=== PATIENT | male | born 1970 | race Caucasian/White ===

== ENCOUNTER 2018-03-22 00:43 | Outpatient (CLI) | payer MEDICARE, SELFPAY ==
--- NOTE | 2018-03-22 09:29 | DI.US_ITS ---
SYMPTOMS/DIAGNOSIS: LOCALIZED SWELLING, MASS/LUMP, R22.9 SOFT TISSUE ULTRASOUND LEFT AXILLA: Ultrasound was performed to evaluate questionable palpable abnormality of the left axilla. The palpable abnormality appears to correspond with a poorly defined moderately echogenic proximally 7 mm in diameter homogeneous mass with no increased vascular flow on doppler evaluation. The findings as described may represent a lipoma. The patient reportedly has a history of melanoma and considering this history the possibility of metastatic lesion could not be absolutely excluded, although unlikely. Additional evaluation with CT or MRI of this area recommended to exclude neoplastic disease.
== END 2018-03-22 01:03 ==
PROVIDERS: PCP Emergency Medicine; Visit Provider Emergency Medicine
DX: R22.9 Localized swelling, mass and lump, unspecified (principal); Z85.820 Personal history of malignant melanoma of skin
CPT/HCPCS: 76642

== ENCOUNTER → 2018-03-26 01:38 | Outpatient (CLI) | payer MEDICARE, SELFPAY ==
--- NOTE | 2018-03-26 10:52 | DI.CT_ITS ---
SYMPTOMS/DIAGNOSIS: MASS OF LT AXILLA, R22.32 CT OF THE LEFT UPPER EXTREMITY: CT scan of the left axillary region was performed. A marker was placed on the area palpable concern. Comparison is made with ultrasound from 03/22/18. No solid mass is identified in the area of palpable abnormality. Only fat density soft tissue is present. This appears to correspond to the sonographic findings and suggests that the palpable lesion is a small lipoma. The visualized muscles are unremarkable. They are normal in size. No fatty atrophy is seen. The bones are normally mineralized. No suspicious lytic or sclerotic lesions, fracture or dislocation is seen. There are small benign appearing lymph nodes seen in the axillary region. The visualized lung mesa are clear. IMPRESSION: 1. No evidence of a suspicious soft tissue mass to correspond to the palpable abnormality. 2. In the area of palpable concern normal fat density material is seen. This suggests that the small palpable lesion represents a small lipoma.
== END ==
PROVIDERS: PCP Emergency Medicine; Visit Provider Emergency Medicine
DX: R22.32 Localized swelling, mass and lump, left upper limb (principal); D17.39 Benign lipomatous neoplasm of skin and subcutaneous tissue of other sites
CPT/HCPCS: 73200

== ENCOUNTER 2018-10-27 08:04 | Outpatient (CLI) | payer MEDICARE, SELFPAY ==
[2018-10-27 08:54] LABS: HCT 40.8 % (40.0-50.0); Mean Corp. HGB Concentration 34.3 g/dL (32.0-36.0); Mean Corpuscular Hemoglobin 30.8 pg (27.0-33.0); Mean Corpuscular Volume 89.7 fL (80-95); Mean Platelet Volume 9.7 fL (8.0-11.0); Platelet Count 177 x1000/uL (130-400); RBC 4.55 m/cumm (4.50-6.00); RBC Distribution Width 13.1 % (11.8-14.1); White Blood Cell Count 5.75 k/cumm (4.4-10.8)
[2018-10-27 08:56] LABS: Hemoglobin A1C 5.5 % (4.5-6.2)
[2018-10-27 09:14] LABS: Bilirubin Negative (Negative); Blood Trace-intact (Negative); Clarity Clear; Glucose Negative (Negative); Ketones Negative (Negative); Leukocyte Esterase Negative (Negative); Nitrite Negative (Negative); Specific Gravity 1.015 (1.005-1.025); Urobilinogen 0.2 EU/dL (Up TO 0.2)
[2018-10-27 09:15] LABS: PROTEIN 32.2 mg/dL
[2018-10-27 09:18] LABS: COMMENT (LAB VIEW ONLY) 50.32 mg/dL; Prot/Crea Ur Ratio 0.63
[2018-10-27 09:49] LABS: ALT 51 U/L (12-78); AST 30 U/L (15-37); Albumin 3.5 g/dL (3.4-5.0); Alkaline Phosphatase 60 U/L (46-116); Amylase 64 U/L (25-115); Anion Gap 9.1 mmol/L (3-11); BUN 14 mg/dL (7-18); Bilirubin, Total 0.3 mg/dL (0.2-1.0); CO2 26.9 mmol/L (21.0-32.0); CREATININE 0.91 mg/dL (0.70-1.30); Calcium 8.7 mg/dL (8.5-10.1); Chloride 99 mmol/L (98-107); Glucose 87 mg/dL (70-100); Lipase 158 U/L (73-393); Magnesium 1.6 mg/dL (1.8-2.4); PHOSPHORUS 4.1 mg/dL (2.6-4.7); Potassium 4.3 mmol/L (3.5-5.1); Sodium 135 mmol/L (136-145); Total Protein 6.9 g/dL (6.4-8.2)
[2018-10-27 09:51] LABS: Cholesterol 182 mg/dL (50-200)
[2018-10-27 09:56] LABS: Bacteria Rare HPF (Negative); C & S Indicated? No; Casts Negative LPF (Negative); Crystals Negative HPF (Negative); Epithelial Cells Rare HPF (Negative); Mucus Negative (Negative); RBC 0-2 (0-2); WBC 0-2 HPF (0-5)
[2018-10-28 13:05] LABS: Tacrolimus 8.8 ng/ml
== END 2018-10-27 08:24 ==
PROVIDERS: PCP Emergency Medicine; Visit Provider Internal Medicine Nephrology
DX: Z94.83 Pancreas transplant status (principal); Z79.899 Other long term (current) drug therapy
CPT/HCPCS: 36415; 80053; 80197; 83690; 85027; 81003; 81015; 82150; 82465; 82565; 83036; 83735; 84100; 84156; 84550

== ENCOUNTER 2019-02-17 07:33 | Outpatient (CLI) | payer MEDICARE, SELFPAY ==
[2019-02-17 08:26] LABS: Bilirubin Negative (Negative); Blood Trace-intact (Negative); Clarity Clear (Clear); Glucose Negative (Negative); Ketones Negative (Negative); Leukocyte Esterase Negative (Negative); Nitrite Negative (Negative); Urobilinogen 0.2 EU/dL (Up TO 0.2); pH 5.5 (5-8)
[2019-02-17 08:27] LABS: HGB 13.5 g/dL (13.5-17.5); Mean Corp. HGB Concentration 33.8 g/dL (32.0-36.0); Mean Platelet Volume 9.9 fL (8.0-11.0); Platelet Count 193 x1000/uL (130-400); RBC 4.35 m/cumm (4.50-6.00); RBC Distribution Width 13.2 % (11.8-14.1); White Blood Cell Count 5.07 k/cumm (4.4-10.8)
[2019-02-17 08:45] LABS: Bacteria Negative HPF (Negative); C & S Indicated? No; Casts Negative LPF (Negative); Crystals Negative HPF (Negative); Epithelial Cells Negative HPF (Negative); Mucus Negative (Negative); RBC 0-2 (0-2); WBC 0-2 HPF (0-5)
[2019-02-17 08:46] LABS: Hemoglobin A1C 5.2 % (4.5-6.2)
[2019-02-17 10:18] LABS: ALT 36 U/L (16-63); AST 26 U/L (15-37); Albumin 3.9 g/dL (3.4-5.0); Alkaline Phosphatase 55 U/L (46-116); Amylase 59 U/L (25-115); Anion Gap 13.1 mmol/L (3-11); BUN 17 mg/dL (7-18); Bilirubin, Total 0.4 mg/dL (0.2-1.0); CO2 23.9 mmol/L (21.0-32.0); Calcium 8.6 mg/dL (8.5-10.1); Chloride 101 mmol/L (98-107); Glucose 81 mg/dL (70-100); Lipase 123 U/L (73-393); Magnesium 1.6 mg/dL (1.8-2.4); PHOSPHORUS 3.5 mg/dL (2.6-4.7); Potassium 4.5 mmol/L (3.5-5.1); Sodium 138 mmol/L (136-145); Total Protein 7.1 g/dL (6.4-8.2); Uric Acid 6.3 mg/dL (3.5-7.2)
[2019-02-17 10:32] LABS: COMMENT (LAB VIEW ONLY) 59.83 mg/dL; PROTEIN 15.7 mg/dL; Prot/Crea Ur Ratio 0.26
[2019-02-17 10:36] LABS: Cholesterol 181 mg/dL (50-200)
[2019-02-18 13:58] LABS: Tacrolimus 10.2 ng/ml
== END 2019-02-17 07:53 ==
PROVIDERS: PCP Emergency Medicine; Visit Provider Internal Medicine Nephrology
DX: Z79.899 Other long term (current) drug therapy (principal); Z94.83 Pancreas transplant status
CPT/HCPCS: 36415; 80053; 83690; 85027; 80197; 81003; 81015; 82150; 82465; 82565; 83036; 83735; 84100; 84156; 84550

== ENCOUNTER 2019-06-27 23:03 | Emergency (ER) | payer MEDICARE, SELFPAY ==
[2019-06-27 23:06] VITALS: BP 164/84; PULSE 83; RESP 20; TEMP 36.1; O2SAT 97
--- NOTE | 2019-06-27 23:08 | W.ED.GENAD ---
Discharge Plan Disposition Patient Disposition: HOME Condition: Stable Discharge Details Chief Complaint: RespSymp Clinical Impression: Sinusitis Primary Care Provider: Judson Carr ED Provider: Zachary Marshall [place] Meds and New Rx's Prescriptions: New amoxicillin-pot clavulanate [Augmentin] 875-125 mg tablet 1 tab PO BID Qty: 20 RF: 0 Continued nitroglycerin 0.4 MG tablet, sublingual 0.4 mg Sublingual PRN Qty: 25 RF: 4 atorvastatin 80 MG tablet 80 mg PO DAILY RF: 0 clonazepam [Klonopin] 0.5 MG tablet 0.5 mg PO TID Qty: 120 RF: 3 nicotine (polacrilex) [Nicorette] 2 MG gum 2 mg PO Q2H PRN Qty: 100 RF: 3 escitalopram oxalate 20 mg tablet 10 - 20 mg PO DAILY Qty: 90 RF: 3 fludrocortisone 0.1 MG tablet 0.1 mg PO DAILY Qty: 90 RF: 4 metoprolol tartrate 25 MG tablet 50 mg PO BID RF: 0 aspirin [Aspir-81] 81 MG tablet,delayed release (DR/EC) 81 mg PO DAILY RF: 0 levothyroxine [Synthroid] 50 MCG tablet 50 mcg PO DAILY RF: 0 mycophenolate mofetil [CellCept] 250 MG capsule 750 mg PO BID RF: 0 diltiazem HCl [Cardizem] 120 MG tablet 120 mg PO DAILY RF: 0 docusate sodium [Colace] 100 MG capsule 100 mg PO PRN PRNRF: 0 tacrolimus [Prograf] 1 MG capsule 1 tab PO HS RF: 0 tacrolimus [Prograf] 1 MG capsule 2 mg PO DAILY AM RF: 0 hydrocortisone 20 MG tablet 20 mg PO DIRECTED RF: 0 metoclopramide HCl 10 MG tablet 10 mg PO BID RF: 0 No Action doxycycline hyclate 100 mg tablet 200 mg PO ONCE Qty: 2 RF: 0 Discharge Instructions Instructions: Sinusitis (ED) Additional Instructions: follow up with your primary care provider if not better within 1 week if you feel more ill, have high fevers or difficulty breathing return to the emergency department for evaluation Medical Decision Making 49 yo male with hx of DM s/p pancreas transplant comes in with 2 weeks of sinus pain and pressure, rhinorrhea, sore throat and cough. Denies fevers, chills, chest pain, abd pain, rashes, recent travel. He arrives in no distress speaking in full sentences, has clear rhinorrhea on exam, normal tm's and ext aud canals, normal oropharynx with midline uvula and no pain over hyoid or restricted neck movements. No vision changes. Has eomi withotu pain. Does have pain with percussion over maxillary sinuses. SEems consistent with sinusitis and given over 10 days of symptoms feel abx are indicated. Will start him on these, advised f/u with pcp and return precautions given Differential Diagnosis Differential Diagnosis: sinusitis, pharyngitis, uri HPI General Mode of arrival: ambulatory. Date/Time Provider Initiated Documentation: 06/27/19 23:08. Limitations to Documentation: no limitations. Information obtained by: patient. History of Present Illness 49 year old M presents to the emergency department with the chief complaint of sinus pressure, described as moderate, and is localized to the face. Patient reports no radiation. Patient started experiencing this day(s) (14) and it has been constant. No relieving factors improve symptom(s), No exacerbating factors reported . Patient notes no other symptoms.. Patient did receive the following treatments prior to arrival, none Related Data Home Medications Medication Instructions Recorded Confirmed fludrocortisone 0.1 mg PO DAILY #90 10/13/12 03/16/18 metoprolol tartrate 50 mg PO BID 10/13/12 03/16/18 nitroglycerin 0.4 mg SUBLINGUAL PRN #25 01/24/13 03/16/18 aspirin [Aspir-81] 81 mg PO DAILY 05/12/13 03/16/18 diltiazem HCl [Cardizem] 120 mg PO DAILY 05/12/13 03/16/18 docusate sodium [Colace] 100 mg PO PRN PRN 05/12/13 03/16/18 levothyroxine [Synthroid] 50 mcg PO DAILY 05/12/13 03/16/18 mycophenolate mofetil [CellCept] 750 mg PO BID 05/12/13 03/16/18 tacrolimus [Prograf] 1 tab PO HS 05/12/13 03/16/18 tacrolimus [Prograf] 2 mg PO DAILY AM 05/12/13 03/16/18 hydrocortisone 20 mg PO DIRECTED 07/05/14 03/16/18 atorvastatin 80 mg PO DAILY tab-cap 09/26/14 03/16/18 clonazepam [Klonopin] 0.5 mg PO TID #120 tab-cap 12/13/14 03/16/18 nicotine (polacrilex) [Nicorette] 2 mg PO Q2H PRN #100 piece of gum 07/15/16 03/16/18 metoclopramide HCl 10 mg PO BID 10/28/17 03/16/18 doxycycline hyclate 100 mg tablet 200 mg PO ONCE #2 tab 05/04/18 escitalopram oxalate 20 mg tablet 10 - 20 mg PO DAILY #90 tab-cap 08/03/18 amoxicillin-pot clavulanate 1 tab PO BID #20 tab 06/27/19 [Augmentin] Previous Rx's Medication Instructions Recorded doxycycline hyclate 100 mg tablet 200 mg PO ONCE #2 tab 05/04/18 escitalopram oxalate 20 mg tablet 10 - 20 mg PO DAILY #90 tab-cap 08/03/18 amoxicillin-pot clavulanate 1 tab PO BID #20 tab 06/27/19 [Augmentin] Allergies Allergy/AdvReac Type Severity Reaction Status Date / Time No Known Allergies Allergy Unverified 06/27/19 23:11 Review of Systems All systems reviewed & are unremarkable except as noted in HPI and below Constitutional Constitutional: Denies chills, Denies fever(s) and Denies weakness ENT Ears, Nose, Mouth, and Throat: Denies change in voice Cardiovascular Cardiovascular: Denies chest pain and Denies dyspnea Respiratory Respiratory: Denies dyspnea Gastrointestinal Gastrointestinal: Denies abdominal pain, Denies nausea and Denies vomiting Genitourinary Genitourinary: Denies dysuria Musculoskeletal Musculoskeletal: Denies joint swelling Integumentary/Breasts Skin/Breast: Denies rash Neurologic Neurologic: Denies weakness [facility] Medical History (Updated 04/04/19 @ 10:28 by Fer Long) [place]'s disease (Acute 08/23/13) Pancreatic transplant 2013 Atherosclerosis of [place] coronary artery (Acute) Chest pain (Acute) 12/2010; MPI NEGATIVE Coronary atherosclerosis of [place] coronary vessel (Acute) Depressive disorder (Acute) Derangement of medial meniscus of left knee (Acute 04/10/17) Essential hypertension (Acute 03/22/13) Gastroesophageal reflux disease (Acute) hematemesis History of tobacco use (Acute) Internal derangement of left knee (Acute 03/16/17) Myocardial infarction acute (Acute 05/21/03) RCA stent placed Obstructive sleep apnea on CPAP (Acute 04/12/14) Obstructive sleep apnea syndrome (Acute) CPAP Peripheral neuralgia (Acute) Surgical History (Updated 04/04/19 @ 10:28 by Fer Long) Colonoscopy - MAC 08/2008; NEG 07/07/14; NEG Coronary Stent 2003;RCA SHOULDER SURGERY (~06/2009) LEFT Vasectomy Social History Smoking/Tobacco Use Status: Former Tobacco Use Alcohol Intake: current Alcohol Intake frequency: a few times a week Drug use: Never Substance use type: does not use Do you feel safe at home: Yes Do you feel safe in your relationship?: Yes Exam Const General: no acute distress Orientation: alert HENMT Head: normal to inspection Ears: external ears normal General nose exam: external nose normal Mouth: moist mucous membranes Eyes General: appearance normal, both eyes and all related structures Neck Neck: normal visual inspection Resp Effort & Inspection: normal respiratory effort and able to speak in complete sentences Cardio Rate: regular rate Skin General skin exam: no rashes or lesions noted Neuro General: alert and oriented x3 Extrem General: normal to inspection Psych Mental Status: mental status grossly normal
[2019-06-27] MEDS: Amoxicillin 875/Clav. 125 TAB PO (23:15)
[2019-06-27 23:20] VITALS: BP 164/84; PULSE 83; RESP 20; TEMP 36.1; O2SAT 97
== END 2019-06-27 23:20 | disposition home or self-care (01) ==
PROVIDERS: Emergency Provider Emergency Medicine; PCP Emergency Medicine
DX: J01.00 Acute maxillary sinusitis, unspecified (principal); J02.9 Acute pharyngitis, unspecified; H92.03 Otalgia, bilateral; E11.9 Type 2 diabetes mellitus without complications
CPT/HCPCS: 99283

== ENCOUNTER 2019-07-12 07:00 | Outpatient (CLI) | payer MEDICARE, SELFPAY ==
[2019-07-12 13:34] LABS: Abs Immature Grans 0.02 k/cumm (0.0-0.09); Absolute Basophil Count 0.02 k/cumm (0.0-0.2); Absolute Eosinophil Count 0.32 k/cumm (0.0-0.7); Absolute Lymphocyte Count 1.01 k/cumm (1.2-3.4); Absolute Monocyte Count 0.64 k/cumm (0.11-0.7); Absolute Neutrophil Count 4.37 k/cumm (1.2-6.7); Basophils % 0.3; HGB 12.7 g/dL (13.5-17.5); Immature Grans % 0.3 %; Lymphocytes % 15.8; Mean Corp. HGB Concentration 35.3 g/dL (32.0-36.0); Mean Corpuscular Hemoglobin 31.4 pg (27.0-33.0); Mean Corpuscular Volume 88.9 fL (80-95); Mean Platelet Volume 9.5 fL (8.0-11.0); Neutrophils % 68.6; Platelet Count 253 x1000/uL (130-400); RBC 4.05 m/cumm (4.50-6.00); RBC Distribution Width 11.6 % (11.8-14.1); White Blood Cell Count 6.38 k/cumm (4.4-10.8)
[2019-07-12 14:12] LABS: Hemoglobin A1C 5.8 % (3.8-5.6)
[2019-07-12 14:18] LABS: ESR 17 mm/hr (1-20)
[2019-07-12 14:29] LABS: ALT 27 U/L (16-63); AST 25 U/L (15-37); Albumin 4.5 g/dL (3.4-5.0); Alkaline Phosphatase 59 U/L (46-116); Amylase 78 U/L (25-115); BUN 31 mg/dL (7-18); Bilirubin, Total 0.6 mg/dL (0.2-1.0); CO2 22.9 mmol/L (21.0-32.0); CREATININE 1.12 mg/dL (0.70-1.30); Calcium 9.4 mg/dL (8.5-10.1); Chloride 98 mmol/L (98-107); Glucose 84 mg/dL (74-106); Lipase 210 U/L (73-393); Total Protein 7.9 g/dL (6.4-8.2)
[2019-07-12 14:32] LABS: Anion Gap 7.1 mmol/L (3-11); Potassium 7.3 mmol/L (3.5-5.1); Sodium 128 mmol/L (136-145)
== END 2019-07-12 07:20 ==
PROVIDERS: PCP Emergency Medicine; Visit Provider Emergency Medicine
DX: R53.83 Other fatigue (principal); E11.9 Type 2 diabetes mellitus without complications; R19.7 Diarrhea, unspecified; R10.9 Unspecified abdominal pain
CPT/HCPCS: 36415; 80053; 82533; 83690; 85652; 82150; 83036; 85025; 86140

== ENCOUNTER 2019-07-12 15:52 | Emergency (ER) | payer MEDICARE, SELFPAY ==
[2019-07-12 15:59] VITALS: BP 134/84; PULSE 71; RESP 16; TEMP 36.4; O2SAT 100
[2019-07-12] MEDS: Normal Saline 1,000 ML 1000 ML IV (16:21)
[2019-07-12] MEDS: Normal Saline Flush 10 ML SYR IVP (16:21)
[2019-07-12 16:23] LABS: Lactate 0.6 mmol/L (0.6-1.4)
[2019-07-12 16:28] LABS: Abs Immature Grans 0.02 k/cumm (0.0-0.09); Absolute Basophil Count 0.02 k/cumm (0.0-0.2); Absolute Eosinophil Count 0.37 k/cumm (0.0-0.7); Absolute Lymphocyte Count 1.19 k/cumm (1.2-3.4); Absolute Monocyte Count 0.93 k/cumm (0.11-0.7); Absolute Neutrophil Count 4.04 k/cumm (1.2-6.7); Basophils % 0.3; Eosinophils % 5.6; HCT 34.9 % (40.0-50.0); HGB 12.2 g/dL (13.5-17.5); Immature Grans % 0.3 %; Lymphocytes % 18.1; Mean Corpuscular Hemoglobin 31.1 pg (27.0-33.0); Mean Platelet Volume 9.1 fL (8.0-11.0); Monocytes % 14.2; Neutrophils % 61.5; Platelet Count 233 x1000/uL (130-400); RBC 3.92 m/cumm (4.50-6.00); RBC Distribution Width 11.6 % (11.8-14.1); White Blood Cell Count 6.57 k/cumm (4.4-10.8)
--- NOTE | 2019-07-12 16:31 | W.ED.GENAD ---
Discharge Plan Disposition Patient Disposition: HOME Condition: Improving Discharge Details Chief Complaint: GenMedical Clinical Impression: Hyperkalemia Primary Care Provider: Judson Carr ED Provider: Bety Durant Home Meds and New Rx's Prescriptions: Continued lisinopril 40 mg tablet 40 mg PO DAILY RF: 0 nitroglycerin 0.4 MG tablet, sublingual 0.4 mg Sublingual PRN Qty: 25 RF: 4 atorvastatin 80 MG tablet 80 mg PO DAILY RF: 0 clonazepam [Klonopin] 0.5 MG tablet 0.5 mg PO TID Qty: 120 RF: 3 nicotine (polacrilex) [Nicorette] 2 MG gum 2 mg PO Q2H PRN Qty: 100 RF: 3 escitalopram oxalate 20 mg tablet 10 - 20 mg PO DAILY Qty: 90 RF: 3 fludrocortisone 0.1 MG tablet 0.1 mg PO DAILY Qty: 90 RF: 4 metoprolol tartrate 25 MG tablet 50 mg PO BID RF: 0 aspirin [Aspir-81] 81 MG tablet,delayed release (DR/EC) 81 mg PO DAILY RF: 0 levothyroxine [Synthroid] 50 MCG tablet 50 mcg PO DAILY RF: 0 mycophenolate mofetil [CellCept] 250 MG capsule 750 mg PO BID RF: 0 diltiazem HCl [Cardizem] 120 MG tablet 120 mg PO DAILY RF: 0 docusate sodium [Colace] 100 MG capsule 100 mg PO PRN PRNRF: 0 tacrolimus [Prograf] 1 MG capsule 1 tab PO HS RF: 0 tacrolimus [Prograf] 1 MG capsule 2 mg PO DAILY AM RF: 0 hydrocortisone 20 MG tablet 20 mg PO DIRECTED RF: 0 metoclopramide HCl 10 MG tablet 10 mg PO BID RF: 0 Discharge Instructions Instructions: Hyperkalemia (ED) Additional Instructions: Continue to encourage water intake. Before taking her lisinopril in the morning, please touch base with primary care cardiology to discuss your lisinopril dosing. I am concerned that your elevated potassium may be associated with the increased dosing and lisinopril. If you develop chest pain, shortness of breath, palpitations, increased weakness or other new/worsening symptoms please seek care urgently once again. Otherwise, please follow-up with your primary care this week and keep your upcoming appointment with your transplant surgeon. Referrals: Judson Carr, DO [Primary Care Provider] - Discharge Data Discharge Date/Time-TO BE ENTERED AT DEPARTURE: 07/12/19 18:50 Medical Decision Making Patient is a 49-year-old male with history of [place]'s disease. Patient status post pancreatic transplant, reports transplant date approximate 7 years ago. States he has been doing well since that time. However, he is noticed increased fatigue and muscle degeneration, weakness and achiness x2 to 3 months. States that he is noticed an increase in his appetite. States he has been sleeping well. Was recently on Augmentin for strep throat. Did have lisinopril increased and may from 30-40. Otherwise, no recent medication changes. He is scheduled to see his transplant surgeon on Thursday. States that he has had some nausea over recent weeks and vomited x1. Patient does drink approximately 2 beers per day and continues to smoke cigarettes. Patient was sent here by his primary care after baseline labs were ordered and patient's potassium was noted to be 7.3. On exam, patient is resting comfortably. Vitals are within normal limits. He has no acute abnormality noted on exam. EKG was reviewed by Dr. Davidson. Patient is in a normal sinus rhythm with a rate of 68. No acute ischemic changes are noted. In particular, no evidence to suggest hyperkalemia. Repeat labs which were reassuring. Patient is mildly anemic with a hemoglobin of 12.2. Potassium is 5.4. Unclear if the previous 7.3 was a lab error earlier this is only been a few hours and patient has not had any intervention. I did specifically question of the patient had been taking the insulin as he had previous reports has not been using insulin since his pancreatic transplant 7 years ago. BUN is still elevated at 31. Patient has been receiving fluids since being here. Troponin is within normal limits. TSH is within normal limits. I did add on a Lyme and tick panel. On further questioning, patient's increase in his lisinopril was in April, right around the time patient began having his fatigue and muscle discomfort. I am questioning if this increase in dosing may be driving his hyperkalemia. He typically takes his lisinopril in the morning. Advised that tomorrow morning he contact primary care or cardiology to discuss changing his dose. I did attempt to reach out to his primary care but was unable to contact them secondary to the time of day. Patient was given strict return precautions. Bryce and Lyme panel are pending. We will call with any positive results. Just prior to patient departing the department, his PCP called back and agrees with the patient cutting back on his Lisinopril to what his previous dosing had been. He iwll f/u closely with PCP. All of the patients quesitons and concerns were addressed, they are in agreement with this plan. HPI General Mode of arrival: ambulatory. Date/Time Provider Initiated Documentation: 07/12/19 15:53. Limitations to Documentation: no limitations. Information obtained by: patient, family () and RN notes reviewed. History of Present Illness 49 year old M presents to the emergency department with the chief complaint of hyperkalemia, fatigue, nausea, Patient started experiencing this month(s) (3) and it has been constant. No relieving factors improve symptom(s), No exacerbating factors reported . Patient notes malaise, nausea/vomiting and weakness (generalized fatigue and weakness); denies confusion, chest pain, cough, fever/chills, headaches, loss of appetite (increased appetite), rash and shortness of breath. Patient did receive the following treatments prior to arrival, none Related Data Home Medications Medication Instructions Recorded Confirmed fludrocortisone 0.1 mg PO DAILY #90 10/13/12 07/12/19 metoprolol tartrate 50 mg PO BID 10/13/12 06/27/19 nitroglycerin 0.4 mg SUBLINGUAL PRN #25 01/24/13 07/12/19 aspirin [Aspir-81] 81 mg PO DAILY 05/12/13 07/12/19 diltiazem HCl [Cardizem] 120 mg PO DAILY 05/12/13 07/12/19 docusate sodium [Colace] 100 mg PO PRN PRN 05/12/13 07/12/19 levothyroxine [Synthroid] 50 mcg PO DAILY 05/12/13 07/12/19 mycophenolate mofetil [CellCept] 750 mg PO BID 05/12/13 07/12/19 tacrolimus [Prograf] 1 tab PO HS 05/12/13 07/12/19 tacrolimus [Prograf] 2 mg PO DAILY AM 05/12/13 07/12/19 hydrocortisone 20 mg PO DIRECTED 07/05/14 07/12/19 atorvastatin 80 mg PO DAILY tab-cap 09/26/14 07/12/19 clonazepam [Klonopin] 0.5 mg PO TID #120 tab-cap 12/13/14 07/12/19 nicotine (polacrilex) [Nicorette] 2 mg PO Q2H PRN #100 piece of gum 07/15/16 07/12/19 metoclopramide HCl 10 mg PO BID 10/28/17 07/12/19 escitalopram oxalate 20 mg tablet 10 - 20 mg PO DAILY #90 tab-cap 08/03/18 07/12/19 lisinopril 40 mg tablet 40 mg PO DAILY 07/12/19 07/12/19 Previous Rx's Medication Instructions Recorded escitalopram oxalate 20 mg tablet 10 - 20 mg PO DAILY #90 tab-cap 08/03/18 Allergies Allergy/AdvReac Type Severity Reaction Status Date / Time No Known Allergies Allergy Verified 07/12/19 16:03 General Stated Complaint: GenMedical JIAN: 3 Review of Systems Constitutional Constitutional: Reports as per HPI, Denies chills, Reports fatigue, Denies fever(s), Denies headache(s), Denies lethargy, Reports malaise, Denies poor appetite and Reports weakness (generalized) Eyes Eyes: Denies change in vision ENT Ears, Nose, Mouth, and Throat: Denies dizziness and Denies headache(s) Cardiovascular Cardiovascular: Reports as per HPI, Denies dyspnea and Denies dyspnea on exertion Respiratory Respiratory: Reports as per HPI, Denies chest congestion, Denies cough, Denies pain on inspiration, Denies pain with cough, Denies dyspnea, Denies dyspnea on exertion and Denies wheezing Gastrointestinal Gastrointestinal: Reports as per HPI, Denies abdominal pain, Denies diarrhea, Reports nausea and Denies vomiting Genitourinary Genitourinary: Denies system reviewed and no additional complaints, except as docu (denies change in urinary habits) Musculoskeletal Musculoskeletal: Reports as per HPI and Denies back pain Integumentary/Breasts Skin/Breast: Reports as per HPI and Denies rash Neurologic Neurologic: Reports as per HPI, Denies dizziness, Denies headache(s) and Reports weakness (generalized) Endocrine Endocrine: Reports fatigue Allergic/Immunologic Allergic/Immunologic: Denies wheezing [facility] Medical History Ch[place]'s disease (Acute 08/23/13) Pancreatic transplant 2014 Atherosclerosis of [place] coronary artery (Acute) Chest pain (Acute) 12/2010; MPI NEGATIVE Coronary atherosclerosis of [place] coronary vessel (Acute) Depressive disorder (Acute) Derangement of medial meniscus of left knee (Acute 04/10/17) Essential hypertension (Acute 03/22/13) Gastroesophageal reflux disease (Acute) hematemesis History of tobacco use (Acute) Internal derangement of left knee (Acute 03/16/17) Myocardial infarction acute (Acute 05/21/03) RCA stent placed Obstructive sleep apnea on CPAP (Acute 04/12/14) Obstructive sleep apnea syndrome (Acute) CPAP Peripheral neuralgia (Acute) Social History Smoking/Tobacco Use Status: Current every day Tobacco Type: cigarettes Alcohol Intake: current Alcohol Intake frequency: 3 or more drinks per day Alcohol type: beer Drug use: Never Substance use type: does not use Do you feel safe at home: Yes Do you feel safe in your relationship?: Yes Exam Const General: cooperative, healthy appearing, comfortable, no acute distress and well developed Nutritional Appearance: well nourished and overweight Orientation: alert, awake and oriented x3 HENMT Head: normal to inspection Ears: hearing grossly normal bilaterally Mouth: moist mucous membranes Chest Chest: normal inspection of the chest, normal palpation of entire chest wall and no crepitus Resp Effort & Inspection: normal respiratory effort, able to speak in complete sentences and no respiratory distress Auscultation: clear to auscultation bilaterally, no rales, no rhonchi and no wheezes Cardio Rate: regular rate Rhythm: regular rhythm Heart Sounds: S1 normal and S2 normal GI Inspection: normal to inspection, no edema and non-distended Palpation: soft, no hepatosplenomegaly, not firm, no guarding, not rigid and nontender Auscultation: normal bowel sounds Back/Spine/Pelvis Back: no CVA tenderness Thoracic/Lumbar Spine: thoracic and lumbar spine normal to inspection Skin General skin exam: no rashes or lesions noted Trauma: no lacerations or abrasions Neuro General: alert, awake and oriented x3 Cognition: normal cognition Speech: speech normal Gait: normal gait DTR's: Rt Biceps: 2+, Lt Biceps: 2+, Rt Patellar: 2+ and Lt Patellar: 2+ Extrem General: normal to inspection, normal capillary refill, no pedal edema, no calf tenderness and normal gait Psych Appearance: grossly normal and well kempt Mental Status: mental status grossly normal Speech and Movement: speech and movement normal Course Vital Signs Vital signs: Vital Signs Temperature 36.4 C L 07/12/19 15:59 Pulse 71 07/12/19 15:59 Respiratory Rate 16 07/12/19 15:59 Blood Pressure 134/84 07/12/19 15:59 Pulse Oximetry 100 07/12/19 15:59 Temperature 36.4 C L 07/12/19 15:59 Temperature Source Skin 07/12/19 15:59 Pulse 71 07/12/19 15:59 Respiratory Rate 16 07/12/19 15:59 Blood Pressure 134/84 07/12/19 15:59 Blood Pressure Position Sitting 07/12/19 15:59 Pulse Oximetry 100 07/12/19 15:59 Oxygen Delivery Method Room Air 07/12/19 15:59 Oxygen Flow Rate 0 07/12/19 15:59 Pain Level 1 07/12/19 15:59 Lab/Test Results Lab/Test Results: Laboratory Tests Range/Units 07/12/19 07/12/19 16:15 16:15 WBC (4.4-10.8) k/cumm 6.57 RBC (4.50-6.00) m/cumm 3.92 L Hgb (13.5-17.5) g/dL 12.2 L Hct (40.0-50.0) % 34.9 L MCV (80-95) fL 89.0 MCH (27.0-33.0) pg 31.1 MCHC (32.0-36.0) g/dL 35.0 RDW (11.8-14.1) % 11.6 L Plt Count (130-400) x1000/uL 233 MPV (8.0-11.0) fL 9.1 Immature Gran % % 0.3 Neutrophils % 61.5 Lymphocytes % 18.1 Monocytes % 14.2 Eosinophils % 5.6 Basophils % 0.3 Absolute Neutrophils (1.2-6.7) k/cumm 4.04 Absolute Lymphocytes (1.2-3.4) k/cumm 1.19 L Absolute Monocytes (0.11-0.7) k/cumm 0.93 H Absolute Eosinophils (0.0-0.7) k/cumm 0.37 Absolute Basophils (0.0-0.2) k/cumm 0.02 Lactate (0.6-1.4) mmol/L 0.6
[2019-07-12 16:44] LABS: ALT 26 U/L (16-63); AST 20 U/L (15-37); Alkaline Phosphatase 54 U/L (46-116); Anion Gap 8.6 mmol/L (3-11); BUN 31 mg/dL (7-18); Bilirubin, Total 0.4 mg/dL (0.2-1.0); CO2 24.4 mmol/L (21.0-32.0); CREATININE 1.18 mg/dL (0.70-1.30); Calcium 8.8 mg/dL (8.5-10.1); Chloride 98 mmol/L (98-107); Glucose 97 mg/dL (74-106); Magnesium 1.5 mg/dL (1.8-2.4); Potassium 5.4 mmol/L (3.5-5.1); Sodium 131 mmol/L (136-145); Total Protein 7.5 g/dL (6.4-8.2)
[2019-07-12 16:55] LABS: Troponin I < 0.05 ng/Ml (<0.06)
[2019-07-12 17:30] VITALS: BP 134/62; PULSE 68; RESP 18; O2SAT 98
[2019-07-12 17:37] LABS: TSH (W/Ref FT4) 3.58 uIU/mL (0.36-3.74)
[2019-07-12 18:37] VITALS: BP 129/76; PULSE 64; RESP 16; TEMP 36.4; O2SAT 100
[2019-07-14 13:16] LABS: Lyme Ab w Rflx to Lyme Confirm Negative (Negative)
[2019-07-15 16:13] LABS: Anaplasma phagocytophilum Negative (Negative); B. miyamotoi PCR Negative (Negative); Babesia divergens/MO-1 Negative (Negative); Babesia duncani Negative (Negative); Babesia microti Negative (Negative); Ehrlichia chaffeensis Negative (Negative); Ehrlichia ewingii/canis Negative (Negative); Ehrlichia muris eauclairensis Negative (Negative)
== END 2019-07-12 18:50 | disposition home or self-care (01) ==
PROVIDERS: Emergency Provider Physician Assistant; PCP Emergency Medicine
DX: E87.5 Hyperkalemia (principal); R11.0 Nausea; E27.1 Primary adrenocortical insufficiency; Z94.83 Pancreas transplant status; I10 Essential (primary) hypertension
CPT/HCPCS: 36415; 80053; 82533; 83690; 85652; 87798; 93005; 96360; 99284; 81003; 82150; 83036; 83605; 83735; 84443; 84484; 85025; 86140; 86618; 93010; 99285; J3490

== ENCOUNTER 2019-08-01 08:06 | Outpatient (CLI) | payer MEDICARE, SELFPAY ==
[2019-08-01 08:55] LABS: HCT 34.8 % (40.0-50.0); HGB 11.5 g/dL (13.5-17.5); Mean Corpuscular Hemoglobin 30.8 pg (27.0-33.0); Mean Corpuscular Volume 93.3 fL (80-95); Mean Platelet Volume 9.5 fL (8.0-11.0); Platelet Count 201 x1000/uL (130-400); RBC 3.73 m/cumm (4.50-6.00); RBC Distribution Width 13.2 % (11.8-14.1); White Blood Cell Count 5.04 k/cumm (4.4-10.8)
[2019-08-01 09:11] LABS: Hemoglobin A1C 5.7 % (3.8-5.6)
[2019-08-01 10:13] LABS: Anion Gap 8.3 mmol/L (3-11); CO2 26.7 mmol/L (21.0-32.0); Chloride 102 mmol/L (98-107); FREE T4 0.76 ng/dL (0.76-1.46); Potassium 4.5 mmol/L (3.5-5.1); Sodium 137 mmol/L (136-145); TSH 2.44 uIU/mL (0.36-3.74)
[2019-08-01 10:51] LABS: ALT 33 U/L (16-63); AST 26 U/L (15-37); Albumin 3.6 g/dL (3.4-5.0); Alkaline Phosphatase 52 U/L (46-116); Amylase 56 U/L (25-115); Anion Gap 9.1 mmol/L (3-11); BUN 20 mg/dL (7-18); Bilirubin, Total 0.3 mg/dL (0.2-1.0); CO2 24.9 mmol/L (21.0-32.0); CREATININE 1.11 mg/dL (0.70-1.30); Calcium 8.4 mg/dL (8.5-10.1); Chloride 102 mmol/L (98-107); Glucose 115 mg/dL (74-106); Lipase 136 U/L (73-393); Magnesium 1.4 mg/dL (1.8-2.4); PHOSPHORUS 3.5 mg/dL (2.6-4.7); Potassium 4.5 mmol/L (3.5-5.1); Sodium 136 mmol/L (136-145); Total Protein 6.4 g/dL (6.4-8.2)
[2019-08-01 14:04] LABS: Cholesterol 160 mg/dL (<200)
[2019-08-02 13:17] LABS: Tacrolimus 11.6 ng/mL (See Note)
== END 2019-08-01 08:26 ==
PROVIDERS: Internal Medicine Nephrology; PCP Emergency Medicine; Visit Provider Internal Medicine Endocrinology, Diabetes & Metabolism
DX: R53.1 Weakness (principal); E03.9 Hypothyroidism, unspecified; D64.9 Anemia, unspecified; Z79.899 Other long term (current) drug therapy; Z94.83 Pancreas transplant status; Z29.8 Encounter for other specified prophylactic measures
CPT/HCPCS: 36415; 80051; 80053; 83690; 85027; 80197; 82150; 82465; 83036; 83735; 84100; 84439; 84443; 84550

== ENCOUNTER 2019-11-13 15:45 | Inpatient (IN) | payer MEDICARE, SELFPAY ==
[2019-11-13] VITALS (11 sets, daily range): BP systolic 124–152; BP diastolic 64–78; PULSE 72–84; RESP 16–18; TEMP 35.7–36.7; O2SAT 94–98
--- NOTE | 2019-11-13 16:15 | DI.RAD_ITS ---
EXAM: XR CHEST 2V PA LATERAL CLINICAL HISTORY: hiccups TECHNIQUE: 2D digital imaging was performed. COMPARISON: CR CHEST 2 VIEWS PA,LAT from 03/20/2016 FINDINGS: MEDIASTINUM: Normal. HEART: Normal. PULMONARY VASCULATURE: Normal. LUNGS: Clear. PLEURAL SPACE: No pleural effusion or pneumothorax. BONE:Normal. OTHER FINDINGS:Normal. IMPRESSION: No acute pulmonary findings. DATA REPOSITORY: RADIATION DOSE DELIVERED:
[2019-11-13 16:41] LABS: Lactate 1.4 mmol/L (0.6-1.4)
--- NOTE | 2019-11-13 16:44 | W.ED.GENAD ---
Discharge Plan Disposition Patient Disposition: [facility] INPATIENT Condition: Stable Discharge Details Chief Complaint: GenMedical Clinical Impression: Edema, peripheral, Back pain Primary Care Provider: Judson Carr ED Provider: Shazia Morrow Home Meds and New Rx's Prescriptions: No Action lisinopril 40 mg tablet 40 mg PO DAILY RF: 0 scopolamine base 1 mg over 3 days patch 3 day 1 patch TD Q3D PRN (Reason: motion sickness) Qty: 10 RF: 0 nitroglycerin 0.4 MG tablet, sublingual 0.4 mg Sublingual PRN Qty: 25 RF: 4 atorvastatin 80 MG tablet 80 mg PO DAILY RF: 0 clonazepam [Klonopin] 0.5 MG tablet 0.5 mg PO TID Qty: 120 RF: 3 nicotine (polacrilex) [Nicorette] 2 MG gum 2 mg PO Q2H PRN Qty: 100 RF: 3 escitalopram oxalate 20 mg tablet 10 - 20 mg PO DAILY Qty: 90 RF: 3 sulfamethoxazole-trimethoprim 800-160 mg tablet 1 tab PO BID Qty: 20 RF: 0 fludrocortisone 0.1 MG tablet 0.1 mg PO DAILY Qty: 90 RF: 4 metoprolol tartrate 25 MG tablet 50 mg PO BID RF: 0 aspirin [Aspir-81] 81 MG tablet,delayed release (DR/EC) 81 mg PO DAILY RF: 0 levothyroxine [Synthroid] 50 MCG tablet 50 mcg PO DAILY RF: 0 mycophenolate mofetil [CellCept] 250 MG capsule 750 mg PO BID RF: 0 diltiazem HCl [Cardizem] 120 MG tablet 120 mg PO DAILY RF: 0 docusate sodium [Colace] 100 MG capsule 100 mg PO PRN PRNRF: 0 tacrolimus [Prograf] 1 MG capsule 1 tab PO HS RF: 0 tacrolimus [Prograf] 1 MG capsule 2 mg PO DAILY AM RF: 0 hydrocortisone 20 MG tablet 20 mg PO DIRECTED RF: 0 metoclopramide HCl 10 MG tablet 10 mg PO BID RF: 0 Medical Decision Making <IONA Salvador - Last Filed: 11/13/19 22:19> This is a 49-year-old patient with a history of pancreas transplant 6 years ago for diabetes, patient presents to the emergency room for 2 weeks of fatigue, fluid retention with a weight gain of approximately 25 pounds. Patient reports in the last 2 days he has had onset of hiccups, patient reports decreased appetite in the last 2 days. Patient reports after taking his daily medications today he vomited. Patient reports noting undigested pills in his vomitus. See HPI for the remainder of pertinent details of his visit. Patient has normal vital signs. Patient is in no apparent distress. Patient's breathing is easy and unlabored. Breath sounds are clear. Patient has no notable CVA tenderness however does describe back pain for 2 weeks and indicates the area of bilateral flanks. Patient reports abdominal fullness with mild epigastric discomfort which he attributes to 2 days of hiccups. Patient denies any urinary output changes or bowel changes. Patient has obvious retention of fluid in his lower extremities with notable pitting edema proximal to the knee. Patient has no evidence of secondary cellulitis. Patient did speak with his transplant doctor who was concerned for the possibility of liver infection. Wanted to be involved early in patient's care. After initial evaluation of the patient labs were ordered and page to his transplant doctor Dr. Lane of [facility] Patient's EKG reveals sinus rhythm with a heart rate of 74. No ST elevation [place] present. QTc 428. This was reviewed with Alfie Davidson. Patient's labs reveal no significant leukocytosis. Electrolytes within normal limits with the exception of mild hyponatremia noted of 126, chloride 92. No anion gap present. Renal function preserved, mild elevation of LFTs AST noted to be 61 ALT noted to be 71. No bilirubin abnormalities. Patient's lipase is normal. BNP was ordered due to obvious fluid retention and complaints of back pain to rule out CHF as etiology. Patient has a normal BNP of 34. Patient's transplant doctor called back, we discussed case. He has a strong feeling that the patient was not discharged home. He does feel patient requires admission however he does not feel this is the result of transplant rejection or obvious infection currently. However he feels patient likely requires admission for management of possible fluid management, specifically diuresis and likely will need steroids as patient does have a history of [place]bur[place]'s disease. He did strongly recommend providing Zofran 8 mg IV and providing his daily medications p.o. for rejection which are due for evening dosing. He feels patient does not require acute admission by the transplant team but does fee he requires hospitalist admission for further management of his symptoms. He did discuss additional imaging. He does recommend CT with oral contrast. Recommend holding any IV contrast. Patient's chest x-ray returned revealing no acute findings. CT scan reveals FINDINGS: Liver: Normal. No mass. Gallbladder and bile ducts: Normal. No calcified stones. No ductal dilation. Pancreas: Fatty pancreas. Atrophy of the pancreas. Spleen: Normal. No splenomegaly. Adrenals: Normal. No mass. Kidneys and ureters: Normal. No hydronephrosis. Stomach and bowel: Wall thickening in the sigmoid colon measuring up to 10 mm, possibly related to a contraction or underlying mass. Correlate with colonoscopy if clinically relevant. Appendix: No evidence of appendicitis. Intraperitoneal space: Unremarkable. No free air. No significant fluid collection. Vasculature: Atherosclerosis. Lymph nodes: Unremarkable. No enlarged lymph nodes. Bladder: Wall thickening in the anterior bladder measuring up to 1 cm. Correlate with urinalysis to exclude malignancy or cystitis. Reproductive: Unremarkable as visualized. Bones/joints: Unremarkable. No acute fracture. Soft tissues: Left inguinal hernia containing fat, uncomplicated. IMPRESSION: Wall thickening in the sigmoid colon measuring up to 10 mm, possibly related to a contraction or underlying mass. Correlate with colonoscopy if clinically relevant. Wall thickening in the anterior bladder measuring up to 1 cm. Correlate with urinalysis to exclude malignancy or cystitis. Atrophy of the pancreas. Spoke with the hospitalist regarding admission for continued development of edema, worsening fatigue, vomiting, hiccups x2 days and decreased appetite with unclear etiology of symptoms and a highly complex patient. He feels the patient would be better served at a tertiary care center. [facility]reyra [facility] reports she can place patient on a pending admission list but recommends admission to [facility] evening. She does not feel patient requires tertiary care center at this time as patient is currently stable. Spoke again with [facility] hospitalist, Dr. Doran who will accept patient's admission. <Alfie Davidson MD - Last Filed: 11/13/19 17:36> Patient seen, examined, discussed with Ms. Morrow. I agree with her assessment and plan for laboratories, imaging, consult with patient's transplant surgeon. Please see her note regarding details of the patient's care. HPI <IONA Salvador - Last Filed: 11/13/19 22:19> General Date/Time Provider Initiated Documentation: 11/13/19 15:47. HPI Narrative: This is a 49-year-old patient presented to the emergency room for complaints of weakness for 2 weeks. Patient reports onset of right-sided back pain in the mid back. Patient reports now experiencing bilateral back pain. Patient reports when laying flat back pain is approximately 2 out of 10. Patient reports when standing back pain is approximately 6 out of 10. Patient does report replacing a water pump 5 days ago which did increase the back pain he was experiencing but denies any injury prior to onset of pain. Patient reports weakness for approximately 2 weeks. He reports a weight gain of approximately 25 pounds in the last 2 weeks. Patient reports obvious bilateral lower leg swelling which is more severe than his baseline. He does typically wear compression stockings. Patient reports mild abdominal fullness. patient is complaining of 2 days of hiccups now reporting onset of mild epigastric discomfort which he attributes to frequent hiccups. Some difficulty sleeping the last 2 days due to hiccups. Patient reports vomiting x1 today, decreased appetite x2 days. Patient denies any dysuria, urgency or frequency. Patient denies any bowel changes. Patient is moving bowels normally. Patient denies any fevers, chills or sweats. Denies any chest pain, difficulty breathing or shortness of breath or wheezing. Denies any new cough. Patient is able to lay flat which is his current position of comfort. No orthopnea described. Patient denies any dizziness. No sore throat, nasal congestion. Patient is a pancreatic transplant patient, transplant 6 years ago, followed by [facility]. Spoke with his transplant doctor who recommended he be evaluated in the emergency room for concern of potential liver infection. 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 Patient does report he increased his dose today to 20 mg this morning. Patient does report he subsequently vomited his morning medications seemed undigested. Unsure of how much of his daily medications he received today. Patient has a history of hypertension. Related Data Home Medications Medication Instructions Recorded Confirmed fludrocortisone 0.1 mg PO DAILY #90 10/13/12 11/13/19 metoprolol tartrate 50 mg PO BID 10/13/12 11/13/19 nitroglycerin 0.4 mg SUBLINGUAL PRN #25 01/24/13 11/13/19 aspirin [Aspir-81] 81 mg PO DAILY 05/12/13 11/13/19 diltiazem HCl [Cardizem] 120 mg PO DAILY 05/12/13 11/13/19 docusate sodium [Colace] 100 mg PO PRN PRN 05/12/13 11/13/19 levothyroxine [Synthroid] 50 mcg PO DAILY 05/12/13 11/13/19 mycophenolate mofetil [CellCept] 750 mg PO BID 05/12/13 11/13/19 tacrolimus [Prograf] 1 tab PO HS 05/12/13 11/13/19 tacrolimus [Prograf] 2 mg PO DAILY AM 05/12/13 11/13/19 hydrocortisone 20 mg PO DIRECTED 07/05/14 11/13/19 atorvastatin 80 mg PO DAILY tab-cap 09/26/14 11/13/19 clonazepam [Klonopin] 0.5 mg PO TID #120 tab-cap 12/13/14 11/13/19 nicotine (polacrilex) [Nicorette] 2 mg PO Q2H PRN #100 piece of gum 07/15/16 11/13/19 metoclopramide HCl 10 mg PO BID 10/28/17 11/13/19 lisinopril 40 mg tablet 40 mg PO DAILY 07/12/19 11/13/19 escitalopram oxalate 20 mg tablet 10 - 20 mg PO DAILY #90 tab-cap 07/25/19 11/13/19 scopolamine base 1 mg over 3 days 1 patch TD Q3D PRN #10 each 07/29/19 11/13/19 transdermal patch sulfamethoxazole 800 1 tab PO BID #20 tab 08/16/19 11/13/19 mg-trimethoprim 160 mg tablet Previous Rx's Medication Instructions Recorded escitalopram oxalate 20 mg tablet 10 - 20 mg PO DAILY #90 tab-cap 07/25/19 scopolamine base 1 mg over 3 days 1 patch TD Q3D PRN #10 each 07/29/19 transdermal patch sulfamethoxazole 800 1 tab PO BID #20 tab 08/16/19 mg-trimethoprim 160 mg tablet Allergies Allergy/AdvReac Type Severity Reaction Status Date / Time No Known Allergies Allergy Verified 11/13/19 16:01 General Stated Complaint: GenMedical JIAN: 3 Review of Systems <IONA Salvador - Last Filed: 11/13/19 22:19> All systems reviewed & are unremarkable except as noted in HPI and below PFSH <IONA Salvador - Last Filed: 11/13/19 22:19> Medical History [place]'s disease (Acute 08/23/13) Pancreatic transplant 2013 Atherosclerosis of [place] coronary artery (Acute) Chest pain (Acute) 12/2010; MPI NEGATIVE Coronary atherosclerosis of [place] coronary vessel (Acute) Depressive disorder (Acute) Derangement of medial meniscus of left knee (Acute 04/10/17) Essential hypertension (Acute 03/22/13) Gastroesophageal reflux disease (Acute) hematemesis History of tobacco use (Acute) Internal derangement of left knee (Acute 03/16/17) Myocardial infarction acute (Acute 05/21/03) RCA stent placed Obstructive sleep apnea on CPAP (Acute 04/12/14) Obstructive sleep apnea syndrome (Acute) CPAP Peripheral neuralgia (Acute) Surgical History Colonoscopy - MAC 08/2008; NEG 07/07/14; NEG Coronary Stent 2003;RCA SHOULDER SURGERY (~06/2009) LEFT Vasectomy Social History Smoking/Tobacco Use Status: Current every day Tobacco Type: cigarettes Alcohol Intake: current Alcohol Intake frequency: 3 or more drinks per day Alcohol type: beer Drug use: Never Substance use type: does not use Do you feel safe at home: Yes Do you feel safe in your relationship?: Yes Exam <IONA Salvador - Last Filed: 11/13/19 22:19> Narrative Exam Narrative: CONST: Patient in no acute distress. Well hydrated. Alert and oriented. HENMT: Head nomocephalic, normal to inspection. Atraumatic. Hearing grossly normal. External ear canal no erythema or swelling. TM normal bilaterally. Nose normal to inspection. No rhinnorhea. Normal facial exam. Oral mucosa normal. Tounge normal. Dentition normal. Normal posterior oropharynx. Uvula midline. EYES: General normal appearance. Alignment normal. Eyelids normal. Conjunctiva normal. Sclera normal. PERRL. NECK: Normal visual inspection. FROM. No lymphadenopathy. Trachea midline. No Midline tenderness. CHEST: Normal insepection of the chest. RESP: Normal respiratory effort. Speaking full sentences. No cough. No wheezing. No retractions. Clear to auscaltation. Breath sound equal and present bilaterally. CARDIO: No JVD. Normal PMI. Regular Rate. Regular Rhythm. Normal peripheral pulses. No murmur GI: Normal inspection of abdomen. Mild distension. Soft. Mild epigastric discomfort with palpation. Otherwise benign abdominal exam. Bowel sounds present in all 4 quadrants. No rebound. No gaurding. MUSCULOSKELETAL: Normal Gait. FROM of all extremities. Distal neurovascularly intact. Sensation intact distally. Bilateral distal edema, 2+ pitting edema to the knee, mild edema at the distal thigh. SKIN: Normal. Dry. No rashes. NEURO: Alert and awake. Speech clear. PSYCH: Normal affect. Cooperative. Course <IONA Salvador - Last Filed: 11/13/19 22:19> Vital Signs Vital signs: Vital Signs Temperature 36.7 C 11/13/19 15:57 Pulse 78 11/13/19 15:57 Respiratory Rate 18 11/13/19 15:57 Blood Pressure 139/73 11/13/19 15:57 Pulse Oximetry 97 11/13/19 15:57 Temperature 36.7 C 11/13/19 15:57 Temperature Source Skin 11/13/19 15:57 Pulse 78 11/13/19 15:57 Respiratory Rate 18 11/13/19 15:57 Blood Pressure 139/73 11/13/19 15:57 Blood Pressure Position Sitting 11/13/19 15:57 Pulse Oximetry 97 11/13/19 15:57 Oxygen Delivery Method Room Air 11/13/19 15:57 Oxygen Flow Rate 0 11/13/19 15:57 Pain Level 5 11/13/19 15:57
[2019-11-13 17:02] LABS: Abs Immature Grans 0.01 k/cumm (0.0-0.09); Absolute Basophil Count 0.01 k/cumm (0.0-0.2); Absolute Lymphocyte Count 0.82 k/cumm (1.2-3.4); Absolute Monocyte Count 0.98 k/cumm (0.11-0.7); Absolute Neutrophil Count 2.89 k/cumm (1.2-6.7); Basophils % 0.2; HCT 36.8 % (40.0-50.0); HGB 13.2 g/dL (13.5-17.5); Immature Grans % 0.2 %; Lymphocytes % 16.4; Mean Corp. HGB Concentration 35.9 g/dL (32.0-36.0); Mean Corpuscular Hemoglobin 31.2 pg (27.0-33.0); Mean Platelet Volume 9.7 fL (8.0-11.0); Monocytes % 19.6; Neutrophils % 57.6; Platelet Count 141 x1000/uL (130-400); RBC 4.23 m/cumm (4.50-6.00); RBC Distribution Width 11.2 % (11.8-14.1); White Blood Cell Count 5.01 k/cumm (4.4-10.8)
[2019-11-13 17:05] LABS: ALT 71 U/L (16-63); AST 61 U/L (15-37); Albumin 3.7 g/dL (3.4-5.0); Alkaline Phosphatase 54 U/L (46-116); Anion Gap 8.3 mmol/L (3-11); BUN 18 mg/dL (7-18); Bilirubin, Total 0.7 mg/dL (0.2-1.0); CO2 25.7 mmol/L (21.0-32.0); CREATININE 1.14 mg/dL (0.70-1.30); Calcium 8.4 mg/dL (8.5-10.1); Chloride 92 mmol/L (98-107); Glucose 84 mg/dL (74-106); Lipase 114 U/L (73-393); NT-proBNP 34 pg/mL (<300); Potassium 4.3 mmol/L (3.5-5.1); Sodium 126 mmol/L (136-145); Total Protein 7.4 g/dL (6.4-8.2)
--- NOTE | 2019-11-13 17:15 | DI.CT_ITS ---
EXAM: CT ABDOMEN PELVIS WO CLINICAL HISTORY: back pain bilateral flank, hx pancreatic transplan. TECHNIQUE: Imaging Protocol: Axial computed tomography images with coronal and sagittal reformatted images were created and reviewed. The exam is mildly limited by patient motion. Oral: yes / COMPARISON: CT CHEST FOR PULMONARY EMBOLUS from 03/20/2016 FINDINGS: ABDOMEN: Lung Bases: Normal where visualized. Liver: Mild fatty infiltration. No measurable mass. Gallbladder and biliary tract: No radiodense calculus or dilation. Pancreas: Severe atrophy Spleen: Normal. Kidneys: Normal size, contour and axis. No radiodense stones or obstructive uropathy. No masses seen. Adrenal glands: No masses seen. Lymph nodes: Within normal limits. Abdominal Aorta: Abdominal portion non-dilated. Mild calcification. PELVIS: Bladder: Question of mild wall thickening. Bowel: No obstruction or bowel wall thickening. Peritoneal cavity: No ascites, collection or mesenteric inflammatory response. Reproductive organs: Within normal limits. Bones: Within normal limits. Small fatty containing left inguinal hernia. IMPRESSION: No acute abnormality. Question of mild bladder wall thickening. Clinical correlation is recommended .. RADIATION DOSE DELIVERED: 1,127.13mGy.cm Total DLP DATA REPOSITORY: All CT scans at this facility are submitted to the National Radiology Data Registry (NRDR) Dose Index Registry (DIR) with the [employer] (A[employer]). RADIATION OPTIMIZATION: All CT scans at this facility use at least one of these dose optimization te chniques: automated exposure control; mA and/or kV adjustment per patient size (includes targeted exa ms where dose is matched to clinical indication); or iterative reconstruction.
--- NOTE | 2019-11-13 17:37 | DI.VRAD_ITS ---
PROCEDURE INFORMATION: Exam: XR Chest, 2 Views Exam date and time: 11/13/2019 5:29 PM Age: 49 years old Clinical indication: Other: Hiccups TECHNIQUE: Imaging protocol: XR of the chest Views: 2 views. COMPARISON: CR CHEST 2 VIEWS PA,LAT 03/20/2016 8:16 AM FINDINGS: Lungs: Unremarkable. No consolidation. Pleural space: Unremarkable. No pleural effusion. No pneumothorax. Heart/Mediastinum: Unremarkable. No cardiomegaly. Bones/joints: Unremarkable. IMPRESSION: No acute findings. Dictated and Authenticated by: Luis Eduardo Arenas MD. Ordering:GERALDINE Mccray MD
[2019-11-13 18:49] LABS: Bilirubin Negative (Negative); Blood Trace-lysed (Negative); Clarity Clear (Clear); Glucose Negative (Negative); Ketones 15 mg/dL (Negative); Leukocyte Esterase Negative (Negative); Nitrite Negative (Negative); Specific Gravity 1.025 (1.005-1.025); Urobilinogen 0.2 EU/dL (Up TO 0.2)
[2019-11-13 18:52] LABS: C & S Indicated? C&S Done As Ordered
[2019-11-13 19:04] LABS: Bacteria Negative HPF (Negative); Casts Negative LPF (Negative); Crystals Negative HPF (Negative); Epithelial Cells Negative HPF (Negative); Mucus Negative (Negative); Other Cells Negative (Negative); RBC 0-2 HPF (0-2); WBC 0-2 HPF (0-5)
[2019-11-13] MEDS: Breeza Beverage 473 ML BTL PO ×2 (19:14→19:15)
--- NOTE | 2019-11-13 20:00 | DI.VRAD_ITS ---
PROCEDURE INFORMATION: Exam: CT Abdomen And Pelvis Without Contrast Exam date and time: 11/13/2019 5:25 PM Age: 49 years old Clinical indication: Other: Bilateral flank pain; Prior surgery; Surgery date: 6+ months; Surgery type: Pancreatic transplant in 2013. ; Patient HX: Patient has been having hiccups for 48 hours. ; Additional info: Limited exam due to unavoidable diaphragmatic spasms. TECHNIQUE: Imaging protocol: Computed tomography of the abdomen and pelvis without contrast. Radiation optimization: All CT scans at this facility use at least one of these dose optimization techniques: automated exposure control; mA and/or kV adjustment per patient size (includes targeted exams where dose is matched to clinical indication); or iterative reconstruction. COMPARISON: CR RT HIP COMPLETE AP PELVIS 10/03/2013 8:11 AM FINDINGS: Liver: Normal. No mass. Gallbladder and bile ducts: Normal. No calcified stones. No ductal dilation. Pancreas: Fatty pancreas. Atrophy of the pancreas. Spleen: Normal. No splenomegaly. Adrenals: Normal. No mass. Kidneys and ureters: Normal. No hydronephrosis. Stomach and bowel: Wall thickening in the sigmoid colon measuring up to 10 mm, possibly related to a contraction or underlying mass. Correlate with colonoscopy if clinically relevant. Appendix: No evidence of appendicitis. Intraperitoneal space: Unremarkable. No free air. No significant fluid collection. Vasculature: Atherosclerosis. Lymph nodes: Unremarkable. No enlarged lymph nodes. Bladder: Wall thickening in the anterior bladder measuring up to 1 cm. Correlate with urinalysis to exclude malignancy or cystitis. Reproductive: Unremarkable as visualized. Bones/joints: Unremarkable. No acute fracture. Soft tissues: Left inguinal hernia containing fat, uncomplicated. IMPRESSION: Wall thickening in the sigmoid colon measuring up to 10 mm, possibly related to a contraction or underlying mass. Correlate with colonoscopy if clinically relevant. Wall thickening in the anterior bladder measuring up to 1 cm. Correlate with urinalysis to exclude malignancy or cystitis. Atrophy of the pancreas. Dictated and Authenticated by: Luis Eduardo Arenas MD. Ordering:GERALDINE Mccray MD
[2019-11-13] MEDS: Normal Saline 500 ML 75 ML IV (20:03)
[2019-11-13] MEDS: Acetaminophen 500 MG TAB 1000 MG PO (21:28)
--- NOTE | 2019-11-13 21:42 | HPE_ITS ---
Date of service: 11/13/19 Time of Service: 21:43 Assessment and Plan Assessment and plan (1) Edema, peripheral: Start date: 11/13/19 Status: Acute Assessment and plan: This is a 49-year-old gentleman who presents with greater than 25 pound weight gain and increased abdominal girth with increasing peripheral edema. He had a normal BNP in the ED and CT of the abdomen and pelvis did not reveal any ascites but some abnormalities in the lower colon and bladder parker. He is having diarrhea with some nausea though he chronically has nausea with some concern acute gastrointestinal process. He does appear to have chronic anemia and denies any blood in his urine or stool. He recently was placed on furosemide by his [facility] caregivers. This will be continued with oral therapy in the morning the patient appeared to have something more chronic than acute causing his weight gain and increasing edema. (2) Soquel's disease: Status: Chronic Assessment and plan: Patient does have electrolyte abnormalities which will be corrected and and he will be given stress steroids while in the hospital. Hydrocortisone 100 mg IV every 8 hours was ordered. (3) Intractable hiccups: Status: Acute Assessment and plan: This is a recent problem and intractable keeping him up at night. He may have some vagus nerve irritation from his abdominal process with elevated LFTs and increasing abdominal girth though no evidence of ascites. He is having lower abdominal findings of thickening of the bladder and sigmoid colon and a neoplastic process needs to be considered. We will increase his Reglan to 4 times daily and start him on a PPI with Protonix 40 mg twice a day. If he is not responding to these therapies we could consider Thorazine. He has multiple medications with some conflicts and this needs to be monitored while increasing his Reglan and considering Thorazine. (4) Colitis: Start date: 11/13/19 Status: Acute Assessment and plan: Patient does have some diarrhea and nausea with findings on CT of thickening of the parker of the sigmoid colon and bladder. His last colonoscopy was in 2014 and needs to be updated. He has had no evidence of lower GI bleeding. (5) Alcohol abuse: Status: Chronic Assessment and plan: This is a problem that complicates his medical history and he should be advised to stop drinking alcohol altogether. He would not be placed on CIWA protocol with his low level of alcohol use though this needs to be considered. History of Present Illness History of Present Illness Chief Complaint: Unexpected weight gain with edema and abdominal swelling Narrative: This is a 49-year-old male patient who reported to the ED because of abdominal swelling and peripheral edema with 25 pound weight gain over the last 2 to 3 weeks. Patient told me that he gained 5 more pounds just being at the hospital which may have been from IV fluids. He appears to be an exaggerator in his historical reporting. I reviewed extensive notes from the ED visit with recorded conversations with [facility] transplant team and hospitalist. It appears the patient gives further history that Dr. Davison, his transplant doctor during his last week's told her to take furosemide which she has been taking daily and I did give him something for nausea and vomiting. In the ED notes it appears Dr Lane advised IV Zofran for the pills were given to assure that the patient will get his medications. Patient is status post pancreatic transplant in 2013 for uncontrolled type 1 diabetes with hypoglycemic episodes. He has a further history of emesis the mo rning of admission and loose stools presently but were not mentioned in his ED note. He also has had hiccups which were continuous and pausing for only 20 minutes and have been keeping him awake the last 3 nights. Patient was also complaining of fatigue associated with his above symptoms and abdominal girth increase with his pant size increasing markedly over the last 2 to 3 weeks. He does not complain of bloating but states that his abdominal girth is always enlarged but worse recently. He denies abdominal pain but does have hip and shoulder discomfort along with back pain with increased activity recently helping a friend replace a water pump. We will review the patient's history and attempting to bring the symptoms together as to what his acute process is there appears to be some vagueness and exaggeration in the storytelling. He is a beer drinker of at least 3 beers a day and continues to do this and he also smokes tobacco. He is disabled by his multiple medical problems but appears to be active around his house. He has depression which is being treated though he continues to drink alcohol daily with his multiple medications. He does definitely have worsening abdominal s welling and CT scan of the abdomen does reveal something causing thickening of the wall of the sigmoid and bladder parker. His liver functions are more elevated than they have been in the past despite his chronic alcohol use. His hiccups appear to be what bothers him more than his back pain or joint pain and it is keeping him up at night. He denies any fever or constitutional symptoms other than the generalized weakness and his fear of his Soquel's disease flaring. There appears to be a more chronic process than acute process involving with his presentation. [facility] did not think he needed to be admitted acutely at a tertiary care center but are available if his situation changes. Review of Systems Narrative: 13 point review of systems otherwise unrevealing or stable. The patient has a history of coronary artery disease with RCA stenting in 2003 and no recent symptoms of cardiovascular decompensation other than his peripheral edema. His BNP was normal. He does complain of joint pain and generalized weak ness with a low calcium and low magnesium which may be associated. He is currently on oral hydrocortisone for his Soquel's disease which was diagnosed the same year as his pancreatic transplant. He denies any respiratory symptoms but does have a history of ENRIQUETA on CPAP. [facility] Medical History Soquel's disease (Acute 08/23/13) Pancreatic transplant 2013 Atherosclerosis of [place] coronary artery (Acute) Chest pain (Acute) 12/2010; MPI NEGATIVE Coronary atherosclerosis of [place] coronary vessel (Acute) Depressive disorder (Acute) Derangement of medial meniscus of left knee (Acute 04/10/17) Essential hypertension (Acute 03/22/13) Gastroesophageal reflux disease (Acute) hematemesis History of tobacco use (Acute) Internal derangement of left knee (Acute 03/16/17) Myocardial infarction acute (Acute 05/21/03) RCA stent placed Obstructive sleep apnea on CPAP (Acute 04/12/14) Obstructive sleep apnea syndrome (Acute) CPAP Peripheral neuralgia (Acute) Surgical History Colonoscopy - MAC 08/2008; NEG 07/07/14; NEG Coronary Stent 2003;RCA SHOULDER SURGERY (~06/2009) LEFT Vasectomy Social History Smoking/Tobacco Use Status: Current every day Tobacco Type: cigarettes Alcohol Intake: current Alcohol Intake frequency: 3 or more drinks per day Alcohol type: beer Drug use: Never Substance use type: does not use Do you feel safe at home: Yes Do you feel safe in your relationship?: Yes Meds Home Medications and Allergies Home Medications Medication Instructions Recorded Confirmed Type fludrocortisone 0.1 mg PO DAILY #90 10/13/12 11/13/19 History metoprolol tartrate 50 mg PO BID 10/13/12 11/13/19 History nitroglycerin 0.4 mg SUBLINGUAL PRN #25 01/24/13 11/13/19 History aspirin [Aspir-81] 81 mg PO DAILY 05/12/13 11/13/19 History diltiazem HCl [Cardizem] 120 mg PO DAILY 05/12/13 11/13/19 History docusate sodium [Colace] 100 mg PO PRN PRN 05/12/13 11/13/19 History levothyroxine [Synthroid] 50 mcg PO DAILY 05/12/13 11/13/19 History mycophenolate mofetil [CellCept] 750 mg PO BID 05/12/13 11/13/19 History tacrolimus [Prograf] 1 tab PO HS 05/12/13 11/13/19 History tacrolimus [Prograf] 2 mg PO DAILY AM 05/12/13 11/13/19 History hydrocortisone 20 mg PO DIRECTED 07/05/14 11/13/19 History atorvastatin 80 mg PO DAILY tab-cap 09/26/14 11/13/19 History clonazepam [Klonopin] 0.5 mg PO TID #120 tab-cap 12/13/14 11/13/19 History nicotine (polacrilex) [Nicorette] 2 mg PO Q2H PRN #100 piece of gum 07/15/16 11/13/19 History metoclopramide HCl 10 mg PO BID 10/28/17 11/13/19 History lisinopril 40 mg tablet 40 mg PO DAILY 07/12/19 11/13/19 History escitalopram oxalate 20 mg tablet 10 - 20 mg PO DAILY #90 tab-cap 07/25/19 11/13/19 Rx scopolamine base 1 mg over 3 days 1 patch TD Q3D PRN #10 each 07/29/19 11/13/19 Rx transdermal patch sulfamethoxazole 800 1 tab PO BID #20 tab 08/16/19 11/13/19 Rx mg-trimethoprim 160 mg tablet Allergies Allergy/AdvReac Type Severity Reaction Status Date / Time No Known Allergies Allergy Verified 11/13/19 16:01 Exam Narrative Exam Narrative: General: Patient appears older than stated age, flattened affect with pressured speech and tangential thought processes with increased rumination over somatic complaints and some exaggeration. He is in no acute distress and appears to be alert and oriented x3. Patient is having persistent hiccups throughout the time of my exam. HEENT: Normocephalic with eyes revealing pupils equal and reactive to light symmetrically, extraocular movement intact and sclera anicteric. Oropharynx with moist mucosa and fair dentition. Skin: Pale, warm and dry with chronic skin changes over the lower extremities from chronic edema including loss of hair, hyperpigmentation and shiny, atrophic skin. Neck: Supple without JVD. Back: Nontender to palpation with slightly stooped posture and fair range of motion. Lungs: Bronchovesicular breath sounds diffusely with fair aeration and clear to auscultation without rales, rhonchi or expiratory wheeze. Heart: Regular rate and rhythm with no murmurs gallops appreciated. Abdomen: Protuberant but soft with no palpable hepatosplenomegaly, bowel sounds hypoactive but present in all quadrants, no focalizing tenderness and no guarding. Genitalia: Normal circumcised penis and normal testicles and scrotum. Rectal: Exam deferred. Extremities: 1+ pitting edema both lower extremities with skin changes as described, peripheral pulses difficult to palpate but capillary refill fair. Fair range of motion of all joints with some stiffness. Neuro: Relatively 12 grossly intact, no focalizing motor deficits or sensory deficits. Psych: Flattened affect with pressured speech and rumination over physical complaints and medical concerns. Remote and recent memory appear to be intact. Results Imaging Imaging Studies: Exam: CT Abdomen And Pelvis Without Contrast Exam date and time: 11/13/2019 5:25 PM Age: 49 years old Clinical indication: Other: Bilateral flank pain; Prior surgery; Surgery date: 6+ months; Surgery type: Pancreatic transplant in 2013. ; Patient HX: Patient has been having hiccups for 48 hours. ; Additional info: Limited exam due to unavoidable diaphragmatic spasms. TECHNIQUE: Imaging protocol: Computed tomography of the abdomen and pelvis without contrast. Radiation optimization: All CT scans at this facility use at least one of these dose optimization techniques: automated exposure control; mA and/or kV adjustment per patient size (includes targeted exams where dose is matched to clinical indication); or iterative reconstruction. COMPARISON: CR RT HIP COMPLETE AP PELVIS 10/03/2013 8:11 AM FINDINGS: Liver: Normal. No mass. Gallbladder and bile ducts: Normal. No calcified stones. No ductal dilation. Pancreas: Fatty pancreas. Atrophy of the pancreas. Spleen: Normal. No splenomegaly. Adrenals: Normal. No mass. Kidneys and ureters: Normal. No hydronephrosis. Stomach and bowel: Wall thickening in the sigmoid colon measuring up to 10 mm, possibly related to a contraction or underlying mass. Correlate with colonoscopy if clinically relevant. Appendix: No evidence of appendicitis. Intraperitoneal space: Unremarkable. No free air. No significant fluid collection. Vasculature: Atherosclerosis. Lymph nodes: Unremarkable. No enlarged lymph nodes. Bladder: Wall thickening in the anterior bladder measuring up to 1 cm. Correlate with urinalysis to exclude malignancy or cystitis. Reproductive: Unremarkable as visualized. Bones/joints: Unremarkable. No acute fracture. Soft tissues: Left inguinal hernia containing fat, uncomplicated. IMPRESSION: Wall thickening in the sigmoid colon measuring up to 10 mm, possibly related to a contraction or underlying mass. Correlate with colonoscopy if clinically relevant. Wall thickening in the anterior bladder measuring up to 1 cm. Correlate with urinalysis to exclude malignancy or cystitis. Dictated and Authenticated by: Luis Eduardo Arenas MD. Exam: XR Chest, 2 Views Exam date and time: 11/13/2019 5:29 PM Age: 49 years old Clinical indication: Other: Hiccups TECHNIQUE: Imaging protocol: XR of the chest Views: 2 views. COMPARISON: CR CHEST 2 VIEWS PA,LAT 03/20/2016 8:16 AM FINDINGS: Lungs: Unremarkable. No consolidation. Pleural space: Unremarkable. No pleural effusion. No pneumothorax. Heart/Mediastinum: Unremarkable. No cardiomegaly. Bones/joints: Unremarkable. IMPRESSION: No acute findings. Dictated and Authenticated by: Luis Eduardo Arenas MD. Labs Result diagrams: 11/13/19 16:30 11/13/19 16:30 Labs: Laboratory Results - last 24 hr 11/13/19 11/13/19 11/13/19 16:30 16:30 16:30 WBC 5.01 RBC 4.23 L Hgb 13.2 L Hct 36.8 L MCV 87.0 MCH 31.2 MCHC 35.9 RDW 11.2 L Plt Count 141 MPV 9.7 Immature Gran % 0.2 Neutrophils % 57.6 Lymphocytes % 16.4 Monocytes % 19.6 Eosinophils % 6.0 Basophils % 0.2 Absolute Neutrophils 2.89 Absolute Lymphocytes 0.82 L Absolute Monocytes 0.98 H Absolute Eosinophils 0.30 Absolute Basophils 0.01 Sodium 126 L Potassium 4.3 Chloride 92 L Carbon Dioxide 25.7 Anion Gap 8.3 BUN 18 Creatinine 1.14 Estimated GFR/1.73 m2 >= 60.00 Glucose 84 Lactate 1.4 Calcium 8.4 L Total Bilirubin 0.7 AST 61 H ALT 71 H Alkaline Phosphatase 54 NT-Pro-B Natriuret Pep 34 Total Protein 7.4 Albumin 3.7 Lipase 114 Urine Color Urine Clarity Urine pH Ur Specific [place] Urine Protein Urine Ketones Urine Blood Urine Nitrite Urine Bilirubin Urine Urobilinogen Ur Leukocyte Esterase Urine RBC Urine WBC Ur Epithelial Cells Urine Crystals Urine Bacteria Urine Casts Urine Mucus Urine Other Ur Culture Indicated? Urine Glucose 11/13/19 18:38 WBC RBC Hgb Hct MCV MCH MCHC RDW Plt Count MPV Immature Gran % Neutrophils % Lymphocytes % Monocytes % Eosinophils % Basophils % Absolute Neutrophils Absolute Lymphocytes Absolute Monocytes Absolute Eosinophils Absolute Basophils Sodium Potassium Chloride Carbon Dioxide Anion Gap BUN Creatinine Estimated GFR/1.73 m2 Glucose Lactate Calcium Total Bilirubin AST ALT Alkaline Phosphatase NT-Pro-B Natriuret Pep Total Protein Albumin Lipase Urine Color Yellow Urine Clarity Clear Urine pH 5.0 Ur Specific [place] 1.025 Urine Protein 30 H Urine Ketones 15 H Urine Blood Trace-lysed H Urine Nitrite Negative Urine Bilirubin Negative Urine Urobilinogen 0.2 Ur Leukocyte Esterase Negative Urine RBC 0-2 Urine WBC 0-2 Ur Epithelial Cells Negative Urine Crystals Negative Urine Bacteria Negative Urine Casts Negative Urine Mucus Negative Urine Other Negative Ur Culture Indicated? C&s done as ordered Urine Glucose Negative Last Vital Signs Temp 36.7 C 11/13/19 15:57 Pulse 72 11/13/19 20:34 Resp 16 11/13/19 20:04 BP 140/68 11/13/19 20:34 Pulse Ox 95 11/13/19 20:34 COVID-19 Screening In the past 14 days, have you traveled outside of [place] or [place]?: NO Had IN PERSON contact w/suspected or confirmed C-19 person: No
[2019-11-13 22:50] LABS: Magnesium 1.1 mg/dL (1.8-2.4); TSH (W/Ref FT4) 5.46 uIU/mL (0.36-3.74)
[2019-11-13 22:59] LABS: Prothrombin Time 10.3 sec (9.3-11.0)
[2019-11-13 23:13] LABS: FREE T4 0.81 ng/dL (0.76-1.46)
[2019-11-14] MEDS: Pantoprazole 40 MG TABCR PO ×3 (01:30→19:45)
[2019-11-14] MEDS: clonazePAM 0.5 MG TAB PO ×2 (01:30→21:12)
[2019-11-14] MEDS: Metoclopramide 10 MG TAB PO ×5 (01:31→21:12)
[2019-11-14] MEDS: Atorvastatin 40 MG TAB 80 MG PO ×2 (01:31→19:45)
[2019-11-14] MEDS: Heparin 5,000 UNITS/ML VIAL 5000 UNITS SC ×3 (01:32→17:58)
[2019-11-14] MEDS: Hydrocortisone SOD SUC. 100 MG VIAL IVP ×2 (01:32→09:21)
[2019-11-14] MEDS: MAGNESIUM SULFATE 2 GM/50 ML BAG IVPB (01:33)
[2019-11-14] MEDS: Tacrolimus 0.5 MG CAP 1 MG PO ×2 (01:42→21:12)
[2019-11-14 03:57] VITALS: BP 132/70; PULSE 74; RESP 16; TEMP 36.5; O2SAT 95
[2019-11-14] MEDS: Levothyroxine 50 MCG TAB PO (06:32)
[2019-11-14 07:59] VITALS: PULSE 83; RESP 18; TEMP 35.5; O2SAT 96
[2019-11-14 07:59] LABS: ALT 61 U/L (16-63); AST 45 U/L (15-37); Albumin 3.5 g/dL (3.4-5.0); Alkaline Phosphatase 52 U/L (46-116); Anion Gap 7.5 mmol/L (3-11); BUN 16 mg/dL (7-18); Bilirubin, Total 0.7 mg/dL (0.2-1.0); CO2 25.5 mmol/L (21.0-32.0); CREATININE 1.06 mg/dL (0.70-1.30); Calcium 8.5 mg/dL (8.5-10.1); Chloride 96 mmol/L (98-107); Glucose 134 mg/dL (74-106); Potassium 4.3 mmol/L (3.5-5.1); Sodium 129 mmol/L (136-145); Total Protein 7.3 g/dL (6.4-8.2)
[2019-11-14 08:16] LABS: ESR 32 mm/hr (1-20)
[2019-11-14] MEDS: Tacrolimus 0.5 MG CAP 2 MG PO (09:22)
[2019-11-14] MEDS: dilTIAZem CD 120 MG CAPCR PO (09:23)
[2019-11-14] MEDS: Metoprolol 25 MG TAB 50 MG PO ×2 (09:24→19:45)
[2019-11-14] MEDS: Aspirin E.C. 81 MG TABEC PO (09:24)
[2019-11-14] MEDS: Escitalopram 20 MG TAB PO (09:24)
[2019-11-14] MEDS: Lisinopril 20 MG TAB 40 MG PO (09:24)
[2019-11-14] MEDS: Furosemide 40 MG TAB PO (09:24)
[2019-11-14] MEDS: Fludrocortisone 0.1 MG TAB PO (09:25)
[2019-11-14 10:35] LABS: Magnesium 1.8 mg/dL (1.8-2.4)
[2019-11-14 11:40] VITALS: BP 148/71; PULSE 83; RESP 17; TEMP 37; O2SAT 96
[2019-11-14] MEDS: Thiamine 100 MG TAB PO (11:44)
[2019-11-14 12:41] LABS: Anion Gap 8.2 mmol/L (3-11); BUN 15 mg/dL (7-18); CO2 23.8 mmol/L (21.0-32.0); CREATININE 1.17 mg/dL (0.70-1.30); Calcium 8.8 mg/dL (8.5-10.1); Chloride 95 mmol/L (98-107); Potassium 4.5 mmol/L (3.5-5.1); Sodium 127 mmol/L (136-145)
[2019-11-14 12:49] LABS: Glucose 222 mg/dL (74-106)
--- NOTE | 2019-11-14 13:17 | W.PM.PROGNOT ---
Date of Service Date of service: 11/14/19 Time of Service: 13:17 Assessment and Plan Assessment and plan (1) Chino's disease: Status: Chronic Assessment and plan: Acute on chronic adrenal insufficiency. This appears to be provoked by patient's missing of several doses of hydrocortisone rather than an acute infectious process. Start to taper hydrocortisone. (2) Hyponatremia: Status: Acute Assessment and plan: Multifactorial - likely due to acute on chronic adrenal insufficiency in addition to dilutional component and also possibly being on donna-i. Given this, I think addition of diuretics to stress dose steroids might be of benefit. Will trial one dose of lasix. Repeat sodium at 6 pm. (3) Edema, peripheral: Status: Acute Assessment and plan: Acute on chronic. Will r/o DVT with a venous doppler, obtain an echocardiogram. The patient is also on a calcium channel veronique that could be contributing - and some patients retain fluid from steroids. As above, will trial lasix today. (4) Intractable hiccups: Status: Resolved Assessment and plan: This has now resolved. Etiology not 100% clear. (5) Colitis: Status: Ruled-out Assessment and plan: Final radiology read does not include colitis. Patient does not have abdominal pain or diarrhea to indicate colitis. No further workup. (6) Alcohol abuse: Status: Chronic Assessment and plan: Start CIWA with po vitamins and prn po/sl lorazepam. The patient does not appear to be actively withdrawing. (7) Hyperglycemia: Status: Acute Assessment and plan: H/o DM which has theoretically resolved post pancreatic transplant. Check A1C. For now, given steroid induced hyperglycemia, offer corrective insulin and carb consistent diet. (8) Back pain: Status: Acute Assessment and plan: While it is most likely related to bony pain of adrenal insufficiency, if it persists today, we should obtain an MRI. For now, offer lidocaine patch and r/o urinary retention given thickened bladder parker on CT, which could be connected to lumbar spine pathology. (9) DVT prophylaxis: Status: Acute Assessment and plan: heparin SC + TEDS. (10) Discharge planning issues: Status: Acute Assessment and plan: Full code. [place] [facility] [place], if new sx emerge or condition worsens, we would reattempt to transfer. I offered the patient to give his a call - he stated he will take care of it himself. Subjective Subjective Interval history since last seen: Mr Blank states he is feeling much better today. Specifically, he states he has not had any hiccups since waking up. He has not had any nausea/vomiting today and has been able to tolerate his immunosuppressives. Denies dizziness, chest pain, shortness of breath. He continues to report lower back pain and bone/shoulder pain and weakness in his legs. Back pain is the worst but he seems to think tylenol is enough to control it during the day. Agreeable to trying lidocaine patch tonight. He admits to missing several doses of hydorcortisone - he does not know when he ran out, but he thinks he has. His leg swelling is getting better. He is concerned with the leg swelling because he does not understand why it's been happening and how he has gained 25 lbs in 2 weeks. He was under impression he was getting [place] [facility] [place] - I explained to him that [place] [facility] [place], they did not indicate that they would accept him today and, as his condition is improving, there is no emergent indication for him to go. Exam Narrative Exam Narrative: General: Very pleasant middle-aged obses male, sitting comfortably in a chair, not hiccuping, A&Ox2, facial plethora noted HEENT: EOMI, MMM Heart: RRR, no m/r/g Lungs: CTAB Abdomen: soft, rotund, not tender on mild palpation Extremities: +1 BLE edema, R slightly >L. Objective Objective Clinical Data: Abnormal lab results 11/13/19 11/13/19 11/13/19 Range/Units 16:30 16:30 16:30 RBC 4.23 L (4.50-6.00) m/cumm Hgb 13.2 L (13.5-17.5) g/dL Hct 36.8 L (40.0-50.0) % RDW 11.2 L (11.8-14.1) % Absolute Lymphocytes 0.82 L (1.2-3.4) k/cumm Absolute Monocytes 0.98 H (0.11-0.7) k/cumm ESR (1-20) mm/hr Sodium 126 L (136-145) mmol/L Chloride 92 L (98-107) mmol/L Glucose (74-106) mg/dL Calcium 8.4 L (8.5-10.1) mg/dL Magnesium 1.1 L (1.8-2.4) mg/dL AST 61 H (15-37) U/L ALT 71 H (16-63) U/L TSH 5.46 H (0.36-3.74) uIU/mL Urine Protein (Negative) mg/dL Urine Ketones (Negative) mg/dL Urine Blood (Negative) 11/13/19 11/14/19 11/14/19 Range/Units 18:38 06:00 06:00 RBC (4.50-6.00) m/cumm Hgb (13.5-17.5) g/dL Hct (40.0-50.0) % RDW (11.8-14.1) % Absolute Lymphocytes (1.2-3.4) k/cumm Absolute Monocytes (0.11-0.7) k/cumm ESR 32 H (1-20) mm/hr Sodium 129 L (136-145) mmol/L Chloride 96 L (98-107) mmol/L Glucose 134 H (74-106) mg/dL Calcium (8.5-10.1) mg/dL Magnesium (1.8-2.4) mg/dL AST 45 H (15-37) U/L ALT (16-63) U/L TSH (0.36-3.74) uIU/mL Urine Protein 30 H (Negative) mg/dL Urine Ketones 15 H (Negative) mg/dL Urine Blood Trace-lysed H (Negative) 11/14/19 Range/Units 12:10 RBC (4.50-6.00) m/cumm Hgb (13.5-17.5) g/dL Hct (40.0-50.0) % RDW (11.8-14.1) % Absolute Lymphocytes (1.2-3.4) k/cumm Absolute Monocytes (0.11-0.7) k/cumm ESR (1-20) mm/hr Sodium 127 L (136-145) mmol/L Chloride 95 L (98-107) mmol/L Glucose 222 H D (74-106) mg/dL Calcium (8.5-10.1) mg/dL Magnesium (1.8-2.4) mg/dL AST (15-37) U/L ALT (16-63) U/L TSH (0.36-3.74) uIU/mL Urine Protein (Negative) mg/dL Urine Ketones (Negative) mg/dL Urine Blood (Negative) Vital Signs Temperature 37 C 11/14/19 11:40 Temperature Source Tympanic 11/14/19 11:40 Pulse 83 11/14/19 11:40 Pulse Rhythm Regular 11/13/19 22:49 Respiratory Rate 17 11/14/19 11:40 Respiratory Effort Non-Labored 11/13/19 22:49 Respiratory Depth Normal 11/13/19 22:49 Respiratory Pattern Normal 11/13/19 22:49 Blood Pressure 148/71 H 11/14/19 11:40 Blood Pressure Mean 85 11/13/19 21:01 Blood Pressure Position Sitting 11/13/19 15:57 Pulse Oximetry 96 11/14/19 11:40 Oxygen Delivery Method Cpap 11/14/19 11:40 Oxygen Flow Rate 0 11/14/19 07:59 Pain Level 2 11/14/19 11:40 Intake & Output 11/13/19 11/14/19 11/14/19 23:59 11:59 23:59 Intake Total 1030 / 1030 Balance 1030 / 1030 Weight 117.934 kg 116.8 kg Intake: IV 550 / 550 Oral 480 / 480 Other: Urine Color Yellow Urine Appearance Clear Voiding Methods Toilet Laboratory Results WBC 5.01 k/cumm (4.4-10.8) 11/13/19 16:30 RBC 4.23 m/cumm (4.50-6.00) L 11/13/19 16:30 Hgb 13.2 g/dL (13.5-17.5) L 11/13/19 16:30 Hct 36.8 % (40.0-50.0) L 11/13/19 16:30 MCV 87.0 fL (80-95) 11/13/19 16:30 MCH 31.2 pg (27.0-33.0) 11/13/19 16:30 MCHC 35.9 g/dL (32.0-36.0) 11/13/19 16:30 RDW 11.2 % (11.8-14.1) L 11/13/19 16:30 Plt Count 141 x1000/uL (130-400) 11/13/19 16:30 MPV 9.7 fL (8.0-11.0) 11/13/19 16:30 Immature Gran % 0.2 % 11/13/19 16:30 Neutrophils % 57.6 11/13/19 16:30 Lymphocytes % 16.4 11/13/19 16:30 Monocytes % 19.6 11/13/19 16:30 Eosinophils % 6.0 11/13/19 16:30 Basophils % 0.2 11/13/19 16:30 Absolute Neutrophils 2.89 k/cumm (1.2-6.7) 11/13/19 16:30 Absolute Lymphocytes 0.82 k/cumm (1.2-3.4) L 11/13/19 16:30 Absolute Monocytes 0.98 k/cumm (0.11-0.7) H 11/13/19 16:30 Absolute Eosinophils 0.30 k/cumm (0.0-0.7) 11/13/19 16:30 Absolute Basophils 0.01 k/cumm (0.0-0.2) 11/13/19 16:30 ESR 32 mm/hr (1-20) H 11/14/19 06:00 PT 10.3 sec (9.3-11.0) 11/13/19 16:30 INR 1.0 (0.9-1.1) 11/13/19 16:30 Sodium 127 mmol/L (136-145) L 11/14/19 12:10 Potassium 4.5 mmol/L (3.5-5.1) 11/14/19 12:10 Chloride 95 mmol/L (98-107) L 11/14/19 12:10 Carbon Dioxide 23.8 mmol/L (21.0-32.0) 11/14/19 12:10 Anion Gap 8.2 mmol/L (3-11) 11/14/19 12:10 BUN 15 mg/dL (7-18) 11/14/19 12:10 Creatinine 1.17 mg/dL (0.70-1.30) 11/14/19 12:10 Estimated GFR/1.73 m2 >= 60.00 (mL/min/1.73m2) 11/14/19 12:10 Glucose 222 mg/dL (74-106) H D 11/14/19 12:10 Lactate 1.4 mmol/L (0.6-1.4) 11/13/19 16:30 Calcium 8.8 mg/dL (8.5-10.1) 11/14/19 12:10 Magnesium 1.8 mg/dL (1.8-2.4) 11/14/19 06:00 Total Bilirubin 0.7 mg/dL (0.2-1.0) 11/14/19 06:00 AST 45 U/L (15-37) H 11/14/19 06:00 ALT 61 U/L (16-63) 11/14/19 06:00 Alkaline Phosphatase 52 U/L (46-116) 11/14/19 06:00 NT-Pro-B Natriuret Pep 34 pg/mL (<300) 11/13/19 16:30 Total Protein 7.3 g/dL (6.4-8.2) 11/14/19 06:00 Albumin 3.5 g/dL (3.4-5.0) 11/14/19 06:00 Lipase 114 U/L (73-393) 11/13/19 16:30 TSH 5.46 uIU/mL (0.36-3.74) H 11/13/19 16:30 Free T4 0.81 ng/dL (0.76-1.46) 11/13/19 16:30 Urine Color Yellow (Yellow) 11/13/19 18:38 Urine Clarity Clear (Clear) 11/13/19 18:38 Urine pH 5.0 (5-8) 11/13/19 18:38 Ur Specific [place] 1.025 (1.005-1.025) 11/13/19 18:38 Urine Protein 30 mg/dL (Negative) H 11/13/19 18:38 Urine Ketones 15 mg/dL (Negative) H 11/13/19 18:38 Urine Blood Trace-lysed (Negative) H 11/13/19 18:38 Urine Nitrite Negative (Negative) 11/13/19 18:38 Urine Bilirubin Negative (Negative) 11/13/19 18:38 Urine Urobilinogen 0.2 EU/dL (Up TO 0.2) 11/13/19 18:38 Ur Leukocyte Esterase Negative (Negative) 11/13/19 18:38 Urine RBC 0-2 HPF (0-2) 11/13/19 18:38 Urine WBC 0-2 HPF (0-5) 11/13/19 18:38 Ur Epithelial Cells Negative HPF (Negative) 11/13/19 18:38 Urine Crystals Negative HPF (Negative) 11/13/19 18:38 Urine Bacteria Negative HPF (Negative) 11/13/19 18:38 Urine Casts Negative LPF (Negative) 11/13/19 18:38 Urine Mucus Negative (Negative) 11/13/19 18:38 Urine Other Negative (Negative) 11/13/19 18:38 Ur Culture Indicated? C&s done as ordered 11/13/19 18:38 Urine Glucose Negative mg/dL (Negative) 11/13/19 18:38 COVID-19 PCR Cancelled 11/13/19 22:25 Nasopharyn COVID-19 PCR Cancelled 11/13/19 22:25 Ref Test Perform Site Cancelled 11/13/19 22:25
--- NOTE | 2019-11-14 13:37 | INITIAL_ITS ---
- If Service Date Differs Date of service: 11/14/19 Time of Service: 13:38 Care Management Initial Assess REASON FOR HOSPITALIZATION:: Neosho's disease, Edema PAST MEDICAL HISTORY/PAST SURGICAL HISTORY:: Medical History . 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 Pancreatic transplant 2013. Atherosclerosis of three affiliated coronary artery (Acute). Chest pain (Acute). 12/2010; MPI NEGATIVE. Coronary atherosclerosis of three affiliated coronary vessel (Acute). Depressive disorder (Acute). Derangement of medial meniscus of left knee (Acute 04/10/17). Essential hypertension (Acute 03/22/13). Gastroesophageal reflux disease (Acute). hematemesis. History of tobacco use (Acute). Internal derangement of left knee (Acute 03/16/17). Myocardial infarction acute (Acute 05/21/03). RCA stent placed. Obstructive sleep apnea on CPAP (Acute 04/12/14). Obstructive sleep apnea syndrome (Acute). CPAP. Peripheral neuralgia (Acute). Surgical History . Colonoscopy - MAC. 08/2008; NEG. 07/07/14; NEG. Coronary Stent. 2003;RCA. SHOULDER SURGERY (~06/2009). LEFT. Vasectomy PREVIOUS FUNCTIONAL STATUS/SOCIAL/FAMILY SUPPORTS:: Lars lives in [facility] with his , Juliet, and two children, who are both students at [facility] [employer]. He is disabled, but still works. 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 He stopped working due to Covid 19, as he is high risk. He is very proud of his children. He is independent with his ADL's. CURRENT FUNCTIONAL STATUS:: Lars was sitting up in his bed when CM met with him. He was pleasant and engaged in conversation. He stated that he is feeling better today. CM asked if he had updated his , which he stated that he had, and that she did not require follow up. Lars spoke a lot about his children, who he is very proud of, specifically his daughter who is going to [employer] next year to study to become a Vet. He reported that he is still concerned that he gained so much weight so quickly, as he recently gained 25 lbs. He is comfortable and is happy with his care. CM will continue to follow. ADVANCE DIRECTIVES:: None on file. Has patient been provided with information about the portal?: No Did the patient sign up for the portal?: No CODE STATUS:: Full Code INSURANCE COVERAGE / FINANCIAL ISSUES:: MCR CURRENT HOME/COMMUNITY SERVICES/EQUIPMENT:: Lars is disabled at baseline, but does not have any equipment or services in the community. PRIMARY CARE PHYSICIAN:: Judson Carr POTENTIAL DISCHARGE NEEDS:: Evaluations for further needs, follow up appointments PATIENT/FAMILY EDUCATION NEEDS:: Review discharge instructions regarding activity levels and medications, disucussion of self care such as ask me three. ANTICIPATED BARRIERS TO DISCHARGE:: None identified at this time. TRANSPORTATION:: via private vehicle by his PLAN:: Anticipate Lars will return home when medically cleared. He will follow up with his PCP, as recommended. His will drive him home via private vehicle. CM will continue to follow.
[2019-11-14] MEDS: Furosemide 20 MG/2 ML VIAL IVP (13:41)
[2019-11-14] MEDS: Normal Saline Flush 10 ML SYR IVP ×2 (13:42→21:18)
--- NOTE | 2019-11-14 14:05 | RESPIRATORY ---
Pt uses own [facility] CPAP unit at night. Nasal Mask size Medium. (Pt states he usually uses a face mask but is trying a nasal one right now, also states that he doesn't like the nasal mask so far.) Pt does not use humidification. CPAP Auto-titrate Min 13 / Max 20 cmH2O on RA. DME: [facility].
[2019-11-14 16:15] VITALS: BP 149/80; PULSE 80; RESP 16; TEMP 35.8; O2SAT 92
[2019-11-14] MEDS: Hydrocortisone SOD SUC. 100 MG VIAL 50 MG IVP ×2 (17:58→21:13)
[2019-11-14 18:01] LABS: Anion Gap 6.1 mmol/L (3-11); BUN 18 mg/dL (7-18); CO2 27.9 mmol/L (21.0-32.0); CREATININE 1.24 mg/dL (0.70-1.30); Calcium 8.9 mg/dL (8.5-10.1); Chloride 95 mmol/L (98-107); Glucose 231 mg/dL (74-106); Potassium 4.7 mmol/L (3.5-5.1); Sodium 129 mmol/L (136-145)
[2019-11-14 19:46] VITALS: BP 163/80; PULSE 81; RESP 18; TEMP 35.7; O2SAT 98
[2019-11-14 19:52] LABS: CRP, High Sensitivity 9.27 mg/L (See Note)
[2019-11-14] MEDS: Lidocaine 5% Patch 1 PATCH TP (21:14)
[2019-11-14 23:45] VITALS: BP 128/67; PULSE 77; RESP 20; TEMP 36.6; O2SAT 96
[2019-11-15] MEDS: Heparin 5,000 UNITS/ML VIAL 5000 UNITS SC ×3 (00:30→17:20)
[2019-11-15] MEDS: Hydrocortisone SOD SUC. 100 MG VIAL 50 MG IVP ×2 (03:17→10:14)
[2019-11-15] MEDS: Normal Saline Flush 10 ML SYR IVP ×2 (03:17→10:14)
[2019-11-15 04:53] VITALS: BP 106/50; PULSE 73; RESP 18; TEMP 36.2; O2SAT 95
[2019-11-15] MEDS: Levothyroxine 50 MCG TAB PO (06:12)
[2019-11-15 06:56] LABS: Anion Gap 6.8 mmol/L (3-11); BUN 19 mg/dL (7-18); CO2 28.2 mmol/L (21.0-32.0); CREATININE 1.12 mg/dL (0.70-1.30); Chloride 99 mmol/L (98-107); Glucose 156 mg/dL (74-106); Magnesium 1.8 mg/dL (1.8-2.4); Potassium 3.8 mmol/L (3.5-5.1); Sodium 134 mmol/L (136-145)
[2019-11-15 06:57] LABS: Abs Immature Grans 0.03 k/cumm (0.0-0.09); Absolute Lymphocyte Count 0.58 k/cumm (1.2-3.4); Absolute Monocyte Count 0.87 k/cumm (0.11-0.7); HCT 35.6 % (40.0-50.0); HGB 12.5 g/dL (13.5-17.5); Immature Grans % 0.2 %; Lymphocytes % 4.8; Mean Corp. HGB Concentration 35.1 g/dL (32.0-36.0); Mean Corpuscular Hemoglobin 30.8 pg (27.0-33.0); Mean Corpuscular Volume 87.7 fL (80-95); Mean Platelet Volume 10.2 fL (8.0-11.0); Monocytes % 7.2; Neutrophils % 87.8; Platelet Count 172 x1000/uL (130-400); RBC 4.06 m/cumm (4.50-6.00); RBC Distribution Width 11.3 % (11.8-14.1); White Blood Cell Count 12.04 k/cumm (4.4-10.8)
[2019-11-15 07:03] LABS: Absolute Neutrophil Count 10.57 k/cumm (1.2-6.7)
[2019-11-15 07:17] LABS: Hemoglobin A1C 5.9 % (3.8-5.6)
[2019-11-15 07:52] VITALS: BP 154/82; PULSE 74; RESP 18; TEMP 36.8; O2SAT 96
--- NOTE | 2019-11-15 08:00 | DI.US_ITS ---
EXAM: US EXTREMITY VENOUS BI CLINICAL HISTORY: recurrent edema BLEs. TECHNIQUE: Bilateral lower extremity venous ultrasound performed using grayscale, color-flow, and sp ectral Doppler analysis. COMPARISON: No exams were available for comparison FINDINGS: The bilateral common femoral, femoral and popliteal veins demonstrate normal compressibility, augment ation, and color Doppler. The posterior tibial veins are patent. No superficial venous thrombosis or Barriga's cyst is seen. IMPRESSION: Right: Negative for DVT Left: Negative for DVT DATA REPOSITORY:
[2019-11-15] MEDS: Furosemide 40 MG TAB PO (08:38)
[2019-11-15] MEDS: Escitalopram 20 MG TAB PO (08:38)
[2019-11-15] MEDS: Metoclopramide 10 MG TAB PO ×4 (08:38→20:04)
[2019-11-15] MEDS: dilTIAZem CD 120 MG CAPCR PO (08:39)
[2019-11-15] MEDS: Aspirin E.C. 81 MG TABEC PO (08:39)
[2019-11-15] MEDS: Thiamine 100 MG TAB PO (08:39)
[2019-11-15] MEDS: Multivitamin TAB 1 TAB PO (08:39)
[2019-11-15] MEDS: Folic Acid 1 MG TAB PO (08:39)
[2019-11-15] MEDS: Metoprolol 25 MG TAB 50 MG PO ×2 (08:40→19:59)
[2019-11-15] MEDS: Fludrocortisone 0.1 MG TAB PO (08:40)
[2019-11-15] MEDS: Lisinopril 20 MG TAB 40 MG PO (08:40)
[2019-11-15] MEDS: Pantoprazole 40 MG TABCR PO ×2 (08:40→19:59)
[2019-11-15] MEDS: Tacrolimus 0.5 MG CAP 2 MG PO (08:41)
[2019-11-15] MEDS: Lidocaine Patch Removal 1 EACH TP (09:22)
--- NOTE | 2019-11-15 10:53 | W.PM.PROGNOT ---
Date of Service Date of service: 11/15/19 Time of Service: 10:53 Assessment and Plan Assessment and plan (1) Chino's disease: Status: Chronic Assessment and plan: Acute on chronic adrenal insufficiency, precipitated by several days of missed hydrocortisone at home. Continue to taper IV hydrocortisone with plans to switch to PO hydrocortisone tomorrow. (2) Hyponatremia: Status: Acute Assessment and plan: Multifactorial - likely due to acute on chronic adrenal insufficiency in addition to dilutional component and also possibly being on donna-i. Much better today. Continue stress dose steroid taper. (3) Edema, peripheral: Status: Acute Assessment and plan: Acute on chronic, resolved with diuresis. Await echo and venous doppler results today. Continue salt-restricted diet. (4) Intractable hiccups: Status: Resolved Assessment and plan: This has now resolved. Etiology not 100% clear. (5) Colitis: Status: Ruled-out Assessment and plan: Final radiology read does not include colitis. Patient does not have abdominal pain or diarrhea to indicate colitis. No further workup. (6) Alcohol abuse: Status: Chronic Assessment and plan: Continue monitoring on CIWA with po vitamins and prn po/sl lorazepam. The patient does not appear to be actively withdrawing. (7) Hyperglycemia: Status: Acute Assessment and plan: H/o DM which has theoretically resolved post pancreatic transplant. A1C 5.9, but does have steroid induced hyperglycemia, for which he refused insulin coverage - he states, per his outpatient provider's recommendation. Continue carb consistent diet with accuchecks. (8) Back pain: Status: Resolved Assessment and plan: Was bony pain of adrenal insufficiency. No further workup. Continue steroid taper. (9) DVT prophylaxis: Status: Acute Assessment and plan: heparin SC + TEDS. (10) Discharge planning issues: Status: Acute Assessment and plan: Full code. The patient was rejected for transfer at [facility] [place] and does not appear to be requiring it today. Will plan to discharge patient home tomorrow with PO steroid taper. Subjective Subjective Interval history since last seen: Mr Blank feels 100% better today. He has no pain today, in his back or otherwise. His legs are no longer swollen. He feels like he is ready to go home, but agrees to stay to have his steroids properly tapered. Denies dizziness, chest pain, shortness of breath, nausea. Exam Narrative Exam Narrative: General: Very pleasant middle-aged obese male, sitting at the edge of the bed and ambulating around the room, looks much more energetic, A&Ox3, facial plethora HEENT: EOMI, MMM Heart: RRR, no m/r/g Lungs: CTAB Abdomen: soft, rotund Extremities: no edema BLE's today Objective Objective Clinical Data: Abnormal lab results 11/14/19 11/14/19 11/15/19 Range/Units 12:10 17:50 06:15 WBC (4.4-10.8) k/cumm RBC (4.50-6.00) m/cumm Hgb (13.5-17.5) g/dL Hct (40.0-50.0) % RDW (11.8-14.1) % Absolute Neutrophils (1.2-6.7) k/cumm Absolute Lymphocytes (1.2-3.4) k/cumm Absolute Monocytes (0.11-0.7) k/cumm Sodium 127 L 129 L 134 L (136-145) mmol/L Chloride 95 L 95 L (98-107) mmol/L BUN 19 H (7-18) mg/dL Glucose 222 H D 231 H 156 H D (74-106) mg/dL Hemoglobin A1c (3.8-5.6) % 11/15/19 11/15/19 Range/Units 06:15 06:15 WBC 12.04 H (4.4-10.8) k/cumm RBC 4.06 L (4.50-6.00) m/cumm Hgb 12.5 L (13.5-17.5) g/dL Hct 35.6 L (40.0-50.0) % RDW 11.3 L (11.8-14.1) % Absolute Neutrophils 10.57 H (1.2-6.7) k/cumm Absolute Lymphocytes 0.58 L (1.2-3.4) k/cumm Absolute Monocytes 0.87 H (0.11-0.7) k/cumm Sodium (136-145) mmol/L Chloride (98-107) mmol/L BUN (7-18) mg/dL Glucose (74-106) mg/dL Hemoglobin A1c 5.9 H (3.8-5.6) % Vital Signs Temperature 36.8 C 11/15/19 07:52 Temperature Source Tympanic 11/15/19 07:52 Pulse 74 11/15/19 07:52 Pulse Rhythm Regular 11/15/19 03:27 Respiratory Rate 18 11/15/19 07:52 Respiratory Effort Non-Labored 11/15/19 03:27 Respiratory Depth Normal 11/15/19 03:27 Respiratory Pattern Normal 11/15/19 03:27 Blood Pressure 154/82 H 11/15/19 07:52 Blood Pressure Mean 85 11/13/19 21:01 Blood Pressure Position Sitting 11/13/19 15:57 Pulse Oximetry 96 11/15/19 07:52 Oxygen Delivery Method Room Air 11/15/19 07:52 Oxygen Flow Rate 0 11/15/19 07:52 Fraction of Inspired Oxygen (FIO2) 21 11/15/19 08:16 Pain Level 1 11/15/19 08:38 Intake & Output 11/14/19 11/14/19 11/15/19 11:59 23:59 11:59 Intake Total 1030 / 1510 480 / 1510 380 / 380 Output Total 3850 / 3850 1766 / 1766 Balance 1030 / -2340 -3370 / -2340 -1386 / -1386 Weight 116.8 kg 114.7 kg Intake: IV 550 / 550 Oral 480 / 960 480 / 960 360 / 360 Output: Urine 3850 / 3850 1600 / 1600 Post Void Residual 166 / 166 Other: Urine Color Yellow Yellow Yellow Urine Appearance Clear Clear Clear Urine Odor None None Comment patient voided just prior to being scanned, denies feeling the urge to void or being full pt voids in the urinal in the bathroom Voiding Methods Toilet Urinal Urinal Laboratory Results WBC 12.04 k/cumm (4.4-10.8) H 11/15/19 06:15 RBC 4.06 m/cumm (4.50-6.00) L 11/15/19 06:15 Hgb 12.5 g/dL (13.5-17.5) L 11/15/19 06:15 Hct 35.6 % (40.0-50.0) L 11/15/19 06:15 MCV 87.7 fL (80-95) 11/15/19 06:15 MCH 30.8 pg (27.0-33.0) 11/15/19 06:15 MCHC 35.1 g/dL (32.0-36.0) 11/15/19 06:15 RDW 11.3 % (11.8-14.1) L 11/15/19 06:15 Plt Count 172 x1000/uL (130-400) 11/15/19 06:15 MPV 10.2 fL (8.0-11.0) 11/15/19 06:15 Immature Gran % 0.2 % 11/15/19 06:15 Neutrophils % 87.8 11/15/19 06:15 Lymphocytes % 4.8 11/15/19 06:15 Monocytes % 7.2 11/15/19 06:15 Eosinophils % 0.0 11/15/19 06:15 Basophils % 0.0 11/15/19 06:15 Absolute Neutrophils 10.57 k/cumm (1.2-6.7) H 11/15/19 06:15 Absolute Lymphocytes 0.58 k/cumm (1.2-3.4) L 11/15/19 06:15 Absolute Monocytes 0.87 k/cumm (0.11-0.7) H 11/15/19 06:15 Absolute Eosinophils 0.00 k/cumm (0.0-0.7) 11/15/19 06:15 Absolute Basophils 0.00 k/cumm (0.0-0.2) 11/15/19 06:15 ESR 32 mm/hr (1-20) H 11/14/19 06:00 PT 10.3 sec (9.3-11.0) 11/13/19 16:30 INR 1.0 (0.9-1.1) 11/13/19 16:30 Sodium 134 mmol/L (136-145) L 11/15/19 06:15 Potassium 3.8 mmol/L (3.5-5.1) 11/15/19 06:15 Chloride 99 mmol/L (98-107) 11/15/19 06:15 Carbon Dioxide 28.2 mmol/L (21.0-32.0) 11/15/19 06:15 Anion Gap 6.8 mmol/L (3-11) 11/15/19 06:15 BUN 19 mg/dL (7-18) H 11/15/19 06:15 Creatinine 1.12 mg/dL (0.70-1.30) 11/15/19 06:15 Estimated GFR/1.73 m2 >= 60.00 (mL/min/1.73m2) 11/15/19 06:15 Glucose 156 mg/dL (74-106) H D 11/15/19 06:15 Hemoglobin A1c 5.9 % (3.8-5.6) H 11/15/19 06:15 Lactate 1.4 mmol/L (0.6-1.4) 11/13/19 16:30 Calcium 9.0 mg/dL (8.5-10.1) 11/15/19 06:15 Magnesium 1.8 mg/dL (1.8-2.4) 11/15/19 06:15 Total Bilirubin 0.7 mg/dL (0.2-1.0) 11/14/19 06:00 AST 45 U/L (15-37) H 11/14/19 06:00 ALT 61 U/L (16-63) 11/14/19 06:00 Alkaline Phosphatase 52 U/L (46-116) 11/14/19 06:00 C-React Prot High Sens 9.27 mg/L (See Note) 11/14/19 06:00 NT-Pro-B Natriuret Pep 34 pg/mL (<300) 11/13/19 16:30 Total Protein 7.3 g/dL (6.4-8.2) 11/14/19 06:00 Albumin 3.5 g/dL (3.4-5.0) 11/14/19 06:00 Lipase 114 U/L (73-393) 11/13/19 16:30 TSH 5.46 uIU/mL (0.36-3.74) H 11/13/19 16:30 Free T4 0.81 ng/dL (0.76-1.46) 11/13/19 16:30 Urine Color Yellow (Yellow) 11/13/19 18:38 Urine Clarity Clear (Clear) 11/13/19 18:38 Urine pH 5.0 (5-8) 11/13/19 18:38 Ur Specific [place] 1.025 (1.005-1.025) 11/13/19 18:38 Urine Protein 30 mg/dL (Negative) H 11/13/19 18:38 Urine Ketones 15 mg/dL (Negative) H 11/13/19 18:38 Urine Blood Trace-lysed (Negative) H 11/13/19 18:38 Urine Nitrite Negative (Negative) 11/13/19 18:38 Urine Bilirubin Negative (Negative) 11/13/19 18:38 Urine Urobilinogen 0.2 EU/dL (Up TO 0.2) 11/13/19 18:38 Ur Leukocyte Esterase Negative (Negative) 11/13/19 18:38 Urine RBC 0-2 HPF (0-2) 11/13/19 18:38 Urine WBC 0-2 HPF (0-5) 11/13/19 18:38 Ur Epithelial Cells Negative HPF (Negative) 11/13/19 18:38 Urine Crystals Negative HPF (Negative) 11/13/19 18:38 Urine Bacteria Negative HPF (Negative) 11/13/19 18:38 Urine Casts Negative LPF (Negative) 11/13/19 18:38 Urine Mucus Negative (Negative) 11/13/19 18:38 Urine Other Negative (Negative) 11/13/19 18:38 Ur Culture Indicated? C&s done as ordered 11/13/19 18:38 Urine Glucose Negative mg/dL (Negative) 11/13/19 18:38 COVID-19 PCR Cancelled 11/13/19 22:25 Nasopharyn COVID-19 PCR Cancelled 11/13/19 22:25 Ref Test Perform Site Cancelled 11/13/19 22:25
[2019-11-15 11:23] LABS: Campylobacter PCR Negative (Negative); Salmonella PCR Negative (Negative); Shiga Toxin PCR Negative (Negative); Shigella/Enteroinvasive Ecoli Negative (Negative)
--- NOTE | 2019-11-15 12:29 | DI.US_ITS ---
APPROVED REPORT EXAM: Comprehensive 2D, Doppler, and color-flow Echocardiogram Patient Location: In-Patient Room/Bed: 225 Therapeutic Dietitian: Michela Taveras RDCS (AE) Indications: EDEMA Conclusion Left Ventricle : The left ventricle is normal size. The left ventricular systolic function is normal. The left ventricular ejection fraction is within the normal range. There is normal left ventricular wall thickness. There is normal LV segmental wall motion. The left ventricular diastolic function is normal. LVEF is 50-55%. Right Ventricle : The right ventricle is normal size. The right ventricular systolic function is norm al. The RVSP is 25.5 mmHg. Atria : The left atrium size is normal. The right atrium size is normal. Valves: There are no hemodynamically significant valvular lesions. Great Vessels : IVC is normal in size and collapses >50% with inspiration. Please see remainder of study for further details. There are no prior images available for comparison. Wall motion Left Ventricle The left ventricle is normal size. The left ventricular systolic function is normal. The left ventric ular ejection fraction is within the normal range. There is normal left ventricular wall thickness. T here is normal LV segmental wall motion. The left ventricular diastolic function is normal. There is no ventricular septal defect visualized. LVEF is 50-55%. Right Ventricle The right ventricle is normal size. The right ventricular systolic function is normal. The RVSP is 25 .5 mmHg. Atria The left atrium size is normal. The right atrium size is normal. The interatrial septum is intact wit h no evidence for an atrial septal defect. Aortic Valve Aortic valve is trileaflet. There is no aortic valvular stenosis. No aortic regurgitation is present. Mitral Valve The mitral valve is normal in structure. No evidence of mitral valve stenosis. Mild mitral regurgitat ion. Tricuspid Valve The tricuspid valve is normal in structure. There is no tricuspid valve stenosis. Trace tricuspid reg urgitation. Pulmonic Valve The pulmonary valve is normal in structure. There is no pulmonic valvular stenosis. Trace pulmonic re gurgitation. Great Vessels The aortic root is normal in size. The ascending aorta is mildly dilated. IVC is normal in size and c ollapses >50% with inspiration. Pericardium There is no pericardial effusion. There is no pleural effusion. 2D Dimensions IVSD d PLAX 0.95 cm M: 0.6-1.2 LV Vol A2C d MOD 123.8 mL LVPW d PLAX 0.93 cm M: 0.6 - 1.2 LV Vol A4C d MOD 124.4 mL LVID d PLAX 5.20 cm M: 4.2 - 5.8 LA vol/ BSA A2C s A-L 29.1 mL/m2 LVDs 3.50 cm M: 2.5 - 4.0 LA vol/ BSA A4C s A-L 35.1 mL/m2 Ao Root d 2.72 cm M: 3.1 - 3.7 LA Vol/ BSA Biplane s A-L 32.2 mL/m2 RA Area A4C 13.86 cm2 LA Area A4C s MOD 24.47 cm2 RA Vol/ BSA A4C s A-L 14.5 mL/m2 LA Area A2C s MOD 22.07 cm2 Ao Asc Diam d 3.66 cm M: 2.6 - 3.4 LV EF A4C MOD 51.4 % LV EF Teichholz 59.7 % LV EF A2C MOD 56.9 % LVEF (Peterson's) 53.34 % M: 52 - 72 LV EF Biplane MOD 53.3 % LV Volume 91.09 mL M: 62 - 150 SV 68.13 mL LV Volume Index 38.92 mL/m2 M: 34 - 74 SV Index 29.04 mL/m2 LV Vol Biplane MOD 127.7 mL FS 31.95 % M-Mode TAPSE 3.18 cm (M/F) >1.7 LV Diastology MV E' medial 0.065 (>0.07 m/s) E/A Ratio 1.2 LV E/e MED 16.05 (<14) MV E Vmax 1.04 (0.4-1.3 m/s) MV E' lateral 0.106 (>0.1 m/s) MV A Vmax 0.85 (0.4-1.3 m/s) LV E/e LAT 9.80 (<14) MV E/A Ratio 1.19 MV E/E' medial 16.10 MV E/E' lateral 9.84 Aortic Valve LVOT Area 2.62 cm2 AoV Area Vmax 2.07 cm2 LVOT Vmax 1.25 m/s AoV Area/ BSA (Vmax) 0.88 cm2/m2 LVOT Mean Joni. 0.79 m/s MYRA Mean Joni. 1.81 cm2 LVOT Peak Grad 6.3 mmHg MYRA Mean Joni. Index 0.77 cm2/m2 LVOT Mean Grad 3.0 mmHg LVOT VTI 0.256 m LVOT Diam s 1.80 cm AoV Vmax 1.59 m/s Velocity Ratio 0.78 AoV Mean Joni. 1.13 m/s AoV Peak Grad 10.1 mmHg LVOT SV 67.06 mL AoV Mean Grad 5.8 mmHg AoV VTI 0.320 m AoV Area VTI 2.10 cm2 AoV Area/ BSA (VTI) 0.89 cm/m2 Mitral Valve MV DT 214 (160-240 msec) MV PHT 62 msec MV Area PHT 3.54 cm2 Pulmonary Valve PV Vmax 1.24 (0.5-1.5 m/s) RVOT Peak Gr. 4.29 mmHg PV Peak Grad 6.2 mmHg RVOT Mean Gr. 2.20 mmHg PV Mean Grad 3.5 mmHg RVOT VTI 0.190 m PV VTI 0.271 m RVOT Vmax 1.04 m/s Tricuspid Valve TR Peak Grad 22.4 mmHg TR Vmax 2.37 m/s RA Pressure 3.00 mmHg RVSP (TR) 25.5 mmHg
[2019-11-15 13:32] LABS: COVID-19 RT-PCR UVMMC Result Negative (Negative)
[2019-11-15 14:26] VITALS: BP 146/75; PULSE 79; RESP 18; TEMP 36; O2SAT 97
--- NOTE | 2019-11-15 14:50 | PDOC.CMPRO ---
- If Service Date Differs Date of service: 11/15/19 Time of Service: 14:50 Care Management Progress Note S/O: Lars was lying in bed when CM met with him. He reported that he is feeling much better today, and he was hoping to return home. Per report, he has at least one more day of IV hydrocortisone prior to switching to PO. He is agreeable to the plan. CM will continue to follow. 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 P: Anticipate Lars will return home with no additional services once medically cleared. He will follow up with his PCP, as recommended. His will drive him home via private vehicle. CM will continue to follow.
[2019-11-15] MEDS: Hydrocortisone SOD SUC. 100 MG VIAL 25 MG IVP (17:19)
[2019-11-15 19:10] VITALS: BP 155/75; PULSE 74; RESP 18; TEMP 36.7; O2SAT 94
[2019-11-15] MEDS: Atorvastatin 40 MG TAB 80 MG PO (19:58)
[2019-11-15] MEDS: clonazePAM 0.5 MG TAB PO (20:04)
[2019-11-15] MEDS: Tacrolimus 0.5 MG CAP 1 MG PO (20:05)
[2019-11-15 23:55] VITALS: BP 117/71; PULSE 69; RESP 20; TEMP 36.5; O2SAT 96
[2019-11-16] MEDS: Heparin 5,000 UNITS/ML VIAL 5000 UNITS SC ×2 (00:57→08:30)
[2019-11-16] MEDS: Normal Saline Flush 10 ML SYR IVP ×3 (00:57→11:34)
[2019-11-16] MEDS: Hydrocortisone SOD SUC. 100 MG VIAL 25 MG IVP ×2 (00:58→11:33)
[2019-11-16 04:00] VITALS: BP 142/72; PULSE 70; RESP 20; TEMP 36.5; O2SAT 95
[2019-11-16] MEDS: Levothyroxine 50 MCG TAB PO (05:47)
[2019-11-16 06:57] LABS: Anion Gap 7.4 mmol/L (3-11); BUN 21 mg/dL (7-18); CO2 28.6 mmol/L (21.0-32.0); CREATININE 1.24 mg/dL (0.70-1.30); Calcium 8.5 mg/dL (8.5-10.1); Chloride 103 mmol/L (98-107); Glucose 122 mg/dL (74-106); Magnesium 1.6 mg/dL (1.8-2.4); Potassium 3.8 mmol/L (3.5-5.1); Sodium 139 mmol/L (136-145)
[2019-11-16 07:00] LABS: Abs Immature Grans 0.03 k/cumm (0.0-0.09); Absolute Basophil Count 0.01 k/cumm (0.0-0.2); Absolute Eosinophil Count 0.03 k/cumm (0.0-0.7); Absolute Lymphocyte Count 1.07 k/cumm (1.2-3.4); Absolute Monocyte Count 0.97 k/cumm (0.11-0.7); Absolute Neutrophil Count 7.32 k/cumm (1.2-6.7); Basophils % 0.1; Eosinophils % 0.3; HGB 12.4 g/dL (13.5-17.5); Immature Grans % 0.3 %; Lymphocytes % 11.3; Mean Corp. HGB Concentration 34.4 g/dL (32.0-36.0); Mean Corpuscular Hemoglobin 30.8 pg (27.0-33.0); Mean Corpuscular Volume 89.6 fL (80-95); Mean Platelet Volume 10.2 fL (8.0-11.0); Monocytes % 10.3; Neutrophils % 77.7; Platelet Count 170 x1000/uL (130-400); RBC 4.02 m/cumm (4.50-6.00); RBC Distribution Width 11.7 % (11.8-14.1); White Blood Cell Count 9.43 k/cumm (4.4-10.8)
[2019-11-16 07:51] VITALS: BP 132/69; PULSE 67; RESP 18; TEMP 36.6; O2SAT 96
[2019-11-16] MEDS: Pantoprazole 40 MG TABCR PO (08:26)
[2019-11-16] MEDS: Aspirin E.C. 81 MG TABEC PO (08:26)
[2019-11-16] MEDS: Lisinopril 20 MG TAB 40 MG PO (08:27)
[2019-11-16] MEDS: Escitalopram 20 MG TAB PO (08:27)
[2019-11-16] MEDS: dilTIAZem CD 120 MG CAPCR PO (08:27)
[2019-11-16] MEDS: Fludrocortisone 0.1 MG TAB PO (08:28)
[2019-11-16] MEDS: Metoprolol 25 MG TAB 50 MG PO (08:28)
[2019-11-16] MEDS: Thiamine 100 MG TAB PO (08:28)
[2019-11-16] MEDS: Furosemide 40 MG TAB PO (08:28)
[2019-11-16] MEDS: Multivitamin TAB 1 TAB PO (08:28)
[2019-11-16] MEDS: Folic Acid 1 MG TAB PO (08:28)
[2019-11-16] MEDS: Tacrolimus 0.5 MG CAP 2 MG PO (08:29)
[2019-11-16] MEDS: Metoclopramide 10 MG TAB PO ×2 (08:38→11:33)
[2019-11-16] MEDS: Magnesium Oxide 400 MG TAB PO (10:30)
--- NOTE | 2019-11-16 12:23 | DSE_ITS ---
Date of service: 11/16/19 Time of Service: 12:23 DS: Diagnosis Discharge Diagnosis (1) Acute adrenal crisis: Status: Resolved (2) Rosebud's disease: Status: Chronic (3) Hyponatremia: Status: Resolved Asessment and Plan: multifactorial - due to acute on chronic adrenal insufficiency and dilutional in setting of fluid overload (4) Edema, peripheral: Status: Resolved Asessment and Plan: Negative venous doppler of BLE's, EF 50-55%, no evidence of diastolic dysfunction, very mild pulmonary hypertension (RVSP 25.5 mmHg) (5) Intractable hiccups: Status: Resolved (6) Colitis: Status: Ruled-out (7) Alcohol abuse: Status: Chronic (8) Hyperglycemia: Status: Chronic Asessment and Plan: A1C 5.9 - prediabetes (9) Back pain: Status: Resolved Asessment and Plan: In setting of adrenal insufficiency (10) COVID-19 ruled out: Status: Ruled-out (11) Hypomagnesemia: Status: Acute Discharge Plan Disposition Patient Disposition: HOME Condition: Stable Discharge Details Chief Complaint: GenMedical Clinical Impression: Edema, peripheral, Back pain Reason For Visit: TYLER'S DISEASE WITH WEIGHT GAIN Admit Date/Time: 11/13/19 21:19 Admit Provider: Hudson Garcia Attending Provider: Hudson Garcia Primary Care Provider: Judson Carr ED Provider: Shazia Morrow Hospital Course Hospital Course: Mr Blank is a 49 year old male who is s/p pancreatic transplant, with h/o chronic adrenal insufficiency, hypothyroidism, hypertension, who was admitted to [facility] hospitalist service on 11/13/2019 having presented with hiccups, generalized body aches, and BLE edema. Transfer to [facility] was requested, but not felt to be required and, therefore, refused by [facility] hospitalist service. He was found to have acute hyponatremia (Sodium of 126), which in this case was multifactorial - due to acute adrenal insufficiency and dilutional. This episode of acute adrenal insufficiency was precipitated by the fact that the patient had made an error with his hydrocortisone and did not take it for an unknown number of doses. With stress dose steroids, the patient's hiccups, body aches, and sodium quickly improved, and he responded well to diuresis. His sodium on the day of discharge is 139. He did undergo a venous doppler of BLE's which was negative for DVTs and an echocardiogram revealing EF of 50-55%, normal diastolic LV function, and RVSP of 25.5 mm Hg. The patient was advised to weigh himself daily and inform his MD if his weight went up by >3-4 lbs in 4 days as he might need extra lasix and may have to have bloodwork. He was advised that high sodium loads may also result in fluid retention and edema and that he should limit his sodium intake. Per patient's request, he is being prescribed a new glucometer and strips as his meter. He is medically stable to discharge home today with 20 mg of hydrocortisone this afternoon and resumption of his prior hydrocortisone dose (15 mg in am, 10 mg in pm) starting tomorrow. As part of his admission process, he did rule out for COVID-19 with a negative nasopharyngeal swab. 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 Care for patient as well as completion of his discharge summary took 45 minutes on day of discharge. Home Meds and New Rx's Prescriptions: New multivitamin [Multiple Vitamins] Tablet 1 tab PO DAILY Qty: 30 RF: 0 magnesium oxide 400 mg (241.3 mg magnesium) Tablet 400 mg PO DAILY Qty: 30 RF: 0 thiamine mononitrate (vit B1) [Vitamin B-1 (mononitrate)] 100 mg Tablet 100 mg PO DAILY Qty: 30 RF: 0 Continued nitroglycerin 0.4 MG tablet, sublingual 0.4 mg Sublingual PRN Qty: 25 RF: 4 clonazepam [Klonopin] 0.5 MG tablet 0.5 mg PO HS Qty: 120 RF: 3 nicotine (polacrilex) [Nicorette] 2 MG gum 2 mg PO Q2H PRN Qty: 100 RF: 3 escitalopram oxalate 20 mg tablet 10 - 20 mg PO DAILY Qty: 90 RF: 3 fludrocortisone 0.1 MG tablet 0.1 mg PO DAILY Qty: 90 RF: 4 metoprolol tartrate 25 MG tablet 25 mg PO BID RF: 0 aspirin [Aspir-81] 81 MG tablet,delayed release (DR/EC) 81 mg PO DAILY RF: 0 mycophenolate mofetil [CellCept] 250 MG capsule 750 mg PO BID RF: 0 diltiazem HCl [Cardizem] 120 MG tablet 120 mg PO DAILY RF: 0 docusate sodium [Colace] 100 MG capsule 100 mg PO BID PRN PRN (Reason: Constipation) RF: 0 tacrolimus [Prograf] 1 MG capsule 1 tab PO HS RF: 0 tacrolimus [Prograf] 1 MG capsule 2 mg PO DAILY AM RF: 0 metoclopramide HCl 10 MG tablet 10 mg PO BID RF: 0 atorvastatin 40 mg tablet 40 mg PO DAILY RF: 0 clopidogrel 75 mg tablet 75 mg PO DAILY RF: 0 acetaminophen 650 mg Tablet Extended Release 650 mg PO Q6H PRN PRN (Reason: Pain) RF: 0 levothyroxine 75 mcg Tablet 75 mcg PO DAILY RF: 0 lisinopril 30 mg tablet 30 mg PO DAILY RF: 0 furosemide 20 mg Tablet 20 mg PO DAILY PRNRF: 0 hydrocortisone 5 mg tablet 10 - 15 mg PO DIRECTED Qty: 150 RF: 0 Discharge Instructions Instructions: Rosebud Disease (DC) Additional Instructions: Return to the hospital with any fever, bleeding, chest pain, or shortness of breath. Weigh yourself daily and inform your MD if your weight goes up by 3-4 lbs in 3-4 days - this is extra water weight and you might need extra lasix. Referrals: Judson Carr DO [Primary Care Provider] - Alfie Carreno [ NON-[facility] STAFF PHYSICIAN] - Activity:: Activity as Tolerated Equipment/Supplies:: No Equipment Needed Diet:: Low Sodium Discharge Orders Discharge Orders: Discharge Order (Routine); Ordered 11/16/19 Ordered By: Soni Larios DS: Summary Status at Discharge Functional status at discharge: independent ambulation Overall status at discharge: patient is back to baseline Mental Status: mental status grossly normal Speech and Movement: speech and movement normal Mood: congruent mood Affect: normal affect Exam Narrative Exam Narrative: General: Very pleasant middle-aged obese male, sitting at the edge of the bed and ambulating around the room, looks well, A&Ox3, facial plethora HEENT: EOMI, MMM Heart: RRR, no m/r/g Lungs: CTAB Abdomen: soft, rotund Extremities: no edema BLE's today Psych Mental Status: mental status grossly normal Speech and Movement: speech and movement normal Mood: congruent mood Affect: normal affect DS: Data Vitals/I&O Vitals and I&O: Vital Signs Temperature 36.6 C 11/16/19 07:51 Temperature Source Tympanic 11/16/19 07:51 Pulse 67 11/16/19 07:51 Pulse Rhythm Regular 11/16/19 09:11 Respiratory Rate 18 11/16/19 07:51 Respiratory Effort 11/16/19 09:11 Respiratory Depth Normal 11/16/19 09:11 Respiratory Pattern Normal 11/16/19 09:11 Blood Pressure 132/69 11/16/19 07:51 Blood Pressure Mean 85 11/13/19 21:01 Blood Pressure Position Sitting 11/13/19 15:57 Pulse Oximetry 96 11/16/19 07:51 Oxygen Delivery Method Cpap 11/16/19 07:51 Oxygen Flow Rate 0 11/15/19 23:55 Fraction of Inspired Oxygen (FIO2) 21 11/15/19 14:16 Pain Level 0 11/16/19 07:51 Intake & Output 11/15/19 11/16/19 11/16/19 23:59 11:59 23:59 Intake Total 790 / 790 Output Total 2600 / 4366 500 / 500 Balance -2600 / -3966 290 / 290 Weight 113.9 kg Intake: IV 10 Oral 780 / 780 Output: Urine 2600 / 4200 500 / 500 Other: Urine Color Yellow Urine Appearance Clear Clear Comment patient reported two voids that were 600 cc each. These were not scene by this RN. pt reports, ad gina to BR Voiding Methods Urinal Toilet Data Completed and Pending Completed studies during hospitalization [Text1]: CXR; No acute pulmonary findings. CT abdomen/pelvis: No acute abnormality. Question of mild bladder wall thickening. Clinical correlation is recommended.. US venous BLE's: Right: Negative for DVT Left: Negative for DVT Echo: Left Ventricle : The left ventricle is normal size. The left ventricular systolic function is normal. The left ventricular ejection fraction is within the normal range. There is normal left ventricular wall thickness. There is normal LV segmental wall motion. The left ventricular diastolic function is normal. LVEF is 50-55%. Right Ventricle : The right ventricle is normal size. The right ventricular systolic function is normal. The RVSP is 25.5 mmHg. Atria : The left atrium size is normal. The right atrium size is normal. Valves: There are no hemodynamically significant valvular lesions. Great Vessels : IVC is normal in size and collapses >50% with inspiration. Please see remainder of study for further details. There are no prior images available for comparison. Labs on day of discharge: Labs from last 24 hours 11/16/19 11/16/19 11/14/19 06:40 06:40 02:40 WBC 9.43 RBC 4.02 L Hgb 12.4 L Hct 36.0 L MCV 89.6 MCH 30.8 MCHC 34.4 RDW 11.7 L Plt Count 170 MPV 10.2 Immature Gran % 0.3 Neutrophils % 77.7 Lymphocytes % 11.3 Monocytes % 10.3 Eosinophils % 0.3 Basophils % 0.1 Absolute Neutrophils 7.32 H Absolute Lymphocytes 1.07 L Absolute Monocytes 0.97 H Absolute Eosinophils 0.03 Absolute Basophils 0.01 Sodium 139 Potassium 3.8 Chloride 103 Carbon Dioxide 28.6 Anion Gap 7.4 BUN 21 H Creatinine 1.24 Estimated GFR/1.73 m2 >= 60.00 Glucose 122 H Calcium 8.5 Magnesium 1.6 L Stool Campylobacter PCR Negative Stool Salmonella PCR Negative Stool Shigella PCR Negative COVID-19 PCR Nasopharyn COVID-19 PCR Shiga Toxin (PCR) Negative Ref Test Perform Site 11/13/19 22:25 WBC RBC Hgb Hct MCV MCH MCHC RDW Plt Count MPV Immature Gran % Neutrophils % Lymphocytes % Monocytes % Eosinophils % Basophils % Absolute Neutrophils Absolute Lymphocytes Absolute Monocytes Absolute Eosinophils Absolute Basophils Sodium Potassium Chloride Carbon Dioxide Anion Gap BUN Creatinine Estimated GFR/1.73 m2 Glucose Calcium Magnesium Stool Campylobacter PCR Stool Salmonella PCR Stool Shigella PCR COVID-19 PCR Negative Nasopharyn COVID-19 PCR Not Applicable Shiga Toxin (PCR) Ref Test Perform Site [facility] Medical History Tyler's disease (Acute 08/23/13) Pancreatic transplant 2013 Atherosclerosis of [place] coronary artery (Acute) Chest pain (Acute) 12/2010; MPI NEGATIVE Coronary atherosclerosis of [place] coronary vessel (Acute) Depressive disorder (Acute) Derangement of medial meniscus of left knee (Acute 04/10/17) Essential hypertension (Acute 03/22/13) Gastroesophageal reflux disease (Acute) hematemesis History of tobacco use (Acute) Internal derangement of left knee (Acute 03/16/17) Myocardial infarction acute (Acute 05/21/03) RCA stent placed Obstructive sleep apnea on CPAP (Acute 04/12/14) Obstructive sleep apnea syndrome (Acute) CPAP Peripheral neuralgia (Acute) Surgical History Colonoscopy - MAC 08/2008; NEG 07/07/14; NEG Coronary Stent 2003;RCA SHOULDER SURGERY (~06/2009) LEFT Vasectomy Social History Smoking/Tobacco Use Status: Current every day Tobacco Type: cigarettes Alcohol Intake: current Alcohol Intake frequency: 3 or more drinks per day Alcohol type: beer Drug use: Never Substance use type: does not use Do you feel safe at home: Yes Do you feel safe in your relationship?: Yes
--- NOTE | 2019-11-16 12:35 | DM INPTCON_ITS ---
Date of service: 11/16/19 Time of Service: 12:35 Diabetes Inpatient Consult DESCRIPTION/ASSESSMENT: Received Diabetes Inpatient Consult for 49 year old male admitted with 25 lbs weight gain in last 2 weeks with increase in abdominal girth, peripheral edema. Hx of pancreas transplant 6 years ago, hx of uncontrolled type 1 diabetic, hx of adrenal insuff, Chino's Dx and IDDM. Home meds include novolog, lasix. Recent A1C 5.9% (11/15/19 ) indicating well controlled DM. Following CHO diet with adequate intake. Not at risk for nutritional decline at this time. Diabetes self care well known to patient, recent A1C confirms well controlled DM. INTERVENTION: Lars declines diabetes education at this time PLAN: Lars will reach out to verse writer if needs any additional resources to manage his DM Time Spent in Nutritional Counseling and Treatment: 10 min spent face to face
--- NOTE | 2019-11-16 17:25 | PDOC.CMDIS ---
- If Service Date Differs Date of service: 11/16/19 Time of Service: 17:25 LACE Index Scoring Tool - Questions: Length of Stay (in days): 4 - 6 Acuity (Admit via E.D.?): Yes Comorbidities: Diabetes w/o Complication E.D. Visits: 3 - Answers: Total Score: 11 Risk of Readmission: High Risk Care Management Discharge Reason for Hospitalization: Chino's disease, Edema Discharge Plan: Lars will return home with no additional services at this time. He will transport via private vehicle. He will follow up with his PCP and discharge plan of care. CM contacted the pharmacy to ensure that he was able to receive his new diabetes supplies. He is happy to be going home. Patient/Family Education Needs: Review discharge instructions regarding activity levels and medications, discussion of self care needs including ask me three.
== END 2019-11-16 14:30 | disposition home or self-care (01) | DRG 644 ==
LOC: ER 22:20 → MS 22:41
PROVIDERS: Admitting Provider Family Medicine; Emergency Provider Physician Assistant; PCP Emergency Medicine; Visit Provider Internal Medicine
DX: E27.2 Addisonian crisis (principal); E87.1 Hypo-osmolality and hyponatremia; Z94.83 Pancreas transplant status; R60.0 Localized edema; T38.0X6A Underdosing of glucocorticoids and synthetic analogues, initial encounter; Z91.138 Patient's unintentional underdosing of medication regimen for other reason; E27.1 Primary adrenocortical insufficiency; M54.9 Dorsalgia, unspecified; E87.70 Fluid overload, unspecified; E83.51 Hypocalcemia; E83.42 Hypomagnesemia; R06.6 Hiccough; F10.10 Alcohol abuse, uncomplicated; R73.9 Hyperglycemia, unspecified; Z03.818 Encounter for observation for suspected exposure to other biological agents ruled out; T38.0X5A Adverse effect of glucocorticoids and synthetic analogues, initial encounter; E03.9 Hypothyroidism, unspecified; D64.9 Anemia, unspecified; I34.0 Nonrheumatic mitral (valve) insufficiency; Z71.3 Dietary counseling and surveillance
CPT/HCPCS: 36415; 80048; 80053; 83690; 85652; 86141; 87505; 93005; 93306; 99223; 99232; 99239; 99285; U0003; 71046; 74176; 81003; 81015; 83036; 83605; 83735; 83880; 84439; 84443; 85025; 85610; 87086; 87324; 93010; 93970; J1644; J1720; J1941; J3490; J7517

== ENCOUNTER → 2019-11-18 11:18 | Outpatient (BNVA) | payer MEDICARE, SELFPAY | PROVIDERS: PCP Emergency Medicine; Referring Provider Emergency Medicine; Visit Provider Surgery | DX: E27.2 Addisonian crisis (principal); I21.9 Acute myocardial infarction, unspecified; Z86.010 Personal history of colon polyps; Z87.891 Personal history of nicotine dependence; G47.33 Obstructive sleep apnea (adult) (pediatric); I25.10 Atherosclerotic heart disease of native coronary artery without angina pectoris; Z94.83 Pancreas transplant status; Z79.01 Long term (current) use of anticoagulants; I10 Essential (primary) hypertension; K21.9 Gastro-esophageal reflux disease without esophagitis | CPT/HCPCS: 99203; 99214 ==

== ENCOUNTER 2019-12-08 04:38 | Outpatient (CLI) | payer MEDICARE, SELFPAY ==
[2019-12-08 07:25] LABS: Bilirubin Negative (Negative); Blood Negative (Negative); Clarity Clear (Clear); Glucose Negative (Negative); Ketones Negative (Negative); Leukocyte Esterase Negative (Negative); Nitrite Negative (Negative); Specific Gravity 1.015 (1.005-1.025); Urobilinogen 0.2 EU/dL (Up TO 0.2)
[2019-12-08 07:43] LABS: PROTEIN 14.8 mg/dL
[2019-12-08 07:47] LABS: COMMENT (LAB VIEW ONLY) 76.44 mg/dL; Prot/Crea Ur Ratio 0.19
[2019-12-08 07:57] LABS: HCT 38.5 % (40.0-50.0); Mean Corp. HGB Concentration 33.8 g/dL (32.0-36.0); Mean Corpuscular Volume 91.9 fL (80-95); Mean Platelet Volume 9.7 fL (8.0-11.0); Platelet Count 165 x1000/uL (130-400); RBC 4.19 m/cumm (4.50-6.00); RBC Distribution Width 13.6 % (11.8-14.1); White Blood Cell Count 4.72 k/cumm (4.4-10.8)
[2019-12-08 08:08] LABS: Hemoglobin A1C 5.8 % (3.8-5.6)
[2019-12-08 08:52] LABS: Amylase 66 U/L (25-115); Lipase 141 U/L (73-393); Magnesium 1.7 mg/dL (1.8-2.4); PHOSPHORUS 4.8 mg/dL (2.6-4.7); Uric Acid 7.9 mg/dL (3.5-7.2)
[2019-12-08 09:01] LABS: ALT 51 U/L (16-63); AST 35 U/L (15-37); Alkaline Phosphatase 56 U/L (46-116); Anion Gap 7.4 mmol/L (3-11); BUN 20 mg/dL (7-18); Bilirubin, Total 0.8 mg/dL (0.2-1.0); CO2 31.6 mmol/L (21.0-32.0); CREATININE 1.33 mg/dL (0.70-1.30); Calcium 8.9 mg/dL (8.5-10.1); Chloride 103 mmol/L (98-107); Estimated GFR 56.69 (mL/min/1.73m2); Glucose 100 mg/dL (74-106); Sodium 142 mmol/L (136-145); Total Protein 7.3 g/dL (6.4-8.2)
[2019-12-08 09:02] LABS: FREE T4 0.89 ng/dL (0.76-1.46); TSH 4.79 uIU/mL (0.36-3.74)
[2019-12-08 14:26] LABS: Cholesterol 198 mg/dL (<200)
[2019-12-09 13:50] LABS: Tacrolimus 5.6 ng/mL (See Note)
== END 2019-12-08 04:58 ==
PROVIDERS: Internal Medicine Endocrinology, Diabetes & Metabolism; PCP Emergency Medicine; Visit Provider Internal Medicine Nephrology
DX: E03.9 Hypothyroidism, unspecified (principal); Z94.83 Pancreas transplant status; Z79.899 Other long term (current) drug therapy; Z51.81 Encounter for therapeutic drug level monitoring
CPT/HCPCS: 36415; 80053; 83690; 85027; 80197; 81003; 82150; 82465; 82565; 83036; 83735; 84100; 84144; 84156; 84439; 84443; 84550

== ENCOUNTER 2019-12-29 11:54 | Day surgery (SDC) | payer MEDICARE, SELFPAY ==
[2019-12-29 12:11] VITALS: BP 146/87; PULSE 67; RESP 18; TEMP 36.8; O2SAT 95
[2019-12-29] MEDS: Lactated Ringers 1,000 ML 100 ML IV (12:28)
--- NOTE | 2019-12-29 12:57 | W.PM.HP.N ---
Date of service: 12/29/19 Time of Service: 12:57 Assessment and Plan Assessment and plan (1) Family history of colon cancer in father: Status: Acute Assessment and plan: Patient's father had colorectal cancer in his 60s. Patient has had 9 adenomatous polyps in the past. Patient has a history of colitis as well it is unknown if it is autoimmune or infectious. Patient is currently medical stable stable to undergo colonoscopy. Is at slightly higher risk because of his multiple medical problems and he is a transplant patient. There is also been a radical risk accelerating rejection with this procedure however that risk is mild but is present but acceptable for today's proposed procedure. Informed consent is obtained for the procedural (explained in simple layman's terms that the pt and/or family could understand) explaining risks vs benefits and alternatives to the procedure and consequences if we do not do the procedure and need/rational for the procedure. Risks include but are not limited to: bleeding, infection, perforation of esophagus, stomach, colon, small intestines, bronchus or trachea, or PTX. This would necessitate emergency surgery to repair the damage w/ possible ostomy; and other associated complications w/ the required surgery. Also complications of anesthesia including aspiration, WV/CVA/. History of Present Illness Consults Consult date: 12/29/19 Narrative: today 12/28 Patient seen and examined. Patient is complaining of a sore throat?he notes that he has had it over the last 3 weeks. He notes that it started ever since he got his new CPAP mask. It is only first thing in the morning and dissipate towards the end of the day. He has not traveled outside of the [facility]. He has no other signs and symptoms compatible with [place]. He has not lost his sense of taste or smell. He has no fever or chills. He has no cough. He has no shortness of breath or extreme fatigue. He is not exposed to Cobin that he is aware of. He completed his bowel prep. He has no chest pain or shortness of breath today. He has no abdominal pain. He has been off his Plavix. He has had no bleeding with the prep. What is coming out is clear yellow fluid. 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 They said it was safe, Plavix for 10 to 14 days to have the procedure done and he needs to be off it for post polypectomy procedure. -is not on any meds for DM -Patient did recently see his primary care physician and is stable from a [place]'s standpoint for the proposed procedure. The last hospitalization for [place]'s crisis was actually due to the patient not taking his prescribed medication. . Aisha Carr 12/01 From [place]'s disease: He is a medically very complex patient who was recently hospitalized for an adrenal crisis. He had forgotten to take his hydrocortisone for a number of days. He ended up in adrenal crisis. The ER and hospitalist did an excellent job with him. He is now feeling quite good. We discussed how difficult it is to maintain medication accuracy and compliance and we talked about schemes to do that. We also talked about how or not to overdo it particularly in the warm weather. Additional issues include currently asymptomatic coronary artery disease, pancreatic transplant for diabetes, and COVID protection. Exam. He appears NAD his skin is slightly bronze. Blood pressure is 140/84. Heart rate is 80 and regular without murmurs lungs are clear. There is no peripheral edema. Weight is up to 53. He has begun taking Lasix since his hospitalization. Assessment. [place]'s disease with recent adrenal crisis. Plan we will check his BMP. No change in medications. 2. Hypertension blood pressure well controlled. 3. CAD currently asymptomatic. 4. History of diabetes. This was reversed with a pancreatic transplant which can which continues to work well. 5. COVID protection. We talked at this at great length. Is being very careful. from office note on 11/16: Pt seen at the request of PCP regarding colon cancer screening. Denies problems with constipation, diarrhea. No pain or difficulty with bowel movements. Denies rectal bleeding. There is no family history of any colon cancer. Pt has not had any weight loss. He has had adenomatous polypsin the past. Their appetite is good. No heart, lung, or kidney problems. No heartburn or indigestion. No prior colo-rectal surgery. No problems with anesthesia in the past. Pt was recently in hospital w/ adrenal crisis. D/c'ed home 11/15. pt was in hosp b/c retaining fluid. father dg was dg w/CRC at age 60. Patient has a history of: Beers- 3/day. 16oz. stopped tobacco use. His last CE was in 2014. He had polyps, but they were non-adenomatous. DM: had pancrease transplant 2012. no problems w/ rejection. not on DM. takes cellcept and prograf for rejection. DM is stable. HE has had a CE at [facility] in the past. HE stayed on his rejection meds through the CE and had no problems. CVA/WV: had WV in 2000. has been on every since. pt is unclear why he is still on it. denies any problems w/ blood clots. Stents placed 2 yrs ago. Cardilogy- [facility] at [facility]. sees every 6m. CPAP use: + Blood thinners: Plavix Has been off plaveix to have procedures done. Kidney disease: none Review of Systems All systems reviewed & are unremarkable except as noted in HPI and below PFSH Medical History (Updated 12/29/19 @ 13:16 by Ama Vargas DO) [place]'s disease (Chronic 08/23/13) Pancreatic transplant 2013 Pt. states he had ran out of steroids, and forgot to get it refilled and that is what triggered his adrenal crisis Anticoagulant long-term use (Acute) Atherosclerosis of [place] coronary artery (Acute) Chest pain (Acute) 12/2010; MPI NEGATIVE -Pt. states he has never had chest pain his WV was pressure Colon cancer screening (Acute) Coronary atherosclerosis of [place] coronary vessel (Acute) Depressive disorder (Acute) Derangement of medial meniscus of left knee (Acute 04/10/17) Essential hypertension (Acute 03/22/13) Family history of colon cancer (Acute) Family history of colon cancer in father (Acute) Gastroesophageal reflux disease (Acute) hematemesis History of tobacco use (Acute) Internal derangement of left knee (Acute 03/16/17) Myocardial infarction acute (Acute 05/21/03) RCA stent placed Obstructive sleep apnea on CPAP (Acute 04/12/14) Obstructive sleep apnea syndrome (Acute) CPAP Peripheral neuralgia (Acute) Surgical History Colonoscopy - MAC 08/2008; NEG 07/07/14; NEG Coronary Stent 2018 last stent placed 2003;RCA x3 Pancreas transplant status (Acute) SHOULDER SURGERY (~06/2009) LEFT Vasectomy Social History Smoking/Tobacco Use Status: Former Tobacco Use Quit Date: 12/26/19 Alcohol Intake: current Alcohol Intake frequency: a few times a week Alcohol type: beer Drug use: Never Substance use type: does not use Details: Had quit then smoked a pack of cigarettes this weekend Current gender identity: male Do you feel safe at home: Yes Do you feel safe in your relationship?: Yes Meds Home Medications and Allergies Home Medications Medication Instructions Recorded Confirmed Type fludrocortisone 0.1 mg PO DAILY #90 10/13/12 12/29/19 History metoprolol tartrate 25 mg PO BID 10/13/12 12/29/19 History nitroglycerin 0.4 mg SUBLINGUAL PRN #25 01/24/13 12/29/19 History aspirin [Aspir-81] 81 mg PO DAILY 05/12/13 12/29/19 History diltiazem HCl [Cardizem] 120 mg PO DAILY 05/12/13 12/29/19 History docusate sodium [Colace] 100 mg PO BID PRN PRN 05/12/13 12/29/19 History mycophenolate mofetil [CellCept] 750 mg PO BID 05/12/13 12/29/19 History tacrolimus [Prograf] 1 tab PO HS 05/12/13 12/29/19 History tacrolimus [Prograf] 2 mg PO DAILY AM 05/12/13 12/29/19 History clonazepam [Klonopin] 0.5 mg PO HS #120 tab-cap 12/13/14 12/29/19 History nicotine (polacrilex) [Nicorette] 2 mg PO Q2H PRN #100 piece of gum 07/15/16 12/29/19 History metoclopramide HCl 10 mg PO BID 10/28/17 12/29/19 History escitalopram oxalate 20 mg tablet 10 - 20 mg PO DAILY #90 tab-cap 07/25/19 12/29/19 Rx acetaminophen 650 mg PO Q6H PRN PRN 11/16/19 12/29/19 History atorvastatin 40 mg PO DAILY 11/16/19 12/29/19 History clopidogrel 75 mg PO DAILY 11/16/19 12/29/19 History furosemide 20 mg PO DAILY PRN 11/16/19 12/29/19 History hydrocortisone 10 - 15 mg PO DIRECTED #150 tab 11/16/19 12/29/19 Rx levothyroxine 75 mcg PO DAILY 11/16/19 12/29/19 History lisinopril 30 mg PO DAILY 11/16/19 12/29/19 History magnesium oxide 400 mg PO DAILY #30 tab 11/16/19 12/29/19 Rx multivitamin [Multiple Vitamins] 1 tab PO DAILY #30 tab 11/16/19 12/29/19 Rx thiamine mononitrate (vit B1) 100 mg PO DAILY #30 tab 11/16/19 12/29/19 Rx [Vitamin B-1 (mononitrate)] bisacodyl 5 mg tablet,delayed 5 mg PO ONCE #4 tab 11/18/19 12/29/19 Rx release polyethylene glycol 3350 17 238 g PO ONCE #238 gm 11/18/19 12/29/19 Rx gram/dose oral powder Allergies Allergy/AdvReac Type Severity Reaction Status Date / Time No Known Allergies Allergy Verified 12/26/19 14:36 Exam Const General: cooperative, healthy appearing, comfortable, no acute distress, well developed and well groomed Nutritional Appearance: average body habitus and well nourished Orientation: alert, awake and oriented x3 HENMT Head: normal to inspection, normocephalic and atraumatic Ears: hearing grossly normal bilaterally and external ears normal General nose exam: external nose normal Face and sinus: normal facial exam and sinuses nontender Mouth: oral mucosae normal, lip normal, tongue normal and moist mucous membranes Teeth and gingiva: dentition normal Eyes General: appearance normal, both eyes and all related structures Conjunctivae: conjunctivae normal Sclera: sclerae normal Pupils: PERRL Neck Neck: normal visual inspection and full ROM Chest Chest: normal inspection of the chest Resp Effort & Inspection: normal respiratory effort, able to speak in complete sentences, no cough, no nasal flaring, not tachypneic and no use of accessory muscles Auscultation: clear to auscultation bilaterally, no rales, no rhonchi and no wheezes Cardio Jugular venous pressure: no JVD Rate: regular rate Rhythm: regular rhythm GI Inspection: normal to inspection, no edema and non-distended Palpation: soft, no masses, nontender and No ascites Auscultation: normal bowel sounds Skin General skin exam: no rashes or lesions noted Trauma: no lacerations or abrasions Neuro General: patient alert, patient oriented x3, oriented, gait normal, moves all extremities, no focal motor deficits and CN's II-XI intact bilaterally Cognition: normal cognition Speech: speech normal Gait: normal gait Motor: muscle tone normal throughout Extrem General: normal to inspection, full ROM and no clubbing, cyanosis or edema Psych Appearance: grossly normal and well kempt Mental Status: mental status grossly normal Speech and Movement: speech and movement normal Affect: normal affect Results Last Vital Signs Temp 36.8 C 12/29/19 12:11 Pulse 67 12/29/19 12:11 Resp 18 12/29/19 12:11 BP 146/87 H 12/29/19 12:11 Pulse Ox 95 12/29/19 12:11 COVID-19 Screening Have you,or household,traveled outside [place] in last 14 days?: No Had IN PERSON contact w/suspected or confirmed C-19 person: No
--- NOTE | 2019-12-29 14:10 | W.COLOREPORT ---
Date of service: 12/29/19 Time of Service: 14:10 Colonoscopy Report Date of procedure: 12/29/19 Pre-op diagnosis general: fam hx of CRC in 1st degree family <60/ Polyps Post-op diagnosis procedure note: same Procedure: CE Surgeon: Ama Vargas Anesthesia proc note operative: MAC Estimated blood loss (mL): 0 Pathology: none sent Complications: None Disposition: same day Prep: Miralax/Dulcolax Retraction Time: 12 mins Procedure Description: After informed consent was obtained the patient was taken to the procedure room and placed in a left decubitous position. Monitors were applied and a time out was done. The patients name, date of , procedure, allergies to medications and metal in their body was reviewed. The patient was then sedated. Once sedated and comfortable a rectal exam was done. External exam was normal. Internal exam revealed a normal sphincter tone and no palpable masses. The prostate - is not palpable. The scope was then introduced and retrofelexed. No internal hemorrhoids were identified. The scope was then advanced to the cecum w/out difficulty. The TI and appendiceal orifice were identified. The prep was sub-optimal. Lesions less than 5 cm may have been missed. the scope was then slowly retracted over 12 minutes back into the rectum. The colon was washed. Mucosa appeared pink and healthy. There were no AVMs, diverticula, or polyps. No signs of any infections or autoimmune disorders polyps were removed - none. The scope was removed and the patient was woken up and taken back to Same day surgery in stable condition. The patient tolerated the procedure well and there were no immediate complications. Follow up: The patient should follow up in 5 years-because of his family history of colorectal cancer, unless they develop changes in bowel habits or other new gastrointestinal complaints.
--- NOTE | 2019-12-29 14:17 | W.PM.DSUDISC ---
Discharge Plan Disposition Patient Disposition: HOME Condition: Good Discharge Details Reason For Visit: colon scope Attending Provider: Ama Vargas Primary Care Provider: Judson Carr Home Meds and New Rx's Prescriptions: No Action polyethylene glycol 3350 17 gram/dose powder 238 g PO ONCE Qty: 238 RF: 0 bisacodyl [Dulcolax (bisacodyl)] 5 mg tablet,delayed release (DR/EC) 5 mg PO ONCE Qty: 4 RF: 0 nitroglycerin 0.4 MG tablet, sublingual 0.4 mg Sublingual PRN Qty: 25 RF: 4 clonazepam [Klonopin] 0.5 MG tablet 0.5 mg PO HS Qty: 120 RF: 3 nicotine (polacrilex) [Nicorette] 2 MG gum 2 mg PO Q2H PRN Qty: 100 RF: 3 escitalopram oxalate 20 mg tablet 10 - 20 mg PO DAILY Qty: 90 RF: 3 fludrocortisone 0.1 MG tablet 0.1 mg PO DAILY Qty: 90 RF: 4 metoprolol tartrate 25 MG tablet 25 mg PO BID RF: 0 aspirin [Aspir-81] 81 MG tablet,delayed release (DR/EC) 81 mg PO DAILY RF: 0 mycophenolate mofetil [CellCept] 250 MG capsule 750 mg PO BID RF: 0 diltiazem HCl [Cardizem] 120 MG tablet 120 mg PO DAILY RF: 0 docusate sodium [Colace] 100 MG capsule 100 mg PO BID PRN PRN (Reason: Constipation) RF: 0 tacrolimus [Prograf] 1 MG capsule 1 tab PO HS RF: 0 tacrolimus [Prograf] 1 MG capsule 2 mg PO DAILY AM RF: 0 metoclopramide HCl 10 MG tablet 10 mg PO BID RF: 0 atorvastatin 40 mg tablet 40 mg PO DAILY RF: 0 clopidogrel 75 mg tablet 75 mg PO DAILY RF: 0 acetaminophen 650 mg Tablet Extended Release 650 mg PO Q6H PRN PRN (Reason: Pain) RF: 0 levothyroxine 75 mcg Tablet 75 mcg PO DAILY RF: 0 lisinopril 30 mg tablet 30 mg PO DAILY RF: 0 furosemide 20 mg Tablet 20 mg PO DAILY PRNRF: 0 multivitamin [Multiple Vitamins] Tablet 1 tab PO DAILY Qty: 30 RF: 0 magnesium oxide 400 mg (241.3 mg magnesium) Tablet 400 mg PO DAILY Qty: 30 RF: 0 thiamine mononitrate (vit B1) [Vitamin B-1 (mononitrate)] 100 mg Tablet 100 mg PO DAILY Qty: 30 RF: 0 hydrocortisone 5 mg tablet 10 - 15 mg PO DIRECTED Qty: 150 RF: 0 Discharge Instructions Instructions: High Fiber Diet (GEN) Additional Instructions: Findings:Normal colon follow high fiber diet Follow up:repeat in 5 yrs time Please call if you develop: fevers >101.5 Nausea or Vomiting Abdominal pain that is not transient DAY SURGERY UNIT POST COLONOSCOPY INSTRUCTIONS 1. Because there will be medication in your system for the next 24 hours, you may feel a little sleepy. Your coordination will be affected. Therefore: a. Do not drive or operate dangerous equipment for 24 hours. b. Do not drink alcohol beverages for 24 hours (not even beer). c. Plan to go home and rest for the day. 2. Generally there are no restrictions on your activity after a day or so has gone by, but you may feel a bit fatigued for a few days. 3 After you arrive home you may have a light meal and return to a normal diet as you can tolerate it without feeling sick to your stomach. 4. After surgery, you may feel pain or discomfort. This should be only transient, but if it persists please contact your doctor. 5. If there are any questions regarding the findings of your procedure, please feel free to contact your doctor. 6. If you are unable to contact your doctor with a problem, contact the hospital at [phone]. 7. Continue all your regular medications unless directed otherwise. I understand the above instructions and have no questions. Signature of Patient or Responsible Adult Escort Date/Time Name of Responsible Adult Escort Signature of Nurse Date/Time Activity:: No lifting over 20 pounds or strenuous activity x24 hours Diet:: Small light meals x24 hours Discharge Orders Discharge Orders: Discharge Order (Routine); Ordered 12/29/19 Ordered By: Ama Vargas DS: Diagnosis Discharge Diagnosis (1) Family history of colon cancer in father: Status: Acute
[2019-12-29 14:40] VITALS: BP 146/89; PULSE 60; RESP 18; TEMP 36.4; O2SAT 100
== END 2019-12-29 14:55 | disposition home or self-care (01) ==
PROVIDERS: PCP Emergency Medicine; Visit Provider Surgery
PROC: 0DJD8ZZ Inspection of Lower Intestinal Tract, Via Natural or Artificial Opening Endoscopic (ICD-10-PCS; CPT 45378; 2019-12-29 13:00)
DX: Z12.11 Encounter for screening for malignant neoplasm of colon (principal); Z80.0 Family history of malignant neoplasm of digestive organs; Z86.010 Personal history of colon polyps; Z87.19 Personal history of other diseases of the digestive system; I10 Essential (primary) hypertension; Z94.83 Pancreas transplant status
CPT/HCPCS: G0105; NC; J2001

== ENCOUNTER 2020-03-16 15:06 | Outpatient (CLI) | payer MEDICARE, SELFPAY ==
--- NOTE | 2020-03-16 10:00 | DI.RAD_ITS ---
EXAM: XR LUMBAR SPINE COMPLETE CLINICAL HISTORY: low back pain, M54.5. TECHNIQUE: 2D digital imaging was performed. COMPARISON: No exams were available for comparison FINDINGS: BONES: No fracture or destructive lesion. Vertebral bodies are unremarkable. No facet hypertrophy melvin ntified. DISKS: Intervertebral disc spaces are maintained. Small osteophytes are seen at the superior endplate s of L4 and L5. ALIGNMENT: Lumbar spinal alignment is within normal limits. SOFT TISSUE: Surgical clips in the abdomen. Atherosclerosis. IMPRESSION: Mild degenerative changes in the spine. DATA REPOSITORY: RADIATION DOSE DELIVERED:
== END 2020-03-16 15:26 ==
PROVIDERS: PCP Emergency Medicine; Visit Provider Emergency Medicine
DX: M47.816 Spondylosis without myelopathy or radiculopathy, lumbar region (principal)
CPT/HCPCS: 72110

== ENCOUNTER 2020-03-19 03:07 | Outpatient (CLI) | payer MEDICARE, SELFPAY ==
[2020-03-19 13:04] LABS: Bilirubin Negative (Negative); Blood Negative (Negative); Clarity Clear (Clear); Glucose Negative (Negative); Ketones Negative (Negative); Leukocyte Esterase Negative (Negative); Nitrite Negative (Negative); Urobilinogen 0.2 EU/dL (Up TO 0.2)
[2020-03-19 13:08] LABS: HGB 13.5 g/dL (13.5-17.5); MCH 31.3 pg (27.0-33.0); MCHC 33.8 % (32.0-36.0); MCV 92.8 fL (80-95); MPV 9.9 fL (8.0-11.0); Platelet Count 152 10^3/uL (130-400); RBC 4.31 10^6/uL (4.36-5.78); RDW 11.4 % (11.8-14.1); RDW-SD 38.7 fL; Reticulocyte 1.7 % (0.5-2.4); WBC 6.43 10^3/uL (4.4-10.8)
[2020-03-19 13:11] LABS: Hemoglobin A1C 5.5 % (<5.7)
[2020-03-19 13:29] LABS: Creatinine,Urine 56.23 mg/dL
[2020-03-19 13:30] LABS: PROTEIN 10.9 mg/dL
[2020-03-19 13:31] LABS: COMMENT (LAB VIEW ONLY) 57.09 mg/dL; Prot/Crea Ur Ratio 0.19
[2020-03-19 13:49] LABS: ALT 41 U/L (16-63); AST 35 U/L (15-37); Albumin 3.7 g/dL (3.4-5.0); Alkaline Phosphatase 64 U/L (46-116); Amylase 53 U/L (25-115); Anion Gap 8.8 mmol/L (3-11); BUN 20 mg/dL (7-18); Bilirubin, Total 0.6 mg/dL (0.2-1.0); C-Reactive Protein 0.63 mg/dL (0.0-0.3); CO2 27.2 mmol/L (21.0-32.0); CREATININE 1.12 mg/dL (0.70-1.30); Calcium 8.8 mg/dL (8.5-10.1); Chloride 99 mmol/L (98-107); Glucose 77 mg/dL (74-106); Lipase 104 U/L (73-393); Magnesium 1.8 mg/dL (1.8-2.4); Potassium 4.2 mmol/L (3.5-5.1); Sodium 135 mmol/L (136-145); Total Protein 7.3 g/dL (6.4-8.2); Uric Acid 9.6 mg/dL (3.5-7.2)
[2020-03-19 14:05] LABS: Calculated LDL 123 mg/dL (<100); Cholesterol 202 mg/dL (<200); HDL Cholesterol 59 mg/dL (40-60); Triglyceride 100 mg/dL (<150)
[2020-03-19 14:14] LABS: Vitamin D 25 Total 34.6 ng/ml (30-100)
[2020-03-19 21:39] LABS: Cortisol (Baseline) <1 ug/dL (4-23)
[2020-03-20 08:40] LABS: Calcium (Random Urine) <1.0 mg/dL (See Note)
[2020-03-20 08:44] LABS: Magnesium Random Urine <2.0 mg/dL (See Note)
[2020-03-20 09:40] LABS: Parathyroid Hormone,Intact 63 pg/mL (19-88)
[2020-03-20 10:07] LABS: Cyclic Citrullinated Peptide <2.5 U/mL (<5.0)
[2020-03-20 12:27] LABS: Tacrolimus 7.1 ng/mL (See Note)
[2020-03-22 13:13] LABS: 25-Hydroxy D Total 49 ng/mL; 25-Hydroxy D2 <4.0 ng/mL; 25-Hydroxy D3 49 ng/mL
== END 2020-03-19 03:27 ==
PROVIDERS: Internal Medicine Nephrology; PCP Emergency Medicine; Visit Provider Emergency Medicine
DX: M54.5 Low back pain (principal); E03.9 Hypothyroidism, unspecified; E27.1 Primary adrenocortical insufficiency; E11.9 Type 2 diabetes mellitus without complications; Z79.899 Other long term (current) drug therapy; Z94.83 Pancreas transplant status; Z29.8 Encounter for other specified prophylactic measures; E55.9 Vitamin D deficiency, unspecified; Z51.81 Encounter for therapeutic drug level monitoring
CPT/HCPCS: 36415; 80053; 80061; 80400; 82306; 83690; 83735; 85027; 86200; 80197; 81003; 82150; 82340; 82565; 83036; 83970; 84100; 84105; 84156; 84550; 85045; 86140

== ENCOUNTER 2020-03-20 00:51 | Outpatient (CLI) | payer MEDICARE, SELFPAY ==
--- NOTE | 2020-03-20 07:15 | DI.NM_ITS ---
APPROVED REPORT Exam: Pharmacologic Patient Location: Out-Patient Room/Bed: Stress Nurse: Molly Ohara RN BMI: 34.86 Baseline Rhythm: Sinus Rhythm Indications: Patient reports episodes where ???all of a sudden everything gets black and I fall to th e ground??? over the past year. He states the only warning sign he may get is a shaking of the knees occasionally. He reports these episodes usually happen after activity???mostly after playing a round of golf. These episodes happen approximately two times per month. He also reports ???extreme fatigue? ??. Medical History Medical History: [place]???s Disease, Pancreatic Transplant 2013, [employer] Anticoagulant Use, Athero sclerosis of [place] Coronary Artery, Depression, GERD, ENRIQUETA on [facility], Alcoholism, Myocardial Infarction (05/21/03) (Stents 3X in 2004???RCA and 1X in 2018). Cardiac Medications: Metoprolol Tartrate, Nitroglycerin, Aspirin, Diltiazem, Atorvastatin, Clopidogre l, Furosemide, Lisinopril. Allergies: No known drug allergies Cardiac Risk Factors: HTN, Hyperlipidemia, CVD, Smoking Previous Cardiac Procedures: PCI, 4 stents, Myocardial infarction. Pretest Chest Pain Characteristics: None reported per patient. Exercise History: Physically active Physical Disabilities: None Lung Sounds: Clear to auscultation Heart Sounds: Regular Stress Test Details Test: Pharmacologic stress testing performed using 0.4 mg of regadenoson per 5 mL given IV over 10 s econds. Reason for pharmacologic stress test: Near syncopal episodes with activity.. Nuclear Acquisition: Rest Tc-99m/Stress Tc-99m 1 day Rest Isotope: Tc-99m Sestamibi. Dose: 11.9 Date: 03/20/2020 Injection Time: 0545 Stress Isotope: Tc-99m Sestamibi. Dose: 35.1 Date: 03/20/2020 Injection Time: 1025 HR Resting HR Supine: 61 bpm Max Heart Rate (APMHR): 169 bpm Target HR (85% APMHR): 143 bpm Max HR Achieved: 85 bpm % of APMHR: 50 BP Resting BP Supine: 142/82 mmHg Max BP: 142/82 mmHg ECG Resting ECG: Sinus Rhythm. Stress ECG: Sinus Rhythm ST Change: Normal Arrhythmia: None Recovery ECG: Sinus Rhythm Recovery ST Change: Normal Recovery Arrhythmia: None Clinical Stress Symptoms: No symptoms reported per patient. Stress ECG Conclusion 1. There is a pharmacological stress test. 2. Patient no symptoms suggestive of ischemia. 3. EKG portion of this exam was nondiagnostic. Stress Test Summary STAGE HR BP Symptoms NOTES Supine 61 142/82 1 min post Lexiscan injection 71 128/78 3 min post Lexiscan injection 83 126/84 6 min post Lexiscan injection 80 138/80 MPI Conclusion Ejection fraction was 64% with stress. There were no wall motion abnormalities. There was no evidence of ischemia or infarct on the imaging portion of the exam. This represents a normal SPECT stress test. Radiologist Interpretation Radiologist agrees with Cartoon Animator's Interpretation. Radiologist Interpretation by: Amelia Maloney MD Interpretation Date/Time: 03/22/2020 08:26:13
[2020-03-20] MEDS: Regadenoson 0.4 MG/5 ML SYR IVP (09:56)
== END 2020-03-20 01:11 ==
PROVIDERS: PCP Emergency Medicine; Visit Provider Emergency Medicine
DX: R55 Syncope and collapse (principal); Z95.5 Presence of coronary angioplasty implant and graft; I10 Essential (primary) hypertension; E78.5 Hyperlipidemia, unspecified; F17.210 Nicotine dependence, cigarettes, uncomplicated; I25.10 Atherosclerotic heart disease of native coronary artery without angina pectoris
CPT/HCPCS: 78452; 93016; 93018; 93017; J2785

== ENCOUNTER 2020-08-29 03:21 | Outpatient (CLI) | payer MEDICARE, SELFPAY ==
[2020-08-30 13:18] LABS: COVID-19 RT-PCR UVMMC Result Negative (Negative)
== END 2020-08-29 03:22 | disposition home or self-care (01) ==
LOC: LBO 03:22
PROVIDERS: PCP Emergency Medicine; Visit Provider Emergency Medicine
DX: Z20.822 Contact with and (suspected) exposure to COVID-19 (principal)
CPT/HCPCS: U0003

== ENCOUNTER 2020-09-04 09:15 | Outpatient (CLI) | payer MEDICARE, SELFPAY ==
[2020-09-05 13:30] LABS: COVID-19 RT-PCR UVMMC Result Negative (Negative)
== END 2020-09-04 09:16 | disposition home or self-care (01) ==
PROVIDERS: PCP Emergency Medicine; Visit Provider Emergency Medicine
DX: Z20.822 Contact with and (suspected) exposure to COVID-19 (principal)
CPT/HCPCS: U0003

== ENCOUNTER 2020-11-22 03:17 | Outpatient (CLI) | payer MEDICARE, SELFPAY ==
[2020-11-22 10:07] LABS: HCT 43.9 % (40.0-50.0); HGB 15.2 g/dL (13.5-17.5); MCH 31.5 pg (27.0-33.0); MCHC 34.6 % (32.0-36.0); MCV 91.1 fL (80-95); MPV 9.2 fL (8.0-11.0); Platelet Count 168 10^3/uL (130-400); RBC 4.82 10^6/uL (4.36-5.78); RDW 12.5 % (11.8-14.1); RDW-SD 42.1 fL
[2020-11-22 11:17] LABS: ALT 38 U/L (16-63); AST 26 U/L (15-37); Albumin 3.9 g/dL (3.4-5.0); Alkaline Phosphatase 76 U/L (46-116); Anion Gap 11.4 mmol/L (3-11); BUN 19 mg/dL (7-18); Bilirubin, Total 0.5 mg/dL (0.2-1.0); CO2 26.6 mmol/L (21.0-32.0); CREATININE 1.2 mg/dL (0.70-1.30); Chloride 103 mmol/L (98-107); Glucose 118 mg/dL (74-106); Magnesium 1.5 mg/dL (1.8-2.4); Potassium 4.3 mmol/L (3.5-5.1); Sodium 141 mmol/L (136-145); TSH 1.37 uIU/mL (0.36-3.74); Total Protein 7.7 g/dL (6.4-8.2)
[2020-11-26 10:59] LABS: Misc Referral (MAYO) See Comments
== END 2020-11-22 03:18 | disposition home or self-care (01) ==
LOC: LBO 03:17
PROVIDERS: PCP Emergency Medicine; Visit Provider Internal Medicine Nephrology
DX: D84.9 Immunodeficiency, unspecified (principal); Z94.83 Pancreas transplant status; E03.9 Hypothyroidism, unspecified; E27.1 Primary adrenocortical insufficiency; I10 Essential (primary) hypertension; M79.2 Neuralgia and neuritis, unspecified
CPT/HCPCS: 36415; 80053; 83883; 85027; 83735; 84443

== ENCOUNTER 2021-05-13 03:23 | Outpatient (CLI) | payer MEDICARE, SELFPAY ==
[2021-05-13 10:19] LABS: HCT 44.7 % (40.0-50.0); HGB 14.9 g/dL (13.5-17.5); MCH 31.5 pg (27.0-33.0); MCHC 33.3 % (32.0-36.0); MCV 94.5 fL (80-95); MPV 9.5 fL (8.0-11.0); Platelet Count 171 10^3/uL (130-400); RBC 4.73 10^6/uL (4.36-5.78); RDW 11.9 % (11.8-14.1); RDW-SD 42.1 fL; WBC 7.42 10^3/uL (4.4-10.8)
[2021-05-13 10:25] LABS: Bilirubin Negative (Negative); Blood Negative (Negative); Clarity Clear (Clear); Glucose Negative (Negative); Ketones Negative (Negative); Nitrite Negative (Negative); Urobilinogen 0.2 EU/dL (Up TO 0.2)
[2021-05-13 10:29] LABS: Hemoglobin A1C 5.6 % (<5.7)
[2021-05-13 10:38] LABS: Leukocyte Esterase Negative (Negative)
[2021-05-13 11:10] LABS: PROTEIN 11.9 mg/dL
[2021-05-13 11:11] LABS: Prot/Crea Ur Ratio 0.19
[2021-05-13 11:14] LABS: Cholesterol 191 mg/dL (<200)
[2021-05-13 11:24] LABS: ALT 33 U/L (16-63); AST 24 U/L (15-37); Albumin 3.6 g/dL (3.4-5.0); Alkaline Phosphatase 63 U/L (46-116); Amylase 61 U/L (25-115); Anion Gap 4.8 mmol/L (3-11); BUN 19 mg/dL (7-18); Bilirubin, Total 0.4 mg/dL (0.2-1.0); CO2 32.2 mmol/L (21.0-32.0); CREATININE 1.1 mg/dL (0.70-1.30); Calcium 8.8 mg/dL (8.5-10.1); Chloride 104 mmol/L (98-107); Glucose 100 mg/dL (74-106); Lipase 112 U/L (73-393); Magnesium 1.6 mg/dL (1.8-2.4); PHOSPHORUS 4.3 mg/dL (2.6-4.7); Potassium 4.5 mmol/L (3.5-5.1); Sodium 141 mmol/L (136-145); Total Protein 7.3 g/dL (6.4-8.2); Uric Acid 6.8 mg/dL (3.5-7.2)
[2021-05-14 12:14] LABS: Tacrolimus 11.3 ng/mL (See Note)
== END 2021-05-13 03:24 | disposition home or self-care (01) ==
PROVIDERS: PCP Emergency Medicine; Visit Provider Internal Medicine Nephrology
DX: Z79.899 Other long term (current) drug therapy (principal); Z94.83 Pancreas transplant status
CPT/HCPCS: 36415; 80053; 83690; 85027; 80197; 81003; 81015; 82150; 82465; 82565; 83036; 83735; 84100; 84156; 84550

== ENCOUNTER 2021-09-01 13:23 | Observation (INO) | payer MEDICARE, SELFPAY ==
[2021-09-01] VITALS (21 sets, daily range): BP systolic 127–166; BP diastolic 69–84; PULSE 62–78; RESP 16–29; TEMP 36.2–36.6; O2SAT 91–99
--- NOTE | 2021-09-01 | DI.RAD_ITS ---
Exam(s) XR PORTABLE CHEST AP EXAM: XR PORTABLE CHEST AP CLINICAL HISTORY: chest pressure, lightheaded. TECHNIQUE: 2D digital imaging was performed. COMPARISON: CR,XR XR CHEST 2V PA LATERAL from 11/13/[address] ABDOMEN PELVIS WO from 11/13/2019 FINDINGS: Single AP portable view. Heart size is upper normal. The mediastinum is not widened. No confluent infiltrates. No pulmonary edema. Right lung is clear. On the left side there is pleural thickening laterally again noted, not associa james with obvious rib destruction. No pleural effusions. No pulmonary edema. No pneumothorax. IMPRESSION: Left lateral chest wall pleural thickening is again noted.Appears slightly more prominent than previo us but may be related to the present portable technique (versus prior PA and lateral nonportable view s). No infiltrates. DATA REPOSITORY: RADIATION DOSE DELIVERED: All CT scans at this facility use at least one of these dose optimization techniques: automated exposure control; mA and/or kV adjustment per patient size (includes targeted e xams where dose is matched to clinical indication); or iterative reconstruction.
--- NOTE | 2021-09-01 13:30 | RT.EKG_ITS ---
APPROVED REPORT Exam: Resting ECG Reason for Exam: dizziness Patient Location: E HR:72 bpm ECG Measurements Heart Rate [address] 150 P 46 QRSd 101 QRS 18 QT 404 T 13 QTc 443 Conclusion Sinus rhythm...normal P axis, V-rate 60- [address] elev
--- NOTE | 2021-09-01 13:48 | ED.GENADUL_ITS ---
Discharge Plan Disposition Patient Disposition: [facility] INPATIENT Condition: Stable Discharge Details Clinical Impression: Chest pain Admit Date/Time: 09/01/21 14:40 Admit Provider: Carlos Solomon Attending Provider: Carlos Solomon Primary Care Provider: Nilo Adrian ED Provider: Alfie Davidson Discharge Data Discharge Date/Time-TO BE ENTERED AT DEPARTURE: 09/01/21 15:30 Medical Decision Making 51-year-old male diabetic with a history of pancreatic transplant for which he is immunosuppressed presents with history of 2 weeks of feeling mild shortness of breath with light exertion. This morning after shoveling snow for a few minutes he felt chest pressure and lightheadedness. He went to the store but felt persistent weakness. He did not have any syncope. He states this feels similar to previous MT and reports having stents placed both proximally 15 years ago as well as 3 to 4 years ago. He is followed by the transplant and cardiac teams at [facility]. Patient presents to the ER improved. Pressure 150/73 and he is in no acute distress. Screening EKG is unremarkable. Patient continues to smoke and has a number of cardiac risk factors including known disease. Placed on a groundwater monitoring technician, screening labs, EKG obtained. Patient's laboratory work-up is reassuring. There is slight hypomagnesemia which was supplemented in the emergency department. Case discussed with Dr. Solomon and we will proceed with admission for further risk stratification. HPI General Mode of arrival: ambulatory . Date/Time Provider Initiated Documentation: 09/01/21 13:24 . Limitations to Documentation: no limitations . Information obtained by: patient and family . History of Present Illness 51 year old M presents to the emergency department with the chief complaint of Chest pressure and lightheadedness with weakness, described as moderate and similar to prior episodes, and is localized to the head and chest. Patient reports no radiation. Patient started experiencing this hour(s) and it has been now resolved. improves with No relieving factors improve symptom(s), No exacerbating factors reported . Patient notes weakness; denies syncope. Patient did receive the following treatments prior to arrival, none Related Data Home Medications Medication Instructions Recorded Confirmed fludrocortisone 0.1 mg tablet 0.1 mg PO DAILY #90 10/13/12 09/01/21 nitroglycerin 0.4 mg sublingual 0.4 mg SUBLINGUAL PRN #25 01/24/13 09/01/21 tablet aspirin 81 mg tablet,delayed 81 mg PO DAILY 05/12/13 09/01/21 release (Aspir-) diltiazem HCl 120 mg tablet 120 mg PO DAILY 05/12/13 09/01/21 (Cardizem) docusate sodium 100 mg capsule 100 mg PO BID PRN PRN 05/12/13 09/01/21 (Colace) mycophenolate mofetil 250 mg 750 mg PO BID 05/12/13 09/01/21 capsule (CellCept) tacrolimus 1 mg capsule, 1 tab PO HS 05/12/13 09/01/21 immediate-release (Prograf) tacrolimus 1 mg capsule, 2 mg PO DAILY AM 05/12/13 09/01/21 immediate-release (Prograf) clonazepam 0.5 mg tablet (Klonopin) 0.5 mg PO HS #120 tab-cap 12/13/14 09/01/21 nicotine (polacrilex) 2 mg gum 2 mg PO Q2H PRN #100 piece of gum 07/15/16 09/01/21 (Nicorette) metoclopramide HCl 10 mg tablet 10 mg PO BID 10/28/17 09/01/21 acetaminophen 650 mg 650 mg PO Q6H PRN PRN 11/16/19 09/01/21 tablet,extended release atorvastatin 40 mg tablet 40 mg PO DAILY 11/16/19 09/01/21 clopidogrel 75 mg tablet 75 mg PO DAILY 11/16/19 09/01/21 levothyroxine 75 mcg tablet 75 mcg PO DAILY 11/16/19 09/01/21 lisinopril 30 mg tablet 30 mg PO DAILY 11/16/19 09/01/21 multivitamin (Multiple Vitamins) 1 tab PO DAILY #30 tab 11/16/19 09/01/21 furosemide 20 mg tablet 80 mg PO DAILY PRN tab 03/16/20 09/01/21 hydrocortisone 5 mg tablet 10 - 15 mg PO DIRECTED tab 03/16/20 09/01/21 metoprolol tartrate 25 mg tablet 25 mg PO BID #180 tab 03/18/21 09/01/21 escitalopram oxalate 20 mg tablet 20 mg PO DAILY #90 tab-cap 08/09/21 09/01/21 Previous Rx's Medication Instructions Recorded multivitamin (Multiple Vitamins) 1 tab PO DAILY #30 tab 11/16/19 metoprolol tartrate 25 mg tablet 25 mg PO BID #180 tab 03/18/21 escitalopram oxalate 20 mg tablet 20 mg PO DAILY #90 tab-cap 08/09/21 Allergies Allergy/AdvReac Type Severity Reaction Status Date / Time No Known Allergies Allergy Verified 09/01/21 13:30 General Stated Complaint: Dizzy/Sync JIAN: 2 Review of Systems Narrative: No chest injury, syncope. Has been feeling some shortness of breath with mild exertion for 2 weeks. No weight gain. Taking his medications. Systems reviewed and otherwise negative PFSH All Active Problems Chest pain (Acute) Near syncope (Acute) Onychomycosis (Acute) Low back pain (Acute) Family history of colon cancer in father (Acute) Retinopathy, background, nonproliferative, mild (Acute) 10/05/18 MILD NPDR (R) EYE; [facility]- Status post vasectomy (Acute) Status post coronary artery stent placement (Acute) History of shoulder surgery (Acute) Diabetes mellitus (Acute) Alcohol abuse (Chronic) Back pain (Acute) Hyperglycemia (Chronic) DVT prophylaxis (Acute) Discharge planning issues (Acute) Hypomagnesemia (Acute) Colon cancer screening (Acute) Anticoagulant long-term use (Acute) Pancreas transplant status (Acute) Atherosclerosis of [place] coronary artery (Acute) 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 states he had ran out of steroids, and forgot to get it refilled and that is what triggered his adrenal crisis Coronary atherosclerosis of [place] coronary vessel (Acute) Chest pain (Acute) 12/2010; MPI NEGATIVE -Pt. states he has never had chest pain his MT was pressure Depressive disorder (Acute) Derangement of medial meniscus of left knee (Acute 04/10/17) Essential hypertension (Acute 03/22/13) Gastroesophageal reflux disease (Acute) hematemesis History of tobacco use (Acute) Internal derangement of left knee (Acute 03/16/17) Myocardial infarction acute (Acute 05/21/03) RCA stent placed Obstructive sleep apnea on CPAP (Acute 04/12/14) Obstructive sleep apnea syndrome (Acute) CPAP Peripheral neuralgia (Acute) Medical History Family history of colon cancer Surgical History Colonoscopy - MAC 08/2008; NEG 07/07/14; NEG Coronary Stent 2018 last stent placed 2003;RCA x3 SHOULDER SURGERY (~06/2009) LEFT Vasectomy Social History Smoking/Tobacco Use Status: Current every day Tobacco Type: cigarettes Smoking risk assessment performed?: Yes Alcohol Intake: current Alcohol Intake frequency: a few times a week Alcohol type: beer Drug use: Never Substance use type: does not use Details: Had quit then smoked a pack of cigarettes this weekend Current gender identity: male Do you feel safe at home: Yes Do you feel safe in your relationship?: Yes Exam Narrative Exam Narrative: GEN: awake, alert, oriented 3. Pleasant, well groomed, interactive. HEAD: Normocephalic, atraumatic ENT: Mucous membranes moist, External ear exam unremarkable EYES: PERRL, EOMI NECK: Full ROM, no JOSE, no menigismus CHEST/RESP: Nontender, clear to auscultation bilateral, no wheeze/rhonchi/rales CARDIOVASCULAR: RRR, no murmur, rub jasmina. 2+ Rad pulse bilateral ABDOMEN: Soft, distended but nontender, no mass. +Bowel sounds EXT: Full ROM, no edema, no rash Neuro: Grossly normal neurologic exam, conversant, interactive. Psych: Speech fluent, thoughts congruent, affect normal Course Vital Signs Vital signs: Vital Signs Temperature 36.4 C L 09/01/21 13:27 Pulse 78 09/01/21 13:27 Respiratory Rate 20 09/01/21 13:27 Blood Pressure 150/73 H 09/01/21 13:27 Pulse Oximetry 97 09/01/21 13:27 Temperature 36.4 C L 09/01/21 13:27 Temperature Source Skin 09/01/21 13:27 Pulse 78 09/01/21 13:27 Respiratory Rate 20 09/01/21 13:27 Blood Pressure 150/73 H 09/01/21 13:27 Blood Pressure Position Supine 09/01/21 13:27 Pulse Oximetry 97 09/01/21 13:27 Oxygen Delivery Method Room Air 09/01/21 13:27 Oxygen Flow Rate 0 09/01/21 13:27 Pain Level 0 09/01/21 13:27
[2021-09-01 13:59] LABS: Abs Immature Grans 0.03 10^3/uL (0.0-0.06); Absolute Basophil Count 0.05 10^3/uL (0.0-0.2); Absolute Eosinophil Count 0.15 10^3/uL (0.0-0.7); Absolute Lymphocyte Count 1.07 10^3/uL (1.2-3.4); Absolute Monocyte Count 0.92 10^3/uL (0.1-0.8); Absolute Neutrophil Count 5.77 10^3/uL (1.2-6.7); Basophils % 0.6; Eosinophils % 1.9; HCT 44.4 % (40.0-50.0); HGB 14.6 g/dL (13.5-17.5); Immature Grans % 0.4; Lymphocytes % 13.4; MCH 31.1 pg (27.0-33.0); MCHC 32.9 % (32.0-36.0); MCV 94.5 fL (80-95); MPV 9.3 fL (8.0-11.0); Monocytes % 11.5; Neutrophils % 72.2; Nucleated RBC 0 %; Platelet Count 186 10^3/uL (130-400); RDW 13.1 % (11.8-14.1); WBC 7.99 10^3/uL (4.4-10.8)
[2021-09-01] MEDS: Aspirin 81 MG CHEW (14:03)
--- NOTE | 2021-09-01 14:17 | DI.VRAD_ITS ---
PROCEDURE INFORMATION: Exam: XR Chest Exam date and time: 09/01/2021 1:42 PM Age: 51 years old Clinical indication: Other: Chest pressure, light headed TECHNIQUE: Imaging protocol: XR of the chest. Views: 1 view. Other technique: Portable exam. COMPARISON: CR XR CHEST 2V PA LATERAL 11/13/2019 5:26 PM FINDINGS: Lungs: Unremarkable. No consolidation. Pleural spaces: Left pleural thickening may be slightly increased in conspicuity compared to previous study. Heart/Mediastinum: Cardiomegaly is increased in conspicuity compared to previous exam. Bones/joints: There appears to be some resorption of the distal left clavicle, increased in conspicuity from prior study. IMPRESSION: Mild left pleural thickening. This may be slightly increased since prior exam. Dictated and Authenticated by: Blossom Cartwright MD. Ordering:BOOKER Judge MD
[2021-09-01 14:18] LABS: ALT 31 U/L (16-63); AST 23 U/L (15-37); Albumin 3.7 g/dL (3.4-5.0); Alkaline Phosphatase 80 U/L (46-116); Anion Gap 9.3 mmol/L (3-11); BUN 16 mg/dL (7-18); Bilirubin, Total 0.5 mg/dL (0.2-1.0); CO2 28.7 mmol/L (21.0-32.0); CREATININE 1.1 mg/dL (0.70-1.30); Calcium 8.9 mg/dL (8.5-10.1); Chloride 104 mmol/L (98-107); Glucose 94 mg/dL (74-106); Magnesium 1.5 mg/dL (1.8-2.4); Potassium 4.1 mmol/L (3.5-5.1); Sodium 142 mmol/L (136-145); Total Protein 8.2 g/dL (6.4-8.2); Troponin I < 50 ng/L (<or=60)
[2021-09-01] MEDS: Normal Saline 1,000 ML 150 ML IV (14:19)
--- NOTE | 2021-09-01 14:52 | W.PM.HP.N ---
Date of service: 09/01/21 Time of Service: 14:52 Assessment and Plan Assessment and plan (1) Pancreas transplant status: Status: Acute Assessment and plan: Cont Cellcept and Tacrolimus; patients own meds (brand names). (2) Atherosclerosis of [place] coronary artery: Status: Acute Assessment and plan: Presented with symptoms similar to previous AR. No specific CP but did have a period of chest heaviness. + shortness of breath, lightheadedness, weakness. Trend troponin levels. Telemetry. Cardiology consult. (3) Garrett's disease: Status: Chronic Assessment and plan: Cont immunosuppresants. Does c/o generalized weakness/malaise. No evidence of any infectious process that might result in an adrenal crisis. (4) Hypomagnesemia: Status: Acute Assessment and plan: IV replacement. Monitor. (5) Alcohol abuse: Status: Chronic Assessment and plan: states he drinks 8 tall boys of beer daily. No CIWA necessary overnight unless starts to show early signs/sxs of withdrawal. MVI and thiamine supplementation. Will give Ativan prn. (6) History of tobacco use: Status: Acute Assessment and plan: Off nicorette gum prn. History of Present Illness History of Present Illness Chief Complaint: Chest pressure, shortness of air Narrative: This is a 51 yo male with a PMH of CAD/AR/stents, pancreas transplant, Chino's disease, depression, Previous alcohol abuse, tobacco use, ENRIQUETA. He endorsed appx 1 month h/o mild shortness of breath with light activity that has been progressively worsening. On day of this admission he shoveled snow for only several minutes and developed shortness of breath and lightheadedness. H felt better and went to the store but had to leave because he was feeling generalized malaise/weakness. He relates feeling similarly with his previous AR. He is followed by transplant team and [place] [facility] His initial VS: Temperature ?36.4 C L ?09/01/21 13:27 Pulse ?78 ?09/01/21 13:27 Respiratory Rate ?20 ?09/01/21 13:27 Blood Pressure ?150/73 H ?09/01/21 13:27 Pulse Oximetry ?97 ?09/01/21 13:27 Troponin negative. EKG w/o acute findings. WBC count and lytes normal. Creatinine 1.1. CXR: mild left pleural thickening; may be slightly increased since prior exam. Review of Systems All systems reviewed & are unremarkable except as noted in HPI and below PFSH All Active Problems Chest pain (Acute) Near syncope (Acute) Onychomycosis (Acute) Low back pain (Acute) Family history of colon cancer in father (Acute) Retinopathy, background, nonproliferative, mild (Acute) 10/05/18 MILD NPDR (R) EYE; [facility] Status post vasectomy (Acute) Status post coronary artery stent placement (Acute) History of shoulder surgery (Acute) Diabetes mellitus (Acute) Alcohol abuse (Chronic) Back pain (Acute) Hyperglycemia (Chronic) DVT prophylaxis (Acute) Discharge planning issues (Acute) Hypomagnesemia (Acute) Colon cancer screening (Acute) Anticoagulant long-term use (Acute) Pancreas transplant status (Acute) Atherosclerosis of [place] coronary artery (Acute) 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 states he had ran out of steroids, and forgot to get it refilled and that is what triggered his adrenal crisis Coronary atherosclerosis of [place] coronary vessel (Acute) Chest pain (Acute) 12/2010; MPI NEGATIVE -Pt. states he has never had chest pain his AR was pressure Depressive disorder (Acute) Derangement of medial meniscus of left knee (Acute 04/10/17) Essential hypertension (Acute 03/22/13) Gastroesophageal reflux disease (Acute) hematemesis History of tobacco use (Acute) Internal derangement of left knee (Acute 03/16/17) Myocardial infarction acute (Acute 05/21/03) RCA stent placed Obstructive sleep apnea on CPAP (Acute 04/12/14) Obstructive sleep apnea syndrome (Acute) CPAP Peripheral neuralgia (Acute) Medical History Family history of colon cancer Surgical History Colonoscopy - MAC 08/2008; NEG 07/07/14; NEG Coronary Stent 2018 last stent placed 2003;RCA x3 SHOULDER SURGERY (~06/2009) LEFT Vasectomy Social History Smoking/Tobacco Use Status: Current every day Tobacco Type: cigarettes Smoking risk assessment performed?: Yes Alcohol Intake: current Alcohol Intake frequency: a few times a week Alcohol type: beer Drug use: Never Substance use type: does not use Details: Had quit then smoked a pack of cigarettes this weekend Current gender identity: male Do you feel safe at home: Yes Do you feel safe in your relationship?: Yes Meds Allergies and Home Medications Allergies Allergy/AdvReac Type Severity Reaction Status Date / Time No Known Allergies Allergy Verified 09/01/21 13:30 Home Medications Medication Instructions Recorded Confirmed Type fludrocortisone 0.1 mg tablet 0.1 mg PO DAILY #90 10/13/12 09/01/21 History nitroglycerin 0.4 mg sublingual 0.4 mg SUBLINGUAL PRN #25 01/24/13 09/01/21 History tablet aspirin 81 mg tablet,delayed 81 mg PO DAILY 05/12/13 09/01/21 History release (Aspir-) diltiazem HCl 120 mg tablet 120 mg PO DAILY 05/12/13 09/01/21 History (Cardizem) docusate sodium 100 mg capsule 100 mg PO BID PRN PRN 05/12/13 09/01/21 History (Colace) mycophenolate mofetil 250 mg 750 mg PO BID 05/12/13 09/01/21 History capsule (CellCept) tacrolimus 1 mg capsule, 1 tab PO HS 05/12/13 09/01/21 History immediate-release (Prograf) tacrolimus 1 mg capsule, 2 mg PO DAILY AM 05/12/13 09/01/21 History immediate-release (Prograf) clonazepam 0.5 mg tablet (Klonopin) 0.5 mg PO HS #120 tab-cap 12/13/14 09/01/21 History nicotine (polacrilex) 2 mg gum 2 mg PO Q2H PRN #100 piece of gum 07/15/16 09/01/21 History (Nicorette) metoclopramide HCl 10 mg tablet 10 mg PO BID 10/28/17 09/01/21 History acetaminophen 650 mg 650 mg PO Q6H PRN PRN 11/16/19 09/01/21 History tablet,extended release atorvastatin 40 mg tablet 40 mg PO DAILY 11/16/19 09/01/21 History clopidogrel 75 mg tablet 75 mg PO DAILY 11/16/19 09/01/21 History levothyroxine 75 mcg tablet 75 mcg PO DAILY 11/16/19 09/01/21 History lisinopril 30 mg tablet 30 mg PO DAILY 11/16/19 09/01/21 History multivitamin (Multiple Vitamins) 1 tab PO DAILY #30 tab 11/16/19 09/01/21 Rx furosemide 20 mg tablet 80 mg PO DAILY PRN tab 03/16/20 09/01/21 History hydrocortisone 5 mg tablet 10 - 15 mg PO DIRECTED tab 03/16/20 09/01/21 History metoprolol tartrate 25 mg tablet 25 mg PO BID #180 tab 03/18/21 09/01/21 Rx escitalopram oxalate 20 mg tablet 20 mg PO DAILY #90 tab-cap 08/09/21 09/01/21 Rx Exam Narrative Exam Narrative: Obese male lying supine. Pleasant and conversant. Const General: cooperative and no acute distress Nutritional Appearance: obese Orientation: alert and oriented x3 HENMT Head: normocephalic and atraumatic Eyes General: appearance normal, both eyes and all related structures Sclera: sclerae normal Chest Chest: no tenderness Resp Effort & Inspection: normal respiratory effort Auscultation: clear to auscultation bilaterally Cardio Rate: regular rate Rhythm: regular rhythm Heart Sounds: S1 normal and S2 normal GI Inspection: obesity Palpation: soft and nontender Skin General skin exam: no rashes or lesions noted Extrem General: no pedal edema and no calf tenderness Psych Appearance: grossly normal Mental Status: mental status grossly normal Speech and Movement: speech and movement normal Affect: normal affect Results Labs Result diagrams: 09/01/21 13:32 09/01/21 13:32 Labs: Laboratory Results - last 24 hr 09/01/21 09/01/21 13:32 13:32 WBC 7.99 RBC 4.70 Hgb 14.6 Hct 44.4 MCV 94.5 MCH 31.1 MCHC 32.9 RDW 13.1 Plt Count 186 MPV 9.3 Immature Gran % 0.4 Neutrophils % 72.2 Lymphocytes % 13.4 Monocytes % 11.5 Eosinophils % 1.9 Basophils % 0.6 Nucleated RBC % 0 Absolute Neutrophils 5.77 Absolute Lymphocytes 1.07 L Absolute Monocytes 0.92 H Absolute Eosinophils 0.15 Absolute Basophils 0.05 Sodium 142 Potassium 4.1 Chloride 104 Carbon Dioxide 28.7 Anion Gap 9.3 BUN 16 Creatinine 1.1 Estimated GFR/1.73 m2 >= 60.00 Glucose 94 Calcium 8.9 Magnesium 1.5 L Total Bilirubin 0.5 AST 23 ALT 31 Alkaline Phosphatase 80 Troponin I < 50 Total Protein 8.2 Albumin 3.7 Last Vital Signs Temp 36.4 C L 09/01/21 13:27 Pulse 78 09/01/21 13:27 Resp 29 H 09/01/21 13:53 BP 150/73 H 09/01/21 13:27 Pulse Ox 97 09/01/21 13:27 PAWSS Have you Been Recently Intoxicated or Drunk Within the Last 30 days?: Yes Have you Ever Experienced Previous Episodes of Alcohol Withdrawal?: No Have you ever Experienced Withdrawal Seizures?: No Have you ever Experienced Delirium Tremens(DT)s?: No Have you ever undergone Alcohol Rehabilitation Treatment (i.e, inpt ot outpatient treatment programs)?: Yes Have you ever Experienced Blackouts?: Yes Have you ever Combined Alcohol with other Downers within the last 90 days?: No Have you ever Combined Alcohol with any other Substance of Abuse during the last 90 days?: No Result: 3
[2021-09-01] MEDS: MAGNESIUM SULFATE 1 GM/100 ML BAG IVPB (15:13)
[2021-09-01 15:16] LABS: Source Nasal/Nares
[2021-09-01] MEDS: Thiamine 100 MG TAB PO (16:19)
[2021-09-01] MEDS: Heparin 5,000 UNITS/ML VIAL 5000 UNITS SC ×2 (16:19→23:58)
[2021-09-01] MEDS: MAGNESIUM SULFATE 2 GM/50 ML BAG IVPB (16:22)
[2021-09-01 17:13] LABS: COVID-19 PCR Negative (Negative)
[2021-09-01 17:32] LABS: Troponin I < 50 ng/L (<or=60)
[2021-09-01] MEDS: Atorvastatin 40 MG TAB PO (20:50)
[2021-09-01] MEDS: clonazePAM 0.5 MG TAB PO (20:50)
[2021-09-01] MEDS: Hydrocortisone 10 MG TAB 30 MG PO (20:50)
[2021-09-01] MEDS: Metoclopramide 10 MG TAB PO (20:51)
[2021-09-01] MEDS: Furosemide 20 MG TAB PO (20:51)
[2021-09-01] MEDS: Metoprolol 25 MG TAB PO (20:53)
[2021-09-01] MEDS: Patient's Own Medication 1 EACH MISC PO (20:54)
[2021-09-01] MEDS: Normal Saline Flush 10 ML SYR IVP (20:56)
[2021-09-01 21:58] LABS: Troponin I < 50 ng/L (<or=60)
[2021-09-02 03:25] VITALS: BP 146/89; PULSE 69; RESP 16; TEMP 36.9; O2SAT 94
[2021-09-02] MEDS: Levothyroxine 75 MCG TAB PO (06:05)
[2021-09-02 07:46] VITALS: PULSE 66
[2021-09-02 07:51] VITALS: BP 158/88; PULSE 69; RESP 18; TEMP 36.5; O2SAT 95
[2021-09-02] MEDS: Heparin 5,000 UNITS/ML VIAL 5000 UNITS SC (08:12)
[2021-09-02] MEDS: Metoclopramide 10 MG TAB PO (08:12)
[2021-09-02] MEDS: Lisinopril 10 MG TAB 30 MG PO (08:13)
[2021-09-02] MEDS: Multivitamin TAB 1 TAB PO (08:14)
[2021-09-02] MEDS: Metoprolol 25 MG TAB PO (08:15)
[2021-09-02] MEDS: Escitalopram 20 MG TAB PO (08:15)
[2021-09-02] MEDS: Aspirin E.C. 81 MG TABEC PO (08:15)
[2021-09-02] MEDS: dilTIAZem CD 120 MG CAPCR PO (08:16)
[2021-09-02] MEDS: Clopidogrel 75 MG TAB PO (08:16)
[2021-09-02] MEDS: Thiamine 100 MG TAB PO (08:16)
--- NOTE | 2021-09-02 08:32 | CCONE_ITS ---
Date of service: 09/02/21 Time of Service: 08:32 Assessment and Plan Assessment and plan (1) Chest pain: Status: Acute (2) Essential hypertension: Status: Acute (3) Status post coronary artery stent placement: Status: Acute Assessment and plan: The patient describes exertional symptoms which been present for about a month. He has known coronary artery disease. His last noninvasive testing was in 2019. There is currently no evidence of acute myocardial infarction. His EKG is normal. He is scheduled to have an echocardiogram which I expect will be unchanged and again within normal limits. He should have exercise testing with myocardial perfusion imaging. Pharmacologic stress could be coupled with low- level exercise. I do not think he needs to stay in the hospital for this test to be performed. He was advised not to overexert until testing has been completed. Thank you for the opportunity to participate in the care of this patient. Please do not hesitate to contact me if additional questions persist History of Present Illness Narrative: Cardiac evaluation is requested in this 51-year-old man who presented to the [facility] with about a months worth of exertional shortness of breath and chest pressure. He has a longstanding cardiac history and multiple medical problems Cardiac history dates back to 2003 when he had an inferior non-ST segment elevation myocardial infarction. At that time he was found to have a 98% proximal RCA stenosis which was treated with a drug-eluting stent.. Overall he did adequately well until 2016 when he had repeat cardiac catheterization done. He had a 70% ostial first diagonal stenosis, mild diffuse disease in the circumflex and a totally occluded mid right coronary with a distal RCA stenosis of 90%. He had additional stents placed to the mid and distal right coronary artery at that time. Subsequent EKGs and echocardiograms have been within normal limits. He had nuclear stress testing done in September 2018 and again in February 2020 - negative for myocardial ischemia. His last echocardiogram was in October 2019 He has been experiencing exercise intolerance for about a month. Overall he does not describe pain in the chest but does have some degree of pressure. He has been lightheaded with activity. Even activity such as bending over to put on his socks makes him winded. He sought medical attention after he shoveled snow the day of presentation and went back in the house, felt lightheaded and decided at that point he should be evaluated. He is followed by Dr. Cary at [facility], last visit was telehealth October 2020. 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 but had not done so yet Evaluation here in the hospital has included negative troponins, normal EKG The patient has additional medical problems which include diabetes, prior pancreas transplant, adrenocortical insufficiency, sleep apnea, hypertension, hypothyroidism tobacco and alcohol use Review of Systems Cardiovascular Cardiovascular: Reports as per HPI, Reports chest pain with activity, Reports lightheadedness and Reports dyspnea on exertion Respiratory Respiratory: Reports dyspnea on exertion PFSH All Active Problems Chest pain (Acute) Near syncope (Acute) Onychomycosis (Acute) Low back pain (Acute) Family history of colon cancer in father (Acute) Retinopathy, background, nonproliferative, mild (Acute) 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 states he had ran out of steroids, and forgot to get it refilled and that is what triggered his adrenal crisis Coronary atherosclerosis of [place] coronary vessel (Acute) Chest pain (Acute) 12/2010; MPI NEGATIVE -Pt. states he has never had chest pain his RI was pressure Depressive disorder (Acute) Derangement of medial meniscus of left knee (Acute 04/10/17) Essential hypertension (Acute 03/22/13) Gastroesophageal reflux disease (Acute) hematemesis History of tobacco use (Acute) Internal derangement of left knee (Acute 03/16/17) Myocardial infarction acute (Acute 05/21/03) RCA stent placed Obstructive sleep apnea on CPAP (Acute 04/12/14) Obstructive sleep apnea syndrome (Acute) CPAP Peripheral neuralgia (Acute) Medical History Family history of colon cancer Surgical History Colonoscopy - MAC 08/2008; NEG 07/07/14; NEG Coronary Stent 2018 last stent placed 2003;RCA x3 SHOULDER SURGERY (~06/2009) LEFT Vasectomy Social History Smoking/Tobacco Use Status: Current every day Tobacco Type: cigarettes Smoking risk assessment performed?: Yes Alcohol Intake: current Alcohol Intake frequency: a few times a week Alcohol type: beer Drug use: Never Substance use type: does not use Details: Had quit then smoked a pack of cigarettes this weekend Current gender identity: male Do you feel safe at home: Yes Do you feel safe in your relationship?: Yes Exam Const Other: Morbidly obese no acute distress fair historian Neck Other: Unable to assess JVP. Carotid pulsations are palpable grossly normal, no bruits Resp Other: Increased AP diameter lungs are clear Cardio Other: Heart is distant regular normal S1-S2 physiologically split apical impulse is nonpalpable GI Other: Very obese firm Skin Other: Warm and dry Extrem Other: No significant edema Results Last Vital Signs Temp 36.5 C 09/02/21 07:51 Pulse 69 09/02/21 07:51 Resp 18 09/02/21 07:51 BP 158/88 H 09/02/21 07:51 Pulse Ox 95 09/02/21 07:51 Labs Result diagrams: 09/01/21 13:32 09/01/21 13:32 Labs: Laboratory Results - last 24 hr 09/01/21 09/01/21 09/01/21 13:32 13:32 14:15 WBC 7.99 RBC 4.70 Hgb 14.6 Hct 44.4 MCV 94.5 MCH 31.1 MCHC 32.9 RDW 13.1 Plt Count 186 MPV 9.3 Immature Gran % 0.4 Neutrophils % 72.2 Lymphocytes % 13.4 Monocytes % 11.5 Eosinophils % 1.9 Basophils % 0.6 Nucleated RBC % 0 Absolute Neutrophils 5.77 Absolute Lymphocytes 1.07 L Absolute Monocytes 0.92 H Absolute Eosinophils 0.15 Absolute Basophils 0.05 Sodium 142 Potassium 4.1 Chloride 104 Carbon Dioxide 28.7 Anion Gap 9.3 BUN 16 Creatinine 1.1 Estimated GFR/1.73 m2 >= 60.00 Glucose 94 Calcium 8.9 Magnesium 1.5 L Total Bilirubin 0.5 AST 23 ALT 31 Alkaline Phosphatase 80 Troponin I < 50 Total Protein 8.2 Albumin 3.7 COVID-19 Source Nasal/Nares SARS-CoV-2 (PCR) Negative 09/01/21 09/01/21 09/02/21 17:08 21:35 06:25 WBC RBC Hgb Hct MCV MCH MCHC RDW Plt Count MPV Immature Gran % Neutrophils % Lymphocytes % Monocytes % Eosinophils % Basophils % Nucleated RBC % Absolute Neutrophils Absolute Lymphocytes Absolute Monocytes Absolute Eosinophils Absolute Basophils Sodium Potassium Chloride Carbon Dioxide Anion Gap BUN Creatinine Estimated GFR/1.73 m2 Glucose Calcium Magnesium 2.0 Total Bilirubin AST ALT Alkaline Phosphatase Troponin I < 50 < 50 Total Protein Albumin COVID-19 Source SARS-CoV-2 (PCR)
--- NOTE | 2021-09-02 08:37 | DI.US_ITS ---
APPROVED REPORT EXAM: Comprehensive 2D, Doppler, and color-flow Echocardiogram Patient Location: In-Patient Room/Bed: 231 Laundry Washer: Michela Taveras RDCS (AE) Indications: CAD, Chest heaviness Other Information Study Quality: Adequate. Technically limited study due to body habitus. Conclusion Normal left ventricular wall thickness and chamber size. Estimated ejection fraction is 55 to 60%. There are no segmental wall motion abnormalities Normal right ventricular size and systolic function Both atria are normal in size There are no structural or hemodynamically significant valvular abnormalities Mildly dilated ascending aorta measuring 3.63 cm Wall motion Left Ventricle The left ventricle is normal size. The left ventricular systolic function is normal. The left ventric ular ejection fraction is within the normal range. There is normal left ventricular wall thickness. T here is normal LV segmental wall motion. There is no ventricular septal defect visualized. LVEF is 55 -60%. Right Ventricle The right ventricle is normal size. The right ventricular systolic function is normal. Atria The left atrium size is normal. The right atrium size is normal. The interatrial septum is intact wit h no evidence for an atrial septal defect. Aortic Valve The aortic valve is normal in structure. Aortic valve is trileaflet. There is no aortic valvular sten osis. No aortic regurgitation is present. Mitral Valve The mitral valve is normal in structure. No evidence of mitral valve stenosis. Trace mitral regurgita tion. Tricuspid Valve The tricuspid valve is normal in structure. There is no tricuspid valve stenosis. Trace tricuspid reg urgitation. Unable to assess PA pressure. Pulmonic Valve The pulmonary valve is normal in structure. There is no pulmonic valvular stenosis. Trace pulmonic re gurgitation. Great Vessels The aortic root is normal in size. The ascending aorta is mildly dilated.3.63 cm Aortic arch is not w ell visualized. IVC is normal in size and collapses >50% with inspiration. Pericardium There is no pericardial effusion. 2D Dimensions IVSD d PLAX 0.96 cm M: 0.6-1.2 LV Vol A2C d MOD 119.1 mL LVPW d PLAX 0.93 cm M: 0.6 - 1.2 LV Vol A4C d MOD 99.8 mL LVID d PLAX 5.30 cm M: 4.2 - 5.8 LA vol/ BSA A4C s A-L 30.9 mL/m2 LVDs 3.75 cm M: 2.5 - 4.0 LA Area A4C s MOD 23.01 cm2 Ao Root d 2.70 cm M: 3.1 - 3.7 LV EF A4C MOD 50.7 % RA Area A4C 15.21 cm2 LV EF A2C MOD 50.1 % RA Vol/ BSA A4C s A-L 15.9 mL/m2 LV EF Biplane MOD 51.0 % Ao Asc Diam d 3.63 cm M: 2.6 - 3.4 SV 58.12 mL LV EF Teichholz 55.0 % SV Index 24.30 mL/m2 LVEF (Peterson's) 50.95 % M: 52 - 72 LV Volume 80.88 mL M: 62 - 150 LV Volume Index 33.84 mL/m2 M: 34 - 74 LV Vol Biplane MOD 114.1 mL FS 28.80 % M-Mode TAPSE 2.19 cm (M/F) >1.7 LV Diastology MV E' medial 0.076 (>0.07 m/s) E/A Ratio 1.0 LV E/e MED 11.70 (<14) MV E Vmax 0.89 (0.4-1.3 m/s) MV E' lateral 0.095 (>0.1 m/s) MV A Vmax 0.85 (0.4-1.3 m/s) LV E/e LAT 9.40 (<14) MV E/A Ratio 1.03 MV E/E' medial 11.73 MV E/E' lateral 9.43 Aortic Valve LVOT Area 2.62 cm2 AoV Area Vmax 2.12 cm2 LVOT Vmax 1.27 m/s AoV Area/ BSA (Vmax) 0.89 cm2/m2 LVOT Mean Joni. 0.75 m/s MYRA Mean Joni. 1.76 cm2 LVOT Peak Grad 6.4 mmHg MYRA Mean Joni. Index 0.73 cm2/m2 LVOT Mean Grad 2.8 mmHg LVOT VTI 0.255 m LVOT Diam s 1.80 cm AoV Vmax 1.57 m/s Velocity Ratio 0.80 AoV Mean Joni. 1.12 m/s AoV Peak Grad 9.9 mmHg LVOT SV 66.97 mL AoV Mean Grad 5.7 mmHg AoV VTI 0.306 m AoV Area VTI 2.19 cm2 AoV Area/ BSA (VTI) 0.91 cm/m2 Mitral Valve MV DT 218 (160-240 msec) MV PHT 63 msec MV Area PHT 3.48 cm2 MV VTI 0.335 m MV Area VTI 2.00 (4.0-6.0 cm2) Pulmonary Valve PV Vmax 1.34 (0.5-1.5 m/s) RVOT Peak Gr. 2.95 mmHg PV Peak Grad 7.2 mmHg RVOT Mean Gr. 1.60 mmHg PV Mean Grad 4.1 mmHg RVOT VTI 0.183 m PV VTI 0.289 m RVOT Vmax 0.86 m/s
[2021-09-02] MEDS: Hydrocortisone 10 MG TAB 40 MG PO (10:44)
--- NOTE | 2021-09-02 10:51 | PDOC.CMIN ---
- If Service Date Differs Date of service: 09/02/21 Time of Service: 10:51 Care Management Initial Assess REASON FOR HOSPITALIZATION:: Chest Pain PAST MEDICAL HISTORY/PAST SURGICAL HISTORY:: Medical History . Family history of colon cancer. Surgical History . Colonoscopy - MAC. 08/2008; NEG. 07/07/14; NEG. Coronary Stent. 2018 last stent placed. 2003;RCA. x3. SHOULDER SURGERY (~06/2009). LEFT. Vasectomy PREVIOUS FUNCTIONAL STATUS/SOCIAL/FAMILY SUPPORTS:: Lars lives in [facility] with his , Juliet, and two children, who are both students at [facility] [employer]. He is disabled, but still works. 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 He stopped working due to Covid 19, as he is high risk. He is very proud of his children. He is independent with his ADL's. ADVANCE DIRECTIVES:: None on file. Has patient been provided with info about the portal/API?: No Did the patient sign up for the portal?: No CODE STATUS:: Full Code INSURANCE COVERAGE / FINANCIAL ISSUES:: MCR CURRENT HOME/COMMUNITY SERVICES/EQUIPMENT:: Lars is disabled at baseline, but does not have any equipment or services in the community. PRIMARY CARE PHYSICIAN:: Judson Carr POTENTIAL DISCHARGE NEEDS:: Evaluations for further needs, follow up appointments PATIENT/FAMILY EDUCATION NEEDS:: Review discharge instructions regarding activity levels and medications, discussion of self care needs such as Ask Me Three. ANTICIPATED BARRIERS TO DISCHARGE:: None identified at this time. TRANSPORTATION:: Via private vehicle with , Juliet. PLAN:: Lars will return home when ready per MD. He will follow up with his PCP and plan of care as prescribed. He will transport via private vehicle with his , Juliet.
[2021-09-02 11:37] VITALS: BP 114/65; PULSE 70; RESP 16; TEMP 37; O2SAT 96
--- NOTE | 2021-09-02 12:32 | DSE_ITS ---
Date of service: 09/02/21 Time of Service: 12:32 DS: Diagnosis Discharge Diagnosis (1) Chest pain: Status: Acute (2) Essential hypertension: Status: Acute (3) Status post coronary artery stent placement: Status: Acute Discharge Plan Disposition Patient Disposition: HOME Condition: Stable Discharge Details Reason For Visit: Chest Pain Admit Date/Time: 09/01/21 14:40 Admit Provider: Carlos Solomon Attending Provider: Carlos Solomon Primary Care Provider: Nilo Adrian Hospital Course Hospital Course: This is a 51 yo male with a PMH of CAD/NV/stents, pancreas transplant, [place]'s disease, depression, Previous alcohol abuse, tobacco use, ENRIQUETA. He endorsed appx 1 month h/o mild shortness of breath with light activity that has been progressively worsening.? On day of this admission he shoveled snow for only several minutes and developed shortness of breath and lightheadedness.? H felt better and went to the store but had to leave because he was feeling generalized malaise/weakness.? He relates feeling similarly with his previous NV. He is followed by transplant team and cardiology at [facility] Vital Signs Temperature ?36.4 C L ?09/01/21 13:27 Pulse ?78 ?09/01/21 13:27 Respiratory Rate ?20 ?09/01/21 13:27 Blood Pressure ?150/73 H ?09/01/21 13:27 Pulse Oximetry ?97 ?09/01/21 13:27 Troponin negative x 3. WBC count and Hgb normal. BNP normal. CXR w/o acute findings. No recurrence chest pressure or heaviness. No fever, cough. Echocardiogram results: Normal left ventricular wall thickness and chamber size.? Estimated ejection fraction is 55 to 60%.? There are no segmental wall motion abnormalities Normal right ventricular size and systolic function Both atria are normal in size There are no structural or hemodynamically significant valvular abnormalities Mildly dilated ascending aorta measuring 3.63 cm Cardiology consulted: Given normal EKG, troponin levels, NM stress testing in 2019 that was negative, OK to d/c for outpt pharmacologic stress testing; coupled with low-level exercise. Minimal exertion advised until stress testing. F/U with PCP in 1-2 weeks. Home Meds and New Rx's Prescriptions: Continued hydrocortisone 5 mg tablet 10 - 15 mg PO DIRECTED 0RF Rx Instructions: Take 4 tabs this evening, then resume 3 tabs in am, 2 tabs pm (double for illness) 03-16-20 pt reports taking 15mg morning, 10 mg at night. -hb furosemide 20 mg tablet 80 mg PO DAILY PRN0RF nitroglycerin 0.4 MG tablet, sublingual 0.4 mg Sublingual PRN Qty: 25 4RF Label Comments: 07/05/14 Pt states he has not needed to take. PG clonazepam [Klonopin] 0.5 MG tablet 0.5 mg PO HS Qty: 120 3RF Label Comments: 05/04/15 takes once a day.....clw nicotine (polacrilex) [Nicorette] 2 MG gum 2 mg PO Q2H PRN Qty: 100 3RF metoprolol tartrate 25 mg tablet 25 mg PO BID Qty: 180 3RF escitalopram oxalate 20 mg tablet 20 mg PO DAILY Qty: 90 3RF fludrocortisone 0.1 MG tablet 0.1 mg PO DAILY Qty: 90 4RF Label Comments: 06-03-17 pt reports taking 0.1 mg daily. hb Rx Instructions: BRAND NAME MEDICALLY NECESSARY aspirin [Aspir-81] 81 MG tablet,delayed release (DR/EC) 81 mg PO DAILY 0RF Label Comments: pt states he has been forgetting to take this. 01/04/15 rl 01/24/15 taking daily. md mycophenolate mofetil [CellCept] 250 MG capsule 750 mg PO BID 0RF diltiazem HCl [Cardizem] 120 MG tablet 120 mg PO DAILY 0RF docusate sodium [Colace] 100 MG capsule 100 mg PO BID PRN PRN (Reason: Constipation) 0RF tacrolimus [Prograf] 1 MG capsule 1 tab PO HS 0RF Label Comments: 05/24/14 takes 1mg HS. DL tacrolimus [Prograf] 1 MG capsule 2 mg PO DAILY AM 0RF Label Comments: 06/03/17-PT STATES CURRENTLY TAKING (2) 2MG QAM AND 1MG HS--HS, RN metoclopramide HCl 10 MG tablet 10 mg PO BID 0RF atorvastatin 40 mg tablet 40 mg PO DAILY 0RF Label Comments: TAKE ONE TABLET BY MOUTH EVERY DAY clopidogrel 75 mg tablet 75 mg PO DAILY 0RF Label Comments: TAKE 1 TABLET BY MOUTH ONCE DAILY acetaminophen 650 mg Tablet Extended Release 650 mg PO Q6H PRN PRN (Reason: Pain) 0RF levothyroxine 75 mcg Tablet 75 mcg PO DAILY 0RF lisinopril 30 mg tablet 30 mg PO DAILY 0RF Label Comments: TAKE ONE TABLET BY MOUTH DAILY multivitamin [Multiple Vitamins] Tablet 1 tab PO DAILY Qty: 30 0RF Discharge Instructions Instructions: Chest Pain (DC) Stand Alone Forms: Nursing Discharge Form Activity:: Activity as Tolerated Equipment/Supplies:: No Equipment Needed Diet:: Resume home diet Discharge Orders Discharge Orders: Discharge Order (Routine); Ordered 09/02/21 Ordered By: Carlos Solomon Other Ambulatory Orders: NM MPI rest & stress grp (Routine) Location: None Selected Ordered By: Carlos Solomon DS: Summary Time Spent with Patient providing and/or coordinating discharge services: Greater than 30 minutes Status at Discharge Functional status at discharge: independent ambulation Overall status at discharge: patient is progressing back to baseline Mental Status: mental status grossly normal Speech and Movement: speech and movement normal Mood: congruent mood Affect: normal affect Exam Narrative Exam Narrative: Obese male lying supine. Pleasant and conversant. Const General: cooperative and no acute distress Nutritional Appearance: obese Orientation: alert and oriented x3 HENMT Head: normocephalic and atraumatic Eyes General: appearance normal, both eyes and all related structures Sclera: sclerae normal Chest Chest: no tenderness Resp Effort & Inspection: normal respiratory effort Auscultation: clear to auscultation bilaterally Cardio Rate: regular rate Rhythm: regular rhythm Heart Sounds: S1 normal and S2 normal GI Inspection: obesity Palpation: soft and nontender Skin General skin exam: no rashes or lesions noted Extrem General: no pedal edema and no calf tenderness Psych Appearance: grossly normal Mental Status: mental status grossly normal Speech and Movement: speech and movement normal Mood: congruent mood Affect: normal affect DS: Data Vitals/I&O Vitals and I&O: Vital Signs Temperature 37 C 09/02/21 11:37 Temperature Source Tympanic 09/02/21 11:37 Pulse 70 09/02/21 11:37 Pulse Rhythm Regular 09/02/21 08:53 Pulse 68 09/01/21 15:01 Respiratory Rate 16 09/02/21 11:37 Respiratory Effort Non-Labored 09/02/21 08:53 Respiratory Depth Normal 09/02/21 08:53 Respiratory Pattern Normal 09/02/21 08:53 Blood Pressure 114/65 09/02/21 11:37 Blood Pressure Mean 102 09/01/21 15:01 Blood Pressure Position Supine 09/01/21 13:27 Pulse Oximetry 96 09/02/21 11:37 Oxygen Delivery Method Room Air 09/02/21 11:37 Oxygen Flow Rate 0 09/02/21 11:37 Pain Level 0 09/02/21 11:37 Intake & Output 09/01/21 09/02/21 09/02/21 23:59 11:59 23:59 Intake Total 260 / 260 250 / 250 Balance 260 / 260 250 / 250 Weight 122.016 kg 122.6 kg Intake: IV Oral 240 / 240 250 / 250 Other: Urine Color Yellow Urine Appearance Clear Clear Comment independant to bathroom Voiding Methods Toilet Data Completed and Pending Labs on day of discharge: Labs from last 24 hours 09/02/21 09/01/21 09/01/21 06:25 21:35 17:08 WBC RBC Hgb Hct MCV MCH MCHC RDW Plt Count MPV Immature Gran % Neutrophils % Lymphocytes % Monocytes % Eosinophils % Basophils % Nucleated RBC % Absolute Neutrophils Absolute Lymphocytes Absolute Monocytes Absolute Eosinophils Absolute Basophils Sodium Potassium Chloride Carbon Dioxide Anion Gap BUN Creatinine Estimated GFR/1.73 m2 Glucose Calcium Magnesium 2.0 Total Bilirubin AST ALT Alkaline Phosphatase Troponin I < 50 < 50 Total Protein Albumin COVID-19 Source SARS-CoV-2 (PCR) 09/01/21 09/01/21 09/01/21 14:15 13:32 13:32 WBC 7.99 RBC 4.70 Hgb 14.6 Hct 44.4 MCV 94.5 MCH 31.1 MCHC 32.9 RDW 13.1 Plt Count 186 MPV 9.3 Immature Gran % 0.4 Neutrophils % 72.2 Lymphocytes % 13.4 Monocytes % 11.5 Eosinophils % 1.9 Basophils % 0.6 Nucleated RBC % 0 Absolute Neutrophils 5.77 Absolute Lymphocytes 1.07 L Absolute Monocytes 0.92 H Absolute Eosinophils 0.15 Absolute Basophils 0.05 Sodium 142 Potassium 4.1 Chloride 104 Carbon Dioxide 28.7 Anion Gap 9.3 BUN 16 Creatinine 1.1 Estimated GFR/1.73 m2 >= 60.00 Glucose 94 Calcium 8.9 Magnesium 1.5 L Total Bilirubin 0.5 AST 23 ALT 31 Alkaline Phosphatase 80 Troponin I < 50 Total Protein 8.2 Albumin 3.7 COVID-19 Source Nasal/Nares SARS-CoV-2 (PCR) Negative PFSH All Active Problems Chest pain (Acute) Near syncope (Acute) Onychomycosis (Acute) Low back pain (Acute) Family history of colon cancer in father (Acute) Retinopathy, background, nonproliferative, mild (Acute) 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 states he had ran out of steroids, and forgot to get it refilled and that is what triggered his adrenal crisis Coronary atherosclerosis of [place] coronary vessel (Acute) Chest pain (Acute) 12/2010; MPI NEGATIVE -Pt. states he has never had chest pain his [place] was pressure Depressive disorder (Acute) Derangement of medial meniscus of left knee (Acute 04/10/17) Essential hypertension (Acute 03/22/13) Gastroesophageal reflux disease (Acute) hematemesis History of tobacco use (Acute) Internal derangement of left knee (Acute 03/16/17) Myocardial infarction acute (Acute 05/21/03) RCA stent placed Obstructive sleep apnea on CPAP (Acute 04/12/14) Obstructive sleep apnea syndrome (Acute) CPAP Peripheral neuralgia (Acute) Medical History Family history of colon cancer Surgical History Colonoscopy - MAC 08/2008; NEG 07/07/14; NEG Coronary Stent 2018 last stent placed 2003;RCA x3 SHOULDER SURGERY (~06/2009) LEFT Vasectomy Social History Smoking/Tobacco Use Status: Current every day Tobacco Type: cigarettes Smoking risk assessment performed?: Yes Alcohol Intake: current Alcohol Intake frequency: a few times a week Alcohol type: beer Drug use: Never Substance use type: does not use Details: Had quit then smoked a pack of cigarettes this weekend Current gender identity: male Do you feel safe at home: Yes Do you feel safe in your relationship?: Yes
--- NOTE | 2021-09-02 13:23 | PDOC.CMDIS ---
- If Service Date Differs Date of service: 09/02/21 Time of Service: 13:24 LACE Index Scoring Tool - Questions: Length of Stay (in days): 1 Acuity (Admit via E.D.?): Yes Comorbidities: Previous M.I. E.D. Visits: 1 - Answers: Total Score: 6 Risk of Readmission: Low Risk Care Management Discharge Reason for Hospitalization: Chest Pain Discharge Plan: Discharge home via private vehicle with , Juliet. Continue activity as tolerated but should not exceed minimal exertion, until after stress test. Lars will continue medications as prescribed and follow up with PCP in 1-2 weeks. Patient/Family Education Needs: Review discharge instructions, limitations, medications and discharge plan of care as prescribed. Review ask me three.
== END 2021-09-02 13:25 | disposition home or self-care (01) ==
LOC: ER 14:55 → MS 15:28
PROVIDERS: Admitting Provider Family Medicine; Emergency Provider Emergency Medicine; PCP Family Medicine; Visit Provider Family Medicine
DX: I25.10 Atherosclerotic heart disease of native coronary artery without angina pectoris; E27.1 Primary adrenocortical insufficiency; E83.42 Hypomagnesemia; R07.89 Other chest pain; Z94.83 Pancreas transplant status; Z20.822 Contact with and (suspected) exposure to COVID-19; I25.2 Old myocardial infarction; E11.9 Type 2 diabetes mellitus without complications; D84.821 Immunodeficiency due to drugs; R55 Syncope and collapse; M54.50 Low back pain, unspecified; F10.10 Alcohol abuse, uncomplicated; Z79.01 Long term (current) use of anticoagulants; F32.A Depression, unspecified; I10 Essential (primary) hypertension; K21.9 Gastro-esophageal reflux disease without esophagitis; F17.210 Nicotine dependence, cigarettes, uncomplicated; Z95.5 Presence of coronary angioplasty implant and graft; G47.30 Sleep apnea, unspecified; E03.9 Hypothyroidism, unspecified
CPT/HCPCS: 36415; 80053; 87635; 93005; 93306; 96361; 96365; 99285; U0005; 71045; 83735; 84484; 85025; 93010; 99213; 99217; 99220; G0378; J1644; J3475

== ENCOUNTER → 2021-09-02 07:50 | Outpatient (BNVA) | payer MEDICARE, SELFPAY | PROVIDERS: PCP Family Medicine; Referring Provider Family Medicine; Visit Provider Internal Medicine Cardiovascular Disease | DX: R69 Illness, unspecified (principal) ==

== ENCOUNTER 2021-09-05 01:31 | Outpatient (CLI) | payer MEDICARE, SELFPAY ==
--- NOTE | 2021-09-05 11:00 | DI.NM_ITS ---
APPROVED REPORT Exam: Pharmacologic Patient Location: Out-Patient Room/Bed: Stress Nurse: Shaniqua Fair RN Ordering Provider:HARSHAD JARA, Contact Number: [phone] BMI: 34.86 Baseline Rhythm: Sinus Rhythm Indications: CAD, chest pain, SOB Medical History Medical History: CAD, [place], diabetes type I, [place]'s disease, hypertension, hyperlipidemia, obesity, [place]RIQU[place]A, gerd, hx of pancreatic transplant Cardiac Medications: Nitroglycerin SL, metoprolol tartrate, lisinopril, furosemide, diltiazem, clopid ogrel, atorvastatin, aspirin Allergies: NKA Cardiac Risk Factors: Hypertension, hyperlipidemia, diabetes type I, smoker (former), CVD Previous Cardiac Procedures: [place] w/ EDER x3 (2002) Pretest Chest Pain Characteristics: None Exercise History: Sedentary Physical Disabilities: None Lung Sounds: Clear to auscultation Heart Sounds: Regular Stress Test Details Test: Exercise stress converted to pharmacologic stress due to failure to obtain a diagnostic stress test. Reason for pharmacologic stress test: changed from exercise stress test due to inability to reach t arget heart rate. Nuclear Acquisition: Rest Tc-99m/Stress Tc-99m 1 day Rest Isotope: Tc-99m Sestamibi. Dose: 13.5 Date: 09/05/2021 Injection Time: 1130 Stress Isotope: Tc-99m Sestamibi. Dose: 36.0 Date: 09/05/2021 Injection Time: 135 HR Resting HR Supine: 68 bpm Max Heart Rate (APMHR): 167.090970 bpm Resting HR Standin bpm Target HR (85% APMHR): 141.045016 bpm Max HR Achieved: 112 bpm % of APMHR: 67.07 Recovery HR: 88 bpm Comment: Nondiagnostic- THR not reached BP Resting BP Supine: 134/78 mmHg Resting BP Standin/82 mmHg Max BP: 150/86 mmHg Recovery BP: 132/78 mmHg ECG Resting ECG: Sinus Rhythm Ectopy: None Stress ECG: Sinus Tachycardia ST Change: Nondiagnostic low heart rate Arrhythmia: None Recovery ECG: Sinus Rhythm Recovery ST Change: Nondiagnostic low heart rate Recovery Arrhythmia: None Clinical Reason for Termination: Dyspnea, Fatigue Stress Symptoms: Dyspnea, General Fatigue Exercise duration: 5 min16 sec Highest Stage Reached: Stage 2: 2.5 mph at 12% grade. Exercise capacity: 7.02 METs Rate Pressure Product: 10100 Stress ECG Conclusion 1. Resting electrocardiogram was within normal limits 2. Patient underwent exercise testing coupled with pharmacologic stress 3. He completed a workload of 7 METS, achieved 67% of predicted heart rate for age 4. Electrocardiographic portion of the test was nondiagnostic due to inadequate heart rate 5. See MPI report Stress Test Summary STAGE Time (mins) Speed (mph) Grade (%) HR BP SYMPTOMS METS Supine 68 134/78 Standing 76 136/82 SpO2 92% 1 3 1.7 10 98 114/86 SpO2 90% 4.6 2 6 2.5 12 108 Moderate SOB, SpO2 85% 7 1 min post Lexiscan injection 111 146/82 Moderate SOB, SpO2 95% 3 min post Lexiscan injection 111 150/86 Mild SOB, SpO2 95% 6 min post Lexiscan injection 91 148/82 SOB resolved, SpO2 95% 9 min post Lexiscan injection 88 132/78 SpO2 95% Pt stopped exercise during second stage of Ken protocol. Test changed from exercise stress test to pharmacologic due to inability to reach target heart rate. Pharmacologic stress was paired with low l evel exercise at 2.0 mph and 0% grade. Pt tolerated low level exercise and Lexiscan well. MPI Conclusion Myocardial perfusion is normal without evidence of ischemia or prior infarction EF is 63%, normal wall motion Radiologist Interpretation Radiologist agrees with Quality Assurance Auditor's Interpretation. Radiologist Interpretation by: Alfie Kelly MD Interpretation Date/Time: 09/06/2021 08:45:11
[2021-09-05] MEDS: Regadenoson 0.4 MG/5 ML SYR IVP (14:16)
== END 2021-09-05 01:51 ==
PROVIDERS: PCP Family Medicine; Visit Provider Family Medicine
DX: R07.89 Other chest pain (principal); I25.10 Atherosclerotic heart disease of native coronary artery without angina pectoris; R06.02 Shortness of breath
CPT/HCPCS: 78452; 93016; 93018; 93017; J2785

== ENCOUNTER 2022-01-22 01:23 | Outpatient (CLI) | payer MEDICARE, SELFPAY ==
--- NOTE | 2022-01-22 09:04 | DI.RAD_ITS ---
Exam(s) XR RIBS RT W PA LAT CHEST Exam: XR RIBS RT W PA LAT CHEST CLINICAL HISTORY: Continuous pain in ribs,R07.81 TECHNIQUE: 2D digital imaging was performed. PA and lateral chest. Three views of the right ribs. COMPARISON: CR,XR XR PORTABLE CHEST AP from 09/01/2021 FINDINGS: MEDIASTINUM: Normal. HEART: Normal size.. Coronary artery stents. PULMONARY VASCULATURE: Normal. LUNGS: Clear. PLEURAL SPACE: Abundant pleural fat. No pleural effusion or pneumothorax. SPINE:NORMAL. LEFT RIBS: No fracture identified. No gross lytic or blastic lesions. OTHER FINDINGS:Mild degenerative changes glenohumeral joint. IMPRESSION: 1. No acute pulmonary findings. 2. Unremarkable right ribs. DATA REPOSITORY: RADIATION DOSE DELIVERED:
== END 2022-01-22 01:43 ==
LOC: DI 01:23
PROVIDERS: PCP Nurse Practitioner Family; Visit Provider Nurse Practitioner Family
DX: R07.81 Pleurodynia (principal)
CPT/HCPCS: 71046; 71100

== ENCOUNTER 2022-03-05 21:11 | Inpatient (IN) | payer MEDICARE, SELFPAY ==
--- NOTE | 2022-03-05 21:00 | RT.EKG_ITS ---
APPROVED REPORT Exam: Resting ECG Reason for Exam: syncope Patient Location: E HR:72 bpm ECG Measurements Heart Rate 72 AXIS OK 277 P 58 QRSd 114 QRS 10 QT 423 T -19 QTc 465 Conclusion Sinus rhythm...normal P axis Prolonged OK interval. Incomplete left bundle branch block. Inferior Q>35mS, T neg, II III aVF
[2022-03-05 21:14] VITALS: BP 130/67; PULSE 73; RESP 12; TEMP 36.8; O2SAT 96
--- NOTE | 2022-03-05 21:15 | DI.CT_ITS ---
Exam(s) CT HEAD WO EXAM: CT HEAD WO CLINICAL HISTORY: syncope. TECHNIQUE: Imaging Protocol: Axial computed tomography images with coronal and sagittal reformatted images were created and reviewed COMPARISON: No exams were available for comparison FINDINGS: Ventricles and Extra axial spaces: Normal in size and morphology for the patient's age. Hemorrhage: None. Cerebral parenchyma: Normal. Midline shift: None. Brainstem/Cerebellum: Normal. Calvarium: Normal. Visualized Paranasal sinuses/Mastoids: There is mild opacification of several ethmoid air cells. The remaining visualized paranasal sinuses and mastoid air cells are clear. Soft Tissues: Unremarkable. IMPRESSION: No acute intracranial process. RADIATION DOSE DELIVERED: 966.86mGy.cm Total DLP DATA REPOSITORY: All CT scans at this facility are submitted to the National Radiology Data Registry (NRDR) Dose Index Registry (DIR) with the [employer] (ACR). RADIATION OPTIMIZATION: All CT scans at this facility use at least one of these dose optimization te chniques: automated exposure control; mA and/or kV adjustment per patient size (includes targeted exa ms where dose is matched to clinical indication); or iterative reconstruction.
--- NOTE | 2022-03-05 21:15 | DI.RAD_ITS ---
Exam(s) XR CHEST 1V IN DI DEPT EXAM: XR CHEST 1V IN DI DEPT CLINICAL HISTORY: Syncope TECHNIQUE: 2D digital imaging was performed of the chest. One image was obtained. An AP view was ob tained. COMPARISON: CR XR RIBS RT W PA LAT CHEST from 01/22/2022 FINDINGS: MEDIASTINUM: Normal. HEART: Stable cardiomegaly. PULMONARY VASCULATURE: Normal. LUNGS: Clear. PLEURAL SPACE: No pleural effusion or pneumothorax. BONE:Within normal limits for the patient's age. OTHER FINDINGS:Normal. IMPRESSION: No acute pulmonary findings. DATA REPOSITORY: RADIATION DOSE DELIVERED:
--- NOTE | 2022-03-05 21:16 | W.ED.GENAD ---
Discharge Plan Disposition Patient Disposition: STILL A PATIENT Condition: Serious Discharge Details Clinical Impression: Syncope Primary Care Provider: William Gray ED Provider: Kris Lantigua Home Meds and New Rx's Prescriptions: No Action hydrocortisone 5 mg tablet 10 - 15 mg PO DIRECTED Rx Instructions: Take 4 tabs this evening, then resume 3 tabs in am, 2 tabs pm (double for illness) 03-16-20 pt reports taking 15mg morning, 10 mg at night. -hb furosemide 20 mg tablet 80 mg PO DAILY PRN nitroglycerin 0.4 MG tablet, sublingual 0.4 mg Sublingual PRN Qty: 25 Label Comments: 07/05/14 Pt states he has not needed to take. PG clonazepam [Klonopin] 0.5 MG tablet 0.5 mg PO HS Qty: 120 Label Comments: 05/04/15 takes once a day.....clw nicotine (polacrilex) [Nicorette] 2 MG gum 2 mg PO Q2H PRN Qty: 100 metoprolol tartrate 25 mg tablet 25 mg PO BID Qty: 180 3RF escitalopram oxalate 20 mg tablet 20 mg PO DAILY Qty: 90 3RF fludrocortisone 0.1 MG tablet 0.1 mg PO DAILY Qty: 90 Label Comments: 06-03-17 pt reports taking 0.1 mg daily. hb Rx Instructions: BRAND NAME MEDICALLY NECESSARY aspirin [Aspir-81] 81 MG tablet,delayed release (DR/EC) 81 mg PO DAILY Label Comments: pt states he has been forgetting to take this. 01/04/15 rl 01/24/15 taking daily. mdh mycophenolate mofetil [CellCept] 250 MG capsule 750 mg PO BID diltiazem HCl [Cardizem] 120 MG tablet 120 mg PO DAILY docusate sodium [Colace] 100 MG capsule 100 mg PO BID PRN PRN (Reason: Constipation) tacrolimus [Prograf] 1 MG capsule 1 tab PO HS Label Comments: 05/24/14 takes 1mg HS. DL tacrolimus [Prograf] 1 MG capsule 2 mg PO DAILY AM Label Comments: 06/03/17-PT STATES CURRENTLY TAKING (2) 2MG QAM AND 1MG HS--HS, RN metoclopramide HCl 10 MG tablet 10 mg PO BID atorvastatin 40 mg tablet 40 mg PO DAILY Label Comments: TAKE ONE TABLET BY MOUTH EVERY DAY clopidogrel 75 mg tablet 75 mg PO DAILY Label Comments: TAKE 1 TABLET BY MOUTH ONCE DAILY acetaminophen 650 mg Tablet Extended Release 650 mg PO Q6H PRN PRN (Reason: Pain) levothyroxine 75 mcg Tablet 75 mcg PO DAILY lisinopril 30 mg tablet 30 mg PO DAILY Label Comments: TAKE ONE TABLET BY MOUTH DAILY multivitamin [Multiple Vitamins] Tablet 1 tab PO DAILY Qty: 30 0RF Medical Decision Making 51-year-old male who was drinking alcohol tonight. He was at a store when he was standing at the counter became lightheaded and had a witnessed syncopal event where she fell to the ground. Is noted to have sonorous respirations. No pulse was checked but bystander CPR was performed per report. When EMS arrived, the patient had a palpable pulse. His mental status slowly improved over 3 to 4 minutes time. He awoke feeling improved and normal. There was no tongue biting or loss of bladder continence. Patient is status post pancreatic transplant for diabetes. He has a history of coronary artery disease status post stenting x3 in somewhat distant past. He arrives to the ER feeling improved. He denies any other complaints at this time. A nasal airway had in place with some resultant epistaxis that is improving. Differential diagnosis includes electrolyte abnormality, dehydration, alcohol intoxication, acute coronary syndrome. Patient's states she often has shaky legs. She states bystanders question whether the patient struck his head on the counter as he fell. IV access was established, screening labs obtained and patient referred for CT scan of the head, chest x-ray and EKG. EKG is unremarkable. The patient has notable electrolyte abnormalities, perhaps due to beer potomania; sodium is 131, does not 2.7, chloride 93, magnesium 0.9. BUN 15, creatinine 1.2, AST 59, ALT 58, troponin is negative. D-dimer elevated at [address] scan of the head without acute intracranial abnormality. Chest x-ray no acute findings. Given the patient's syncopal event and elevated D-dimer, must rule out PE. CT scan of the chest is pending. Will sign the ptient out to Dr Simmons at change of shift pending review of CT Chest. HPI General Mode of arrival: EMS. Date/Time Provider Initiated Documentation: 03/05/22 21:37. Limitations to Documentation: no limitations. Information obtained by: patient and EMS. History of Present Illness 51 year old M presents to the emergency department with the chief complaint of Syncope, now feels improved, described as moderate, Patient started experiencing this minute(s) and it has been now resolved. No relieving factors improve symptom(s), No exacerbating factors reported . Patient notes confusion and syncope; denies diaphoresis, fever/chills, headaches and nausea/vomiting. Patient did receive the following treatments prior to arrival, none Related Data Home Medications Medication Instructions Recorded Confirmed fludrocortisone 0.1 mg tablet 0.1 mg PO DAILY ##90 10/13/12 03/05/22 nitroglycerin 0.4 mg sublingual 0.4 mg sublingual PRN ##25 01/24/13 03/05/22 tablet aspirin 81 mg tablet,delayed 81 mg PO DAILY 05/12/13 03/05/22 release (Aspir-) diltiazem HCl 120 mg tablet 120 mg PO DAILY 05/12/13 03/05/22 (Cardizem) docusate sodium 100 mg capsule 100 mg PO BID PRN PRN Constipation 05/12/13 03/05/22 (Colace) mycophenolate mofetil 250 mg 750 mg PO BID 05/12/13 03/05/22 capsule (CellCept) tacrolimus 1 mg capsule, 1 tab PO HS 05/12/13 03/05/22 immediate-release (Prograf) tacrolimus 1 mg capsule, 2 mg PO DAILY AM 05/12/13 03/05/22 immediate-release (Prograf) clonazepam 0.5 mg tablet (Klonopin) 0.5 mg PO HS #120 tab-caps 12/13/14 03/05/22 nicotine (polacrilex) 2 mg gum 2 mg PO Q2H PRN #100 pieces of gum 07/15/16 03/05/22 (Nicorette) metoclopramide HCl 10 mg tablet 10 mg PO BID 10/28/17 03/05/22 acetaminophen 650 mg 650 mg PO Q6H PRN PRN Pain 11/16/19 03/05/22 tablet,extended release atorvastatin 40 mg tablet 40 mg PO DAILY 11/16/19 03/05/22 clopidogrel 75 mg tablet 75 mg PO DAILY 11/16/19 03/05/22 levothyroxine 75 mcg tablet 75 mcg PO DAILY 11/16/19 03/05/22 lisinopril 30 mg tablet 30 mg PO DAILY 11/16/19 03/05/22 multivitamin (Multiple Vitamins 1 tab PO DAILY #30 tabs 11/16/19 03/05/22 tablet) furosemide 20 mg tablet 80 mg PO DAILY PRN 03/16/20 03/05/22 hydrocortisone 5 mg tablet 10 - 15 mg PO DIRECTED 03/16/20 03/05/22 metoprolol tartrate 25 mg tablet 25 mg PO BID #180 tabs 03/18/21 03/05/22 escitalopram oxalate 20 mg tablet 20 mg PO DAILY #90 tab-caps 08/09/21 03/05/22 Previous Rx's Medication Instructions Recorded multivitamin (Multiple Vitamins 1 tab PO DAILY #30 tabs 11/16/19 tablet) metoprolol tartrate 25 mg tablet 25 mg PO BID #180 tabs 03/18/21 escitalopram oxalate 20 mg tablet 20 mg PO DAILY #90 tab-caps 08/09/21 Allergies Allergy/AdvReac Type Severity Reaction Status Date / Time No Known Allergies Allergy Verified 03/05/22 21:30 General JIAN: 2 Review of Systems Narrative: States he has had alcohol use today. Denies other significant complaints. No recent illness. He denies to me shortness of breath, chest pain.. PFSH All Active Problems (Updated 03/05/22 @ 23:14 by Alfie Davidson MD) Syncope (Chronic) Rib pain on right side (Acute) Near syncope (Acute) Low back pain (Acute) Family history of colon cancer in father (Acute) Retinopathy, background, nonproliferative, mild (Acute) 10/05/18 MILD NPDR (R) EYE; [facility]- Diabetes mellitus (Acute) Alcohol abuse (Chronic) Anticoagulant long-term use (Acute) Coronary atherosclerosis of [place] coronary vessel (Acute) Chest pain (Acute) 12/2010; MPI NEGATIVE -Pt. states he has never had chest pain his MT was pressure Depressive disorder (Acute) Derangement of medial meniscus of left knee (Acute 04/10/17) Gastroesophageal reflux disease (Acute) hematemesis Myocardial infarction acute (Acute 05/21/03) RCA stent placed Obstructive sleep apnea syndrome (Acute) CPAP Peripheral neuralgia (Acute) Medical History [place]'s disease (08/23/13) Pancreatic transplant 2014 Pt. states he had ran out of steroids, and forgot to get it refilled and that is what triggered his adrenal crisis Atherosclerosis of [place] coronary artery Essential hypertension (03/22/13) Family history of colon cancer History of tobacco use Surgical History Colonoscopy - MAC 08/2008; NEG 07/07/14; NEG Coronary Stent 2018 last stent placed 2003;RCA x3 Pancreas transplant status SHOULDER SURGERY (~06/2009) LEFT Vasectomy Social History Smoking/Tobacco Use Status: Current every day Tobacco Type: cigarettes Smoking risk assessment performed?: Yes Alcohol Intake: current Alcohol Intake frequency: 3 or more drinks per day Alcohol type: beer Drug use: Never Substance use type: does not use Details: Had quit then smoked a pack of cigarettes this weekend Current gender identity: male Do you feel safe at home: Yes Do you feel safe in your relationship?: Yes Exam Narrative Exam Narrative: GEN: awake, alert, oriented 3. Pleasant, well groomed, interactive. HEAD: Normocephalic, atraumatic ENT: Mucous membranes moist, oropharynx unremarkable, the nares have blood secondary to placement of nasal airway, external ear exam unremarkable EYES: PERRL, EOMI NECK: Full ROM, no JOSE, no menigismus CHEST/RESP: Nontender, clear to auscultation bilateral, no wheeze/rhonchi/rales CARDIOVASCULAR: RRR, no murmur, rub jasmina. 2+ Rad pulse bilateral ABDOMEN: Soft, nontender, no mass. +Bowel sounds EXT: Full ROM, no edema, no rash Neuro: Grossly normal neurologic exam, conversant, interactive. Psych: Speech fluent, thoughts congruent, affect normal Sign Out Sign Out Data: Sign Out Comment: Followup CT PE Last updated by Alfie Davidson MD at 03/05/22 23:03
[2022-03-05 21:23] VITALS: RESP 18
[2022-03-05 21:40] LABS: Abs Immature Grans 0.05 10^3/uL (0.0-0.06); Absolute Basophil Count 0.04 10^3/uL (0.0-0.2); Absolute Eosinophil Count 0.25 10^3/uL (0.0-0.7); Absolute Lymphocyte Count 1.35 10^3/uL (1.2-3.4); Absolute Monocyte Count 0.89 10^3/uL (0.1-0.8); Absolute Neutrophil Count 3.87 10^3/uL (1.2-6.7); Basophils % 0.6; Eosinophils % 3.9; HCT 40.1 % (40.0-50.0); HGB 13.9 g/dL (13.5-17.5); Immature Grans % 0.8; Lymphocytes % 20.9; MCH 31.5 pg (27.0-33.0); MCHC 34.7 % (32.0-36.0); MCV 91 fL (80-95); MPV 9.3 fL (8.0-11.0); Monocytes % 13.8; Platelet Count 159 10^3/uL (130-400); RBC 4.41 10^6/uL (4.36-5.78); RDW 11.8 % (11.8-14.1); RDW-SD 39.5 fL; WBC 6.45 10^3/uL (4.4-10.8)
[2022-03-05 21:57] LABS: PTT Activated 24.9 sec (21.0-27.5); Prothrombin Time 10.4 sec (9.3-11.0)
[2022-03-05 22:09] LABS: ALT 58 U/L (16-63); AST 59 U/L (15-37); Albumin 3.4 g/dL (3.4-5.0); Alkaline Phosphatase 74 U/L (46-116); Anion Gap 11.8 mmol/L (3-11); BUN 15 mg/dL (7-18); Bilirubin, Total 0.5 mg/dL (0.2-1.0); CO2 26.2 mmol/L (21.0-32.0); CREATININE 1.2 mg/dL (0.70-1.30); Calcium 7.9 mg/dL (8.5-10.1); Chloride 93 mmol/L (98-107); Estimated GFR 72.31 (mL/min/1.73m2); Glucose 116 mg/dL (74-106); Magnesium 0.9 mg/dL (1.8-2.4); Sodium 131 mmol/L (136-145); Total Protein 7.6 g/dL (6.4-8.2); Troponin I < 50 ng/L (<or=60)
[2022-03-05 22:11] LABS: Potassium 2.7 mmol/L (3.5-5.1)
--- NOTE | 2022-03-05 22:11 | DI.VRAD_ITS ---
PROCEDURE INFORMATION: Exam: CT Head Without Contrast Exam date and time: 03/05/2022 10:01 PM Age: 51 years old Clinical indication: Syncope and collapse TECHNIQUE: Imaging protocol: Computed tomography of the head without contrast. Radiation optimization: All CT scans at this facility use at least one of these dose optimization techniques: automated exposure control; mA and/or kV adjustment per patient size (includes targeted exams where dose is matched to clinical indication); or iterative reconstruction. COMPARISON: No relevant prior studies available. FINDINGS: Brain: Mild volume loss. No hemorrhage. Unremarkable white matter. No mass effect. Cerebral ventricles: No ventriculomegaly. Paranasal sinuses: Mucosal thickening in the posterior left ethmoid air cells No fluid levels. Mastoid air cells: Visualized mastoid air cells are well aerated. Bones/joints: Unremarkable. No acute fracture. Soft tissues: Unremarkable. IMPRESSION: No acute intracranial abnormality. Dictated and Authenticated by: Pieter Figueroa MD. Ordering:BOOKER Judge MD
--- NOTE | 2022-03-05 22:16 | DI.VRAD_ITS ---
PROCEDURE INFORMATION: Exam: XR Chest Exam date and time: 03/05/2022 10:12 PM Age: 51 years old Clinical indication: Other: Syncope TECHNIQUE: Imaging protocol: Radiologic exam of the chest. Views: 1 view. COMPARISON: CR XR RIBS RT W PA LAT CHEST 01/22/2022 8:54 AM FINDINGS: Lungs: Unremarkable. No consolidation. Pleural spaces: Unremarkable. No pleural effusion. No pneumothorax. Heart/Mediastinum: Grossly stable cardiomegaly. Bones/joints: Unremarkable. IMPRESSION: No acute findings. Dictated and Authenticated by: Pieter Figueroa MD. Ordering:BOOKER Judge MD
[2022-03-05 22:26] LABS: D-Dimer 2475 ng/mlFEU (<500)
--- NOTE | 2022-03-05 22:30 | DI.CT_ITS ---
Exam(s) CT CHEST PE CTA EXAM: CT CHEST PE CTA CLINICAL HISTORY: Syncope, elev DDimer. TECHNIQUE: Imaging Protocol: Axial CT angiography was performed with multi-slice acquisition and mu lti-planar and/or 3D reconstructions. CONTRAST MATERIAL: Intravenous: Omnipaque 350 contrast volume:100 mL COMPARISON: CT CHEST FOR PULMONARY EMBOLUS from 03/20/2016 FINDINGS: Tracheobronchial tree: Patent where visualized. Pulmonary parenchyma: No consolidation or dominant measurable mass. No architectural distortion. Depe ndent atelectasis is present. Pulmonary Arteries: No evidence of filling defect to suggest pulmonary emboli. Mediastinum and Joan: No dominant adenopathy or fluid collection. The esophagus is unremarkable. Visualized thyroid gland: Unremarkable. Pleura: No effusion or pneumothorax. Heart: The heart is not dilated. Moderate coronary artery calcification is present. No pericardial ef fusion. Aorta: Thoracic aorta non-dilated. No evidence of dissection. Mild atherosclerosis is present. Upper abdomen: Unremarkable. Soft tissues: Unremarkable. Bones: Within normal limits for the patient's age.There are nondisplaced fractures involving the ante rior aspects of the right 4th through 7th rib. There is a subacute fracture involving the anterior as pect of the right 8th rib. IMPRESSION: 1. No evidence of pulmonary embolism, thoracic aortic dissection or aneurysm. 2. Nondisplaced acute fractures involving the anterior aspects of the right 4th through 8th ribs. Sub acute healing fracture involving the anterior aspect of the right 8th rib. 3. Findings were discussed with the emergency department on the date of the examination RADIATION DOSE DELIVERED: 571.77mGy.cm Total DLP DATA REPOSITORY: All CT scans at this facility are submitted to the National Radiology Data Registry (NRDR) Dose Index Registry (DIR) with the [employer] (ACR). RADIATION OPTIMIZATION: All CT scans at this facility use at least one of these dose optimization te chniques: automated exposure control; mA and/or kV adjustment per patient size (includes targeted exa ms where dose is matched to clinical indication); or iterative reconstruction.
[2022-03-05 22:36] LABS: ETHANOL BLOOD 146.3 mg/dL (<10)
[2022-03-05] MEDS: MAGNESIUM SULFATE 8.12 MEQ, MULTIVITAMIN 10 ML, THIAMINE 100 MG, FOLIC ACID 1 MG in Nor... 168.867 MG IV (22:37)
[2022-03-05] MEDS: Potassium Chloride Liquid 20 MEQ PKT PO (22:57)
[2022-03-05] MEDS: MAGNESIUM SULFATE 2 GM/50 ML BAG IVPB (22:57)
[2022-03-05 23:24] LABS: Source Nasal/Nares
[2022-03-05 23:56] LABS: COVID-19 PCR Negative (Negative)
[2022-03-06] VITALS (62 sets, daily range): BP systolic 125–156; BP diastolic 61–85; PULSE 61–75; RESP 15–27; TEMP 36–36.8; O2SAT 87–97
[2022-03-06] MEDS: Omnipaque 350 MG/ML 100 ML BTL IJ (00:51)
[2022-03-06] MEDS: POTASSIUM CHLORIDE 20 MEQ/100 ML BAG 50 MEQ IVPB (00:54)
--- NOTE | 2022-03-06 01:05 | DI.VRAD_ITS ---
PROCEDURE INFORMATION: Exam: CTA Chest With Contrast Exam date and time: 03/06/2022 12:43 AM Age: 51 years old Clinical indication: Other: Syncope, elevated ddimer; Prior surgery; Surgery date: 6+ months; Surgery type: Stents TECHNIQUE: Imaging protocol: Computed tomographic angiography of the chest with contrast. 3D rendering (Not supervised by radiologist): MIP and/or 3D reconstructed images were created by the technologist. Radiation optimization: All CT scans at this facility use at least one of these dose optimization techniques: automated exposure control; mA and/or kV adjustment per patient size (includes targeted exams where dose is matched to clinical indication); or iterative reconstruction. Contrast material: OMNI 350; Contrast volume: 100 ml; Contrast route: INTRAVENOUS (IV); COMPARISON: CT CHEST FOR PULMONARY EMBOLUS 03/20/2016 10:45 AM FINDINGS: Pulmonary arteries: Enlarged main pulmonary artery No pulmonary emboli. Aorta: Unremarkable. No aortic aneurysm. No aortic dissection. Lungs: Minimal subsegmental atelectasis, greater in the right lower lobe No consolidation. No masses. Pleural spaces: No pneumothorax. No pleural effusion. Heart: Coronary calcifications. Oaze-uh-skldrhrr cardiomegaly. No pericardial effusion. Lymph nodes: No enlarged lymph nodes. Bones/joints: No acute fracture. Soft tissues: Unremarkable. IMPRESSION: No pulmonary emboli detected Cardiomegaly and coronary artery disease Question pulmonary arterial hypertension Minimal subsegmental atelectasis greater on the right Dictated and Authenticated by: Pieter Figueroa MD. Ordering:BOOKER Judge MD
--- NOTE | 2022-03-06 01:19 | W.EDPROG ---
Date of service: 03/06/22 Time of Service: 01:19 Medical Decision Making 120 -- Care was signed out by Dr. Davidson, please see his documentation regarding initial ED presentation and course. Plan at signout was to follow-up on CT of the chest to assess for pulmonary embolism and to follow-up on repeat troponin. Plan for admission given electrolyte abnormalities and syncope. CT of the chest was interpreted by radiology: No pulmonary embolism detected. Cardiomegaly and coronary artery disease, question pulmonary arterial hypertension, minimal subsegmental atelectasis greater on the right. Patient was reassessed and remains hemodynamically stable. Sign Out Sign Out Data: Sign Out Comment: Followup CT PE Last updated by Alfie Davidson MD at 03/05/22 23:03 Discharge Plan Disposition Patient Disposition: [facility] INPATIENT Condition: Improving Discharge Details Clinical Impression: Syncope, Hypokalemia, Hypomagnesemia Admit Date/Time: 03/07/22 02:38 Admit Provider: Carlos Solomon Attending Provider: Carlos Solomon Primary Care Provider: William Gray ED Provider: Kris Lantigua Discharge Data Discharge Date/Time-TO BE ENTERED AT DEPARTURE: 03/06/22 03:50
[2022-03-06 01:52] LABS: Troponin I < 50 ng/L (<or=60)
--- NOTE | 2022-03-06 02:50 | W.PM.HP.N ---
Date of service: 03/06/22 Time of Service: 02:50 Assessment and Plan Assessment and plan (1) Syncope: Status: Chronic Assessment and plan: Occurred from a standing height; fell forward onto a counter. Possibly secondary to an arrhythmia in background of electrolyte disturbances and intoxication. Monitor on telemetry. Replete K and Mg. (2) Alcohol abuse: Status: Chronic Assessment and plan: He denies h/o withdraw. Serum alcohol level of 146.3 so not likely to withdraw anytime soon. Attempt to replete lytes and d/c expeditiously to avoid a possible withdrawal issue. Otherwise, could initiate CIWA monitoring. Vitamin replacement via banana bag initiated in ED. (3) Coronary atherosclerosis of [place] coronary vessel: Status: Acute Assessment and plan: H/O GA, coronary stents x3 in RCA. Cont Tammy BB, statin, clopidogril. No CP other than myofascial where he impacted the [employer] store counter with his chest when had syncopal event. (4) Essential hypertension: Assessment and plan: Cont diltiazem, lisinopril, metoprolol. Monitor. (5) History of tobacco use: Assessment and plan: Nicotine replacement gum prn (6) Pancreas transplant status: Assessment and plan: Continue tacrolimus and mycophenolate. Last tacrolimus level was on 05/13/21: 11.3 at that time. (7) Hypokalemia: Status: Acute Assessment and plan: Oral and IV repletion and monitoring. (8) Hypomagnesemia: Status: Resolved Assessment and plan: IV repletion and monitoring. (9) Discharge planning issues: Status: Acute Assessment and plan: Replete electrolytes and monitor on telemetry. D/C if no arrhythmias noted, no presyncope, syncope, when electrolytes repleted. (10) Acute adrenal crisis: Status: Resolved Assessment and plan: Continue fludricortisone and hydrocortisone. History of Present Illness History of Present Illness Chief Complaint: Syncope, alcohol intoxication. Narrative: This is a 51 yo male with h/o alcohol abuse, pancrease transplant, adrenal insufficiency, CAD with GA and stents, depression, GERD, ENRIQUETA. He presented to the ED after a syncopal event. He was at a store standing at the counter when he became lightheaded and then had a witnessed syncopal event. He fell and struck his chest on the counter then fell to the floor. Reportedly a bystander administered CPR but no pulse checked. EMS arrived and he had a palpable pulse. Over 3-4 minutes he regained consciousness and his mental status improved. He stated he felt normal afterwards. He denied any CP or palpitations preceeding the syncopal event. He has had no F/C, N/V/abd pain. He was noted to have a mild epistaxis d/t nasal airway that had been placed. ED workup showed: Na 131, K 2.7, Mg 0.9, Creatinine 1.2. AST 59, ALT 58. Troponin neg. D-dimer 2475. Alcohol level 146. CT head w/o acute findings. CXR no acute findings. CT chest: No pulmonary emboli detected. Cardiomegaly and coronary artery disease.Question pulmonary arterial hypertension.Minimal subsegmental atelectasis greater on the right Admitted for telemetry monitoring and electrolyte replacement. Review of Systems All systems reviewed & are unremarkable except as noted in HPI and below PFSH All Active Problems (Updated 03/06/22 @ 02:52 by Carlos Solomon MD) Discharge planning issues (Acute) Hypokalemia (Acute) Syncope (Chronic) Rib pain on right side (Acute) Near syncope (Acute) Low back pain (Acute) Family history of colon cancer in father (Acute) Retinopathy, background, nonproliferative, mild (Acute) 10/05/18 MILD NPDR (R) EYE; [facility]- Diabetes mellitus (Acute) Alcohol abuse (Chronic) Anticoagulant long-term use (Acute) Coronary atherosclerosis of [place] coronary vessel (Acute) Chest pain (Acute) 12/2010; MPI NEGATIVE -Pt. states he has never had chest pain his GA was pressure Depressive disorder (Acute) Derangement of medial meniscus of left knee (Acute 04/10/17) Gastroesophageal reflux disease (Acute) hematemesis Myocardial infarction acute (Acute 05/21/03) RCA stent placed Obstructive sleep apnea syndrome (Acute) CPAP Peripheral neuralgia (Acute) Medical History [place]'s disease (08/23/13) Pancreatic transplant 2014 Pt. states he had ran out of steroids, and forgot to get it refilled and that is what triggered his adrenal crisis Atherosclerosis of [place] coronary artery Essential hypertension (03/22/13) Family history of colon cancer History of tobacco use Surgical History Colonoscopy - MAC 08/2008; NEG 07/07/14; NEG Coronary Stent 2018 last stent placed 2003;RCA x3 Pancreas transplant status SHOULDER SURGERY (~06/2009) LEFT Vasectomy Social History Smoking/Tobacco Use Status: Current every day Tobacco Type: cigarettes Smoking risk assessment performed?: Yes Alcohol Intake: current Alcohol Intake frequency: 3 or more drinks per day Alcohol type: beer Drug use: Never Substance use type: does not use Details: Had quit then smoked a pack of cigarettes this weekend Current gender identity: male Do you feel safe at home: Yes Do you feel safe in your relationship?: Yes Meds Allergies and Home Medications Allergies Allergy/AdvReac Type Severity Reaction Status Date / Time No Known Allergies Allergy Verified 03/05/22 21:30 Home Medications Medication Instructions Recorded Confirmed Type fludrocortisone 0.1 mg tablet 0.1 mg PO DAILY ##90 10/13/12 03/05/22 History nitroglycerin 0.4 mg sublingual 0.4 mg sublingual PRN ##25 01/24/13 03/05/22 History tablet aspirin 81 mg tablet,delayed 81 mg PO DAILY 05/12/13 03/05/22 History release (Aspir-) diltiazem HCl 120 mg tablet 120 mg PO DAILY 05/12/13 03/05/22 History (Cardizem) docusate sodium 100 mg capsule 100 mg PO BID PRN PRN Constipation 05/12/13 03/05/22 History (Colace) mycophenolate mofetil 250 mg 750 mg PO BID 05/12/13 03/05/22 History capsule (CellCept) tacrolimus 1 mg capsule, 1 tab PO HS 05/12/13 03/05/22 History immediate-release (Prograf) tacrolimus 1 mg capsule, 2 mg PO DAILY AM 05/12/13 03/05/22 History immediate-release (Prograf) clonazepam 0.5 mg tablet (Klonopin) 0.5 mg PO HS #120 tab-caps 12/13/14 03/05/22 History nicotine (polacrilex) 2 mg gum 2 mg PO Q2H PRN #100 pieces of gum 07/15/16 03/05/22 History (Nicorette) metoclopramide HCl 10 mg tablet 10 mg PO BID 10/28/17 03/05/22 History acetaminophen 650 mg 650 mg PO Q6H PRN PRN Pain 11/16/19 03/05/22 History tablet,extended release atorvastatin 40 mg tablet 40 mg PO DAILY 11/16/19 03/05/22 History clopidogrel 75 mg tablet 75 mg PO DAILY 11/16/19 03/05/22 History levothyroxine 75 mcg tablet 75 mcg PO DAILY 11/16/19 03/05/22 History lisinopril 30 mg tablet 30 mg PO DAILY 11/16/19 03/05/22 History multivitamin (Multiple Vitamins 1 tab PO DAILY #30 tabs 11/16/19 03/05/22 Rx tablet) furosemide 20 mg tablet 80 mg PO DAILY PRN 03/16/20 03/05/22 History hydrocortisone 5 mg tablet 10 - 15 mg PO DIRECTED 03/16/20 03/05/22 History metoprolol tartrate 25 mg tablet 25 mg PO BID #180 tabs 03/18/21 03/05/22 Rx escitalopram oxalate 20 mg tablet 20 mg PO DAILY #90 tab-caps 08/09/21 03/05/22 Rx Exam Narrative Exam Narrative: Lying very still and supine. Complaining of back pain. Const General: cooperative Nutritional Appearance: obese Orientation: alert and oriented x3 HENMT Head: normocephalic and atraumatic Neck Neck: full ROM and no JVD Chest Chest: tenderness (sternum) Resp Effort & Inspection: normal respiratory effort Auscultation: clear to auscultation bilaterally Cardio Rate: regular rate Rhythm: regular rhythm Heart Sounds: S1 normal, S2 normal and no murmurs GI Inspection: non-distended and obesity Palpation: soft and nontender Neuro General: no focal motor deficits Cranial Nerves: facial strength normal Extrem General: no pedal edema and no calf tenderness Psych Appearance: grossly normal Mental Status: mental status grossly normal Affect: blunted Results Labs Result diagrams: 03/05/22 21:30 03/05/22 21:30 Labs: Laboratory Results - last 24 hr 03/05/22 03/05/22 03/05/22 21:30 21:30 21:30 WBC 6.45 RBC 4.41 Hgb 13.9 Hct 40.1 MCV 91 MCH 31.5 MCHC 34.7 RDW 11.8 Plt Count 159 MPV 9.3 Immature Gran % 0.8 Neutrophils % 60.0 Lymphocytes % 20.9 Monocytes % 13.8 Eosinophils % 3.9 Basophils % 0.6 Nucleated RBC % 0.0 Absolute Neutrophils 3.87 Absolute Lymphocytes 1.35 Absolute Monocytes 0.89 H Absolute Eosinophils 0.25 Absolute Basophils 0.04 PT INR APTT D-Dimer 2475 H Sodium 131 L Potassium 2.7 L* Chloride 93 L Carbon Dioxide 26.2 Anion Gap 11.8 H BUN 15 Creatinine 1.2 Est GFR (CKD-EPI 2020) 72.31 Glucose 116 H Calcium 7.9 L Magnesium 0.9 L Total Bilirubin 0.5 AST 59 H ALT 58 Alkaline Phosphatase 74 Troponin I < 50 Total Protein 7.6 Albumin 3.4 Ethyl Alcohol COVID-19 Source SARS-CoV-2 (PCR) 03/05/22 03/05/22 03/05/22 21:30 21:30 23:22 WBC RBC Hgb Hct MCV MCH MCHC RDW Plt Count MPV Immature Gran % Neutrophils % Lymphocytes % Monocytes % Eosinophils % Basophils % Nucleated RBC % Absolute Neutrophils Absolute Lymphocytes Absolute Monocytes Absolute Eosinophils Absolute Basophils PT 10.4 INR 1.0 APTT 24.9 D-Dimer Sodium Potassium Chloride Carbon Dioxide Anion Gap BUN Creatinine Est GFR (CKD-EPI 2020) Glucose Calcium Magnesium Total Bilirubin AST ALT Alkaline Phosphatase Troponin I Total Protein Albumin Ethyl Alcohol 146.3 H COVID-19 Source Nasal/Nares SARS-CoV-2 (PCR) Negative 03/06/22 01:06 WBC RBC Hgb Hct MCV MCH MCHC RDW Plt Count MPV Immature Gran % Neutrophils % Lymphocytes % Monocytes % Eosinophils % Basophils % Nucleated RBC % Absolute Neutrophils Absolute Lymphocytes Absolute Monocytes Absolute Eosinophils Absolute Basophils PT INR APTT D-Dimer Sodium Potassium Chloride Carbon Dioxide Anion Gap BUN Creatinine Est GFR (CKD-EPI 2020) Glucose Calcium Magnesium Total Bilirubin AST ALT Alkaline Phosphatase Troponin I < 50 Total Protein Albumin Ethyl Alcohol COVID-19 Source SARS-CoV-2 (PCR) Last Vital Signs Temp 36.8 C 03/05/22 21:14 Pulse 73 03/05/22 21:14 Resp 18 03/05/22 21:23 BP 130/67 03/05/22 21:14 Pulse Ox 96 03/05/22 21:14 PAWSS Have you Been Recently Intoxicated or Drunk Within the Last 30 days?: Yes Have you Ever Experienced Previous Episodes of Alcohol Withdrawal?: No Have you ever Experienced Withdrawal Seizures?: No Have you ever Experienced Delirium Tremens(DT)s?: No Have you ever undergone Alcohol Rehabilitation Treatment (i.e, inpt ot outpatient treatment programs)?: Yes Have you ever Experienced Blackouts?: Yes Have you ever Combined Alcohol with other Downers within the last 90 days?: No Have you ever Combined Alcohol with any other Substance of Abuse during the last 90 days?: No Positive Blood Alcohol level on Presentation? [PCS.BAL]: Yes Evidence of Increased Autonomic Activity (i.e. HR>120, tremor, sweating, agitation, nausea)?: No Result: 4
[2022-03-06] MEDS: oxyCODONE 5 MG TAB PO (04:40)
[2022-03-06] MEDS: MAGNESIUM SULFATE 4 GM/100 ML BAG IVPB (04:40)
[2022-03-06] MEDS: Heparin 5,000 UNITS/ML VIAL 5000 UNITS SC ×3 (05:50→22:50)
[2022-03-06] MEDS: Levothyroxine 75 MCG TAB PO (05:50)
[2022-03-06] MEDS: LORazepam 20 MG/10 ML VIAL IVP (06:29)
[2022-03-06] MEDS: Metoclopramide 10 MG/2 ML VIAL IVP (06:29)
[2022-03-06] MEDS: Hydrocortisone 10 MG TAB 15 MG PO (08:33)
[2022-03-06] MEDS: Metoprolol 12.5 MG TAB 25 MG PO ×2 (08:34→19:40)
[2022-03-06] MEDS: Escitalopram 20 MG TAB PO (08:35)
[2022-03-06] MEDS: Aspirin E.C. 81 MG TABEC PO (08:35)
[2022-03-06] MEDS: Metoclopramide 10 MG TAB PO ×2 (08:35→19:40)
[2022-03-06] MEDS: Fludrocortisone 0.1 MG TAB PO (08:35)
[2022-03-06] MEDS: Clopidogrel 75 MG TAB PO (08:35)
[2022-03-06] MEDS: Lisinopril 10 MG TAB 30 MG PO (08:35)
[2022-03-06] MEDS: Acetaminophen 325 MG TAB PO (08:36)
[2022-03-06] MEDS: Baclofen 10 MG TAB PO ×3 (08:37→19:43)
[2022-03-06] MEDS: dilTIAZem CD 120 MG CAPCR PO (08:37)
[2022-03-06] MEDS: Lidocaine 5% Patch 2 PATCH TP (08:38)
[2022-03-06] MEDS: Potassium Chloride 20 MEQ TABCR PO ×3 (08:38→19:41)
--- NOTE | 2022-03-06 09:16 | INITIAL_ITS ---
- If Service Date Differs Date of service: 03/06/22 Time of Service: 09:16 Care Management Initial Assess REASON FOR HOSPITALIZATION:: Syncope, Alcohol abuse, Hypokalemia, Hypomagnesemia PAST MEDICAL HISTORY/PAST SURGICAL HISTORY:: All Active Problems (Updated 03/06/22 @ 02:52 by Carlos Solomon MD). Discharge planning issues (Acute). Hypokalemia (Acute). Syncope (Chronic). Rib pain on right side (Acute). Near syncope (Acute). Low back pain (Acute). Family history of colon cancer in father (Acute). Retinopathy, background, nonproliferative, mild (Acute). 10/05/18 MILD NPDR (R) EYE; [facility]. Diabetes mellitus (Acute). Alcohol abuse (Chronic). Anticoagulant long-term use (Acute). Coronary atherosclerosis of [place] coronary vessel (Acute). Chest pain (Acute). 12/2010; MPI NEGATIVE. -Pt. states he has never had chest pain his [place] was pressure. Depressive disorder (Acute). Derangement of medial meniscus of left knee (Acute 04/10/17). Gastroesophageal reflux disease (Acute). hematemesis. Myocardial infarction acute (Acute 05/21/03). RCA stent placed. Obstructive sleep apnea syndrome (Acute). CPAP. Peripheral neuralgia (Acute). Medical History. [place]'s disease (08/23/13). Pancreatic transplant 2014. Pt. states he had ran out of steroids, and forgot to get it refilled and that is what triggered his adrenal crisis. Atherosclerosis of [place] coronary artery. Essential hypertension (03/22/13). Family history of colon cancer. History of tobacco use. Surgical History . Colonoscopy - MAC. 08/2008; NEG. 07/07/14; NEG. Coronary Stent. 2018 last sten t placed. 2004;RCA. x3. Pancreas transplant status. SHOULDER SURGERY (~06/2009). LEFT. Vasectomy PREVIOUS FUNCTIONAL STATUS/SOCIAL/FAMILY SUPPORTS:: Lars lives in [facility] with his , Juliet, and two children, who are both students at [facility] [employer]. He is disabled, but still works. Until recently, he worked for a [employer] company as well as the [employer]. He stopped working due to Covid 19, as he is high risk. He is very proud of his children. He is independent with his ADL's. ADVANCE DIRECTIVES:: On file, [facility]CA is Juliet Blank. Alt Agent is Paula Hightower. Has patient been provided with info about the portal/API?: Yes Did the patient sign up for the portal?: Yes (Prior to admission) CODE STATUS:: Full Code INSURANCE COVERAGE / FINANCIAL ISSUES:: Medicare CURRENT HOME/COMMUNITY SERVICES/EQUIPMENT:: Lars is disabled at baseline, but does not have any equipment or services in the community. PRIMARY CARE PHYSICIAN:: [facility] PATIENT/FAMILY EDUCATION NEEDS:: Review discharge instructions, limitations, medications and plan to follow up with community providers. ask me three. TRANSPORTATION:: Via private vehicle with family. PLAN:: Lars requires close monitoring, telemetry and electrolyte repletion. Anticipate, Lars will discharge home via private vehicle with when medically ready with close follow up with PCP. New RX's will be sent to [facility], if needed.
[2022-03-06 11:15] LABS: ALT 52 U/L (16-63); AST 42 U/L (15-37); Albumin 3.1 g/dL (3.4-5.0); Alkaline Phosphatase 67 U/L (46-116); Anion Gap 8.6 mmol/L (3-11); BUN 13 mg/dL (7-18); Bilirubin, Total 0.8 mg/dL (0.2-1.0); CO2 26.4 mmol/L (21.0-32.0); Chloride 98 mmol/L (98-107); Glucose 128 mg/dL (74-106); Magnesium 2.3 mg/dL (1.8-2.4); Potassium 3.6 mmol/L (3.5-5.1); Sodium 133 mmol/L (136-145); Total Protein 6.9 g/dL (6.4-8.2)
--- NOTE | 2022-03-06 16:17 | W.PM.PROGNOT ---
Date of Service Date of service: 03/06/22 Time of Service: 16:17 Assessment and Plan Assessment and plan (1) Syncope: Status: Chronic Assessment and plan: Replete his electrolytes. Monitor for any arrhythmias. So far rhythm has been sinus rhythm 59 to 84 bpm no supraventricular or ventricular arrhythmias. Suspect that this is alcoholic blackout. Patient should have follow-up outpatient cardiac monitoring. Professional time spent interviewing and examining patient, discussion of goals of care with hospital team (care management, nursing and consulting professionals) was 30 minutes. (2) Alcohol abuse: Status: Chronic Assessment and plan: Monitor for acute alcohol withdrawal. If no sign of withdrawal and will discharge him home in the morning. continue MVS, thiamine and folic acid (3) Multiple rib fractures involving four or more ribs: Status: Acute Assessment and plan: will consult w/ anesthesia to see about performing a block to control his rib pain; will add ketorolac (4) Essential hypertension: Assessment and plan: Cont diltiazem, lisinopril, metoprolol. Monitor Monitor blood pressure including orthostatics. (5) History of tobacco use: Assessment and plan: Nicotine replacement gum prn (6) Pancreas transplant status: Assessment and plan: Continue tacrolimus and mycophenolate. Last tacrolimus level was on 05/13/21: 11.3 at that time. (7) Hypokalemia: Status: Acute Assessment and plan: Oral and IV repletion and monitoring. Repeat potassium level 3.6 this morning. (8) Hypomagnesemia: Status: Resolved Assessment and plan: IV repletion and monitoring. Repeat magnesium level 2.3 this morning (9) Discharge planning issues: Status: Acute Assessment and plan: Replete electrolytes and monitor on telemetry. D/C if no arrhythmias noted, no presyncope, syncope, when electrolytes repleted. Subjective Subjective Interval history since last seen: Overall patient is feeling better today. No nausea or vomiting no dizziness or lightheadedness today. His only complaint is some right chest wall pain that hurts with coughing or deep breathing. He sustained fractures of ribs 4 through 8 on the right. Denies any history of acute alcohol withdrawal seizures or delirium tremens. Drinks at least a sixpack of beer a day. Exam Narrative Exam Narrative: Obese middle-age male in no acute distress he is alert and oriented person place time circumstances. He is able to sit up in bed although he is cautious because of the right chest wall discomfort. Lungs are clear to auscultation Heart is regular rate and rhythm Abdomen obese soft and nontender Chest wall tender along the right anterolateral chest wall from the mid to lower chest wall Objective Last Vital Signs Temp 36.0 C L 03/06/22 15:37 Pulse 72 03/06/22 15:37 Resp 18 03/06/22 15:37 BP 150/80 H 03/06/22 15:37 Pulse Ox 95 03/06/22 15:37 Laboratory Results - last 24 hr 03/05/22 03/05/22 03/05/22 21:30 21:30 21:30 WBC 6.45 RBC 4.41 Hgb 13.9 Hct 40.1 MCV 91 MCH 31.5 MCHC 34.7 RDW 11.8 Plt Count 159 MPV 9.3 Immature Gran % 0.8 Neutrophils % 60.0 Lymphocytes % 20.9 Monocytes % 13.8 Eosinophils % 3.9 Basophils % 0.6 Nucleated RBC % 0.0 Absolute Neutrophils 3.87 Absolute Lymphocytes 1.35 Absolute Monocytes 0.89 H Absolute Eosinophils 0.25 Absolute Basophils 0.04 PT INR APTT D-Dimer 2475 H Sodium 131 L Potassium 2.7 L* Chloride 93 L Carbon Dioxide 26.2 Anion Gap 11.8 H BUN 15 Creatinine 1.2 Est GFR (CKD-EPI 2020) 72.31 Glucose 116 H Calcium 7.9 L Magnesium 0.9 L Total Bilirubin 0.5 AST 59 H ALT 58 Alkaline Phosphatase 74 Troponin I < 50 Total Protein 7.6 Albumin 3.4 Ethyl Alcohol COVID-19 Source SARS-CoV-2 (PCR) 03/05/22 03/05/22 03/05/22 21:30 21:30 23:22 WBC RBC Hgb Hct MCV MCH MCHC RDW Plt Count MPV Immature Gran % Neutrophils % Lymphocytes % Monocytes % Eosinophils % Basophils % Nucleated RBC % Absolute Neutrophils Absolute Lymphocytes Absolute Monocytes Absolute Eosinophils Absolute Basophils PT 10.4 INR 1.0 APTT 24.9 D-Dimer Sodium Potassium Chloride Carbon Dioxide Anion Gap BUN Creatinine Est GFR (CKD-EPI 2020) Glucose Calcium Magnesium Total Bilirubin AST ALT Alkaline Phosphatase Troponin I Total Protein Albumin Ethyl Alcohol 146.3 H COVID-19 Source Nasal/Nares SARS-CoV-2 (PCR) Negative 03/06/22 03/06/22 01:06 09:50 WBC RBC Hgb Hct MCV MCH MCHC RDW Plt Count MPV Immature Gran % Neutrophils % Lymphocytes % Monocytes % Eosinophils % Basophils % Nucleated RBC % Absolute Neutrophils Absolute Lymphocytes Absolute Monocytes Absolute Eosinophils Absolute Basophils PT INR APTT D-Dimer Sodium 133 L Potassium 3.6 Chloride 98 Carbon Dioxide 26.4 Anion Gap 8.6 BUN 13 Creatinine 1.0 Est GFR (CKD-EPI 2020) 90.00 Glucose 128 H Calcium 8.0 L Magnesium 2.3 Total Bilirubin 0.8 AST 42 H ALT 52 Alkaline Phosphatase 67 Troponin I < 50 Total Protein 6.9 Albumin 3.1 L Ethyl Alcohol COVID-19 Source SARS-CoV-2 (PCR) PAWSS Have you Been Recently Intoxicated or Drunk Within the Last 30 days?: Yes Have you Ever Experienced Previous Episodes of Alcohol Withdrawal?: No Have you ever Experienced Withdrawal Seizures?: No Have you ever Experienced Delirium Tremens(DT)s?: No Have you ever undergone Alcohol Rehabilitation Treatment (i.e, inpt ot outpatient treatment programs)?: Yes Have you ever Experienced Blackouts?: Yes Have you ever Combined Alcohol with other Downers within the last 90 days?: No Have you ever Combined Alcohol with any other Substance of Abuse during the last 90 days?: No Positive Blood Alcohol level on Presentation? [PCS.BAL]: Yes Evidence of Increased Autonomic Activity (i.e. HR>120, tremor, sweating, agitation, nausea)?: No Result: 4
[2022-03-06] MEDS: Normal Saline Flush 10 ML SYR IVP ×2 (17:13→19:47)
[2022-03-06] MEDS: Ketorolac 30 MG/ML VIAL IVP (17:13)
--- NOTE | 2022-03-06 18:58 | PDOC.ANES ---
Date of service: 03/06/22 Time of Service: 18:50 Anesthesia Note Report Anesthesia Note: Was requested to provide regional anesthesia options for Lars r/t his right sided rib fractures. Found in his room in a chair states that he is doing well. We discussed ESPB vs serratus block and the risks and benefits of them. At this time he is fine without having nerve blocks. We talked about the benefits of them for coughing and deep breathing as that pertains to atelectisis and pneumonia. He feels like he is doing well. He was encouraged to reach out to us if he changes his mind and would like the blocks.
[2022-03-06] MEDS: Atorvastatin 40 MG TAB PO (19:41)
[2022-03-06] MEDS: clonazePAM 0.5 MG TAB PO (22:49)
[2022-03-06] MEDS: Magnesium Gluconate 500 MG TAB PO (22:49)
[2022-03-06] MEDS: Hydrocortisone 10 MG TAB PO (22:50)
[2022-03-07] MEDS: Ketorolac 15 MG/ML VIAL IVP ×3 (00:17→12:19)
[2022-03-07 05:45] LABS: Anion Gap 7.9 mmol/L (3-11); BUN 16 mg/dL (7-18); CO2 27.1 mmol/L (21.0-32.0); CREATININE 1.1 mg/dL (0.70-1.30); Calcium 8.5 mg/dL (8.5-10.1); Chloride 100 mmol/L (98-107); Estimated GFR 80.27 (mL/min/1.73m2); Glucose 104 mg/dL (74-106); Magnesium 1.9 mg/dL (1.8-2.4); Potassium 4.6 mmol/L (3.5-5.1); Sodium 135 mmol/L (136-145)
[2022-03-07] MEDS: Levothyroxine 75 MCG TAB PO (05:54)
[2022-03-07] MEDS: Heparin 5,000 UNITS/ML VIAL 5000 UNITS SC ×2 (05:54→13:55)
[2022-03-07] MEDS: Normal Saline Flush 10 ML SYR IVP (05:55)
[2022-03-07 07:00] VITALS: PULSE 75
[2022-03-07] MEDS: Hydrocortisone 10 MG TAB 15 MG PO (08:01)
[2022-03-07] MEDS: Aspirin E.C. 81 MG TABEC PO (08:02)
[2022-03-07] MEDS: Metoprolol 12.5 MG TAB 25 MG PO (08:02)
[2022-03-07] MEDS: Potassium Chloride 20 MEQ TABCR PO ×2 (08:02→13:55)
[2022-03-07] MEDS: Baclofen 10 MG TAB PO ×2 (08:03→13:55)
[2022-03-07] MEDS: dilTIAZem CD 120 MG CAPCR PO (08:03)
[2022-03-07] MEDS: Clopidogrel 75 MG TAB PO (08:04)
[2022-03-07] MEDS: Lisinopril 10 MG TAB 30 MG PO (08:04)
[2022-03-07] MEDS: Escitalopram 20 MG TAB PO (08:05)
[2022-03-07] MEDS: Fludrocortisone 0.1 MG TAB PO (08:05)
[2022-03-07] MEDS: Metoclopramide 10 MG TAB PO (08:05)
[2022-03-07] MEDS: Lidocaine 5% Patch 2 PATCH TP (08:07)
[2022-03-07 08:21] VITALS: BP 162/78; PULSE 76; RESP 16; TEMP 36.2; O2SAT 97
[2022-03-07 09:30] VITALS: PULSE 73
[2022-03-07] MEDS: Magnesium Gluconate 500 MG TAB PO (09:52)
[2022-03-07 13:26] VITALS: PULSE 82
--- NOTE | 2022-03-07 13:54 | DSE_ITS ---
Date of service: 03/07/22 Time of Service: 13:54 DS: Diagnosis Discharge Diagnosis (1) Syncope: Status: Resolved Asessment and Plan: Probable alcohol blackout. Will obtain outpatient cardiac event recorder. Respiratory therapist on duty at the time of discharge was not trained to place cardiac event recorder therefore patient will have to come back as an outpatient. (2) Alcohol abuse: Status: Chronic Asessment and Plan: Patient was advised that he needs to abstain from alcohol due to the increase risk of damage to his pancreatic transplant as well as further risk for bone marrow suppression and cardiomyopathy. (3) Multiple rib fractures involving four or more ribs: Status: Acute Asessment and Plan: Patient will be discharged home with prescription for tramadol and lidocaine patches. (4) Hypokalemia: Status: Resolved Asessment and Plan: Patient be discharged home with a prescription for potassium supplementation with a repeat BMP and magnesium level next week. (5) Hypomagnesemia: Status: Resolved Asessment and Plan: Patient will be discharged home with prescription for magnesium supplementation with orders for repeat magnesium next week. Discharge Plan Disposition Patient Disposition: HOME Condition: Improving Discharge Details Reason For Visit: Syncope,Electrolyte Deficiencies Admit Date/Time: 03/07/22 02:38 Admit Provider: Carlos Solomon Attending Provider: Carlos Solomon Primary Care Provider: William Gray Hospital Course Hospital Course: Mr. Lars Blank is a 51-year-old male with a history of alcohol abuse, status post pancreatic transplant, chronic adrenal insufficiency, coronary artery di sease with previous NE and stents, depression, GERD, ENRIQUETA who presented the ED after syncopal event. He did not have store standing at the counter when he became lightheaded had a witnessed syncopal event striking his chest on the counter falling to the floor. Reportedly bystanders performed CPR but no pulse check was performed. On arrival EMS found him to have a palpable pulse. After 3 to 4 minutes he regained consciousness his mental status improved. He had no antecedent chest pain or palpitations prior to syncopal event. He had no fever chills or shortness of breath. On arrival to the emergency department he was found to be hypokalemic with potassium 2.7 hypomagnesemic at 0.9 mild transaminase elevation of AST 59, ALT 58 and negative troponins. D-dimer is elevated 2475 and blood alcohol level was elevated at 146. CT of his head showed no acute findings. Chest x-ray showed no acute findings. CT of the chest showed no pulmonary emboli but demonstrated cardiomegaly and coronary artery calcifications and questionable pulmonary arterial hypertension with minimal subsegmental atelectasis greater on the right. CT of the chest was later over read and was showing multiple rib fractures on the right ribs 4 through 8. Patient was admitted on telemetry for monitoring and rehydration and replacement of his electrolytes. Patient was given oral and parenteral magnesium potassium supplementation. Patient had no further syncopal spells. He had no cardiac arrhythmias. Syncopal spell was blamed on alcoholic blackout. He has had previous history of blackouts. Nevertheless he will be scheduled for outpatient cardiac event recorder. At the time of discharge his CBC was within normal limits. His chemistries have been corrected with a magnesium level 1.9 potassium of 4.6. His serial troponins were negative. As I said his CT was over read by our own radiologist as showing nondisplaced acute fractures involving right fourth through eighth ribs. Anesthesia was consulted for nerve block but patient declined the nerve block. His pain was controlled with analgesics. He was discharged home with a prescription for lidocaine patches and oral tramadol as well as potassium and magnesium supplementation. Home Meds and New Rx's Prescriptions: New potassium chloride [Klor-Con M20] 20 mEq Tablet,Er Particles/Crystals 20 meq PO DAILY Qty: 30 0RF lidocaine 5 % Adhesive Patch,Medicated 2 patch topical DAILY@0800 Qty: 30 0RF magnesium gluconate 27 mg magnesium (500 mg) Tablet 500 mg PO DAILY Qty: 30 0RF tramadol 100 mg tablet 100 mg PO TID PRNQty: 30 0RF Continued hydrocortisone 5 mg tablet 10 - 15 mg PO DIRECTED Rx Instructions: Take 4 tabs this evening, then resume 3 tabs in am, 2 tabs pm (double for illness) 9-25-20 pt reports taking 15mg morning, 10 mg at night. -hb furosemide 20 mg tablet 80 mg PO DAILY PRN nitroglycerin 0.4 MG tablet, sublingual 0.4 mg Sublingual PRN Qty: 25 Label Comments: 07/05/14 Pt states he has not needed to take. PG clonazepam [Klonopin] 0.5 MG tablet 0.5 mg PO HS Qty: 120 Label Comments: 05/04/15 takes once a day.....clw nicotine (polacrilex) [Nicorette] 2 MG gum 2 mg PO Q2H PRN Qty: 100 metoprolol tartrate 25 mg tablet 25 mg PO BID Qty: 180 3RF escitalopram oxalate 20 mg tablet 20 mg PO DAILY Qty: 90 3RF fludrocortisone 0.1 MG tablet 0.1 mg PO DAILY Qty: 90 Label Comments: 06-03-17 pt reports taking 0.1 mg daily. hb Rx Instructions: BRAND NAME MEDICALLY NECESSARY aspirin [Aspir-81] 81 MG tablet,delayed release (DR/EC) 81 mg PO DAILY Label Comments: pt states he has been forgetting to take this. 01/04/15 rl 01/24/15 taking daily. md mycophenolate mofetil [CellCept] 250 MG capsule 750 mg PO BID diltiazem HCl [Cardizem] 120 MG tablet 120 mg PO DAILY docusate sodium [Colace] 100 MG capsule 100 mg PO BID PRN PRN (Reason: Constipation) tacrolimus [Prograf] 1 MG capsule 1 tab PO HS Label Comments: 05/24/14 takes 1mg HS. DL tacrolimus [Prograf] 1 MG capsule 2 mg PO DAILY AM Label Comments: 06/03/17-PT STATES CURRENTLY TAKING (2) 2MG QAM AND 1MG HS--HS, RN metoclopramide HCl 10 MG tablet 10 mg PO BID atorvastatin 40 mg tablet 40 mg PO DAILY Label Comments: TAKE ONE TABLET BY MOUTH EVERY DAY clopidogrel 75 mg tablet 75 mg PO DAILY Label Comments: TAKE 1 TABLET BY MOUTH ONCE DAILY acetaminophen 650 mg Tablet Extended Release 650 mg PO Q6H PRN PRN (Reason: Pain) levothyroxine 75 mcg Tablet 75 mcg PO DAILY lisinopril 30 mg tablet 30 mg PO DAILY Label Comments: TAKE ONE TABLET BY MOUTH DAILY multivitamin [Multiple Vitamins] Tablet 1 tab PO DAILY Qty: 30 0RF Discharge Instructions Instructions: Rib Fracture (DC), Syncope (DC), Alcohol Dependence (DC) Additional Instructions: I would advise you to abstain from alcohol as this will contribute to worsening of your pancreatic transplant, lead to bone marrow suppression, chronic liver disease, potential for heart failure and repeated episodes of syncope Stand Alone Forms: Nursing Discharge Form Referrals: [facility] [Other] (Please call to make an appointment for lab work.) William Gray NP [Primary Care Provider] - 03/13/22 1:20 pm Priyanka Eaton MD [ [facility] STAFF PHYSICIAN] - (Office will call once a pre-authorization has gone through for your cardiac sonographer.) Activity:: Activity as Tolerated Equipment/Supplies:: No Equipment Needed Diet:: Normal Diet Discharge Orders Discharge Orders: Discharge Order (Routine); Ordered 03/07/22 Ordered By: All Mendez Other Ambulatory Orders: Basic Metabolic Panel (Routine) Timeframe: 1 Week Facility: [facility] - Location: Laboratory Outpatient - [facility] Ordered By: All Mendez Magnesium (Routine) Timeframe: 1 Week Facility: [facility] - Location: Laboratory Outpatient - [facility] Ordered By: All Mendez 14 Day Scientific Director (Routine) Timeframe: 1 Week Facility: [facility] - Location: Respiratory Therapy Ordered By: All Mendez Discharge Data Discharge Date/Time-TO BE ENTERED AT DEPARTURE: 03/07/22 14:50 DS: Summary Time Spent with Patient providing and/or coordinating discharge services: Less than 30 minutes Specific discharge activities: Interview/exam of patient; review of discharge instructions, completion of prescriptions/discharge instructions; discussion w/ nursing and CM; documentation of hospital visit Status at Discharge Functional status at discharge: independent ambulation Overall status at discharge: patient is progressing back to baseline Mental Status: mental status grossly normal Speech and Movement: speech and movement normal Mood: congruent mood Affect: normal affect Exam Narrative Exam Narrative: Lars is sitting up at the bedside. He is in no acute distress, his right chest wall remains tender from his fall and rib fractures. However, he says that the pain is tolerable. he declined to have anesthesia perform a nerve block last night. Psych Mental Status: mental status grossly normal Speech and Movement: speech and movement normal Mood: congruent mood Affect: normal affect DS: Data Vitals/I&O Vitals and I&O: Vital Signs Temperature 36.2 C L 03/07/22 08:21 Temperature Source Tympanic 03/07/22 08:21 Pulse 82 03/07/22 13:26 Pulse Rhythm Regular 03/07/22 12:37 Respiratory Rate 16 03/07/22 08:21 Respiratory Effort 03/07/22 12:37 Respiratory Depth Normal 03/07/22 12:37 Respiratory Pattern Normal 03/06/22 20:00 Blood Pressure 162/78 H 03/07/22 08:21 Blood Pressure Position Supine 03/05/22 21:14 Pulse Oximetry 97 03/07/22 08:21 Oxygen Delivery Method Room Air 03/07/22 08:21 Oxygen Flow Rate 0 03/07/22 08:21 Pain Level 2 03/07/22 12:19 Comment 03/06/22 11:33 Intake & Output 03/06/22 03/07/22 03/07/22 23:59 11:59 23:59 Intake Total 480 / 2053.2 480 / 480 Balance 480 / 2053.2 480 / 480 Intake: Oral 480 / 780 480 / 480 Other: Urine Appearance Clear Clear Comment Per patient he has been up and voiding he is in the bathroom now voiding Data Completed and Pending Completed studies during hospitalization [Text1]: chest CT: IMPRESSION: 1. No evidence of pulmonary embolism, thoracic aortic dissection or aneurysm.? 2. Nondisplaced acute fractures involving the anterior aspects of the right 4th through 8th ribs. Subacute healing fracture involving the anterior aspect of the right 8th rib. 3. Findings were discussed with the emergency department on the date of the examination Pending studies at discharge: none Labs on day of discharge: Labs from last 24 hours 03/07/22 05:15 Sodium 135 L Potassium 4.6 D Chloride 100 Carbon Dioxide 27.1 Anion Gap 7.9 BUN 16 Creatinine 1.1 Est GFR (CKD-EPI 2020) 80.27 Glucose 104 Calcium 8.5 Magnesium 1.9 PFSH All Active Problems (Updated 03/08/22 @ 00:01 by MARY MCKNIGHT) Hypokalemia (Acute) Hypomagnesemia (Acute) Multiple rib fractures involving four or more ribs (Acute) Rib pain on right side (Acute) Near syncope (Acute) Low back pain (Acute) Family history of colon cancer in father (Acute) Retinopathy, background, nonproliferative, mild (Acute) 10/05/18 [facility] Diabetes mellitus (Acute) Alcohol abuse (Chronic) Anticoagulant long-term use (Acute) Coronary atherosclerosis of seminole coronary vessel (Acute) Chest pain (Acute) 12/2010; MPI NEGATIVE -Pt. states he has never had chest pain his NE was pressure Depressive disorder (Acute) Derangement of medial meniscus of left knee (Acute 04/10/17) Gastroesophageal reflux disease (Acute) hematemesis Myocardial infarction acute (Acute 05/21/03) RCA stent placed Obstructive sleep apnea syndrome (Acute) CPAP Peripheral neuralgia (Acute) Medical History [place]'s disease (08/23/13) Pancreatic transplant 2014 Pt. states he had ran out of steroids, and forgot to get it refilled and that is what triggered his adrenal crisis Atherosclerosis of seminole coronary artery Essential hypertension (03/22/13) Family history of colon cancer History of tobacco use Surgical History Colonoscopy - MAC 08/2008; NEG 07/07/14; NEG Coronary Stent 2018 last stent placed 2003;RCA x3 Pancreas transplant status SHOULDER SURGERY (~06/2009) LEFT Vasectomy Social History Smoking/Tobacco Use Status: Current every day Tobacco Type: cigarettes Smoking risk assessment performed?: Yes Alcohol Intake: current Alcohol Intake frequency: 3 or more drinks per day Alcohol type: beer Drug use: Never Substance use type: does not use Details: Had quit then smoked a pack of cigarettes this weekend Current gender identity: male Do you feel safe at home: Yes Do you feel safe in your relationship?: Yes
--- NOTE | 2022-03-07 14:33 | PDOC.CMDIS ---
- If Service Date Differs Date of service: 03/07/22 Time of Service: 14:33 LACE Index Scoring Tool - Questions: Length of Stay (in days): 2 Acuity (Admit via E.D.?): Yes Comorbidities: Previous M.I. E.D. Visits: 2 - Answers: Total Score: 8 Risk of Readmission: Low Risk Care Management Discharge Reason for Hospitalization: Syncope, Alcohol abuse, Hypokalemia, Hypomagnesemia Discharge Plan: Lars will discharge home via private vehicle with . New RX's are transmitted to [facility]. Repeat labs are recommended in 1 week, pt will call the lab to schedule. Follow up appointment with PCP is 03/13/22, as scheduled. A environmental monitoring specialist is recommended within [address] Eaton's office will call pt to schedule once pre-authorization is approved. Patient/Family Education Needs: Review discharge instuctions, limitations, medications and plan to follow up with community providers. Plan to have repeat labs and schedule an appointment for a surveillance system monitor. Review ask me three.
== END 2022-03-07 14:50 | disposition home or self-care (01) | DRG 184 ==
LOC: ER 03-06 03:33 → MS 03-06 03:44
PROVIDERS: Emergency Medicine; Internal Medicine; Admitting Provider Family Medicine; Emergency Provider Student in an Organized Health Care Education/Training Program; PCP Nurse Practitioner Family; Visit Provider Family Medicine
DX: S22.41XA Multiple fractures of ribs, right side, initial encounter for closed fracture (principal); E27.2 Addisonian crisis; Z94.83 Pancreas transplant status; F10.129 Alcohol abuse with intoxication, unspecified; R55 Syncope and collapse; I25.10 Atherosclerotic heart disease of native coronary artery without angina pectoris; I11.9 Hypertensive heart disease without heart failure; M54.50 Low back pain, unspecified; W18.39XA Other fall on same level, initial encounter; F32.A Depression, unspecified; K21.9 Gastro-esophageal reflux disease without esophagitis; G47.33 Obstructive sleep apnea (adult) (pediatric); I25.2 Old myocardial infarction; F17.210 Nicotine dependence, cigarettes, uncomplicated; E83.42 Hypomagnesemia; E87.6 Hypokalemia; G62.9 Polyneuropathy, unspecified; I27.20 Pulmonary hypertension, unspecified; Y90.6 Blood alcohol level of 120-199 mg/100 ml; Z95.5 Presence of coronary angioplasty implant and graft; Z79.01 Long term (current) use of anticoagulants; Z79.82 Long term (current) use of aspirin; Z79.899 Other long term (current) drug therapy; Z80.0 Family history of malignant neoplasm of digestive organs
CPT/HCPCS: 36415; 71275; 80048; 80053; 87635; 93005; 96365; 96366; 96368; 99284; 99285; 70450; 71045; 80320; 83735; 84484; 85025; 85379; 85610; 85730; 93010; 99220; 99238; J1644; J1885; J2765; J3475; J3480; J3490

== ENCOUNTER 2022-03-13 14:48 | Outpatient (CLI) | payer MEDICARE, SELFPAY ==
[2022-03-13 15:42] LABS: HCT 40.2 % (40.0-50.0); HGB 13.8 g/dL (13.5-17.5); MCH 31.6 pg (27.0-33.0); MCHC 34.3 % (32.0-36.0); MCV 92 fL (80-95); MPV 9.4 fL (8.0-11.0); Platelet Count 217 10^3/uL (130-400); RBC 4.37 10^6/uL (4.36-5.78); RDW 11.7 % (11.8-14.1); RDW-SD 39.8 fL; Reticulocyte 1.9 % (0.5-2.4); WBC 6.69 10^3/uL (4.4-10.8)
[2022-03-13 16:09] LABS: Hemoglobin A1C 5.6 % (<5.7)
[2022-03-13 16:39] LABS: ALT 44 U/L (16-63); AST 30 U/L (15-37); Albumin 3.6 g/dL (3.4-5.0); Alkaline Phosphatase 83 U/L (46-116); Amylase 50 U/L (25-115); Anion Gap 9.6 mmol/L (3-11); BUN 17 mg/dL (7-18); Bilirubin, Total 0.4 mg/dL (0.2-1.0); CO2 28.4 mmol/L (21.0-32.0); CREATININE 1.1 mg/dL (0.70-1.30); Calcium 9.5 mg/dL (8.5-10.1); Chloride 94 mmol/L (98-107); Estimated GFR 80.27 (mL/min/1.73m2); Glucose 88 mg/dL (74-106); Lipase 107 U/L (73-393); Magnesium 1.5 mg/dL (1.8-2.4); PHOSPHORUS 3.3 mg/dL (2.6-4.7); Potassium 3.9 mmol/L (3.5-5.1); Sodium 132 mmol/L (136-145); Total Protein 8.3 g/dL (6.4-8.2); Uric Acid 7.8 mg/dL (3.5-7.2)
[2022-03-13 16:57] LABS: Calculated LDL 93 mg/dL (<100); Cholesterol 171 mg/dL (<200); HDL Cholesterol 60 mg/dL (40-60); Triglyceride 91 mg/dL (<150)
[2022-03-13 17:02] LABS: Bilirubin Negative (Negative); Blood Negative (Negative); Clarity Clear (Clear); Glucose Negative (Negative); Ketones Negative (Negative); Leukocyte Esterase Negative (Negative); Nitrite Negative (Negative); Urobilinogen 0.2 EU/dL (Up TO 0.2); pH 5.5 (5-8)
[2022-03-13 17:09] LABS: Creatinine,Urine 30.58 mg/dL
[2022-03-13 17:10] LABS: PROTEIN 15.9 mg/dL; Prot/Crea Ur Ratio 0.51
[2022-03-13 22:02] LABS: Vitamin D 25 Total 17.7 ng/mL (30-100)
[2022-03-14 09:25] LABS: Magnesium Random Urine 5.8 mg/dL (See Note)
[2022-03-14 09:30] LABS: Calcium (Random Urine) 4.9 mg/dL (See Note); Phosphorus Urine 22.2 mg/dL (See Note)
[2022-03-14 20:14] LABS: Parathyroid Hormone,Intact 71 pg/mL (19-88)
[2022-03-17 13:41] LABS: Tacrolimus (DHMC) 13.5 ng/ml
[2022-03-18 00:16] LABS: BKV DNA Detect/Quant, P Undetected IU/mL (Undetected)
[2022-03-19 12:17] LABS: 1,25-Dihydroxyvitamin D 13 pg/mL (18-64)
[2022-03-20 08:49] LABS: Cyclosporine (DHMC) <25 ng/ml (100-400); Sirolimus (DHMC) <1.0 ng/ml (4.0-20.0)
== END 2022-03-13 14:49 | disposition home or self-care (01) ==
LOC: LBO 14:51
PROVIDERS: PCP Nurse Practitioner Family; Visit Provider Internal Medicine Nephrology
DX: Z79.899 Other long term (current) drug therapy; E55.9 Vitamin D deficiency, unspecified; Z94.83 Pancreas transplant status; Z29.8 Encounter for other specified prophylactic measures
CPT/HCPCS: 36415; 80048; 80053; 80061; 80158; 80197; 82306; 83690; 83735; 85027; 81003; 82150; 82340; 82565; 82652; 83036; 83970; 84100; 84105; 84156; 84550; 85045; 87799

== ENCOUNTER 2022-03-26 23:28 | Emergency (ER) | payer MEDICARE, SELFPAY ==
[2022-03-26 23:31] VITALS: BP 154/80; PULSE 90; RESP 20; O2SAT 98
[2022-03-26 23:50] VITALS: TEMP 36.6
--- NOTE | 2022-03-27 00:15 | DI.RAD_ITS ---
Exam(s) XR CHEST 2V PA LATERAL EXAM: XR CHEST 2V PA LATERAL CLINICAL HISTORY: dizziness, r/o acute disease TECHNIQUE: 2D digital imaging was performed. COMPARISON: CR,XR XR CHEST 1V IN DI DEPT from 03/05/2022 FINDINGS: The heart is not enlarged. The lungs are clear and well expanded. No pleural effusion seen. Mediastin al contours appear intact. IMPRESSION: Normal chest. RADIATION DOSE DELIVERED: Total DLP
--- NOTE | 2022-03-27 00:15 | RT.EKG_ITS ---
APPROVED REPORT Exam: Resting ECG Reason for Exam: palpitations Patient Location: E HR:90 bpm ECG Measurements Heart Rate 90 AXIS VT 150 P 45 QRSd 98 QRS -6 QT 375 T -25 QTc 457 Conclusion Sinus rhythm...normal P axis, V-rate 60- 99
--- NOTE | 2022-03-27 00:22 | ED.GENADUL_ITS ---
Discharge Plan Disposition Patient Disposition: HOME Condition: Stable Discharge Details Clinical Impression: Dizziness, Palpitations, Hypomagnesemia Primary Care Provider: William Gray ED Provider: Kris Lantigua Home Meds and New Rx's Prescriptions: New thiamine HCl (vitamin B1) 250 mg tablet 250 mg PO DAILY Qty: 30 2RF Continued hydrocortisone 5 mg tablet 10 - 15 mg PO DIRECTED Rx Instructions: Take 4 tabs this evening, then resume 3 tabs in am, 2 tabs pm (double for illness) 9- pt reports taking 15mg morning, 10 mg at night. -hb furosemide 20 mg tablet 80 mg PO DAILY PRN cyclobenzaprine 10 mg tablet 10 mg PO HS PRN (Reason: muscle spasm) Qty: 10 0RF nitroglycerin 0.4 MG tablet, sublingual 0.4 mg Sublingual PRN Qty: 25 Label Comments: 07/05/14 Pt states he has not needed to take. PG nicotine (polacrilex) [Nicorette] 2 MG gum 2 mg PO Q2H PRN Qty: 100 metoprolol tartrate 25 mg tablet 25 mg PO BID Qty: 180 3RF escitalopram oxalate 20 mg tablet 20 mg PO DAILY Qty: 90 3RF fludrocortisone 0.1 MG tablet 0.1 mg PO DAILY Qty: 90 Label Comments: 06-03-17 pt reports taking 0.1 mg daily. hb Rx Instructions: BRAND NAME MEDICALLY NECESSARY aspirin [Aspir-81] 81 MG tablet,delayed release (DR/EC) 81 mg PO DAILY Label Comments: pt states he has been forgetting to take this. 01/04/15 rl 01/24/15 taking daily. mdh mycophenolate mofetil [CellCept] 250 MG capsule 750 mg PO BID diltiazem HCl [Cardizem] 120 MG tablet 120 mg PO DAILY docusate sodium [Colace] 100 MG capsule 100 mg PO BID PRN PRN (Reason: Constipation) tacrolimus [Prograf] 1 MG capsule 1 tab PO HS Label Comments: 05/24/14 takes 1mg HS. DL tacrolimus [Prograf] 1 MG capsule 2 mg PO DAILY AM Label Comments: 06/03/17-PT STATES CURRENTLY TAKING (2) 2MG QAM AND 1MG HS--HS, RN magnesium gluconate 27 mg magnesium (500 mg) Tablet 500 mg PO DAILY Qty: 30 0RF metoclopramide HCl 10 MG tablet 10 mg PO BID atorvastatin 40 mg tablet 40 mg PO DAILY Label Comments: TAKE ONE TABLET BY MOUTH EVERY DAY clopidogrel 75 mg tablet 75 mg PO DAILY Label Comments: TAKE 1 TABLET BY MOUTH ONCE DAILY acetaminophen 650 mg Tablet Extended Release 650 mg PO Q6H PRN PRN (Reason: Pain) levothyroxine 75 mcg Tablet 75 mcg PO DAILY lisinopril 30 mg tablet 30 mg PO DAILY Label Comments: TAKE ONE TABLET BY MOUTH DAILY multivitamin [Multiple Vitamins] Tablet 1 tab PO DAILY Qty: 30 0RF Discharge Instructions Instructions: Hypomagnesemia (ED), Dizziness (ED) Additional Instructions: Please follow-up with [facility] for treatment of alcohol use disorder. Please contact your primary care physician and transplant specialist to arrange follow-up. Return to the ER immediately for any worsening or new concerning symptoms. Referrals: [facility] [Outside] William Gray MON[employer] KEEPER [Primary Care Provider] - Discharge Data Discharge Date/Time-TO BE ENTERED AT DEPARTURE: 03/27/22 03:06 Medical Decision Making <Estefany Ravi DO - Last Filed: 03/28/22 23:02> 0020 -- 51-year-old male with a history of obesity, daily alcohol abuse, type 1 diabetes with history of pancreas transplant 2012 on tacrolimus and CellCept, myocardial infarction with 3 cardiac stents, who was admitted here last month for syncope in the setting of hypomagnesemia and hypokalemia who presents with similar symptoms with his previous admission of lightheadedness, nausea, palpitations and chills. Vitals within normal limits. Patient appears comfortable and nontoxic. Suspect hypokalemia and hypomagnesemia. History and presentation does not appear consistent with ACS or PE. Considering his history, will obtain screening labs including troponin, EKG, chest x-ray and start IV fluids and banana bag. 0100 -- Case endorsed to Dr. Lantigua to f/u on labs and imaging and final disposition. HPI <Estefany Ravi DO - Last Filed: 03/28/22 23:02> General Mode of arrival: ambulatory . Date/Time Provider Initiated Documentation: 03/26/22 23:30 . Limitations to Documentation: no limitations . Information obtained by: patient . HPI Narrative: Patient is a 51-year-old male with a history of obesity, type 1 diabetes status post pancreas transplant 2012 on tacrolimus and CellCept, daily alcohol abuse, DE with 3 cardiac stents who presents for lightheadedness, nausea, hot and cold chills and palpitations for the past 10 days. Patient was admitted here last month for hypokalemia and hypomagnesemia in the setting of syncope and was admitted for electrolyte repletion. Patient states he felt significantly better prior to discharge and then symptoms returned 3 days later. Patient states he has been taking magnesium for his pancreas transplant but this causes loose stools so he has stopped taking it and his stools became more formed. He denies any fever, chest pain, shortness of breath, abdominal pain. Patient states he drinks about a sixpack of beer daily and states his last drink was 6 hours ago. Related Data Home Medications Medication Instructions Recorded Confirmed fludrocortisone 0.1 mg tablet 0.1 mg PO DAILY ##90 10/13/12 03/27/22 nitroglycerin 0.4 mg sublingual 0.4 mg sublingual PRN ##25 01/24/13 03/27/22 tablet aspirin 81 mg tablet,delayed 81 mg PO DAILY 05/12/13 03/27/22 release (Aspir-) diltiazem HCl 120 mg tablet 120 mg PO DAILY 05/12/13 03/27/22 (Cardizem) docusate sodium 100 mg capsule 100 mg PO BID PRN PRN Constipation 05/12/13 03/27/22 (Colace) mycophenolate mofetil 250 mg 750 mg PO BID 05/12/13 03/27/22 capsule (CellCept) tacrolimus 1 mg capsule, 1 tab PO HS 05/12/13 03/27/22 immediate-release (Prograf) tacrolimus 1 mg capsule, 2 mg PO DAILY AM 05/12/13 03/27/22 immediate-release (Prograf) nicotine (polacrilex) 2 mg gum 2 mg PO Q2H PRN #100 pieces of gum 07/15/16 03/27/22 (Nicorette) metoclopramide HCl 10 mg tablet 10 mg PO BID 10/28/17 03/27/22 acetaminophen 650 mg 650 mg PO Q6H PRN PRN Pain 11/16/19 03/27/22 tablet,extended release atorvastatin 40 mg tablet 40 mg PO DAILY 11/16/19 03/27/22 clopidogrel 75 mg tablet 75 mg PO DAILY 11/16/19 03/27/22 levothyroxine 75 mcg tablet 75 mcg PO DAILY 11/16/19 03/27/22 lisinopril 30 mg tablet 30 mg PO DAILY 11/16/19 03/27/22 multivitamin (Multiple Vitamins 1 tab PO DAILY #30 tabs 11/16/19 03/27/22 tablet) furosemide 20 mg tablet 80 mg PO DAILY PRN 03/16/20 03/27/22 hydrocortisone 5 mg tablet 10 - 15 mg PO DIRECTED 03/16/20 03/27/22 metoprolol tartrate 25 mg tablet 25 mg PO BID #180 tabs 03/18/21 03/27/22 escitalopram oxalate 20 mg tablet 20 mg PO DAILY #90 tab-caps 08/09/21 03/27/22 magnesium gluconate 27 mg 500 mg PO DAILY #30 tabs 03/07/22 03/27/22 magnesium (500 mg) tablet cyclobenzaprine 10 mg tablet 10 mg PO HS PRN muscle spasm #10 03/11/22 03/27/22 tabs thiamine HCl (vitamin B1) 250 mg 250 mg PO DAILY #30 tabs 03/27/22 tablet Previous Rx's Medication Instructions Recorded multivitamin (Multiple Vitamins 1 tab PO DAILY #30 tabs 11/16/19 tablet) metoprolol tartrate 25 mg tablet 25 mg PO BID #180 tabs 03/18/21 escitalopram oxalate 20 mg tablet 20 mg PO DAILY #90 tab-caps 08/09/21 magnesium gluconate 27 mg 500 mg PO DAILY #30 tabs 03/07/22 magnesium (500 mg) tablet cyclobenzaprine 10 mg tablet 10 mg PO HS PRN muscle spasm #10 03/11/22 tabs thiamine HCl (vitamin B1) 250 mg 250 mg PO DAILY #30 tabs 03/27/22 tablet Allergies Allergy/AdvReac Type Severity Reaction Status Date / Time No Known Allergies Allergy Verified 03/11/22 17:42 General Stated Complaint: Dizzy/Sync JIAN: 3 Review of Systems <Estefany Ravi DO - Last Filed: 03/28/22 23:02> All systems reviewed & are unremarkable except as noted in HPI and below Constitutional Constitutional: Reports as per HPI, Denies chills and Denies fever(s) Eyes Eyes: Denies blurry vision ENT Ears, Nose, Mouth, and Throat: Denies dizziness, Denies sore throat and Denies throat swelling Cardiovascular Cardiovascular: Denies chest pain, Reports lightheadedness, Denies dyspnea and Reports other (palpitations) Respiratory Respiratory: Denies cough and Denies dyspnea Gastrointestinal Gastrointestinal: Denies abdominal pain, Denies diarrhea, Reports nausea and Denies vomiting Genitourinary Genitourinary: Denies hematuria and Denies dysuria Musculoskeletal Musculoskeletal: Denies back pain and Denies numbness Integumentary/Breasts Skin/Breast: Denies lesions and Denies rash Neurologic Neurologic: Denies dizziness, Denies localized weakness and Denies numbness Allergic/Immunologic Allergic/Immunologic: Denies throat swelling PFSH <Estefany Ravi, - Last Filed: 03/28/22 23:02> All Active Problems (Updated 03/27/22 @ 02:39 by Kris Lantigua MD) Dizziness (Acute) Palpitations (Acute) Hypomagnesemia (Acute) Multiple rib fractures involving four or more ribs (Acute) Rib pain on right side (Acute) Near syncope (Acute) Low back pain (Acute) Family history of colon cancer in father (Acute) Retinopathy, background, nonproliferative, mild (Acute) 10/05/18 MILD NPDR (R) EYE; [facility]- Diabetes mellitus (Acute) Alcohol abuse (Chronic) Anticoagulant long-term use (Acute) Coronary atherosclerosis of [place] coronary vessel (Acute) Chest pain (Acute) 12/2010; MPI NEGATIVE -Pt. 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 states he had ran out of steroids, and forgot to get it refilled and that is what triggered his adrenal crisis Atherosclerosis of [place] coronary artery Essential hypertension (03/22/13) Family history of colon cancer History of tobacco use Surgical History Colonoscopy - MAC 08/2008; NEG 07/07/14; NEG Coronary Stent 2018 last stent placed 2003;RCA x3 Pancreas transplant status SHOULDER SURGERY (~06/2009) LEFT Vasectomy Social History Smoking/Tobacco Use Status: Current every day Tobacco Type: cigarettes Smoking risk assessment performed?: Yes Alcohol Intake: current Alcohol Intake frequency: 3 or more drinks per day Alcohol type: beer Drug use: Never Substance use type: does not use Details: Had quit then smoked a pack of cigarettes this weekend Current gender identity: male Do you feel safe at home: Yes Do you feel safe in your relationship?: Yes Exam <Estefany Ravi DO - Last Filed: 03/28/22 23:02> Const General: cooperative and no acute distress Orientation: alert, awake and oriented x3 HENMT Head: normal to inspection Face and sinus: normal facial exam Eyes General: appearance normal, both eyes and all related structures Pupils: PERRL EOM: EOM intact bilaterally Neck Neck: normal visual inspection and No submandibular swelling Lymphatic: no lymphadenopathy noted Chest Chest: normal inspection of the chest and no tenderness Resp Effort & Inspection: normal respiratory effort and able to speak in complete sentences Auscultation: clear to auscultation bilaterally Cardio Rate: regular rate Rhythm: regular rhythm GI Inspection: normal to inspection and obesity Palpation: soft, not firm, not rigid and nontender Auscultation: hypoactive bowel sounds Male General Exam: Yes normal external exam Back/Spine/Pelvis Thoracic/Lumbar Spine: thoracic and lumbar spine normal to inspection Pelvis: no pain with anterior-posterior compression Skin General skin exam: no rashes or lesions noted Neuro General: patient alert, patient awake and patient oriented x3 Cranial Nerves: CN's II-XI intact bilaterally Cognition: normal cognition Speech: speech normal Motor: muscle tone normal throughout and strength 5/5 throughout Sensory Exam: no sensory deficits noted Extrem General: normal to inspection, full ROM, capillary refill normal, no calf tenderness bilaterally and no edema Psych Appearance: grossly normal Mental Status: mental status grossly normal Speech and Movement: speech and movement normal Affect: normal affect Course <Estefayn Ravi DO - Last Filed: 03/28/22 23:02> Vital Signs Vital signs: Vital Signs Pulse 90 03/26/22 23:31 Respiratory Rate 20 03/26/22 23:31 Blood Pressure 154/80 H 03/26/22 23:31 Pulse Oximetry 98 03/26/22 23:31 Temperature 97.9 F 03/26/22 23:50 Temperature Source Oral 03/26/22 23:50 Pulse 90 03/26/22 23:31 Respiratory Rate 20 03/26/22 23:31 Respiratory Effort 03/27/22 00:18 Respiratory Depth Normal 03/27/22 00:18 Respiratory Pattern Normal 03/27/22 00:18 Blood Pressure 154/80 H 03/26/22 23:31 Blood Pressure Position Sitting 03/26/22 23:31 Pulse Oximetry 98 03/26/22 23:31 Oxygen Delivery Method Room Air 03/26/22 23:31 Oxygen Flow Rate 0 03/26/22 23:31 Pain Level 0 03/26/22 23:31 Sign Out <Estefany Ravi DO - Last Filed: 03/28/22 23:02> Sign Out Data: Sign Out Comment: Follow up on labs and imaging and final disposition. May need admission for electrolyte repletion if hypomagnesemia and hypokalemia is significant. Last updated by Estefany Ravi DO at 03/27/22 00:30 PAWSS <Estefany Ravi DO - Last Filed: 03/28/22 23:02> Have you Been Recently Intoxicated or Drunk Within the Last 30 days?: Yes Have you Ever Experienced Previous Episodes of Alcohol Withdrawal?: Yes Have you ever Experienced Withdrawal Seizures?: No Have you ever Experienced Delirium Tremens(DT)s?: Yes Have you ever undergone Alcohol Rehabilitation Treatment (i.e, inpt ot outpatient treatment programs)?: No Have you ever Experienced Blackouts?: Yes Have you ever Combined Alcohol with other Downers within the last 90 days?: Yes Have you ever Combined Alcohol with any other Substance of Abuse during the last 90 days?: No Positive Blood Alcohol level on Presentation? [PCS.BAL]: Unable to Obtain Evidence of Increased Autonomic Activity (i.e. HR>120, tremor, sweating, agitation, nausea)?: Yes Result: 5 <Kris Lantigua MD - Last Filed: 03/27/22 02:33> Result: 5
[2022-03-27 00:29] LABS: Abs Immature Grans 0.02 10^3/uL (0.0-0.06); Absolute Basophil Count 0.06 10^3/uL (0.0-0.2); Absolute Lymphocyte Count 1.03 10^3/uL (1.2-3.4); Absolute Neutrophil Count 4.25 10^3/uL (1.2-6.7); Basophils % 0.9; Eosinophils % 6.1; HCT 43.7 % (40.0-50.0); Immature Grans % 0.3; Lymphocytes % 15.7; MCH 31.4 pg (27.0-33.0); MCHC 34.3 % (32.0-36.0); MCV 91 fL (80-95); MPV 9.6 fL (8.0-11.0); Monocytes % 12.2; Neutrophils % 64.8; Platelet Count 212 10^3/uL (130-400); RBC 4.78 10^6/uL (4.36-5.78); RDW 12.3 % (11.8-14.1); RDW-SD 41.2 fL; WBC 6.56 10^3/uL (4.4-10.8)
[2022-03-27 00:43] LABS: ALT 110 U/L (16-63); AST 77 U/L (15-37); Albumin 4.1 g/dL (3.4-5.0); Alkaline Phosphatase 195 U/L (46-116); Anion Gap 9.4 mmol/L (3-11); BUN 14 mg/dL (7-18); Bilirubin, Total 0.5 mg/dL (0.2-1.0); CO2 27.6 mmol/L (21.0-32.0); Calcium 9.7 mg/dL (8.5-10.1); Chloride 96 mmol/L (98-107); Glucose 112 mg/dL (74-106); Sodium 133 mmol/L (136-145)
[2022-03-27 00:48] LABS: Magnesium 1.3 mg/dL (1.8-2.4)
[2022-03-27 00:49] LABS: Troponin I < 50 ng/L (<or=60)
[2022-03-27] MEDS: MAGNESIUM SULFATE 8.12 MEQ, MULTIVITAMIN 10 ML, THIAMINE 100 MG, FOLIC ACID 1 MG in Nor... 168.867 MG IV (01:08)
[2022-03-27] MEDS: MAGNESIUM SULFATE 2 GM/50 ML BAG IVPB (01:11)
--- NOTE | 2022-03-27 02:33 | W.EDPROG ---
Date of service: 03/27/22 Time of Service: 02:34 Medical Decision Making Care signed out by Dr. Ravi with plan to follow-up on labs, EKG and chest x-ray. EKG was reviewed and interpreted by me: Please report, sinus rhythm 90 bpm, normal axis, nondiagnostic. Chest x-ray reviewed and interpreted by me: No acute cardiopulmonary pathology noted. Labs reviewed and hypomagnesemia noted. Patient was given magnesium 2 g IV. Patient was reassessed and feeling much better. Patient acknowledges suffering from alcohol use disorder and is motivated to seek inpatient rehabilitation. I will refer him to [facility]. He has no signs of withdrawal at this time. Patient has plan to start magnesium gluconate as magnesium oxide was causing diarrhea. I will also prescribe thiamine. Patient was encouraged to follow-up with his primary care physician. Disposition decision was made weighing the risks and benefits of hospitalization versus outpatient treatment, the risk for further decompensation, and the patient's wishes. The patient was stable and requested discharge. Prior to discharge, my usual and customary return precautions were reviewed with the patient - this included follow-up instructions and reason to return to the emergency department if condition worsens, does not improve as expected, or other new concerns arise. Lab Data Lab results reviewed: Yes I reviewed the patient's lab results. Labs: Laboratory Tests Range/Units 03/27/22 03/27/22 03/27/22 00:20 00:20 00:20 WBC (4.4-10.8) 10^3/uL 6.56 RBC (4.36-5.78) 10^6/uL 4.78 Hgb (13.5-17.5) g/dL 15.0 Hct (40.0-50.0) % 43.7 MCV (80-95) fL 91 MCH (27.0-33.0) pg 31.4 MCHC (32.0-36.0) % 34.3 RDW (11.8-14.1) % 12.3 Plt Count (130-400) 10^3/uL 212 MPV (8.0-11.0) fL 9.6 Immature Gran % 0.3 Neutrophils % 64.8 Lymphocytes % 15.7 Monocytes % 12.2 Eosinophils % 6.1 Basophils % 0.9 Nucleated RBC % (0.0-0.3) % 0.0 Absolute Neutrophils (1.2-6.7) 10^3/uL 4.25 Absolute Lymphocytes (1.2-3.4) 10^3/uL 1.03 L Absolute Monocytes (0.1-0.8) 10^3/uL 0.80 Absolute Eosinophils (0.0-0.7) 10^3/uL 0.40 Absolute Basophils (0.0-0.2) 10^3/uL 0.06 Sodium (136-145) mmol/L 133 L Potassium (3.5-5.1) mmol/L 4.0 Chloride (98-107) mmol/L 96 L Carbon Dioxide (21.0-32.0) mmol/L 27.6 Anion Gap (3-11) mmol/L 9.4 BUN (7-18) mg/dL 14 Creatinine (0.70-1.30) mg/dL 1.0 Est GFR (CKD-EPI 2020) (mL/min/1.73m2) 90.00 Glucose (74-106) mg/dL 112 H Calcium (8.5-10.1) mg/dL 9.7 Magnesium (1.8-2.4) mg/dL 1.3 L Total Bilirubin (0.2-1.0) mg/dL 0.5 AST (15-37) U/L 77 H ALT (16-63) U/L 110 H Alkaline Phosphatase (46-116) U/L 195 H Troponin I (<or=60) ng/L Total Protein (6.4-8.2) g/dL 9.0 H Albumin (3.4-5.0) g/dL 4.1 Range/Units 03/27/22 00:20 WBC (4.4-10.8) 10^3/uL RBC (4.36-5.78) 10^6/uL Hgb (13.5-17.5) g/dL Hct (40.0-50.0) % MCV (80-95) fL MCH (27.0-33.0) pg MCHC (32.0-36.0) % RDW (11.8-14.1) % Plt Count (130-400) 10^3/uL MPV (8.0-11.0) fL Immature Gran % Neutrophils % Lymphocytes % Monocytes % Eosinophils % Basophils % Nucleated RBC % (0.0-0.3) % Absolute Neutrophils (1.2-6.7) 10^3/uL Absolute Lymphocytes (1.2-3.4) 10^3/uL Absolute Monocytes (0.1-0.8) 10^3/uL Absolute Eosinophils (0.0-0.7) 10^3/uL Absolute Basophils (0.0-0.2) 10^3/uL Sodium (136-145) mmol/L Potassium (3.5-5.1) mmol/L Chloride (98-107) mmol/L Carbon Dioxide (21.0-32.0) mmol/L Anion Gap (3-11) mmol/L BUN (7-18) mg/dL Creatinine (0.70-1.30) mg/dL Est GFR (CKD-EPI 2020) (mL/min/1.73m2) Glucose (74-106) mg/dL Calcium (8.5-10.1) mg/dL Magnesium (1.8-2.4) mg/dL Total Bilirubin (0.2-1.0) mg/dL AST (15-37) U/L ALT (16-63) U/L Alkaline Phosphatase (46-116) U/L Troponin I (<or=60) ng/L < 50 Total Protein (6.4-8.2) g/dL Albumin (3.4-5.0) g/dL Sign Out Sign Out Data: Sign Out Comment: Follow up on labs and imaging and final disposition. May need admission for electrolyte repletion if hypomagnesemia and hypokalemia is significant. Last updated by Estefany Ravi DO at 03/27/22 00:30 Discharge Plan Disposition Patient Disposition: HOME Condition: Stable Discharge Details Clinical Impression: Dizziness, Palpitations, Hypomagnesemia Primary Care Provider: William Gray ED Provider: Kris Lantigua Home Meds and New Rx's Prescriptions: New thiamine HCl (vitamin B1) 250 mg tablet 250 mg PO DAILY Qty: 30 2RF Continued hydrocortisone 5 mg tablet 10 - 15 mg PO DIRECTED Rx Instructions: Take 4 tabs this evening, then resume 3 tabs in am, 2 tabs pm (double for illness) 9-25-20 pt reports taking 15mg morning, 10 mg at night. -hb furosemide 20 mg tablet 80 mg PO DAILY PRN cyclobenzaprine 10 mg tablet 10 mg PO HS PRN (Reason: muscle spasm) Qty: 10 0RF nitroglycerin 0.4 MG tablet, sublingual 0.4 mg Sublingual PRN Qty: 25 Label Comments: 07/05/14 Pt states he has not needed to take. PG nicotine (polacrilex) [Nicorette] 2 MG gum 2 mg PO Q2H PRN Qty: 100 metoprolol tartrate 25 mg tablet 25 mg PO BID Qty: 180 3RF escitalopram oxalate 20 mg tablet 20 mg PO DAILY Qty: 90 3RF fludrocortisone 0.1 MG tablet 0.1 mg PO DAILY Qty: 90 Label Comments: 06-03-17 pt reports taking 0.1 mg daily. hb Rx Instructions: BRAND NAME MEDICALLY NECESSARY aspirin [Aspir-81] 81 MG tablet,delayed release (DR/EC) 81 mg PO DAILY Label Comments: pt states he has been forgetting to take this. 01/04/15 rl 01/24/15 taking daily. md mycophenolate mofetil [CellCept] 250 MG capsule 750 mg PO BID diltiazem HCl [Cardizem] 120 MG tablet 120 mg PO DAILY docusate sodium [Colace] 100 MG capsule 100 mg PO BID PRN PRN (Reason: Constipation) tacrolimus [Prograf] 1 MG capsule 1 tab PO HS Label Comments: 05/24/14 takes 1mg HS. DL tacrolimus [Prograf] 1 MG capsule 2 mg PO DAILY AM Label Comments: 06/03/17-PT STATES CURRENTLY TAKING (2) 2MG QAM AND 1MG HS--HS, RN magnesium gluconate 27 mg magnesium (500 mg) Tablet 500 mg PO DAILY Qty: 30 0RF metoclopramide HCl 10 MG tablet 10 mg PO BID atorvastatin 40 mg tablet 40 mg PO DAILY Label Comments: TAKE ONE TABLET BY MOUTH EVERY DAY clopidogrel 75 mg tablet 75 mg PO DAILY Label Comments: TAKE 1 TABLET BY MOUTH ONCE DAILY acetaminophen 650 mg Tablet Extended Release 650 mg PO Q6H PRN PRN (Reason: Pain) levothyroxine 75 mcg Tablet 75 mcg PO DAILY lisinopril 30 mg tablet 30 mg PO DAILY Label Comments: TAKE ONE TABLET BY MOUTH DAILY multivitamin [Multiple Vitamins] Tablet 1 tab PO DAILY Qty: 30 0RF Discharge Instructions Instructions: Hypomagnesemia (ED), Dizziness (ED) Additional Instructions: Please follow-up with [facility] for treatment of alcohol use disorder. Please contact your primary care physician and transplant specialist to arrange follow-up. Return to the ER immediately for any worsening or new concerning symptoms. Referrals: [facility] [Outside] William Gray NP [Primary Care Provider] - Discharge Data Discharge Date/Time-TO BE ENTERED AT DEPARTURE: 03/27/22 03:06
[2022-03-27 03:01] VITALS: BP 165/87; PULSE 86; RESP 20; O2SAT 98
--- NOTE | 2022-03-27 03:21 | DI.VRAD_ITS ---
PROCEDURE INFORMATION: Exam: XR Chest Exam date and time: 03/27/2022 1:17 AM Age: 51 years old Clinical indication: Other: Dizzy, R/O acute disease TECHNIQUE: Imaging protocol: Radiologic exam of the chest. Views: 2 views. COMPARISON: XR CHEST 1V IN DI DEPT 03/05/2022 10:12 PM, CT chest March 06, 2022. FINDINGS: Lungs: No pulmonary consolidation is seen. Pleural spaces: No pleural effusion or pneumothorax is demonstrated. Prominence of the extrapleural fat is redemonstrated bilaterally. Heart/Mediastinum: Heart size is normal. Bones/joints: Known 4th-8th anterior right rib fractures not well demonstrated. Acute fracture through the anterolateral aspect of the left 6th rib, slightly more displaced on today's exam compared with the CT exam from March 06, 2022. Known anterior left 7th rib fracture not well demonstrated. IMPRESSION: 1. No active disease is seen in the chest. 2. Bilateral rib fractures, as above. Dictated and Authenticated by: Soy Gold MD. Ordering:VICTORINO Allison MD
--- NOTE | 2022-03-27 06:33 | NUR.NOTE ---
Referral made to [facility] as soon as available per Dr. Kris Lantigua for alcohol. Patirent is motivated and would like to recieve inpatient treatment. Put the referral in the care manger's box for follow up assistance as there was no response from paging them at 2am. Nursing Note:
== END 2022-03-27 03:06 | disposition home or self-care (01) ==
PROVIDERS: Physician Assistant; Emergency Provider Student in an Organized Health Care Education/Training Program; PCP Nurse Practitioner Family
DX: R42 Dizziness and giddiness (principal); E83.2 Disorders of zinc metabolism; R00.2 Palpitations; E10.9 Type 1 diabetes mellitus without complications; I25.2 Old myocardial infarction; I10 Essential (primary) hypertension; F17.210 Nicotine dependence, cigarettes, uncomplicated; Z79.82 Long term (current) use of aspirin
CPT/HCPCS: 80053; 93005; 96365; 96366; 99284; 71046; 83735; 84484; 85025; 93010; 99285

== ENCOUNTER 2022-06-03 01:12 | Outpatient (CLI) | payer MEDICARE, SELFPAY ==
--- NOTE | 2022-06-03 07:15 | DI.MRI_ITS ---
Exam(s) MR BRAIN WO/W EXAM: MR BRAIN WO/W CLINICAL HISTORY: Recurrent syncope,R55 TECHNIQUE: Multiplanar multisequence MRI of the brain was performed. CONTRAST MATERIAL: IV Contrast: 20 mL of Dotarem contrast administered. COMPARISON: CT CT HEAD WO from 03/05/2022 FINDINGS: VENTRICLES AND EXTRA AXIAL SPACES: Normal in size and morphology for the patient's age. HEMORRHAGE: None. CEREBRAL PARENCHYMA: No focus of restricted diffusion to suggest acute infarct. No space-occupying le layo identified. MIDLINE SHIFT: None. BRAINSTEM/CEREBELLUM: Normal. CALVARIUM: Normal. ENHANCEMENT: No suspicious enhancement identified. VISUALIZED PARANASAL SINUSES/MASTOIDS: Clear. [place]: Normal flow void. PITUITARY GLAND: Unremarkable. OTHER FINDINGS: IMPRESSION: Unremarkable MRI of the brain. DATA REPOSITORY:
[2022-06-03] MEDS: Normal Saline Flush 10 ML SYR IVP (09:22)
[2022-06-03] MEDS: Gadoterate meglumine 20 ML VIAL IVP (09:22)
== END 2022-06-03 01:32 ==
LOC: DI 01:12
PROVIDERS: PCP Nurse Practitioner Family; Visit Provider Family Medicine
DX: E03.9 Hypothyroidism, unspecified (principal); R55 Syncope and collapse
CPT/HCPCS: 70553; 84443

== ENCOUNTER 2022-06-03 09:30 | Outpatient (CLI) | payer MEDICARE, SELFPAY ==
[2022-06-03 10:30] LABS: HCT 41.2 % (40.0-50.0); HGB 13.8 g/dL (13.5-17.5); MCH 31.9 pg (27.0-33.0); MCHC 33.5 % (32.0-36.0); MCV 95 fL (80-95); Platelet Count 215 10^3/uL (130-400); RBC 4.33 10^6/uL (4.36-5.78); RDW 12.4 % (11.8-14.1); RDW-SD 43.3 fL; WBC 5.97 10^3/uL (4.4-10.8)
[2022-06-03 10:30] LABS: Bilirubin Negative (Negative); Blood Trace-intact (Negative); Clarity Clear (Clear); Glucose Negative (Negative); Ketones Negative (Negative); Leukocyte Esterase Negative (Negative); Nitrite Negative (Negative); pH 6.5 (5-8)
[2022-06-03 10:41] LABS: Bacteria Negative HPF (Negative); C & S Indicated? No; Casts Negative LPF (Negative); Crystals Negative HPF (Negative); Epithelial Cells Negative HPF (Negative); Mucus Negative (Negative); RBC 0-2 HPF (0-2); WBC Negative HPF (0-5)
[2022-06-03 10:51] LABS: Hemoglobin A1C 5.5 % (<5.7)
[2022-06-03 10:57] LABS: COMMENT (LAB VIEW ONLY) 44.42 mg/dL; PROTEIN 17.1 mg/dL; Prot/Crea Ur Ratio 0.38
[2022-06-03 11:00] LABS: COMMENT (LAB VIEW ONLY) 43.83 mg/dL
[2022-06-03 11:01] LABS: ALT 28 U/L (16-63); AST 23 U/L (15-37); Albumin 3.3 g/dL (3.4-5.0); Alkaline Phosphatase 85 U/L (46-116); Amylase 51 U/L (25-115); Anion Gap 5.6 mmol/L (3-11); BUN 12 mg/dL (7-18); Bilirubin, Total 0.4 mg/dL (0.2-1.0); CO2 29.4 mmol/L (21.0-32.0); CREATININE 0.9 mg/dL (0.70-1.30); Chloride 101 mmol/L (98-107); Cholesterol 164 mg/dL (<200); Estimated GFR 101.49 (mL/min/1.73m2); Glucose 100 mg/dL (74-106); LDL CHOLESTEROL 82 mg/dL (<100); Lipase 103 U/L (73-393); Magnesium 1.5 mg/dL (1.8-2.4); PHOSPHORUS 3.6 mg/dL (2.6-4.7); Potassium 4.2 mmol/L (3.5-5.1); Sodium 136 mmol/L (136-145); Total Protein 7.7 g/dL (6.4-8.2); Uric Acid 5.6 mg/dL (3.5-7.2)
[2022-06-03 11:04] LABS: Microalb ug/mg Crea 145.6 ug/mg Cr
[2022-06-04 13:48] LABS: Tacrolimus 9.1 ng/mL (See Note)
== END 2022-06-03 09:31 | disposition home or self-care (01) ==
LOC: LBO 09:30
PROVIDERS: PCP Nurse Practitioner Family; Visit Provider Internal Medicine Nephrology
DX: Z79.899 Other long term (current) drug therapy (principal); Z94.83 Pancreas transplant status; E10.649 Type 1 diabetes mellitus with hypoglycemia without coma; Z29.8 Encounter for other specified prophylactic measures
CPT/HCPCS: 36415; 70553; 80053; 80197; 83690; 83721; 85027; 81003; 81015; 82043; 82150; 82465; 82565; 82570; 83036; 83735; 84100; 84156; 84443; 84550

== ENCOUNTER 2022-08-12 14:00 | Outpatient (CLI) | payer MEDICARE, SELFPAY ==
[2022-08-12 12:56] LABS: HCT 43.2 % (40.0-50.0); HGB 14.7 g/dL (13.5-17.5); MCH 30.6 pg (27.0-33.0); MCV 90 fL (80-95); MPV 9.6 fL (8.0-11.0); Platelet Count 205 10^3/uL (130-400); RDW 12.3 % (11.8-14.1); RDW-SD 40.6 fL; WBC 7.81 10^3/uL (4.4-10.8)
[2022-08-12 13:25] LABS: Cholesterol 155 mg/dL (<200)
[2022-08-12 13:35] LABS: ALT 50 U/L (16-63); AST 31 U/L (15-37); Albumin 3.8 g/dL (3.4-5.0); Alkaline Phosphatase 90 U/L (46-116); Anion Gap 9.1 mmol/L (3-11); BUN 25 mg/dL (7-18); Bilirubin, Total 0.8 mg/dL (0.2-1.0); CO2 26.9 mmol/L (21.0-32.0); CREATININE 1.3 mg/dL (0.70-1.30); Calcium 9.5 mg/dL (8.5-10.1); Chloride 102 mmol/L (98-107); Estimated GFR 65.28 (mL/min/1.73m2); Glucose 90 mg/dL (74-106); Magnesium 1.4 mg/dL (1.8-2.4); PHOSPHORUS 4.3 mg/dL (2.6-4.7); Potassium 4.3 mmol/L (3.5-5.1); Sodium 138 mmol/L (136-145); TSH 3.39 uIU/mL (0.36-3.74); Total Protein 7.7 g/dL (6.4-8.2); Uric Acid 6.8 mg/dL (3.5-7.2)
--- OUTSIDE RECORDS SUMMARY | 2022-08-12 14:02 | XMS_ITS ---
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 Problem Tinea unguium B35.1 Active 324989352 Problem Hypothyroidism, unspecified E03.9 Active 34556356 Problem Syncope and collapse R55 Active [id number] ALLERGIES No Known Allergies ENCOUNTERS Encounter Location Date Diagnosis [facility] [address] 04 May, [address] [facility] [address] 06 2019 IMMUNIZATIONS No Known Immunizations SOCIAL HISTORY Never Assessed REASON FOR REFERRAL FUNCTIONAL STATUS PLAN OF CARE VITAL SIGNS MEDICATIONS Medication Instructions Dosage Frequency Start Date End Date Duration Status Lisinopril 30 MG Orally Once a day 1 tablet 24h 30 day(s) Active Acetaminophen ER 650 MG Orally every 8 hrs 2 tablets as needed 8h Active Mycophenolate Mofetil 250 MG Orally Once a day 1 tablet 24h Active Nitroglycerin 0.4 MG as directed Active Atorvastatin Calcium 40 MG Orally Once a day 1 tablet 24h 30 day(s) Active Metoclopramide HCl 10 MG Orally Twice a day 1 tablet before meals 12h 30 day(s) Active clonazePAM 0.5 MG Orally Once a day 1 tablet at bedtime 24h Active Tacrolimus 1 MG as directed Active Clopidogrel Bisulfate 75 MG Orally Once a day 1 tablet 24h 30 day(s) Active Levothyroxine Sodium 75 MCG Orally Once a day 1 tablet in the morning on an empty stomach 24h 30 day(s) Active Docusate Sodium 100 MG Orally Once a day 1 capsule as needed 24h 30 day(s) Active Fludrocortisone Acetate 0.1 MG Orally Three times a Week 1 tablet 30 day(s) Active Escitalopram Oxalate 20 MG Orally Once a day 1 tablet 24h 30 day(s) Active Furosemide 20 MG Orally Once a day 1 tablet 24h 30 day(s) Active Nicorette 2 MG Mouth/Throat 24 time(s) a day 1 piece for 30 minute as needed Active Metoprolol Tartrate 25 MG Orally Twice a day 1 tablet with food 12h 30 day(s) Active Hydrocortisone 5 MG Orally every 8 hrs 1 tablet with food or milk 8h 30 day(s) Active dilTIAZem HCl 120 MG as directed Active Aspirin 81 81 MG Orally Once a day 1 tablet 24h 30 day(s) Active Multivitamin - Orally Once a day 1 tablet 24h 30 day(s) Active PROCEDURES No Known procedures RESULTS No Results REASON FOR VISIT foot care referral done , foot care referral done , Per referral pt has Onychomycosis- HL, chart update Insurance Providers Health Insurance Type Health Plan Insurance Address Health Plan Insurance Phone Health Plan Insurance Name Health Plan Coverage Dates Member ID Patient Relationship to Subscriber Patient Address Patient Phone Patient Name Patient Date of Subscriber ID Subscriber Name Subscriber Date of Group No SELF PAY AFTER MEDICARE [address] ST[address] [facility] [id number] SELF PAY AFTER MEDICARE self RADHA NORIEGA 1970 MEDICARE [address] [facility] [id number] MEDICARE self RADHA NORIEGA [id number]
[2022-08-14 13:30] LABS: Tacrolimus 15.5 ng/mL (See Note)
== END 2022-08-12 14:01 | disposition home or self-care (01) ==
LOC: LBO 14:01
PROVIDERS: PCP Nurse Practitioner Family; Visit Provider Internal Medicine Nephrology
DX: E03.9 Hypothyroidism, unspecified (principal); D84.9 Immunodeficiency, unspecified; Z94.83 Pancreas transplant status; Z48.298 Encounter for aftercare following other organ transplant; Z94.0 Kidney transplant status; Z79.899 Other long term (current) drug therapy; Z29.8 Encounter for other specified prophylactic measures
CPT/HCPCS: 36415; 80053; 85027; 80197; 81003; 82465; 82565; 83735; 84100; 84156; 84443; 84550

== ENCOUNTER → 2022-09-10 13:37 | Outpatient (BNVA) | payer MEDICARE, SELFPAY | PROVIDERS: PCP Family Medicine; Referring Provider Family Medicine; Visit Provider Psychiatry & Neurology Neurology | DX: I95.1 Orthostatic hypotension (principal); E27.1 Primary adrenocortical insufficiency; Z94.83 Pancreas transplant status; E86.0 Dehydration; E10.9 Type 1 diabetes mellitus without complications; I10 Essential (primary) hypertension | CPT/HCPCS: 99215 ==

== ENCOUNTER 2023-02-11 18:10 | Emergency (ER) | payer MEDICARE, SELFPAY ==
[2023-02-11] VITALS (7 sets, daily range): BP systolic 109–136; BP diastolic 59–74; PULSE 75–77; RESP 22; TEMP 36.9; O2SAT 90–94
[2023-02-11] MEDS: Albuterol 2.5 MG/3 ML INH SOLN VIAL UPD (19:01)
[2023-02-11 19:18] LABS: Abs Immature Grans 0.02 10^3/uL (0.0-0.06); Absolute Basophil Count 0.03 10^3/uL (0.0-0.2); Absolute Eosinophil Count 0.23 10^3/uL (0.0-0.7); Absolute Lymphocyte Count 1.27 10^3/uL (1.2-3.4); Absolute Monocyte Count 0.68 10^3/uL (0.1-0.8); Absolute Neutrophil Count 4.76 10^3/uL (1.2-6.7); Basophils % 0.4; Eosinophils % 3.3; HCT 43.3 % (40.0-50.0); Immature Grans % 0.3; Lactate 2.6 mmol/L (0.6-1.4); Lymphocytes % 18.2; MCH 31.1 pg (27.0-33.0); MCHC 34.6 % (32.0-36.0); MCV 90 fL (80-95); Monocytes % 9.7; Neutrophils % 68.1; Platelet Count 230 10^3/uL (130-400); RBC 4.83 10^6/uL (4.36-5.78); RDW 12.3 % (11.8-14.1); RDW-SD 40.9 fL; WBC 6.99 10^3/uL (4.4-10.8)
[2023-02-11 19:40] LABS: ALT 27 U/L (16-63); AST 30 U/L (15-37); Albumin 3.7 g/dL (3.4-5.0); Alkaline Phosphatase 94 U/L (46-116); Anion Gap 11.6 mmol/L (3-11); BUN 13 mg/dL (7-18); Bilirubin, Total 0.6 mg/dL (0.2-1.0); CO2 25.4 mmol/L (21.0-32.0); Calcium 9.2 mg/dL (8.5-10.1); Chloride 97 mmol/L (98-107); Estimated GFR 89.44 (mL/min/1.73m2); Glucose 93 mg/dL (74-106); Magnesium 1.6 mg/dL (1.8-2.4); Potassium 3.5 mmol/L (3.5-5.1); Sodium 134 mmol/L (136-145); TSH (W/Ref FT4) 1.29 uIU/mL (0.36-3.74); Total Protein 8.3 g/dL (6.4-8.2)
[2023-02-11 19:53] LABS: Procalcitonin < 0.1 ng/mL
[2023-02-11] MEDS: Normal Saline 1,000 ML 1000 ML IV (20:14)
--- NOTE | 2023-02-11 20:15 | DI.RAD_ITS ---
Exam(s) XR CHEST 2V PA LATERAL EXAM: XR CHEST 2V PA LATERAL CLINICAL HISTORY: shortness of breath, cough. TECHNIQUE: 2D digital imaging was performed. COMPARISON: CR,XR XR CHEST 2V PA LATERAL from 03/27/2022 FINDINGS: 2 views: Heart size is normal. The mediastinum is not widened. Lungs are clear. No infiltrates nor pleural effusions. IMPRESSION: No acute pulmonary findings. DATA REPOSITORY: RADIATION DOSE DELIVERED:
--- NOTE | 2023-02-11 21:29 | DI.VRAD_ITS ---
PROCEDURE INFORMATION: Exam: XR Chest Exam date and time: 02/11/2023 9:13 PM Age: 52 years old Clinical indication: Cough and shortness of breath and other: Shortness of breath, cough TECHNIQUE: Imaging protocol: Radiologic exam of the chest. Views: 2 views. COMPARISON: CR XR CHEST 2V PA LATERAL 03/27/2022 1:17 AM FINDINGS: Lungs: The lungs are hyperinflated, consistent with underlying small airways disease. There is perihilar interstitial prominence. There is peribronchial thickening There are perihilar streaky densities present. These findings are most consistent with bronchitis . Impression. No evidence of lobar pneumonia. The pulmonary vasculature is normal. Pleural spaces: There is no evidence of pneumothorax. There are no pleural effusions present. Heart/Mediastinum: The cardiac silhouette is within normal limits. The mediastinum is normal. Bones/joints: The spine, sternum, ribs, and pectoral girdles are normal. Other findings: There are no soft tissue masses or calcifications. IMPRESSION: 1. Findings most consistant with bronchitis No evidence of lobar pneumonia. 2. The lungs are hyperinflated, consistent with underlying small airways disease. Dictated and Authenticated by: Noe Heath MD. Ordering:MIGUEL Mitchell MD
[2023-02-11 21:47] LABS: Lactate 1.9 mmol/L (0.6-1.4)
[2023-02-11] MEDS: Albuterol HFA 8 GM 60 PUFF INH IH (22:28)
[2023-02-11] MEDS: Doxycycline Hyclate 100 MG, 2 CAPS/BTL PO (22:28)
--- NOTE | 2023-02-11 23:10 | W.ED.GENAD ---
Discharge Plan Disposition Patient Disposition: Home Discharge Details Clinical Impression: Bronchitis, Syracuse's disease, Long-term current use of immunosuppressive biologic agent Primary Care Provider: Roxie Marie ED Provider: Paula Edmonds Home Meds and New Rx's Prescriptions: New doxycycline hyclate 100 mg capsule 100 mg PO BID Qty: 40 0RF Continued hydrocortisone 5 mg tablet 10 - 15 mg PO DIRECTED Rx Instructions: Take 4 tabs this evening, then resume 3 tabs in am, 2 tabs pm (double for illness) 03-16-20 pt reports taking 15mg morning, 10 mg at night. -hb ergocalciferol (vitamin D2) 1,250 mcg (50,000 unit) capsule 1,250 mcg PO QWEEK Patient Comments: TAKE 1 CAPSULE BY MOUTH ONCE A WEEK diltiazem HCl 120 mg capsule,extended release 24 hr 120 mg PO DAILY Patient Comments: TAKE 1 CAPSULE BY MOUTH ONCE DAILY thiamine HCl (vitamin B1) 250 mg tablet 250 mg PO DAILY Qty: 90 3RF nitroglycerin 0.4 MG tablet, sublingual 0.4 mg Sublingual PRN Qty: 25 Patient Comments: 07/05/14 Pt states he has not needed to take. PG metoprolol tartrate 25 mg tablet 25 mg PO BID Qty: 180 3RF levothyroxine 75 mcg tablet 75 mcg PO DAILY Qty: 90 3RF fludrocortisone 0.1 MG tablet 0.1 mg PO DAILY Qty: 90 Patient Comments: 06-03-17 pt reports taking 0.1 mg daily. hb Rx Instructions: BRAND NAME MEDICALLY NECESSARY aspirin [Aspir-81] 81 MG tablet,delayed release (DR/EC) 81 mg PO DAILY Patient Comments: pt states he has been forgetting to take this. 01/04/15 rl 01/24/15 taking daily. md mycophenolate mofetil [CellCept] 250 MG capsule 750 mg PO BID tacrolimus [Prograf] 1 MG capsule 1 tab PO HS Patient Comments: 05/24/14 takes 1mg HS. DL tacrolimus [Prograf] 1 MG capsule 2 mg PO DAILY AM Patient Comments: 06/03/17-PT STATES CURRENTLY TAKING (2) 2MG QAM AND 1MG HS--HS, RN atorvastatin 40 mg tablet 40 mg PO DAILY Patient Comments: TAKE ONE TABLET BY MOUTH EVERY DAY clopidogrel 75 mg tablet 75 mg PO DAILY Patient Comments: TAKE 1 TABLET BY MOUTH ONCE DAILY lisinopril 30 mg tablet 30 mg PO DAILY Patient Comments: TAKE ONE TABLET BY MOUTH DAILY multivitamin [Multiple Vitamins] Tablet 1 tab PO DAILY Qty: 30 0RF No Action magnesium gluconate 30 mg (550 mg) tablet 30 mg PO BID Qty: 60 3RF Discharge Instructions Instructions: Acute Bronchitis (ED) Additional Instructions: Take 6 tabs of hydrocortisone in the morning and 4 in the evening while you are ill Please have your chest x-ray rechecked by your primary care physician in 1 month after completion of antibiotics Yogurt daily while on your antibiotics Recommend reevaluation on Thursday by your primary care doctor Yogurt daily while on the antibiotic Use the albuterol as needed for cough, wheeze, shortness of breath, 2 puffs every 4-6 hours Referrals: Roxie Marie MD [Primary Care Provider] - Discharge Data Discharge Date/Time-TO BE ENTERED AT DEPARTURE: 02/11/23 22:30 Medical Decision Making This 52-year-old male presents with report of upper respiratory symptoms in the presence of chronic immunosuppression Patient has evidence of bronchitis, secondary to his history of COPD and immunosuppression, patient was placed on doxycycline 21 days after discussion with Dr. Williamson in, patient's transplant specialist He will increase his stress dose of hydrocortisone and continue to take this while he is ill, he is not hypoxic, he is discharged sat is 94% and is ambulatory in no acute distress, initial lactate was elevated, however it was drawn with a tourniquet in place, repeat was 1.9, patient is not exhibiting any signs or symptoms consistent with sepsis, he is quite stable in appearance, his procalcitonin is 0.1 making him very low risk for having sepsis Case is discussed with Dr. Kwaku Tee, transplant physician who feels comfortable with patient being discharged home on a 21-day course of doxycycline and will continue to take hydrocortisone stress dose and use an inhaler which she was applied made in the emergency department His oxygenation is 94% on room air, he is requesting discharge home, he is given very low threshold to return should he have new or worsening complaints We did review smoking cessation and alcohol cessation Of note, patient was completely alert and oriented throughout the entirety of this evaluation, ambulatory trial is 94% on room air HPI General Date/Time Provider Initiated Documentation: 02/11/23 18:28. HPI Narrative: This 52-year-old male presents with report of shortness of breath, cough, weakness. Denies any fever or chills. Of note, patient has had pancreatic transplant, this is done 10 years ago and he is chronically immunosuppressed and takes tacrolimus and CellCept. He reports at the request of his doctor. He smokes tobacco on a daily basis, he drinks alcohol on a daily basis. He is been taking all of his medications as prescribed. He had symptoms for approximately a week and a half. He has increased his stress dose of hydrocortisone secondary to being ill. Related Data Home Medications Medication Instructions Recorded Confirmed fludrocortisone 0.1 mg tablet 0.1 mg PO DAILY ##90 10/13/12 02/13/23 nitroglycerin 0.4 mg sublingual 0.4 mg sublingual PRN ##25 01/24/13 02/13/23 tablet aspirin 81 mg tablet,delayed 81 mg PO DAILY 05/12/13 02/13/23 release (Aspir-) mycophenolate mofetil 250 mg 750 mg PO BID 05/12/13 02/13/23 capsule (CellCept) tacrolimus 1 mg capsule, 1 tab PO HS 05/12/13 02/13/23 immediate-release (Prograf) tacrolimus 1 mg capsule, 2 mg PO DAILY AM 05/12/13 02/13/23 immediate-release (Prograf) atorvastatin 40 mg tablet 40 mg PO DAILY 11/16/19 02/13/23 clopidogrel 75 mg tablet 75 mg PO DAILY 11/16/19 02/13/23 lisinopril 30 mg tablet 30 mg PO DAILY 11/16/19 02/13/23 multivitamin (Multiple Vitamins 1 tab PO DAILY #30 tabs 11/16/19 02/13/23 tablet) hydrocortisone 5 mg tablet 10 - 15 mg PO DIRECTED 03/16/20 02/13/23 metoprolol tartrate 25 mg tablet 25 mg PO BID #180 tabs 03/18/21 02/13/23 levothyroxine 75 mcg tablet 75 mcg PO DAILY #90 tabs 07/21/22 02/13/23 diltiazem HCl 120 mg capsule,24 120 mg PO DAILY 10/10/22 02/13/23 hr,extended release ergocalciferol (vitamin D2) 1,250 1,250 mcg PO QWEEK 10/10/22 02/13/23 mcg (50,000 unit) capsule thiamine HCl (vitamin B1) 250 mg 250 mg PO DAILY #90 tabs 10/10/22 02/13/23 tablet doxycycline hyclate 100 mg capsule 100 mg PO BID #40 caps 02/11/23 02/13/23 magnesium gluconate 30 mg (550 mg) 30 mg PO BID #60 tabs 02/13/23 02/13/23 tablet Previous Rx's Medication Instructions Recorded multivitamin (Multiple Vitamins 1 tab PO DAILY #30 tabs 11/16/19 tablet) metoprolol tartrate 25 mg tablet 25 mg PO BID #180 tabs 03/18/21 levothyroxine 75 mcg tablet 75 mcg PO DAILY #90 tabs 07/21/22 thiamine HCl (vitamin B1) 250 mg 250 mg PO DAILY #90 tabs 10/10/22 tablet doxycycline hyclate 100 mg capsule 100 mg PO BID #40 caps 02/11/23 magnesium gluconate 30 mg (550 mg) 30 mg PO BID #60 tabs 02/13/23 tablet Allergies Allergy/AdvReac Type Severity Reaction Status Date / Time No Known Allergies Allergy Verified 02/13/23 11:03 General Stated Complaint: GenMedical JIAN: 2 PFSH All Active Problems (Updated 02/11/23 @ 22:05 by IONA Saba) Peripheral neuralgia (Acute) Obstructive sleep apnea syndrome (Acute) CPAP History of tobacco use (Acute) Gastroesophageal reflux disease (Acute) hematemesis Depressive disorder (Acute) Coronary atherosclerosis of telida coronary vessel (Acute) 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 states he had ran out of steroids, and forgot to get it refilled and that is what triggered his adrenal crisis Retinopathy, background, nonproliferative, mild (Acute) 10/05/18 MILD NPDR (R) [facility]- Alcohol abuse (Chronic) 3 beers / night Hypothyroidism (Chronic) Orthostatic hypotension dysautonomic syndrome (Acute) Vasovagal syncope (Acute) Long-term current use of immunosuppressive biologic agent (Acute) Insomnia (Acute) Hypomania (Acute) Bronchitis (Acute) Medical History Atherosclerosis of telida coronary artery Derangement of medial meniscus of left knee (04/10/17) Essential hypertension (03/22/13) Family history of colon cancer History of tobacco use Hx of acute myocardial infarction (2002) s/p RCA stent Hx of type 1 diabetes mellitus s/p pancreas transplant Surgical History Colonoscopy - MAC 08/2008; NEG 07/07/14; NEG Coronary Stent 2018 last stent placed 2003;RCA x3 Pancreas transplant status SHOULDER SURGERY (~06/2009) LEFT Vasectomy Social History Smoking/Tobacco Use Status: Current every day Tobacco Type: cigarettes Counseling given: provider counseling Smoking risk assessment performed?: Yes Alcohol Intake: current Alcohol Intake frequency: 3 or more drinks per day Alcohol type: beer Drug use: Never Substance use type: does not use Details: Had quit then smoked a pack of cigarettes this weekend Household members: children Housing: house Number of Children: 2 number of grandchildren: 0 Education Level: high school 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, 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 [employer] Current gender identity: male What is your relationship status?: Panel score (0-1 are the most socially isolated patients): 0 Do you feel safe at home: Yes Do you feel safe in your relationship?: Yes Course Vital Signs Vital signs: Vital Signs Temperature 36.9 C 02/11/23 18:23 Pulse 75 02/11/23 18:23 Respiratory Rate 02/11/23 18:23 Blood Pressure 136/74 02/11/23 18:23 Pulse Oximetry 90 L 02/11/23 18:23 Temperature 36.9 C 02/11/23 18:23 Temperature Source Temporal Artery Scan 02/11/23 18:23 Pulse 76 02/11/23 21:46 Respiratory Rate 22 02/11/23 18:23 Respiratory Effort Short of Breath 02/11/23 18:59 Respiratory Depth Normal 02/11/23 18:59 Respiratory Pattern Normal 02/11/23 18:59 Blood Pressure 124/64 02/11/23 21:46 Blood Pressure Mean 79 02/11/23 21:46 Blood Pressure Position Sitting 02/11/23 18:23 Pulse Oximetry 94 02/11/23 21:53 Oxygen Delivery Method Room Air 02/11/23 18:23 Oxygen Flow Rate 0 08/23/23 18:23 Pain Level 0 02/11/23 18:23 Lab/Test Results Lab/Test Results: 02/11/23 18:07 Blood Blood Culture - Pending 02/11/23 18:07 Blood Blood Culture - Pending Laboratory Tests Range/Units 02/11/23 02/11/23 02/11/23 18:07 18:07 18:07 WBC (4.4-10.8) 10^3/uL 6.99 RBC (4.36-5.78) 10^6/uL 4.83 Hgb (13.5-17.5) g/dL 15.0 Hct (40.0-50.0) % 43.3 MCV (80-95) fL 90 MCH (27.0-33.0) pg 31.1 MCHC (32.0-36.0) % 34.6 RDW (11.8-14.1) % 12.3 Plt Count (130-400) 10^3/uL 230 MPV (8.0-11.0) fL 9.0 Immature Gran % 0.3 Neutrophils % 68.1 Lymphocytes % 18.2 Monocytes % 9.7 Eosinophils % 3.3 Basophils % 0.4 Nucleated RBC % (0.0-0.3) % 0.0 Absolute Neutrophils (1.2-6.7) 10^3/uL 4.76 Absolute Lymphocytes (1.2-3.4) 10^3/uL 1.27 Absolute Monocytes (0.1-0.8) 10^3/uL 0.68 Absolute Eosinophils (0.0-0.7) 10^3/uL 0.23 Absolute Basophils (0.0-0.2) 10^3/uL 0.03 VBG Lactate (0.6-1.4) mmol/L 2.6 H* Sodium (136-145) mmol/L 134 L Potassium (3.5-5.1) mmol/L 3.5 Chloride (98-107) mmol/L 97 L Carbon Dioxide (21.0-32.0) mmol/L 25.4 Anion Gap (3-11) mmol/L 11.6 H BUN (7-18) mg/dL 13 Creatinine (0.70-1.30) mg/dL 1.0 Est GFR (CKD-EPI 2020) (mL/min/1.73m2) 89.44 Glucose (74-106) mg/dL 93 Hemoglobin A1c Calcium (8.5-10.1) mg/dL 9.2 Magnesium (1.8-2.4) mg/dL 1.6 L Total Bilirubin (0.2-1.0) mg/dL 0.6 AST (15-37) U/L 30 ALT (16-63) U/L 27 Alkaline Phosphatase (46-116) U/L 94 Total Protein (6.4-8.2) g/dL 8.3 H Albumin (3.4-5.0) g/dL 3.7 Procalcitonin ng/mL < 0.1 TSH (0.36-3.74) uIU/mL 1.29 Range/Units 02/11/23 02/11/23 18:36 21:22 WBC (4.4-10.8) 10^3/uL RBC (4.36-5.78) 10^6/uL Hgb (13.5-17.5) g/dL Hct (40.0-50.0) % MCV (80-95) fL MCH (27.0-33.0) pg MCHC (32.0-36.0) % RDW (11.8-14.1) % Plt Count (130-400) 10^3/uL MPV (8.0-11.0) fL Immature Gran % Neutrophils % Lymphocytes % Monocytes % Eosinophils % Basophils % Nucleated RBC % (0.0-0.3) % Absolute Neutrophils (1.2-6.7) 10^3/uL Absolute Lymphocytes (1.2-3.4) 10^3/uL Absolute Monocytes (0.1-0.8) 10^3/uL Absolute Eosinophils (0.0-0.7) 10^3/uL Absolute Basophils (0.0-0.2) 10^3/uL VBG Lactate (0.6-1.4) mmol/L 1.9 H Sodium (136-145) mmol/L Potassium (3.5-5.1) mmol/L Chloride (98-107) mmol/L Carbon Dioxide (21.0-32.0) mmol/L Anion Gap (3-11) mmol/L BUN (7-18) mg/dL Creatinine (0.70-1.30) mg/dL Est GFR (CKD-EPI 2020) (mL/min/1.73m2) Glucose (74-106) mg/dL Hemoglobin A1c Cancelled Calcium (8.5-10.1) mg/dL Magnesium (1.8-2.4) mg/dL Total Bilirubin (0.2-1.0) mg/dL AST (15-37) U/L ALT (16-63) U/L Alkaline Phosphatase (46-116) U/L Total Protein (6.4-8.2) g/dL Albumin (3.4-5.0) g/dL Procalcitonin ng/mL TSH (0.36-3.74) uIU/mL PAWSS Have you Been Recently Intoxicated or Drunk Within the Last 30 days?: Yes Have you Ever Experienced Previous Episodes of Alcohol Withdrawal?: Yes Have you ever Experienced Withdrawal Seizures?: No Have you ever Experienced Delirium Tremens(DT)s?: No Have you ever undergone Alcohol Rehabilitation Treatment (i.e, inpt ot outpatient treatment programs)?: No Have you ever Experienced Blackouts?: No Have you ever Combined Alcohol with other Downers within the last 90 days?: No Have you ever Combined Alcohol with any other Substance of Abuse during the last 90 days?: No Positive Blood Alcohol level on Presentation? [PCS.BAL]: No Evidence of Increased Autonomic Activity (i.e. HR>120, tremor, sweating, agitation, nausea)?: No Result: 2
--- NOTE | 2023-02-12 15:13 | NUR.NOTE ---
Acessed pt chart for discharge antibiotic. Nursing Note:
--- NOTE | 2023-02-12 15:35 | W.ED.FU ---
Date of service: 02/12/23 Time of Service: 15:35 Follow Up Plan: a blood culture came back growing gpc in chains, reviewed chart and spoke with pt, he feels better and has no fevers, malaise, chills or other symptoms to suggest sepsis or worsening infection, speaking in full sentences on phone. Discussed results with pt and discussed this is likely a contaminant but discussed strict return precautions to come back to the ED including if he feels more ill, has fevers/chills or malaise.
== END 2023-02-11 22:30 | disposition home or self-care (01) ==
PROVIDERS: Emergency Provider Physician Assistant; PCP Family Medicine
DX: J02.9 Acute pharyngitis, unspecified (principal); E27.1 Primary adrenocortical insufficiency; J44.9 Chronic obstructive pulmonary disease, unspecified; I25.10 Atherosclerotic heart disease of native coronary artery without angina pectoris; I25.2 Old myocardial infarction; I10 Essential (primary) hypertension; E10.9 Type 1 diabetes mellitus without complications; Z94.83 Pancreas transplant status; Z95.5 Presence of coronary angioplasty implant and graft; Z79.82 Long term (current) use of aspirin; Z79.60 Long term (current) use of unspecified immunomodulators and immunosuppressants
CPT/HCPCS: 80053; 84145; 87040; 87077; 94640; 96360; 96361; 99284; 71046; 83036; 83605; 83735; 84443; 85025; 87186; 99283; J7613

== ENCOUNTER 2023-06-04 02:16 | Outpatient (CLI) | payer MEDICARE, SELFPAY ==
[2023-06-04 10:14] LABS: HCT 45.7 % (40.0-50.0); HGB 15.3 g/dL (13.5-17.5); MCH 31.4 pg (27.0-33.0); MCHC 33.5 % (32.0-36.0); MCV 94 fL (80-95); MPV 9.8 fL (8.0-11.0); Platelet Count 188 10^3/uL (130-400); RBC 4.88 10^6/uL (4.36-5.78); RDW 12.6 % (11.8-14.1); RDW-SD 43.8 fL; Reticulocyte 1.4 % (0.5-2.4); WBC 5.95 10^3/uL (4.4-10.8)
[2023-06-04 10:21] LABS: Bilirubin Negative (Negative); Blood Negative (Negative); Clarity Clear (Clear); Glucose Negative (Negative); Ketones Negative (Negative); Leukocyte Esterase Negative (Negative); Nitrite Negative (Negative); Urobilinogen 0.2 mg/dL (Up to 0.2)
[2023-06-04 10:32] LABS: Bacteria Negative HPF (Negative); C & S Indicated? No; Casts 0-2 Hyaline LPF (Negative); Crystals Negative HPF (Negative); Epithelial Cells Rare HPF (Negative); Mucus Negative (Negative); RBC Negative HPF (0-2); WBC Negative HPF (0-5)
[2023-06-04 11:01] LABS: AST 23 U/L (15-37); Alkaline Phosphatase 78 U/L (46-116); BUN 13 mg/dL (7-18); Bilirubin, Total 0.5 mg/dL (0.2-1.0); Calcium 9.2 mg/dL (8.5-10.1); Calculated LDL 115 mg/dL (<100); Chloride 102 mmol/L (98-107); Cholesterol 202 mg/dL (<200); Estimated GFR 88.88 (mL/min/1.73m2); Glucose 97 mg/dL (74-106); HDL Cholesterol 68 mg/dL (40-60); Lipase 30 U/L (16-77); Magnesium 1.5 mg/dL (1.8-2.4); PHOSPHORUS 4.1 mg/dL (2.6-4.7); Potassium 4.1 mmol/L (3.5-5.1); Sodium 139 mmol/L (136-145); Total Protein 7.7 g/dL (6.4-8.2); Triglyceride 99 mg/dL (<150)
[2023-06-04 11:20] LABS: COMMENT (LAB VIEW ONLY) 83.13 mg/dL; PROTEIN 37.9 mg/dL; Prot/Crea Ur Ratio 0.45
[2023-06-04 11:28] LABS: Vitamin D 25 Total 22.9 ng/mL (30-100)
[2023-06-04 12:36] LABS: Hemoglobin A1C 5.5 % (<5.7)
[2023-06-04 13:46] LABS: ALT 31 U/L (16-63); Albumin 3.5 g/dL (3.4-5.0); Amylase 57 U/L (25-115); Uric Acid 5.9 mg/dL (3.5-7.2)
[2023-06-04 21:03] LABS: Parathyroid Hormone,Intact 58 pg/mL (19-88)
[2023-06-05 11:20] LABS: Tacrolimus 26.9 ng/mL (See Note)
[2023-06-05 12:00] LABS: Magnesium Random Urine 5.6 mg/dL (See Note); Phosphorus Urine 67.3 mg/dL (See Note)
[2023-06-06 16:04] LABS: Calcium, Random Ur 7 mg/dL; Creatinine, Random Ur 86 mg/dL (16 - 326)
[2023-06-08 14:03] LABS: BKV DNA Detect/Quant, P Undetected IU/mL (Undetected)
[2023-06-09 12:36] LABS: 1,25-Dihydroxyvitamin D 32 pg/mL (18-64)
== END 2023-06-04 02:17 | disposition home or self-care (01) ==
LOC: LBO 02:16
PROVIDERS: PCP Family Medicine; Visit Provider Nurse Practitioner Family
DX: E55.9 Vitamin D deficiency, unspecified
CPT/HCPCS: 36415; 80053; 80061; 82306; 82310; 83690; 83735; 85027; 80197; 81003; 81015; 82150; 82565; 82652; 83036; 83970; 84100; 84105; 84156; 84550; 85045; 87799

== ENCOUNTER → 2023-07-06 01:50 | Outpatient (CLI) | payer MEDICARE, SELFPAY ==
--- NOTE | 2023-07-06 07:00 | DI.RAD_ITS ---
Exam(s) XR CHEST 2V PA LATERAL EXAM: XR CHEST 2V PA LATERAL CLINICAL HISTORY: chest wall pain,r07.89 TECHNIQUE: 2D digital imaging was performed. COMPARISON: CR,XR XR CHEST 2V PA LATERAL from 02/11/2023 FINDINGS: HEART: Normal size. Aorta: Not dilated. PULMONARY VASCULATURE: Normal. LUNGS: Clear. PLEURAL SPACE: No pleural effusion or pneumothorax. BONE:Unremarkable for age. Soft tissues: Unremarkable. IMPRESSION: No acute abnormality. DATA REPOSITORY: RADIATION DOSE DELIVERED:
--- NOTE | 2023-07-06 07:00 | DI.RAD_ITS ---
Exam(s) XR THORACIC SPINE COMPLETE EXAM: XR THORACIC SPINE COMPLETE CLINICAL HISTORY: chest wall pain,r07.89. TECHNIQUE: 2D digital imaging was performed. Two views. COMPARISON: CR,XR XR CHEST 2V PA LATERAL from 02/11/2023 CR XR CHEST 2V PA LATERAL from 07/06/2023 FINDINGS: BONES: There is no acute fracture or visible destructive lesion. Minimal anterior wedging of T5 and T 11, unchanged from prior chest x-ray. ALIGNMENT: Within normal limits. DISKS: Interverebral disc spaces are maintained. No significant degenerative changes. SOFT TISSUE: Visualized lungs are clear. IMPRESSION: Stable minimal compression fractures. DATA REPOSITORY: RADIATION DOSE DELIVERED:
== END ==
PROVIDERS: PCP Family Medicine; Visit Provider Family Medicine
DX: S22.050D Wedge compression fracture of T5-T6 vertebra, subsequent encounter for fracture with routine healing (principal); X58.XXXD Exposure to other specified factors, subsequent encounter
CPT/HCPCS: 71046; 72072

== ENCOUNTER → 2023-09-16 01:08 | Outpatient (CLI) | payer MEDICARE, SELFPAY ==
--- NOTE | 2023-09-16 07:45 | DI.CTLCSR_ITS ---
Exam(s) CT CHEST LUNG CANCER SCREEN EXAM: CT CHEST LUNG CANCER SCREEN CLINICAL HISTORY: Screening for lung cancer,CURRENT SMOKER, F17.210 TECHNIQUE: Imaging Protocol: Axial computed tomography images with coronal and sagittal reformatted images were created and reviewed. Low dose screening protocol. COMPARISON: CR XR CHEST 2V PA LATERAL from 07/06/2023 FINDINGS: Tracheobronchial tree: No bronchiectasis or mucus plugging.. Mediastinum and Joan: No dominant adenopathy or fluid collection. Pulmonary parenchyma: No consolidation or dominant measurable mass. Minimal emphysematous changes. Lung Nodules: None. Pleura: No effusion. No pneumothorax. Heart: The heart is not dilated. Dense and coronary artery calcifications are seen. Aorta: Thoracic aorta non-dilated. Upper abdomen: Unremarkable. Bones: Unremarkable for age. Soft Tissues: Unremarkable. IMPRESSION: No suspicious pulmonary nodules. Lung RADS Cat 1 - Negative: No nodules and definitely benign nodules Lung-RADS 1.0 CATEGORIES: Category 0 - Prior chest CT exam(s) being located for comparison. Category 1 - Annual screening in 12 months. No nodules or definitely benign nodules. Category 2 - Annual screening in 12 months. Benign appearance. Nodules with low likelihood of becomin g active cancer. Category 3 - 6-month follow-up. Probably benign. Short-term follow-up suggested. Nodules with low lik elihood of becoming active cancer. Category 4A - 3-month follow-up and CT/PET if >8 mm in size. Suspicious finding. Findings which requi re additional testing. Category 4B - Findings which require additional testing and tissue sampling. Category 4X - Category 3 or 4 nodules with additional features or imaging findings that increases the suspicion of malignancy. Modifier S- Potentially clinically significant findings (non lung cancer) RADIATION DOSE DELIVERED: Total DLP DATA REPOSITORY: All CT scans at this facility are submitted to the National Radiology Data Registry (NRDR) Dose Index Registry (DIR) with the [employer] (ACR). RADIATION OPTIMIZATION: All CT scans at this facility use at least one of these dose optimization te chniques: automated exposure control; mA and/or kV adjustment per patient size (includes targeted exa ms where dose is matched to clinical indication); or iterative reconstruction.
== END ==
PROVIDERS: PCP Family Medicine; Visit Provider Family Medicine
DX: Z12.2 Encounter for screening for malignant neoplasm of respiratory organs (principal); F17.210 Nicotine dependence, cigarettes, uncomplicated; J43.8 Other emphysema
CPT/HCPCS: 71271

== ENCOUNTER 2023-11-27 05:13 | Outpatient (CLI) | payer MEDICARE, SELFPAY ==
[2023-11-27 09:17] LABS: Abs Immature Grans 0.03 10^3/uL (0.0-0.06); Absolute Basophil Count 0.05 10^3/uL (0.0-0.2); Absolute Eosinophil Count 0.36 10^3/uL (0.0-0.7); Absolute Lymphocyte Count 1.51 10^3/uL (1.2-3.4); Absolute Monocyte Count 0.98 10^3/uL (0.1-0.8); Absolute Neutrophil Count 4.23 10^3/uL (1.2-6.7); Basophils % 0.7 %; HCT 42.4 % (40.0-50.0); HGB 14.5 g/dL (13.5-17.5); Immature Grans % 0.4 %; Lymphocytes % 21.1 %; MCH 31.7 pg (27.0-33.0); MCHC 34.2 % (32.0-36.0); MCV 93 fL (80-95); MPV 9.2 fL (8.0-11.0); Monocytes % 13.7 %; Neutrophils % 59.1 %; Platelet Count 184 10^3/uL (130-400); RBC 4.58 10^6/uL (4.36-5.78); RDW 12.1 % (11.8-14.1); RDW-SD 41.4 fL; WBC 7.16 10^3/uL (4.4-10.8)
[2023-11-27 10:07] LABS: Vitamin D 25 Total 45.6 ng/mL (30-100)
[2023-11-27 10:10] LABS: ALT 30 U/L (16-63); AST 26 U/L (15-37); Albumin 3.5 g/dL (3.4-5.0); Alkaline Phosphatase 81 U/L (46-116); Anion Gap 8.4 mmol/L (3-11); BUN 25 mg/dL (7-18); Bilirubin, Total 0.5 mg/dL (0.2-1.0); CO2 25.6 mmol/L (21.0-32.0); CREATININE 1.2 mg/dL (0.70-1.30); Calcium 9.4 mg/dL (8.5-10.1); Chloride 100 mmol/L (98-107); Estimated GFR 71.42 (mL/min/1.73m2); Glucose 98 mg/dL (74-106); Potassium 4.9 mmol/L (3.5-5.1); Sodium 134 mmol/L (136-145); TSH (W/Ref FT4) 2.75 uIU/mL (0.36-3.74); Total Protein 7.3 g/dL (6.4-8.2); Vitamin B12 281 pg/mL (193-986)
[2023-11-30 12:19] LABS: Lyme Ab w Rflx to Lyme Confirm Negative (Negative)
[2023-11-30 18:45] LABS: Anaplasma phagocytophilum Negative (Negative); B. miyamotoi PCR Negative (Negative); Babesia divergens/MO-1 Negative (Negative); Babesia duncani Negative (Negative); Babesia microti Negative (Negative); Ehrlichia chaffeensis Negative (Negative); Ehrlichia ewingii/canis Negative (Negative); Ehrlichia muris eauclairensis Negative (Negative)
[2023-12-02 22:32] LABS: Thiamine (Vitamin B1), WB 112 nmol/L (70-180)
== END 2023-11-27 05:14 | disposition home or self-care (01) ==
LOC: LBO 05:13
PROVIDERS: PCP Family Medicine; Visit Provider Family Medicine
DX: M79.2 Neuralgia and neuritis, unspecified (principal); E66.8 Other obesity; Z00.00 Encounter for general adult medical examination without abnormal findings; E27.1 Primary adrenocortical insufficiency; R53.83 Other fatigue; E03.9 Hypothyroidism, unspecified; Z79.620 Long term (current) use of immunosuppressive biologic
CPT/HCPCS: 36415; 80053; 82306; 87798; 82607; 84425; 84443; 85025; 86618

== ENCOUNTER 2024-01-12 20:38 | Emergency (ER) | payer MEDICARE, SELFPAY ==
[2024-01-12] VITALS (34 sets, daily range): BP systolic 105–140; BP diastolic 31–57; PULSE 68–84; RESP 13–34; TEMP 36.4; O2SAT 92–99
--- NOTE | 2024-01-12 20:30 | RT.EKG_ITS ---
APPROVED REPORT Exam: Resting ECG Reason for Exam: chest pain Patient Location: E HR:83 bpm ECG Measurements Heart Rate 83 AXIS GA 152 P 1 QRSd 110 QRS 36 QT 380 T 70 QTc 447 Conclusion Sinus rhythm...normal P axis, V-rate 60- 99 Probable lateral infarct, old...Q>35mS, abnormal ST-T, V5-6 I aVL
--- NOTE | 2024-01-12 20:49 | ED.GENADUL_ITS ---
Discharge Plan Disposition Patient Disposition: Home Condition: Stable Discharge Details Clinical Impression: Near syncope, Hyponatremia Primary Care Provider: Roxie Marie ED Provider: Bentley Cowan Home Meds and New Rx's Prescriptions: Continued hydrocortisone 5 mg tablet 10 - 15 mg PO DIRECTED thiamine HCl (vitamin B1) 250 mg tablet 250 mg PO DAILY Qty: 90 3RF diltiazem HCl 120 mg capsule,extended release 24 hr 120 mg PO DAILY Qty: 90 3RF magnesium gluconate 30 mg (550 mg) tablet 30 mg PO BID Qty: 60 3RF nitroglycerin 0.4 MG tablet, sublingual 0.4 mg Sublingual PRN Qty: 25 Patient Comments: 07/05/14 Pt states he has not needed to take. PG metoprolol tartrate 25 mg tablet 25 mg PO BID Qty: 180 3RF ergocalciferol (vitamin D2) 1,250 mcg (50,000 unit) capsule 1,250 mcg PO QWEEK Qty: 12 0RF levothyroxine 75 mcg tablet 75 mcg PO DAILY Qty: 90 1RF fludrocortisone 0.1 MG tablet 0.1 mg PO DAILY Qty: 90 Patient Comments: 06-03-17 pt reports taking 0.1 mg daily. hb Rx Instructions: BRAND NAME MEDICALLY NECESSARY aspirin [Aspir-81] 81 MG tablet,delayed release (DR/EC) 81 mg PO DAILY Patient Comments: pt states he has been forgetting to take this. 01/04/15 rl 01/24/15 taking daily. md mycophenolate mofetil [CellCept] 250 MG capsule 750 mg PO BID tacrolimus [Prograf] 1 MG capsule 1 tab PO HS Patient Comments: 05/24/14 takes 1mg HS. DL tacrolimus [Prograf] 1 MG capsule 2 mg PO DAILY AM Patient Comments: 06/03/17-PT STATES CURRENTLY TAKING (2) 2MG QAM AND 1MG HS--HS, RN atorvastatin 40 mg tablet 40 mg PO DAILY Patient Comments: TAKE ONE TABLET BY MOUTH EVERY DAY clopidogrel 75 mg tablet 75 mg PO DAILY Patient Comments: TAKE 1 TABLET BY MOUTH ONCE DAILY lisinopril 30 mg tablet 30 mg PO DAILY Patient Comments: TAKE ONE TABLET BY MOUTH DAILY multivitamin [Multiple Vitamins] Tablet 1 tab PO DAILY Qty: 30 0RF Discharge Instructions Instructions: Near Fainting Additional Instructions: You were seen in the emergency department for your sudden onset shortness of breath with diaphoresis nausea and dizziness around 3 PM today, this was similar to a prior heart attack that you had, your EKG shows no dynamic changes and your troponin is negative at 5 and 6 hours since onset, you have hyponatremia or low sodium seen on your metabolic panel as well as other signs of a mild dehydration which is likely the cause of your exertional dizziness while 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 Referrals: Roxie Marie MD [Primary Care Provider] - HPI General Date/Time Provider Initiated Documentation: 01/12/24 20:42 . HPI Narrative: 53 year-old male presents to ED today by POV/ambulating with a chief complaint of feels he may have had a heart attack today around 1500- he was performing significant exertion and trying to put the track back on his excavator- had sudden onset of SOB, diaphoresis, nausea, and dizziness- denies overt chest pain- but had a prior NE with 5 stents placed that had no presentation of chest pain, feels similar. Quality described as feels just nauseous at this time, dizziness with exertion, denying active chest pain and shortness of breath, no radiation to vomiting, visual changes, severe headache, slurred speech, cough, fever, hemoptysis. Severity is described as intense dizziness at onset that caused a fall with some mild L lower lumbar back pain. Palliating factors include nothing specific attempted- takes ASA and plavix daily, has had this today. Provoking factors include nothing specific- exertional. Patient not anticoagulated. Related Data Home Medications ?Medication ?Instructions ?Recorded ?Confirmed fludrocortisone 0.1 mg tablet 0.1 mg PO DAILY ##90 10/13/12 01/12/24 nitroglycerin 0.4 mg sublingual 0.4 mg sublingual PRN ##25 01/24/13 01/12/24 tablet aspirin 81 mg tablet,delayed 81 mg PO DAILY 05/12/13 01/12/24 release (Aspir-) mycophenolate mofetil 250 mg 750 mg PO BID 05/12/13 01/12/24 capsule (CellCept) tacrolimus 1 mg capsule, 1 tab PO HS 05/12/13 01/12/24 immediate-release (Prograf) tacrolimus 1 mg capsule, 2 mg PO DAILY AM 05/12/13 01/12/24 immediate-release (Prograf) atorvastatin 40 mg tablet 40 mg PO DAILY 11/16/19 01/12/24 clopidogrel 75 mg tablet 75 mg PO DAILY 11/16/19 01/12/24 lisinopril 30 mg tablet 30 mg PO DAILY 11/16/19 01/12/24 multivitamin (Multiple Vitamins 1 tab PO DAILY #30 tabs 11/16/19 01/12/24 tablet) metoprolol tartrate 25 mg tablet 25 mg PO BID #180 tabs 03/18/21 01/12/24 thiamine HCl (vitamin B1) 250 mg 250 mg PO DAILY #90 tabs 10/10/22 01/12/24 tablet magnesium gluconate 30 mg (550 mg) 30 mg PO BID #60 tabs 02/13/23 01/12/24 tablet diltiazem HCl 120 mg capsule,24 120 mg PO DAILY #90 caps 04/03/23 01/12/24 hr,extended release hydrocortisone 5 mg tablet 10 - 15 mg PO DIRECTED 08/26/23 01/12/24 ergocalciferol (vitamin D2) 1,250 1,250 mcg PO QWEEK #12 caps 09/14/23 01/12/24 mcg (50,000 unit) capsule levothyroxine 75 mcg tablet 75 mcg PO DAILY #90 tabs 10/23/23 01/12/24 Previous Rx's ?Medication ?Instructions ?Recorded multivitamin (Multiple Vitamins 1 tab PO DAILY #30 tabs 11/16/19 tablet) metoprolol tartrate 25 mg tablet 25 mg PO BID #180 tabs 03/18/21 thiamine HCl (vitamin B1) 250 mg 250 mg PO DAILY #90 tabs 10/10/22 tablet magnesium gluconate 30 mg (550 mg) 30 mg PO BID #60 tabs 02/13/23 tablet diltiazem HCl 120 mg capsule,24 120 mg PO DAILY #90 caps 04/03/23 hr,extended release ergocalciferol (vitamin D2) 1,250 1,250 mcg PO QWEEK #12 caps 09/14/23 mcg (50,000 unit) capsule levothyroxine 75 mcg tablet 75 mcg PO DAILY #90 tabs 10/23/23 Allergies Allergy/AdvReac Type Severity Reaction Status Date / Time No Known Allergies Allergy Verified 01/12/24 20:43 General Stated Complaint: Chest Pain JIAN: 3 Review of Systems All systems reviewed & are unremarkable except as noted in HPI and below Exam Narrative Exam Narrative: GENERAL APPEARANCE: Well-nourished, non-toxic, awake and alert, atraumatic, no acute distress. SKIN: Warm, pink, dry, intact, without rashes/lesions/ulcerations. HEAD: Normocephalic, atraumatic, normal hair distribution for gender/age. EYES: Pupils PERRLA, EOMs intact without nystagmus, normal conjunctiva, no exudates on lids/lashes. ENT: Nares patent, no circumoral cyanosis, no facial swelling NECK: Supple, trachea midline, painless cervical ROM. LUNGS/CHEST: Lungs CTA bilaterally, non-labored respirations, normal A/P diameter, symmetrical expansion, no chest wall deformity HEART (CV/PV): Regular rate and rhythm without murmur, no peripheral edema, no JVD. ABDOMEN: Soft, non-distended, no guarding. MSK: Normal ROM, no swelling/deformity to bilateral UEs or LEs, moving all extremities without weakness, no cyanosis, spine midline without tenderness, normal curvature. NEURO: Mental Status AAOx4 - alert to person, place, time, events No facial droop, no forehead involvement. Motor: No focal weakness - strength 5/5 in bilateral UEs and LEs, proximal and distal, symmetric. Sensory: sensation intact to light touch globally. Gait normal: patient ambulated without ataxia into ED room. PSYCH: euthymic, cooperative, pleasant, appropriate speech Course Vital Signs Vital signs: Vital Signs Pulse 83 01/12/24 20:40 Respiratory Rate 18 01/12/24 20:40 Blood Pressure 134/51 L 01/12/24 20:40 Pulse Oximetry 95 01/12/24 20:40 Temperature 36.4 C L 01/12/24 20:45 Temperature Source Temporal Artery Scan 01/12/24 20:45 Pulse 83 01/12/24 20:40 Respiratory Rate 18 01/12/24 20:40 Respiratory Effort Normal, Non-Labored 01/12/24 20:43 Blood Pressure 134/51 L 01/12/24 20:40 Blood Pressure Position Supine 01/12/24 20:40 Pulse Oximetry 95 01/12/24 20:40 Oxygen Delivery Method Room Air 01/12/24 20:40 Oxygen Flow Rate 0 01/12/24 20:40 Pain Level 0 01/12/24 20:40 Medical Decision Making This dictation utilizes [id number] dictation software and may contain unedited grammatical errors. 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 Quality described as feels just nauseous at this time, dizziness with exertion, denying active chest pain and shortness of breath, no radiation to vomiting, visual changes, severe headache, slurred speech, cough, fever, hemoptysis. Severity is described as intense dizziness at onset that caused a fall with some mild L lower lumbar back pain. Palliating factors include nothing specific attempted- takes ASA and plavix daily, has had this today. Provoking factors include nothing specific- exertional. Patients' medical history: T1DM, history of NE, hypertension, pancreas transplant on tacrolimus and CellCept, vasovagal syncope, orthostatic hypotension dysautonomic syndrome, peripheral edema, alcohol abuse 3 beers per night, secondary acquired Bethel's disease, GERD, obstructive sleep apnea. Family and social history: Family history of colon cancer, lives independently. Pertinent exam findings / vital signs include systolic 2/6 murmur best heard at [place], benign pulmonary exam, no abdominal pulsatile masses, neuro intact, afebrile and nontoxic. Differential / pathologies of concern include acute coronary syndrome, NE, syncope, vasovagal syndrome, electrolyte abnormality, heat exhaustion, dehydration. Diagnostic studies of: -CBC, CMP, lactate, lipase, serial troponin, TSH, PT/INR, PTT, XR chest, EKG. -CBC shows no leukocytosis -PT/PTT within normal limits in anticipation for possibility of heparin -Lactate negative -CMP shows hyponatremia of 127, low chloride at 91, elevated BUN at 21 with creatinine of 1.3, glucose 200, mild elevation of bilirubin nonspecific -Initial troponin negative, driving a 1 hour value as his onset was 6 hours adam or to 1 hour repeat, shows [ ] -TSH within normal limits -Lipase negative -EKG shows sinus rhythm at 83 bpm with P waves followed by narrow complex QRS, normal axis, normal VT interval, no acute ST changes, no T wave inversions, normal QT QTc, no active STEMI -XR Chest shows no acute pathology Interventions of: -243mg CH ASA, 500mL IVF NS bolus. 1000mL NS IVF @ 150mL/hr for hyponatremia while awaiting 3hr troponin. ED Course/Assessment/Plan: 53-year-old male with history of pancreatic transplant and secondary acquired Bethel's disease presents with an episode of exertional dizziness and shortness of breath and nausea, he fell into his excavator as he was trying to aggressively put the track back on the excavator. He suffered a minor bump to his left hip area which she declines imaging on states it is not severe enough. CBC shows no infectious etiology lactate is negative, CMP shows hyponatremia of 127 and low chloride with a mild elevation of BUN and creatinine of 1.3 likely m ild dehydration in the setting of working outdoors in summertime, initial troponin was negative at around 5 hours onset, repeat at 1 hour was still negative, I plan to give the patient some slow IV fluids will recheck a 3-hour troponin but I do not feel that he is having any ischemic event with a benign EKG at this time. 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 Patient signed out to oncoming EM Attending Dr. Oneal at shift-change with 3hr trop due at 2345, discharge materials entered with expected negative result. Findings not consistent with acute coronary syndrome, myocardial infarction, hip trauma. Disposition of near syncope, hyponatremia. Patient verbalized understanding of the plan and return to ED criteria and engaged in shared decision making. Medical Records Medical records reviewed: Yes I reviewed the patient's medical records. Imaging Data Radiologic Study: Attestation: I personally reviewed and interpreted this imaging study as follows: Imaging: X-Ray Radiologist's impression: Exam: XR Chest Exam date and time: 01/12/2024 9:31 PM Age: 53 years old Clinical indication: Chest pressure; Patient HX: Chest pain TECHNIQUE: Imaging protocol: Radiologic exam of the chest. Views: 2 views. COMPARISON: CT CHEST LUNG CANCER SCREEN 09/16/2023 1:11 PM FINDINGS: Lungs: Lungs are adequately inflated and symmetric. No focal consolidation or evidence of pulmonary edema. Pleural spaces: No pleural effusion. No pneumothorax. Heart/Mediastinum: Cardiomediastinal contours within normal limits. Bones/joints: No acute osseous finding. IMPRESSION: No acute findings. Dictated and Authenticated by: Carloz Levin MD. Lab Data Lab results reviewed: Yes I reviewed the patient's lab results. Labs: Laboratory Tests Range/Units 01/12/24 01/12/24 20:45 21:45 WBC (4.4-10.8) 10^3/uL 9.39 RBC (4.36-5.78) 10^6/uL 4.56 Hgb (13.5-17.5) g/dL 14.6 Hct (40.0-50.0) % 41.3 MCV (80-95) fL 91 MCH (27.0-33.0) pg 32.0 MCHC (32.0-36.0) % 35.4 RDW (11.8-14.1) % 12.0 Plt Count (130-400) 10^3/uL 188 MPV (8.0-11.0) fL 9.4 Immature Gran % % 0.5 Neutrophils % % 66.2 Lymphocytes % % 18.4 Monocytes % % 12.4 Eosinophils % % 2.1 Basophils % % 0.4 Nucleated RBC % (0.0-0.3) % 0.0 Absolute Neutrophils (1.2-6.7) 10^3/uL 6.21 Absolute Lymphocytes (1.2-3.4) 10^3/uL 1.73 Absolute Monocytes (0.1-0.8) 10^3/uL 1.16 H Absolute Eosinophils (0.0-0.7) 10^3/uL 0.20 Absolute Basophils (0.0-0.2) 10^3/uL 0.04 PT (9.1-11.1) sec 10.7 INR (0.9-1.1) 1.1 APTT (23.6-32.8) sec 25.1 VBG Lactate (0.6-1.4) mmol/L 1.1 Sodium (136-145) mmol/L 127 L Potassium (3.5-5.1) mmol/L 3.6 Chloride (98-107) mmol/L 91 L Carbon Dioxide (21.0-32.0) mmol/L 25.8 Anion Gap (3-11) mmol/L 10.2 BUN (7-18) mg/dL 21 H Creatinine (0.70-1.30) mg/dL 1.3 Est GFR (CKD-EPI 2020) (mL/min/1.73m2) 64.88 Glucose (74-106) mg/dL 200 H Calcium (8.5-10.1) mg/dL 8.5 Total Bilirubin (0.2-1.0) mg/dL 1.32 H AST (15-37) U/L 23 ALT (16-63) U/L 26 Alkaline Phosphatase (46-116) U/L 74 Troponin I (< or =60) ng/L < 50 < 50 Total Protein (6.4-8.2) g/dL 7.1 Albumin (3.4-5.0) g/dL 3.6 Lipase (16-77) U/L 34 TSH (0.36-3.74) uIU/mL 2.62 Quality:SDOH Health Related Social Needs: Health related social needs details needs help with me dication costs., PFSH All Active Problems (Updated 01/12/24 @ 22:36 by IONA Ibarra) Hyponatremia (Acute) Near syncope (Acute) Tobacco dependence with current use (Chronic) 30 pack yr history Hypomania (Acute) Insomnia (Acute) Long-term current use of immunosuppressive biologic agent (Acute) Vasovagal syncope (Acute) Orthostatic hypotension dysautonomic syndrome (Acute) Hypothyroidism (Chronic) Alcohol abuse (Chronic) 3 beers / night Retinopathy, background, nonproliferative, mild (Acute) 10/05/18 MILD NPDR (R) EYE; [facility]- Bethel's disease (Acute 08/23/13) Pancreatic transplant 2014 Pt. states he had ran out of steroids, and forgot to get it refilled and that is what triggered his adrenal crisis Coronary atherosclerosis of [place] coronary vessel (Acute) Depressive disorder (Acute) Gastroesophageal reflux disease (Acute) hematemesis Obstructive sleep apnea syndrome (Acute) CPAP Peripheral neuralgia (Acute) Medical History (Updated 01/12/24 @ 22:36 by IONA Ibarra) Hx of type 1 diabetes mellitus s/p pancreas transplant Hx of acute myocardial infarction (2002) s/p RCA stent Family history of colon cancer Atherosclerosis of [place] coronary artery Derangement of medial meniscus of left knee (04/10/17) Essential hypertension (03/22/13) Surgical History (Updated 11/18/23 @ 15:14 by Roxie Marie MD) Hx of heart artery stent 2018 last stent placed 2003;RCA x3 S/P vasectomy S/P arthroscopy of left shoulder (~2009) Pancreas transplant status Colonoscopy - MAC 08/2008; NEG 07/07/14; NEG Social History Smoking/Tobacco Use Status: Current every day Tobacco Type: cigarettes Tobacco: How many years used: 30 Counseling given: provider counseling Smoking risk assessment performed?: Yes Alcohol Intake: current Alcohol Intake frequency: 3 or more drinks per day Alcohol type: beer Drug use: Never Substance use type: does not use Details: 2 beers today 01/12/24 Household members: children Housing: house Number of Children: 2 number of grandchildren: 0 Education Level: high school 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 hyponatremia, chronic Addisons, working in outdoor sun all day. Had NE history without CP- initial trop and 1hr rpt negative, 3hr trop pending while he receives slow fluids. Patient aware of dehydration and likely negative cardiac workup and waiting for definitive trop. Last updated by Bentley Cowan PA at 01/12/24 22:37
[2024-01-12] MEDS: Aspirin 81 MG CHEW 243 MG CH (20:53)
[2024-01-12 20:54] LABS: Lactate 1.1 mmol/L (0.6-1.4)
[2024-01-12] MEDS: Normal Saline 500 ML IV (20:55)
[2024-01-12 20:57] LABS: Abs Immature Grans 0.05 10^3/uL (0.0-0.06); Absolute Basophil Count 0.04 10^3/uL (0.0-0.2); Absolute Lymphocyte Count 1.73 10^3/uL (1.2-3.4); Absolute Monocyte Count 1.16 10^3/uL (0.1-0.8); Absolute Neutrophil Count 6.21 10^3/uL (1.2-6.7); Basophils % 0.4 %; Eosinophils % 2.1 %; HCT 41.3 % (40.0-50.0); HGB 14.6 g/dL (13.5-17.5); Immature Grans % 0.5 %; Lymphocytes % 18.4 %; MCHC 35.4 % (32.0-36.0); MCV 91 fL (80-95); MPV 9.4 fL (8.0-11.0); Monocytes % 12.4 %; Neutrophils % 66.2 %; Platelet Count 188 10^3/uL (130-400); RBC 4.56 10^6/uL (4.36-5.78); RDW-SD 39.6 fL; WBC 9.39 10^3/uL (4.4-10.8)
[2024-01-12 21:07] LABS: INR 1.1 (0.9-1.1); PTT Activated 25.1 sec (23.6-32.8); Prothrombin Time 10.7 sec (9.1-11.1)
[2024-01-12 21:21] LABS: ALT 26 U/L (16-63); AST 23 U/L (15-37); Albumin 3.6 g/dL (3.4-5.0); Alkaline Phosphatase 74 U/L (46-116); Anion Gap 10.2 mmol/L (3-11); BUN 21 mg/dL (7-18); Bilirubin, Total 1.32 mg/dL (0.2-1.0); CO2 25.8 mmol/L (21.0-32.0); CREATININE 1.3 mg/dL (0.70-1.30); Calcium 8.5 mg/dL (8.5-10.1); Chloride 91 mmol/L (98-107); Estimated GFR 64.88 (mL/min/1.73m2); Glucose 200 mg/dL (74-106); Lipase 34 U/L (16-77); Potassium 3.6 mmol/L (3.5-5.1); Sodium 127 mmol/L (136-145); TSH (W/Ref FT4) 2.62 uIU/mL (0.36-3.74); Total Protein 7.1 g/dL (6.4-8.2); Troponin I < 50 ng/L (< or =60)
--- NOTE | 2024-01-12 21:33 | DI.RAD_ITS ---
Exam(s) XR CHEST 2V PA LATERAL EXAM: XR CHEST 2V PA LATERAL CLINICAL HISTORY: chest pain TECHNIQUE: 2D digital imaging was performed of the chest. Three images were obtained. PA and later al views were obtained. COMPARISON: CR XR CHEST 2V PA LATERAL from 07/06/2023 FINDINGS: MEDIASTINUM: Normal. HEART: Normal. PULMONARY VASCULATURE: Normal. LUNGS: Clear. PLEURAL SPACE: No pleural effusion or pneumothorax. BONE:Within normal limits for the patient's age. OTHER FINDINGS:Normal. IMPRESSION: No acute pulmonary findings. DATA REPOSITORY: RADIATION DOSE DELIVERED:
--- NOTE | 2024-01-12 22:07 | DI.VRAD_ITS ---
PROCEDURE INFORMATION: Exam: XR Chest Exam date and time: 01/12/2024 9:31 PM Age: 53 years old Clinical indication: Chest pressure; Patient HX: Chest pain TECHNIQUE: Imaging protocol: Radiologic exam of the chest. Views: 2 views. COMPARISON: CT CHEST LUNG CANCER SCREEN 09/16/2023 1:11 PM FINDINGS: Lungs: Lungs are adequately inflated and symmetric. No focal consolidation or evidence of pulmonary edema. Pleural spaces: No pleural effusion. No pneumothorax. Heart/Mediastinum: Cardiomediastinal contours within normal limits. Bones/joints: No acute osseous finding. IMPRESSION: No acute findings. Dictated and Authenticated by: Carloz Levin MD. Ordering:JACKELIN Hagan MD
[2024-01-12 22:08] LABS: Troponin I < 50 ng/L (< or =60)
[2024-01-12] MEDS: Normal Saline 1,000 ML 125 ML IV (22:44)
[2024-01-13] VITALS (14 sets, daily range): BP systolic 119–131; BP diastolic 51–65; PULSE 64–70; RESP 16–23; O2SAT 93–98
[2024-01-13 00:33] LABS: Troponin I < 50 ng/L (< or =60)
--- NOTE | 2024-01-13 01:12 | W.EDPROG ---
Date of service: 01/13/24 Time of Service: 01:12 Medical Decision Making Patient was signed out to me by my colleague Francisco Javier Cowan. Please refer to his HPI, physical exam, assessment and plan. We are awaiting repeat troponin and EKG. Both have returned benign. Patient feels well and is requesting discharge. Symptoms appear inconsistent with STEMI or ACS. Recommend continued medication use at home and close PCP follow-up. Discussed red flags for which to return. I have extensively reviewed the treatment plan and discharge instructions with the patient. I have addressed all patient concerns at this time. The patient was made aware of what symptoms to monitor for that would warrant a return to the emergency department. Discussed the plan with the patient, they demonstrate verbal understanding and agreement with our assessment and plan at this time. The documentation in this chart was dictated using [employer] dictation software. Please excuse any dictation errors. Quality:SDOH Health Related Social Needs: Health related social needs details needs help with medication costs., Sign Out Sign Out Data: Sign Out Comment: Exertional SOB/dizziness/diaphoresis... hyponatremia, chronic Addisons, working in outdoor sun all day. Had ME history without CP- initial trop and 1hr rpt negative, 3hr trop pending while he receives slow fluids. Patient aware of dehydration and likely negative cardiac workup and waiting for definitive trop. Last updated by Bentley Cowan PA at 01/12/24 22:37 Discharge Plan Disposition Patient Disposition: Home Condition: Stable Discharge Details Clinical Impression: Near syncope, Hyponatremia Primary Care Provider: Roxie Marie ED Provider: Bentley Oneal Home Meds and New Rx's Prescriptions: Continued hydrocortisone 5 mg tablet 10 - 15 mg PO DIRECTED thiamine HCl (vitamin B1) 250 mg tablet 250 mg PO DAILY Qty: 90 3RF diltiazem HCl 120 mg capsule,extended release 24 hr 120 mg PO DAILY Qty: 90 3RF magnesium gluconate 30 mg (550 mg) tablet 30 mg PO BID Qty: 60 3RF nitroglycerin 0.4 MG tablet, sublingual 0.4 mg Sublingual PRN Qty: 25 Patient Comments: 07/05/14 Pt states he has not needed to take. PG metoprolol tartrate 25 mg tablet 25 mg PO BID Qty: 180 3RF ergocalciferol (vitamin D2) 1,250 mcg (50,000 unit) capsule 1,250 mcg PO QWEEK Qty: 12 0RF levothyroxine 75 mcg tablet 75 mcg PO DAILY Qty: 90 1RF fludrocortisone 0.1 MG tablet 0.1 mg PO DAILY Qty: 90 Patient Comments: 06-03-17 pt reports taking 0.1 mg daily. hb Rx Instructions: BRAND NAME MEDICALLY NECESSARY aspirin [Aspir-81] 81 MG tablet,delayed release (DR/EC) 81 mg PO DAILY Patient Comments: pt states he has been forgetting to take this. 01/04/15 rl 01/24/15 taking daily. [facility] mycophenolate mofetil [CellCept] 250 MG capsule 750 mg PO BID tacrolimus [Prograf] 1 MG capsule 1 tab PO HS Patient Comments: 05/24/14 takes 1mg HS. DL tacrolimus [Prograf] 1 MG capsule 2 mg PO DAILY AM Patient Comments: 06/03/17-PT STATES CURRENTLY TAKING (2) 2MG QAM AND 1MG HS--HS, RN atorvastatin 40 mg tablet 40 mg PO DAILY Patient Comments: TAKE ONE TABLET BY MOUTH EVERY DAY clopidogrel 75 mg tablet 75 mg PO DAILY Patient Comments: TAKE 1 TABLET BY MOUTH ONCE DAILY lisinopril 30 mg tablet 30 mg PO DAILY Patient Comments: TAKE ONE TABLET BY MOUTH DAILY multivitamin [Multiple Vitamins] Tablet 1 tab PO DAILY Qty: 30 0RF Discharge Instructions Instructions: Near Fainting Additional Instructions: You were seen in the emergency department for your sudden onset shortness of breath with diaphoresis nausea and dizziness around 3 PM today, this was similar to a prior heart attack that you had, your EKG shows no dynamic changes and your troponin is negative at 5 and 6 hours since onset, you have hyponatremia or low sodium seen on your metabolic panel as well as other signs of a mild dehydration which is likely the cause of your exertional dizziness while 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 Please follow-up with your primary care provider and your time signal wirer for possibility of updated cardiac studies, please return to the emergency department at once for any further episodes of dizziness, shortness of breath, sweating, or chest pain. Referrals: Roxie Marie MD [Primary Care Provider] -
== END 2024-01-13 01:18 | disposition home or self-care (01) ==
PROVIDERS: Physician Assistant; Emergency Provider Student in an Organized Health Care Education/Training Program; PCP Family Medicine
DX: R55 Syncope and collapse (principal); E87.1 Hypo-osmolality and hyponatremia; I25.10 Atherosclerotic heart disease of native coronary artery without angina pectoris; I25.2 Old myocardial infarction; E10.9 Type 1 diabetes mellitus without complications; I10 Essential (primary) hypertension; Z95.5 Presence of coronary angioplasty implant and graft; Z79.02 Long term (current) use of antithrombotics/antiplatelets; Z94.83 Pancreas transplant status; Z79.82 Long term (current) use of aspirin
CPT/HCPCS: 00123; 36415; 80053; 83690; 93005; 96360; 96361; 99285; 71046; 83605; 84443; 84484; 85025; 85610; 85730; 93010; 99284

== ENCOUNTER 2024-01-22 09:32 | Outpatient (CLI) | payer MEDICARE, SELFPAY ==
[2024-01-22 09:44] LABS: Anion Gap 7.1 mmol/L (3-11); BUN 11 mg/dL (7-18); CO2 29.9 mmol/L (21.0-32.0); Calcium 8.7 mg/dL (8.5-10.1); Chloride 94 mmol/L (98-107); Estimated GFR 88.88 (mL/min/1.73m2); Glucose 110 mg/dL (74-106); Potassium 4.5 mmol/L (3.5-5.1); Sodium 131 mmol/L (136-145)
== END 2024-01-22 09:33 | disposition home or self-care (01) ==
LOC: LBO 09:33
PROVIDERS: PCP Family Medicine; Visit Provider Family Medicine
DX: I10 Essential (primary) hypertension (principal); E87.1 Hypo-osmolality and hyponatremia
CPT/HCPCS: 36415; 80048

== ENCOUNTER 2024-06-14 13:59 | Outpatient (CLI) | payer MEDICARE, SELFPAY ==
[2024-06-14 11:31] LABS: HCT 43.6 % (40.0-50.0); HGB 14.8 g/dL (13.5-17.5); MCH 31.6 pg (27.0-33.0); MCHC 33.9 % (32.0-36.0); MCV 93 fL (80-95); MPV 10.1 fL (8.0-11.0); Platelet Count 192 10^3/uL (130-400); RBC 4.68 10^6/uL (4.36-5.78); RDW 12.3 % (11.8-14.1); RDW-SD 42.1 fL; Reticulocyte 1.6 % (0.5-2.4); WBC 6.32 10^3/uL (4.4-10.8)
[2024-06-14 11:34] LABS: Bilirubin Negative (Negative); Blood Negative (Negative); Clarity Clear (Clear); Glucose Negative (Negative); Ketones Negative (Negative); Leukocyte Esterase Negative (Negative); Nitrite Negative (Negative); Urobilinogen 0.2 mg/dL (Up to 0.2); pH 6.5 (5-8)
[2024-06-14 11:43] LABS: Hemoglobin A1C 5.4 % (<5.7)
[2024-06-14 11:49] LABS: Bacteria Negative HPF (Negative); C & S Indicated? No; Casts Negative LPF (Negative); Crystals Negative HPF (Negative); Epithelial Cells Negative HPF (Negative); Mucus Negative (Negative); Other Cells Negative (Negative); RBC 0-2 HPF (0-2); WBC 0-2 HPF (0-5)
[2024-06-14 11:53] LABS: ALT 36 U/L (16-63); AST 30 U/L (15-37); Albumin 3.6 g/dL (3.4-5.0); Alkaline Phosphatase 81 U/L (46-116); Amylase 62 U/L (25-115); BUN 16 mg/dL (7-18); Bilirubin, Total 0.78 mg/dL (0.2-1.0); CREATININE 1.1 mg/dL (0.70-1.30); Chloride 104 mmol/L (98-107); Estimated GFR 78.79 (mL/min/1.73m2); Glucose 97 mg/dL (74-106); Lipase 55 U/L (<78); Magnesium 1.6 mg/dL (1.8-2.4); PHOSPHORUS 3.7 mg/dL (2.6-4.7); Potassium 4.5 mmol/L (3.5-5.1); Sodium 138 mmol/L (136-145); Total Protein 7.6 g/dL (6.4-8.2)
[2024-06-14 11:54] LABS: COMMENT (LAB VIEW ONLY) 51.45 mg/dL; Creatinine,Urine 50.63 mg/dL; PROTEIN 30.3 mg/dL; Prot/Crea Ur Ratio 0.58
[2024-06-14 12:05] LABS: Calcium 8.9 mg/dL (8.5-10.1); Calculated LDL 86 mg/dL (<100); Cholesterol 181 mg/dL (<200); HDL Cholesterol 88 mg/dL (40-60); Triglyceride 35 mg/dL (<150)
[2024-06-14 12:15] LABS: Vitamin D 25 Total 33.2 ng/mL (30-100)
[2024-06-15 07:26] LABS: Parathyroid Hormone,Intact 47.1 pg/mL (19.0-88.0)
[2024-06-15 08:21] LABS: PSA, Screening 0.5 ng/mL (<=3.5)
[2024-06-15 08:44] LABS: Hepatitis C Ab w Rflx HCV PCR Negative (Negative)
[2024-06-15 08:57] LABS: HIV-1/2 Ag & Ab Screen Negative (Negative)
[2024-06-15 09:21] LABS: Calcium (Random Urine) 5.3 mg/dL (See Note); Magnesium Random Urine 4.8 mg/dL (See Note); Phosphorus Urine 45.5 mg/dL (See Note)
[2024-06-15 12:04] LABS: Tacrolimus 9.3 ng/mL (See Note)
[2024-06-16 21:00] LABS: BKV DNA Detect/Quant, P Undetected IU/mL (Undetected)
[2024-06-23 09:11] LABS: Misc Referral (MAYO) See Comments
== END 2024-06-14 14:00 | disposition home or self-care (01) ==
LOC: LBO 14:00
PROVIDERS: Nurse Practitioner Family; PCP Family Medicine; Visit Provider Family Medicine
DX: Z12.5 Encounter for screening for malignant neoplasm of prostate (principal); Z11.59 Encounter for screening for other viral diseases; Z94.0 Kidney transplant status; Z79.899 Other long term (current) drug therapy; Z94.83 Pancreas transplant status
CPT/HCPCS: 36415; 80053; 80061; 82306; 83690; 83735; 84153; 85027; 86803; 87389; 80197; 81003; 81015; 82150; 82340; 82565; 82652; 83036; 83970; 84100; 84105; 84156; 84550; 84681; 85045; 87799

== ENCOUNTER 2024-12-27 01:31 | Outpatient (CLI) | payer MEDICARE, SELFPAY ==
--- NOTE | 2024-12-27 15:22 | DI.CTLCSR_ITS ---
Exam(s) CT CHEST LUNG CANCER SCREEN EXAM: CT CHEST LUNG CANCER SCREEN CLINICAL HISTORY: Screening for lung cancer, F17.210 TECHNIQUE: Imaging Protocol: Axial computed tomography images with coronal and sagittal reformatted images were created and reviewed. Low dose screening protocol. COMPARISON: CT CT CHEST LUNG CANCER SCREEN from 09/16/2023 FINDINGS: Tracheobronchial tree: No bronchiectasis or mucus plugging. Mediastinum and Jaon: No dominant adenopathy or fluid collection. Pulmonary parenchyma: No consolidation or dominant measurable mass. Minimal emphysematous changes. No significant interstitial changes. Lung Nodules: None. Pleura: No effusion. No pneumothorax. Heart: The heart is not dilated. Marked coronary artery calcifications are seen. No pericardial effusion. Aorta: Thoracic aorta non-dilated. Upper abdomen: Unremarkable. Bones: Unremarkable for age. Soft Tissues: Unremarkable. IMPRESSION: No suspicious pulmonary nodules. Lung RADS Cat 1 - Negative: No nodules and definitely benign nodules Lung-RADS 1.0 CATEGORIES: Category 0 - Prior chest CT exam(s) being located for comparison. Category 1 - Annual screening in 12 months. No nodules or definitely benign nodules. Category 2 - Annual screening in 12 months. Benign appearance. Nodules with low likelihood of becoming active cancer. Category 3 - 6-month follow-up. Probably benign. Short-term follow-up suggested. Nodules with low likelihood of becoming active cancer. Category 4A - 3-month follow-up and CT/PET if >8 mm in size. Suspicious finding. Findings which require additional testing. Category 4B - Findings which require additional testing and tissue sampling. Category 4X - Category 3 or 4 nodules with additional features or imaging findings that increases the suspicion of malignancy. Modifier S- Potentially clinically significant findings (non lung cancer) RADIATION DOSE DELIVERED: !Error Total DLP DATA REPOSITORY: All CT scans at this facility are submitted to the National Radiology Data Registry (NRDR) Dose Index Registry (DIR) with the [employer] ([employer]). RADIATION OPTIMIZATION: All CT scans at this facility use at least one of these dose optimization techniques: automated exposure control; mA and/or kV adjustment per patient size (includes targeted exams where dose is matched to clinical indication); or iterative reconstruction.
== END 2024-12-27 01:51 ==
PROVIDERS: PCP Family Medicine; Visit Provider Family Medicine
DX: Z12.2 Encounter for screening for malignant neoplasm of respiratory organs (principal); F17.210 Nicotine dependence, cigarettes, uncomplicated
CPT/HCPCS: 71271

== ENCOUNTER 2024-12-27 02:58 | Outpatient (CLI) | payer MEDICARE, SELFPAY ==
[2024-12-27 16:17] LABS: Abs Immature Grans 0.04 10^3/uL (0.0-0.06); HCT 45.7 % (40.0-50.0); HGB 15.5 g/dL (13.5-17.5); Immature Grans % 0.4 %; MCH 30.9 pg (27.0-33.0); MCHC 33.9 % (32.0-36.0); MCV 91 fL (80-95); MPV 9.7 fL (8.0-11.0); Platelet Count 197 10^3/uL (130-400); RBC 5.02 10^6/uL (4.36-5.78); RDW 12.6 % (11.8-14.1); RDW-SD 41.5 fL; WBC 9.08 10^3/uL (4.4-10.8)
[2024-12-27 17:23] LABS: ALT 87 U/L (16-63); AST 94 U/L (15-37); Albumin 3.9 g/dL (3.4-5.0); Alkaline Phosphatase 87 U/L (46-116); Anion Gap 7.8 mmol/L (3-11); BUN 16 mg/dL (7-18); Bilirubin, Total 1.0 mg/dL (0.2-1.0); CO2 28.2 mmol/L (21.0-32.0); Calcium 9.1 mg/dL (8.5-10.1); Chloride 98 mmol/L (98-107); Estimated GFR 78.79 (mL/min/1.73m2); Glucose 172 mg/dL (74-106); Potassium 4.4 mmol/L (3.5-5.1); Sodium 134 mmol/L (136-145); TSH (W/Ref FT4) 3.28 uIU/mL (0.36-3.74); Total Protein 8.0 g/dL (6.4-8.2)
== END 2024-12-27 02:59 | disposition home or self-care (01) ==
LOC: LBO 02:58
PROVIDERS: PCP Family Medicine; Visit Provider Family Medicine
DX: E03.9 Hypothyroidism, unspecified (principal); Z00.00 Encounter for general adult medical examination without abnormal findings; Z79.620 Long term (current) use of immunosuppressive biologic
CPT/HCPCS: 36415; 71271; 80053; 84443; 85025

== ENCOUNTER 2025-03-02 04:15 | Outpatient (CLI) | payer MEDICARE, SELFPAY ==
[2025-03-02 08:26] LABS: HCT 45.3 % (40.0-50.0); HGB 15.0 g/dL (13.5-17.5); MCH 31.5 pg (27.0-33.0); MCHC 33.1 % (32.0-36.0); MCV 95 fL (80-95); MPV 9.8 fL (8.0-11.0); Platelet Count 182 10^3/uL (130-400); RBC 4.76 10^6/uL (4.36-5.78); RDW 12.7 % (11.8-14.1); RDW-SD 44.7 fL; WBC 6.78 10^3/uL (4.4-10.8)
[2025-03-02 09:02] LABS: ALT 46 U/L (16-63); AST 45 U/L (15-37); Albumin 3.8 g/dL (3.4-5.0); Alkaline Phosphatase 70 U/L (46-116); Anion Gap 6.6 mmol/L (3-11); BUN 18 mg/dL (7-18); Bilirubin, Total 0.7 mg/dL (0.2-1.0); CO2 29.4 mmol/L (21.0-32.0); Calcium 9.4 mg/dL (8.5-10.1); Chloride 106 mmol/L (98-107); Estimated GFR 88.33 (mL/min/1.73m2); Glucose 89 mg/dL (74-106); Potassium 4.4 mmol/L (3.5-5.1); Sodium 142 mmol/L (136-145); Total Protein 7.6 g/dL (6.4-8.2)
[2025-03-02 09:03] LABS: Amylase 63 U/L (25-115); Lipase 52 U/L (<78); Magnesium 1.6 mg/dL (1.8-2.4); Uric Acid 6.1 mg/dL (3.5-7.2)
[2025-03-02 09:07] LABS: Hemoglobin A1C 5.4 % (<5.7)
[2025-03-02 09:12] LABS: TSH 4.28 uIU/mL (0.36-3.74)
[2025-03-02 09:14] LABS: Glucose Negative (Negative)
[2025-03-02 09:16] LABS: Calculated LDL 73 mg/dL (<100); Cholesterol 158 mg/dL (<200); HDL Cholesterol 76 mg/dL (>or=40); Triglyceride 49 mg/dL (<150)
[2025-03-02 09:42] LABS: Sodium, Urine 89 mmol/L
[2025-03-02 09:45] LABS: PROTEIN 26.5 mg/dL; Prot/Crea Ur Ratio 0.34
[2025-03-02 10:06] LABS: RBC 0-2 HPF (0-2); WBC Negative HPF (0-5)
[2025-03-02 10:07] LABS: C & S Indicated? No
[2025-03-02 10:13] LABS: Vitamin D 25 Total 48 ng/mL (30-100)
[2025-03-02 22:18] LABS: Osmolality, Urine 479 mOsm/kg (150-1150)
[2025-03-03 12:55] LABS: Calcium (Random Urine) 11.0 mg/dL (See Note)
[2025-03-03 15:22] LABS: PSA (Ultrasensitive) 0.86 ng/mL; PSA, Free 0.3 ng/mL
[2025-03-08 13:20] LABS: 1,25-Dihydroxyvitamin D 28 pg/mL (18-64)
== END 2025-03-02 04:16 | disposition home or self-care (01) ==
LOC: LBO 04:15
PROVIDERS: Nurse Practitioner Family; PCP Family Medicine; Visit Provider Student in an Organized Health Care Education/Training Program
DX: Z48.298 Encounter for aftercare following other organ transplant (principal); E55.9 Vitamin D deficiency, unspecified; E27.1 Primary adrenocortical insufficiency; Z86.39 Personal history of other endocrine, nutritional and metabolic disease
CPT/HCPCS: 36415; 80053; 80061; 82306; 82784; 83690; 83735; 83935; 85027; 80197; 81003; 81015; 82150; 82340; 82565; 82652; 83036; 83930; 83970; 84100; 84105; 84156; 84300; 84439; 84443; 84550; 84681; 85045; 87799